=== PATIENT | female | born 1970 | race Caucasian/White ===

== ENCOUNTER 2020-05-15 07:43 | Outpatient (REF) | payer OTHER, SELFPAY ==
--- NOTE | 2020-05-15 | MM_ITS ---
EXAMINATION: MM SCREENING DIGITAL BREAST TOMOSYNTHESIS, BILATERAL CLINICAL INFORMATION: Screening. Asymptomatic. Prior history reduction mammoplasty. Family history breast cancer, aunt. The lifetime risk of breast cancer based on the Tyrer-Cuzick Model is 5%. COMPARISON: Mammography: 07/04/2018, 05/26/2016, 05/24/2015, 05/19/2015 TECHNIQUE: Digital breast tomosynthesis is performed in both the craniocaudal and mediolateral oblique views along with computer-aided detection (CAD). Synthesized 2D images are generated from the tomosynthesis. FINDINGS: There are scattered areas of fibroglandular density (ACR BI-RADS breast composition Category b). There is minor bilateral scarring and fine punctate round and dermal calcifications consistent with the prior reduction mammoplasty. Neither breast shows interval mass or architectural abnormality or abnormal calcifications. No significant changes. The axilla are unremarkable. MM/MM tomosynthesis screening BI IMPRESSION: No significant changes from prior studies. ASSESSMENT: BI-RADS 2: Benign RECOMMENDATION: Routine annual mammography screening. This patient's information was entered into a reminder system with a target due date for their next mammogram.
== END 2020-05-15 07:44 | disposition home or self-care (01) ==
LOC: HO.MAMMO 07:43
PROVIDERS: Visit Provider Internal Medicine Medical Oncology
DX: Z12.31 Encounter for screening mammogram for malignant neoplasm of breast (principal)
CPT/HCPCS: 77063; 77067

== ENCOUNTER 2020-05-26 06:41 | Outpatient (REF) | payer OTHER, SELFPAY | END 2020-05-26 06:42 | disposition home or self-care (01) | LOC: HO.LAB 06:41 | PROVIDERS: Visit Provider Internal Medicine | DX: Z20.828 Contact with and (suspected) exposure to other viral communicable diseases (principal) | CPT/HCPCS: C9803; U0003 ==

== ENCOUNTER 2020-06-26 07:20 | Outpatient (REF) | payer OTHER, SELFPAY | END 2020-06-26 07:21 | disposition home or self-care (01) | LOC: HO.LAB 07:20 | PROVIDERS: PCP Internal Medicine Medical Oncology; Visit Provider Internal Medicine | DX: Z20.828 Contact with and (suspected) exposure to other viral communicable diseases (principal) | CPT/HCPCS: C9803; U0003 ==

== ENCOUNTER 2020-07-20 09:38 | Outpatient (REF) | payer OTHER, SELFPAY | END 2020-07-20 09:39 | disposition home or self-care (01) | LOC: HO.LAB 09:38 | PROVIDERS: Visit Provider Internal Medicine | DX: Z20.828 Contact with and (suspected) exposure to other viral communicable diseases (principal) | CPT/HCPCS: 36415; C9803; U0003 ==

== ENCOUNTER → 2020-12-10 11:15 | Outpatient (BNVA) | payer SELFPAY | PROVIDERS: PCP Internal Medicine Medical Oncology; Visit Provider Internal Medicine | DX: Z02.79 Encounter for issue of other medical certificate (principal) ==

== ENCOUNTER 2020-12-27 10:47 | Outpatient (REF) | payer OTHER, SELFPAY ==
--- NOTE | ~2020-12-27 | XR_ITS ---
EXAMINATION: XR FOOT, RIGHT CLINICAL INFORMATION: Right foot pain. COMPARISON: None TECHNIQUE: AP, lateral, and oblique views of the right foot. FINDINGS: There is no acute or healing fracture, dislocation, destructive process. Bony mineralization is normal. There is no focal joint narrowing or erosive change. There are small posterior and plantar calcaneal spurs. The retrocalcaneal recess is preserved. XR/XR foot RT min 3V IMPRESSION: 1. Small posterior and plantar calcaneal spurs. 2. No fracture, destructive process, or arthropathy.
== END 2020-12-27 10:48 | disposition home or self-care (01) ==
LOC: HO.XRAY 10:47
PROVIDERS: PCP Internal Medicine Medical Oncology; Visit Provider Internal Medicine Medical Oncology
DX: M79.671 Pain in right foot (principal)
CPT/HCPCS: 73630

== ENCOUNTER 2021-04-06 07:16 | Outpatient (REF) | payer OTHER, SELFPAY ==
[2021-04-06 08:40] LABS: MANUAL DIFF FLAG NO
[2021-04-06 08:47] LABS: Basophils Absolute Auto 0.1 X10*3/uL (0.0-0.2); Basophils Percent Auto 1.1 % (0-2); Eosinophils Absolute Auto 0.2 X10*3/uL (0.0-0.4); Hematocrit 45.3 % (37-47); Hemoglobin 14.5 g/dl (12.0-16.0); Imm Gran Abs Auto 0.02 X10*3/uL (0.00-0.03); Imm Gran Pct Auto 0.3 % (0.0-0.4); Lymphocytes Absolute Auto 1.6 X10*3/uL (1.2-4.9); Lymphocytes Percent Auto 22.3 % (20-40); Mean Corpuscular Hemoglobin 29.5 pg (27.0-33.0); Mean Corpuscular Volume 92.3 fL (80-98); Mean Platelet Volume 10.2 fL (9.4-12.3); Monocytes Absolute Auto 0.5 X10*3/uL (0.1-1.2); Monocytes Percent Auto 6.7 % (2-11); Neutrophils Absolute Auto 4.7 X10*3/uL (2.0-8.3); Neutrophils Percent Auto 66.6 % (45-73); Platelet Count 334 X10*3/uL (160-400); Red Blood Count 4.91 X10*6/uL (4.20-5.50); Red Cell Distribution Width 12.6 % (11.0-16.0)
[2021-04-06 09:40] LABS: Alanine Aminotransferase 14 U/L (0-31); Albumin Level 4.2 g/dL (3.5-5.0); Alkaline Phosphatase 74 U/L (39-117); Anion Gap 11 (12-20); Aspartate Amino Transferase 17 U/L (5-31); Bilirubin Total 0.3 mg/dL (0.0-1.0); Blood Urea Nitrogen 7 mg/dL (9-16); Calcium 9.5 mg/dL (8.4-10.2); Carbon Dioxide 27 mmol/L (22-29); Chloride 105 mmol/L (96-108); Cholesterol 183 mg/dL; Estimated Glomerular Filt Rate > 60; Glucose Fasting 93 mg/dL (60-99); HDL Cholesterol 53 mg/dL; LDL Cholesterol Calculated 89 mg/dl; Potassium 4.3 mmol/L (3.3-5.1); Sodium 139 mmol/L (135-145); Total Protein 6.7 g/dL (6.5-8.0); Triglycerides 207 mg/dL
== END 2021-04-06 07:17 | disposition home or self-care (01) ==
LOC: HO.LAB 07:16
PROVIDERS: PCP Internal Medicine Medical Oncology; Visit Provider Internal Medicine Medical Oncology
DX: F32.9 Major depressive disorder, single episode, unspecified (principal); E66.9 Obesity, unspecified; E78.5 Hyperlipidemia, unspecified
CPT/HCPCS: 36415; 80053; 80061; 85025

== ENCOUNTER 2021-04-15 06:18 | Day surgery (SDC) | payer OTHER, SELFPAY ==
[2021-04-15 06:43] VITALS: BP 122/70; PULSE 74; RESP 20; TEMP 36.4; O2SAT 97; BMI 28.1
--- NOTE | 2021-04-15 07:40 | MHC.SHP ---
Pre-Procedural Eval Section A Date of Service: 04/15/21 The patient is an INPATIENT: No Changes since office visit: No Cold of Flu in the past 2 weeks, No New Medical Problems, No Changes in Medication and No Patient answered all questions The History & Physical has been completed within 30 days and I have reviewed it.: Yes Section B Chief Complaint: change of bowel habits Allergies: Allergies Allergy/AdvReac Type Severity Reaction Status Date / Time prednisone [PREDNISONE] Allergy Severe HIVES Verified 04/15/21 06:47 Plan I have reviewed the history and physical and performed a pertinent physical examination on my patient. No changes have occurred unless specified.
[2021-04-15 08:12] VITALS: BP 129/62; PULSE 69; RESP 16; TEMP 36.1; O2SAT 98
--- NOTE | 2021-04-15 08:15 | HO.ANESPROP2 ---
FORMERLY [facility], [facility] Past Medical History Medical History Anemia Anxiety PONV (postoperative nausea and vomiting) Family History Family history of problems with anesthesia: No Surgical History Surgical History History of bilateral breast reduction surgery History of cervical polypectomy History of endometrial ablation History of partial hysterectomy History of tonsillectomy History of Problems with Anesthesia: No Social History Social History Patient Tobacco Use Status: Never used Tobacco Use of substances other than those prescribed or required for medical reasons: Yes Are you DNR?: No Advance Directives: No Advance Directives Information Provided: Yes Meds Allergies Allergy/AdvReac Type Severity Reaction Status Date / Time prednisone [PREDNISONE] Allergy Severe HIVES Verified 04/15/21 06:47 Home Medications Medication Instructions Recorded Confirmed Last Taken Type No Known Home Meds 04/12/21 04/12/21 Unknown History Exam Exam Date and Time: April 15, 2021 0815 Height,Weight and Vital Signs: Height 5 ft 3 in Weight 72.121 kg Last Vital Signs Temp 97.5 F 04/15/21 06:43 Pulse 74 04/15/21 06:43 Resp 20 04/15/21 06:43 BP 122/70 04/15/21 06:43 Pulse Ox 97 04/15/21 06:43 Airway Mallampati Class: II TM Dist: >3cm Neck ROM: Full Assessment and Plan Assessment Anesthesia Assessment: Anesthesia Plan Discussed and Chart Reviewed Final Anesthetic Review Family History of Problems with Anesthesia: No History of Problems with Anesthesia: No NPO: Yes ASA Class: II Final Preanesthetic Review: No Changes in Pt Med Stat, Meds/Allgs Chart Reviewed, Consent Obtained/Reviewed and Anes Risks/Benef Reviewed Patient Risk: Low Procedure Risk: Low Assessment/Block/Sedation in SS: Assess/Block/Sedation-SS Anesthetic Plan Anesthetic Plan: MAC: Disposition: Standard PACU
--- NOTE | 2021-04-15 08:19 | P.BOP_ITS ---
Brief Operative Note Date of Service: 04/15/21 Pre-op diagnosis: diarrhea, change in bowels Post-op diagnosis: same (colon polyps) Procedure: colonoscopy Surgeon: Ruslan Wade Anesthesia: MAC Was an Lead Systems Analyst used for this Procedure?: No Estimated blood loss (mL): 5 Pathology: other (cecal polyp, bxs ti, r colon, rectosigmoid, polyp 15 cm) Condition: stable Disposition: PACU
[2021-04-15 08:27] VITALS: BP 130/61; PULSE 72; RESP 16; TEMP 36.1; O2SAT 97
--- NOTE | 2021-04-15 08:45 | OP_ITS ---
SURGEON: Ruslan Wade MD INDICATIONS: Diarrhea and change in bowel habits. PREOPERATIVE DIAGNOSIS: POSTOPERATIVE DIAGNOSIS: PROCEDURE PERFORMED: Colonoscopy to the terminal ileum with biopsy and snare polypectomy. ESTIMATED BLOOD LOSS: COMPLICATIONS: ANESTHESIA: Monitored anesthesia care. ASSISTANTS: SPECIMENS: DESCRIPTION OF PROCEDURE: History and physical performed. The risks and benefits of the procedure were explained to the patient. An informed consent was obtained. The patient was placed in the left lateral decubitus position. A digital rectal exam was performed and was found to be normal. The Olympus pediatric video colonoscope was introduced into the rectum and advanced to the cecum without difficulty. The cecum was identified by transillumination, palpation, and identification of the ileocecal valve. Examination was performed. The scope was removed. She tolerated the procedure well and was taken to recovery area in stable condition. FINDINGS: The terminal ileum was examined and appeared normal. This was biopsied in the cecum at the appendiceal orifice was a 7 mm polypoid area which appeared to extend partially into the appendiceal orifice. A cold snare was used to remove tissue, and a biopsy forceps was used to remove several more pieces of tissue, although it appeared there may be some residual polypoid tissue extending down into the appendiceal orifice. The visualized colonic mucosa was within normal limits without evidence of masses or ulcers. Biopsies were obtained from the right colon and rectosigmoid because of the patient's history of diarrhea. There was no evidence of colitis. The quality of prep was excellent. There was a small polyp at 15 cm, which was removed with biopsy forceps and retroflexed examination showed small internal hemorrhoids. IMPRESSION: 1. Colon polyps. 2. Change in bowel habits. RECOMMENDATION: Follow up the biopsy results. MD LEONIE Trevizo/KENNETH / [id number]
== END 2021-04-15 08:49 | disposition home or self-care (01) ==
PROVIDERS: PCP Internal Medicine Medical Oncology; Visit Provider Internal Medicine Gastroenterology
PROC: 0DJD8ZZ Inspection of Lower Intestinal Tract, Via Natural or Artificial Opening Endoscopic (ICD-10-PCS; CPT 45378; principal; 2021-04-15 07:50)
DX: R19.4 Change in bowel habit (principal); R19.7 Diarrhea, unspecified; D12.0 Benign neoplasm of cecum; K63.5 Polyp of colon; K64.8 Other hemorrhoids; D64.9 Anemia, unspecified; F41.1 Generalized anxiety disorder
CPT/HCPCS: 45385; 45380; 88305

== ENCOUNTER 2021-05-22 22:16 | Emergency (ER) | payer OTHER, SELFPAY ==
--- NOTE | ~2021-05-22 | XR_ITS ---
EXAMINATION: XR KNEE, LEFT CLINICAL INFORMATION: Pain COMPARISON: None TECHNIQUE: Four views of the left knee. FINDINGS: Small knee joint effusion. Bones are normal anatomic alignment. I do not appreciate any acute fracture or dislocation. No bony destructive lesion or periosteal reaction. XR/XR knee LT 4V IMPRESSION: Small joint effusion but no acute bony abnormality.
[2021-05-22 22:20] VITALS: BP 120/54; PULSE 104; RESP 20; TEMP 36.6; O2SAT 97; BMI 29.0
[2021-05-23] MEDS: Ketorolac Tromethamine 15 MG/ML VIAL 30 MG IM (00:01)
--- NOTE | 2021-05-23 00:04 | ED.LOWEXIN ---
HPI - Extremity Injury (Lower) General Chief Complaint: Extremity Injury, Lower Stated Complaint: Leg Injury Time Seen by Provider: 05/22/21 23:11 Source: patient Mode of arrival: ambulatory Limitations: no limitations History of Present Illness HPI Narrative: 50 yold with no signiciant pmh presents to the ED for left knee pain while playing soccer. patient states while playing soccer she heard her left knee pop which caused her to fall awkwardly unto her left knee. patient denies hitting head or loss of consciousness. patient denies chest pain, shortness of breath, abdominal pain, back pain, nausea, emesis, rectal bleeding, vomitting blood, or coughing up blood. Related Data Previous Rx's Medication Instructions Recorded cyclobenzaprine 10 mg tablet 10 mg PO TID PRN #18 tab 05/23/21 naproxen 500 mg tablet 500 mg PO BID PRN #20 tab 05/23/21 Allergies Allergy/AdvReac Type Severity Reaction Status Date / Time prednisone [PREDNISONE] Allergy Severe HIVES Verified 04/15/21 06:47 Review of Systems Review of Systems: Yes all other systems are reviewed and are negative Constitutional: Constitutional: Reports as per HPI and Reports no additional constitutional complaints Eyes: Eyes: Reports as per HPI and Reports no additional eye complaints ENT: Reports system reviewed and no additional complaints, except as documented and Reports as per HPI Cardiovascular: Cardiovascular: Reports as per HPI and Reports no additional cardiovascular complaints Respiratory: Respiratory: Reports as per HPI and Reports no additional respiratory complaints Gastrointestinal: Gastrointestinal: Reports as per HPI and Reports no additional gastrointestinal complaints Genitourinary: Genitourinary: Reports no additional female genitourinary complaints and Reports as per HPI Musculoskeletal: Musculoskeletal: Reports no additional musculoskeletal complaints, Reports as per HPI and Reports arthralgias (left knee pain) Integumentary/Breasts: Skin/Breast: Reports system reviewed and no additional complaints, except as docu and Reports as per HPI Neurologic: Reports system reviewed and no additional complaints, except as documented and Reports as per HPI Psychiatric: Psychiatric: Reports no additional psychiatric complaints and Reports as per HPI Endocrine: Endocrine: Reports no additional endocrine complaints and Reports as per HPI [facility] Past Medical History Medical History Anemia Anxiety PONV (postoperative nausea and vomiting) Surgical History History of bilateral breast reduction surgery History of cervical polypectomy History of endometrial ablation History of partial hysterectomy History of tonsillectomy Social History Social History Patient Tobacco Use Status: Never used Tobacco Advance Directives: No Advance Directives Information Provided: Yes Physical Exam Vital Signs: Vital Signs: Last Vital Signs Temp 97.9 F 05/22/21 22:20 Pulse 104 H 05/22/21 22:20 Resp 20 05/22/21 22:20 BP 120/54 L 05/22/21 22:20 Pulse Ox 97 05/22/21 22:20 Body Mass Index 29.0 Const: General: cooperative, healthy appearing, comfortable, no acute distress, well developed, alert, awake and Physically active Orientation/consciousness: patient oriented x3 HENMT: Head: Yes normal to inspection, Yes No palpable skull fracture present, Yes normocephalic, Yes atraumatic, No abrasion, No Acrocyanosis present, No Escamilla's sign, No contusion, No cranial bruits, No hematoma, No laceration, No occipital foramen tenderness, No palpable skull fracture, No raccoon eyes, No scalp lesion, No scalp tenderness, No Temporal artery tenderness present and No periorbital ecchymosis Eyes: General: appearance normal, both eyes and all related structures Neck: Neck: Yes normal visual inspection, Yes full ROM, Yes no lymphadenopathy, Yes no meningeal signs, Yes trachea midline, Yes supple, No anterior neck swelling and No tender Chest: Chest palpation & inspection: normal inspection of the chest and normal palpation of entire chest wall Resp: Effort & Inspection: normal respiratory effort and able to speak in complete sentences Auscultation: clear to auscultation bilaterally Cardio: Jugular venous distension: no JVD Heart sounds: S1 normal heart sound present and S2 normal heart sound present GI: Inspection: Yes normal to inspection and No abdominal wall ecchymosis Palpation (GI): Soft to palpation, not firm, nontender, no guarding and not rigid : General: No CVA tenderness and Yes no CVA tenderness Back/Spine/Pelvis: Back: no CVA tenderness, No CVA tenderness and No back tenderness Skin: General skin exam: no rashes or lesions noted and elasticity normal Neuro: General: patient oriented x3, gait normal, no meningeal signs and CN's II-XI intact bilaterally Cranial nerves: Yes CN's II-XII intact bilaterally Extrem: General: Yes normal to inspection Knee images: 1. Positive for tenderness on palpation. Negative for any erythema, ecchymosis, deformity, elasticity, warmth, or stiffness. Patient has complete range of motion in knee but with pain. Motor/neuro/vascular exam is intact. Popiteal and pedal pulses intact. Psych: Appearance: grossly normal, well kempt and not disheveled Course Course Course Narrative: Sent for xray Reevaluation(s) Reevaluation #1: Xray shows joint effussion after trauma. This indicates most likley meninscus or ligament injury. patient informed she would need MRI to rule out a mesnicus/ligament tear. Patient discharged with zaki wrap/crutches. patient discharged with pain meds. patiient informed to follow up with PCP and orthopedics. MDM - Extremity Injury (Lower) MDM Narrative Medical decision making narrative: knee sprain Discharge Plan Discharge Clinical Impression: Knee sprain, Joint effusion of knee Patient Disposition: Home, Self-Care Instructions: Knee Sprain (ED), Swollen Knee Joint (ED) Additional Instructions: Knee x-ray negative for fracture but she does show joint effusion after trauma. Most likely this meniscus or ligament damage. He will need MRI to rule out a tear. You need to follow-up with orthopedic. Your food discharged with pain medication and muscle relaxers. Return to the ED for worsening pain, swelling, redness, calf pain, bluish black discoloration, coldness, hotness, chest pain, shortness of breath, fever, chills, or any other concerning symptoms. Prescriptions: New naproxen 500 mg tablet 500 mg PO BID PRN (Reason: pain) Qty: 20 RF: 0 cyclobenzaprine 10 mg tablet 10 mg PO TID PRN (Reason: pain) Qty: 18 RF: 0 Referrals: Percy Harrison MD [Physician] - 2 days (Left knee sprain with joint effusion. Will need MRI to rule out meniscus/ligament tear.) Stand Alone Forms: Work/School Release Interventions: ED Discharge Assessment Last Done: 05/23/21 01:02 Discharge Date/Time: 05/23/21 01:04 Print Language: Azerbaijani
== END 2021-05-23 01:04 | disposition home or self-care (01) ==
PROVIDERS: Emergency Provider Internal Medicine; PCP Internal Medicine Medical Oncology
DX: S83.92XA Sprain of unspecified site of left knee, initial encounter (principal); X50.1XXA Overexertion from prolonged static or awkward postures, initial encounter; M25.462 Effusion, left knee; Y93.66 Activity, soccer; Y92.322 Soccer field as the place of occurrence of the external cause; Y99.9 Unspecified external cause status
CPT/HCPCS: 73564; 96372; 99284; J1885

== ENCOUNTER 2021-07-22 07:24 | Day surgery (SDC) | payer OTHER, SELFPAY ==
[2021-07-13 15:52] VITALS: BMI 29.2
[2021-07-22 07:43] VITALS: BP 141/80; PULSE 94; RESP 16; TEMP 36.7; O2SAT 97
[2021-07-22] MEDS: Lactated Ringers 1,000 ML 50 ML IVCONT (08:00)
--- NOTE | 2021-07-22 08:07 | MHC.SHP ---
Pre-Procedural Eval Section A Date of Service: 07/22/21 Section B Chief Complaint: polyp of colon Details of Present Illness: see H&P and addendum Relevant Family History (Specify if Yes): No Relevant Social History: None Present Medications: see Short Stay Collaborative assessment Medical History: No relevant PMH Allergies: Allergies Allergy/AdvReac Type Severity Reaction Status Date / Time prednisone [PREDNISONE] Allergy Severe HIVES Verified 04/15/21 06:47 Review of Systems Sugical H&P ROS: Negative: Constitution, Cardiovascular, Respiratory, Neurological, Psychiatric, Hem-Onc, Allergic/Immunologic, Gastrointestinal, Genitourinary, Musculoskeletal, Integumentary, Endocrine and Eyes/Ears/Nose/Throat Exam Surgical H&P Exam: Normal: HEENT, Normal: Heart, Normal: Lungs, Normal: Extremities, Normal: Abdomen, Normal: Skin and Normal: Neurological Plan Diagnosis/Plan: Unchanged I have reviewed the history and physical and performed a pertinent physical examination on my patient. No changes have occurred unless specified.
--- NOTE | 2021-07-22 08:29 | P.CONAN_ITS ---
ON LICENSE OF [facility] Past Medical History Medical History Anemia Anxiety History of blood transfusion PONV (postoperative nausea and vomiting) Functional capacity: independent ambulation Patient : No Family History Family history of problems with anesthesia: No Surgical History Surgical History History of bilateral breast reduction surgery History of cervical polypectomy History of colonoscopy History of endometrial ablation History of partial hysterectomy History of repair of anterior cruciate ligament of left knee History of tonsillectomy History of Problems with Anesthesia: No Social History Social History Patient Tobacco Use Status: Former Tobacco user Quit Date: 2003 Tobacco use type: Cigarette Smoked in Last 30 Days: No Use of substances other than those prescribed or required for medical reasons: Yes Substance Use Frequency: Daily Are you DNR?: No Advance Directives: No Advance Directives Information Provided: No Advance Directives on File: No Recently lost weight without trying: No Nutrition Risks: No Nutritional Risk Patient : No Meds Allergies Allergy/AdvReac Type Severity Reaction Status Date / Time prednisone [PREDNISONE] Allergy Severe HIVES Verified 04/15/21 06:47 Home Medications Medication Instructions Recorded Confirmed Last Taken Type ibuprofen 200 mg tablet 400 mg PO Q6H PRN 07/13/21 07/13/21 Unknown History Exam Exam Date and Time: July 22, 2021 0829 Height,Weight and Vital Signs: Height 5 ft 3 in Weight 74.843 kg Last Vital Signs Temp 98.0 F 07/22/21 07:43 Pulse 94 07/22/21 07:43 Resp 16 07/22/21 07:43 BP 141/80 H 07/22/21 07:43 Pulse Ox 97 07/22/21 07:43 Airway Mallampati Class: II TM Dist: >3cm Loose/Missing/Broken Teeth: No Heart: RRR Lungs: CTA Assessment and Plan Final Anesthetic Review Family History of Problems with Anesthesia: No History of Problems with Anesthesia: No NPO: Yes Final Preanesthetic Review: No Changes in Pt Med Stat, Meds/Allgs Chart Reviewed, Consent Obtained/Reviewed and Anes Risks/Benef Reviewed Procedure Risk: Low Anesthetic Plan Anesthetic Plan: MAC: Disposition: Standard PACU
[2021-07-22 09:10] VITALS: BP 105/56; PULSE 83; RESP 16; TEMP 36.3; O2SAT 96
--- NOTE | 2021-07-22 09:14 | P.CONAN_ITS ---
[facility] Past Medical History Medical History Anemia Anxiety History of blood transfusion PONV (postoperative nausea and vomiting) Functional capacity: independent ambulation Family History Family history of problems with anesthesia: No Surgical History Surgical History History of bilateral breast reduction surgery History of cervical polypectomy History of colonoscopy History of endometrial ablation History of partial hysterectomy History of repair of anterior cruciate ligament of left knee History of tonsillectomy History of Problems with Anesthesia: No Social History Social History Patient Tobacco Use Status: Former Tobacco user Quit Date: 2003 Tobacco use type: Cigarette Smoked in Last 30 Days: No Use of substances other than those prescribed or required for medical reasons: Yes Substance Use Frequency: Daily Are you DNR?: No Advance Directives: No Advance Directives Information Provided: No Advance Directives on File: No Recently lost weight without trying: No Nutrition Risks: No Nutritional Risk Patient : No Meds Allergies Allergy/AdvReac Type Severity Reaction Status Date / Time prednisone [PREDNISONE] Allergy Severe HIVES Verified 04/15/21 06:47 Home Medications Medication Instructions Recorded Confirmed Last Taken Type ibuprofen 200 mg tablet 400 mg PO Q6H PRN 07/13/21 07/13/21 Unknown History Exam Exam Date and Time: July 22, 2021 0914 Height,Weight and Vital Signs: Height 5 ft 3 in Weight 74.843 kg Last Vital Signs Temp 98.0 F 07/22/21 07:43 Pulse 94 07/22/21 07:43 Resp 16 07/22/21 07:43 BP 141/80 H 07/22/21 07:43 Pulse Ox 97 07/22/21 07:43 Assessment and Plan Final Anesthetic Review Family History of Problems with Anesthesia: No History of Problems with Anesthesia: No ASA Class: II Final Preanesthetic Review: No Changes in Pt Med Stat, Meds/Allgs Chart Reviewed, Consent Obtained/Reviewed and Anes Risks/Benef Reviewed Patient Risk: Low Procedure Risk: Low Anesthetic Plan Anesthetic Plan: MAC: Disposition: Standard PACU
--- NOTE | 2021-07-22 09:22 | PM.OP ---
Brief Operative Note Date of Service: 07/22/21 Pre-op diagnosis: colon polyp Post-op diagnosis: same Procedure: colonosocpy Surgeon: Ruslan Wade Anesthesia: MAC Was an Cafe Or Restaurant Manager used for this Procedure?: No Estimated blood loss (mL): 2 Pathology: other (bx's cecum, polyp 15 cm) Condition: stable Disposition: PACU
[2021-07-22 09:25] VITALS: BP 105/81; PULSE 72; RESP 18; TEMP 37; O2SAT 98
--- NOTE | 2021-07-22 09:37 | OP_ITS ---
SURGEON: Ruslan Wade MD INDICATIONS: Colon cancer screening and prior history of adenomatous colon polyp involving the appendiceal orifice. PREOPERATIVE DIAGNOSIS: POSTOPERATIVE DIAGNOSIS: PROCEDURE PERFORMED: Colonoscopy to the terminal ileum with biopsy. ESTIMATED BLOOD LOSS: COMPLICATIONS: ANESTHESIA: ASSISTANTS: SPECIMENS: MEDICATIONS: Monitored anesthesia care. DESCRIPTION OF PROCEDURE: History and physical performed. The risks and benefits of the procedure were explained to the patient and informed consent was obtained. The patient was placed in a left lateral decubitus position. A digital rectal exam was performed and was found to be normal. The Olympus pediatric videocolonoscope was introduced into the rectum and advanced to the cecum without difficulty. The cecum was identified by transillumination, palpation, and identification of ileocecal valve. Examination was performed. The scope was removed. She tolerated the procedure well and was taken to Recovery in stable condition. FINDINGS: The terminal ileum was normal. The area of the appendiceal orifice was carefully examined. The previously noted sessile serrated adenoma polyp was not clearly identified and no residual polypoid tissue was definitely seen. Random biopsies were taken at the appendiceal orifice from the previous polypectomy site. A single polyp measuring less than 5 mm at 15 cm was removed with biopsy forceps. No other polyps were seen. The quality of the prep was good. Retroflexed examination showed small internal hemorrhoids. IMPRESSION: Colon polyp. RECOMMENDATION: Follow up with biopsy results. MD LEONIE Trevizo/KENNETH / [id number]
--- NOTE | 2021-07-22 10:15 | HO.POSTANES ---
Post Anesthesia Evaluation Post Anesthesia Evaluation Vital Signs: Vital Signs Temp Pulse Resp BP Pulse Ox 07/22/21 09:25 98.6 F 72 18 105/81 98 07/22/21 09:10 97.3 F 83 16 105/56 L 96 07/22/21 07:43 98.0 F 94 16 141/80 H 97 Anesthesia: Monitored Mental Status: Awake Pain Control: Satisfactory Nausea/Vomiting: None Hydration: Adequate Anesthesia-Related Issues: No Anes. Related Issues
== END 2021-07-22 09:47 | disposition home or self-care (01) ==
PROVIDERS: PCP Internal Medicine Medical Oncology; Visit Provider Internal Medicine Gastroenterology
PROC: 0DJD8ZZ Inspection of Lower Intestinal Tract, Via Natural or Artificial Opening Endoscopic (ICD-10-PCS; CPT 45378; principal; 2021-07-22 08:30)
DX: Z12.11 Encounter for screening for malignant neoplasm of colon (principal); Z86.010 Personal history of colon polyps; D12.7 Benign neoplasm of rectosigmoid junction; R19.7 Diarrhea, unspecified; K64.8 Other hemorrhoids; D64.9 Anemia, unspecified; F41.1 Generalized anxiety disorder; Z88.8 Allergy status to other drugs, medicaments and biological substances; Z87.891 Personal history of nicotine dependence
CPT/HCPCS: 45380; 88305

== ENCOUNTER 2021-12-07 15:28 | Outpatient (REF) | payer OTHER, SELFPAY ==
--- NOTE | ~2021-12-07 | MM_ITS ---
EXAMINATION: MM SCREENING DIGITAL BREAST TOMOSYNTHESIS, BILATERAL CLINICAL INFORMATION: Screening. Asymptomatic. Status post reduction mammoplasty. The lifetime risk of breast cancer based on the Tyrer-Cuzick Model is 16.2%. COMPARISON: Mammography: 05/15/2020 and studies dating back to 02/28/2012. TECHNIQUE: Digital breast tomosynthesis is performed in both the craniocaudal and mediolateral oblique views along with computer-aided detection (CAD). Synthesized 2-D images are generated from the tomosynthesis. FINDINGS: There are scattered areas of fibroglandular density (ACR BI-RADS breast composition Category b). There are no significant masses, abnormal calcifications, or other abnormalities. On right breast craniocaudal view, there are 2 adjacent densities seen about the nipple line anterior breast but which are seen to appear stable when compared to study of 2019 and present to some degree prior to that. MM/MM tomosynthesis screening BI IMPRESSION: There are no significant changes from prior study. ASSESSMENT: BI-RADS 1: Negative. RECOMMENDATION: Routine annual mammography screening. This patient's information was entered into a reminder system with a target due date for their next mammogram.
== END 2021-12-07 15:29 | disposition home or self-care (01) ==
LOC: HO.MAMMO 15:28
PROVIDERS: PCP Internal Medicine Medical Oncology; Visit Provider Internal Medicine Medical Oncology
DX: Z12.31 Encounter for screening mammogram for malignant neoplasm of breast (principal)
CPT/HCPCS: 77063; 77067

== ENCOUNTER 2021-12-23 06:48 | Outpatient (REF) | payer OTHER, SELFPAY ==
[2021-12-23 07:03] LABS: MANUAL DIFF FLAG NO
[2021-12-23 07:49] LABS: Basophils Absolute Auto 0.1 X10*3/uL (0.0-0.2); Eosinophils Absolute Auto 0.2 X10*3/uL (0.0-0.4); Eosinophils Percent Auto 2.4 % (0-4); Hematocrit 45.5 % (37.0-47.0); Imm Gran Abs Auto 0.03 X10*3/uL (0.00-0.03); Imm Gran Pct Auto 0.4 % (0.0-0.4); Lymphocytes Absolute Auto 1.6 X10*3/uL (1.2-4.9); Lymphocytes Percent Auto 22.5 % (20-40); Mean Corpuscular Hemoglobin 30.6 pg (27.0-33.0); Mean Corpuscular Volume 92.9 fL (80.0-98.0); Mean Platelet Volume 10.5 fL (9.4-12.3); Monocytes Absolute Auto 0.5 X10*3/uL (0.1-1.2); Monocytes Percent Auto 7.6 % (2-11); Neutrophils Absolute Auto 4.7 x10*3/uL (2.0-8.3); Neutrophils Percent Auto 66.1 % (45-73); Platelet Count 309 X10*3/uL (160-400); Red Cell Distribution Width 12.7 % (11.0-16.0); White Blood Count 7.1 X10*3/uL (4.8-10.8)
[2021-12-23 07:51] LABS: Cholesterol 181 mg/dL; HDL Cholesterol 48 mg/dL; LDL Cholesterol Calculated 107 mg/dl; Triglycerides 133 mg/dL
== END 2021-12-23 06:49 | disposition home or self-care (01) ==
LOC: HO.LAB 06:48
PROVIDERS: PCP Internal Medicine Medical Oncology; Visit Provider Internal Medicine Medical Oncology
DX: Z00.00 Encounter for general adult medical examination without abnormal findings (principal)
CPT/HCPCS: 36415; 80061; 85025

== ENCOUNTER 2022-09-11 16:14 | Outpatient (REF) | payer OTHER, SELFPAY ==
[2022-09-11 16:29] LABS: MANUAL DIFF FLAG NO
[2022-09-11 17:05] LABS: Basophils Absolute Auto 0.1 X10*3/uL (0.0-0.2); Basophils Percent Auto 1.1 % (0-2); Eosinophils Absolute Auto 0.2 X10*3/uL (0.0-0.4); Eosinophils Percent Auto 2.6 % (0-4); Hematocrit 41.9 % (37.0-47.0); Hemoglobin 13.8 g/dl (12.0-16.0); Imm Gran Abs Auto 0.03 X10*3/uL (0.00-0.03); Imm Gran Pct Auto 0.3 % (0.0-0.4); Lymphocytes Absolute Auto 2.4 X10*3/uL (1.2-4.9); Lymphocytes Percent Auto 25.1 % (20-40); Mean Corpuscular HGB Conc 32.9 g/dl (31.0-35.0); Mean Corpuscular Hemoglobin 30.4 pg (27.0-33.0); Mean Corpuscular Volume 92.3 fL (80.0-98.0); Mean Platelet Volume 9.9 fL (9.4-12.3); Monocytes Absolute Auto 0.6 X10*3/uL (0.1-1.2); Monocytes Percent Auto 6.2 % (2-11); Neutrophils Absolute Auto 6.1 x10*3/uL (2.0-8.3); Neutrophils Percent Auto 64.7 % (45-73); Platelet Count 304 X10*3/uL (160-400); Red Blood Count 4.54 X10*6/uL (4.20-5.50); Red Cell Distribution Width 12.6 % (11.0-16.0); White Blood Count 9.4 X10*3/uL (4.8-10.8)
[2022-09-11 17:56] LABS: Alanine Aminotransferase 19 U/L (0-31); Albumin Level 4.3 g/dL (3.5-5.0); Alkaline Phosphatase 76 U/L (39-117); Aspartate Amino Transferase 16 U/L (5-31); Bilirubin Direct < 0.2 mg/dL (0.0-0.5); Bilirubin Total 0.4 mg/dL (0.0-1.0); Lipase 38 U/L (8-78); Total Protein 6.7 g/dL (6.5-8.0)
[2022-09-11 18:14] LABS: TSH reflex Free T4 2.04 uIU/mL (0.32-4.0)
== END 2022-09-11 16:15 | disposition home or self-care (01) ==
LOC: HO.LAB 16:14
PROVIDERS: PCP Internal Medicine Medical Oncology; Visit Provider Internal Medicine Gastroenterology
DX: R19.8 Other specified symptoms and signs involving the digestive system and abdomen (principal)
CPT/HCPCS: 36415; 80076; 83690; 84443; 85025

== ENCOUNTER 2022-10-14 07:11 | Outpatient (REF) | payer OTHER, SELFPAY ==
[2022-10-14 07:23] LABS: MANUAL DIFF FLAG NO
[2022-10-14 07:38] LABS: Basophils Absolute Auto 0.1 X10*3/uL (0.0-0.2); Basophils Percent Auto 1.1 % (0-2); Eosinophils Absolute Auto 0.2 X10*3/uL (0.0-0.4); Eosinophils Percent Auto 2.9 % (0-4); Hemoglobin 15.8 g/dl (12.0-16.0); Imm Gran Abs Auto 0.01 X10*3/uL (0.00-0.03); Imm Gran Pct Auto 0.1 % (0.0-0.4); Lymphocytes Absolute Auto 1.8 X10*3/uL (1.2-4.9); Lymphocytes Percent Auto 25.5 % (20-40); Mean Corpuscular HGB Conc 33.6 g/dl (31.0-35.0); Mean Corpuscular Hemoglobin 30.6 pg (27.0-33.0); Mean Corpuscular Volume 91.1 fL (80.0-98.0); Monocytes Absolute Auto 0.5 X10*3/uL (0.1-1.2); Monocytes Percent Auto 7.5 % (2-11); Neutrophils Absolute Auto 4.5 x10*3/uL (2.0-8.3); Neutrophils Percent Auto 62.9 % (45-73); Platelet Count 336 X10*3/uL (160-400); Red Blood Count 5.16 X10*6/uL (4.20-5.50); Red Cell Distribution Width 12.6 % (11.0-16.0); White Blood Count 7.2 X10*3/uL (4.8-10.8)
[2022-10-14 08:08] LABS: Alanine Aminotransferase 16 U/L (0-31); Albumin Level 4.4 g/dL (3.5-5.0); Alkaline Phosphatase 79 U/L (39-117); Anion Gap 14 (12-20); Aspartate Amino Transferase 16 U/L (5-31); Bilirubin Total 0.6 mg/dL (0.0-1.0); Blood Urea Nitrogen 14 mg/dL (9-16); Calcium 9.7 mg/dL (8.4-10.2); Carbon Dioxide 27 mmol/L (22-29); Chloride 103 mmol/L (96-108); Cholesterol 240 mg/dL; Estimated Glomerular Filt Rate > 60; Glucose Fasting 104 mg/dL (60-99); HDL Cholesterol 52 mg/dL; LDL Cholesterol Calculated 148 mg/dl; Potassium 4.5 mmol/L (3.3-5.1); Sodium 139 mmol/L (135-145); Total Protein 7.1 g/dL (6.5-8.0); Triglycerides 200 mg/dL
== END 2022-10-14 07:12 | disposition home or self-care (01) ==
LOC: HO.LAB 07:11
PROVIDERS: PCP Internal Medicine Medical Oncology; Visit Provider Internal Medicine Medical Oncology
DX: E66.9 Obesity, unspecified (principal); E78.5 Hyperlipidemia, unspecified
CPT/HCPCS: 36415; 80053; 80061; 85025

== ENCOUNTER 2022-11-03 15:27 | Outpatient (REF) | payer OTHER, SELFPAY ==
[2022-11-03 17:04] LABS: Free T4 (Free Thyroxine) 0.96 ng/dL (0.71-1.85); Thyroid Stimulating Hormone 2.23 uIU/mL (0.32-4.0)
== END 2022-11-03 15:28 | disposition home or self-care (01) ==
LOC: HO.LAB 15:27
PROVIDERS: PCP Internal Medicine Medical Oncology; Visit Provider Internal Medicine Medical Oncology
DX: Z13.29 Encounter for screening for other suspected endocrine disorder (principal); Z83.49 Family history of other endocrine, nutritional and metabolic diseases; E66.9 Obesity, unspecified; R00.1 Bradycardia, unspecified; E78.5 Hyperlipidemia, unspecified
CPT/HCPCS: 36415; 84439; 84443

== ENCOUNTER 2022-11-07 06:29 | Day surgery (SDC) | payer OTHER, SELFPAY ==
--- NOTE | 2022-11-06 13:20 | HO.ANESPROP2 ---
HPI - Anesthesia Eval Consult details Narrative: 51yo F for Colonoscopy s/p colo 07/2021 with [facility] Past Medical History Medical History Anemia Anxiety History of blood transfusion PONV (postoperative nausea and vomiting) Family History Family history of problems with anesthesia: No Surgical History Surgical History History of bilateral breast reduction surgery History of cervical polypectomy History of colonoscopy History of endometrial ablation History of partial hysterectomy History of repair of anterior cruciate ligament of left knee History of tonsillectomy History of Problems with Anesthesia: No Social History Social History Patient Tobacco Use Status: Former Tobacco user Quit Date: 2003 Tobacco use type: Cigarette Substance Use Frequency: Daily Are you DNR?: No Advance Directives: No Advance Directives Information Provided: Yes Nutrition Risks: No Nutritional Risk Meds Allergies Allergy/AdvReac Type Severity Reaction Status Date / Time prednisone [PREDNISONE] Allergy Severe HIVES Verified 11/07/22 06:51 Home Medications Medication Instructions Recorded Confirmed Last Taken Type ibuprofen 200 mg tablet 400 mg PO Q6H PRN Pain 07/13/21 07/13/21 Unknown History dicyclomine 10 mg capsule 10 mg PO 11/06/22 11/06/22 Unknown History hydrocortisone acetate 25 mg 25 mg AR BID 11/06/22 11/06/22 Unknown History rectal suppository (Anucort-HC) Exam Exam Date and Time: November 06, 2022 1320 Pertinent Lab Results Pertinent Lab Results: Laboratory Tests 10/14/22 10/14/22 07:22 07:22 WBC 7.2 Hgb 15.8 Hct 47.0 Plt Count 336 Sodium 139 Potassium 4.5 Chloride 103 Carbon Dioxide 27 BUN 14 Creatinine 0.96 Assessment and Plan Assessment Anesthesia Assessment: Chart Reviewed Final Anesthetic Review Family History of Problems with Anesthesia: No History of Problems with Anesthesia: No
--- OUTSIDE RECORDS SUMMARY | 2022-11-07 06:31 | XMS_ITS | Continuity of Care Document ---
Author Name Unknown Organization [facility] Address [address] [place] [address] [address] [place] [address]- Care Team Providers Care Movie Operator Name Role Phone Aroldo Blanchard MD Primary Care Physician Encounter [facility] Date(s): 09/06/22 - 09/13/[address] [place] [address]- Encounter Diagnosis Hemorrhoids(Discharge Diagnosis) - 09/06/22 Attending Physician: Jake Melissa Referring Physician: Ruslan Wade MD Allergies, Adverse Reactions, Alerts Substance Reaction Severity Status predniSONE Active Medications hydrocortisone topical 25 mg suppository 1 supp = 25 mg, Rectally, 2 times a day, for 14 days, # 28 supp, 0 Refills, Acute 09/20/22 15:14:00EST, 09/06/22 15:14:00 EST, Suppository, [id number], Partial fill upon patient request if the prescription is for a schedule II opioid drug.... Start Date: 09/06/22 Stop Date: 09/20/22 Status: Ordered medical marijuana gummies prn anxiety medical marijuana gummies prn anxiety, Refills 0, Maintenance, 06/02/21 16:30:00 EST, Supply Start Date: 06/02/21 Status: Ordered naproxen 500 mg oral tablet 1 tablet = 500 mg, By Mouth, 2 times a day, with food, 0 Refills, Acute, 06/12/22 12:23:00 EST, Partial fill upon patient request if the prescription is for a schedule II opioid drug. Start Date: 06/12/22 Status: Ordered oxyCODONE 5 mg oral tablet See Instructions, PRN, 1-2 tablet By Mouth Every 4-[address] WHILE TAKING THIS MEDICATION., Refills 0, Tot. Refills 0, Acute, Pain , Moderate, 06/12/22 12:22:00 EST, Instructions Replace Required Details, Partial fill upon patient request... Start Date: 06/12/22 Status: Ordered Problem List Condition Confirmation Course Effective Dates Status Health St atus Informant Obese class I Confirmed Active Left ACL tear Confirmed Active Diagnosis Diagnosis Type Effective Dates Health Status Clini quan Service Informant Hemorrhoids Discharge Diagnosis 09/06/22 Vital Signs Most recent to oldest [Reference Range]: 1 Height 160 cm (09/06/22 2:49 PM) Weight 82.4 kg (09/06/22 2:49 PM) Pulse Rate [55-90 bpm] 82 bpm (09/06/22 2:49 PM) Body Mass Index [18.5-24.99 kg/m2] 32.19 kg/m2 *>HHI* (09/06/22 2:49 PM) Blood Pressure [90-138/55-84 mm Hg] 149/ 82mm Hg *H* (09/06/22 2:49 PM) Blood pressure sites Arm, right (09/06/22 2:49 PM) Weight Obtained Via Standing scale (09/06/22 2:49 PM) Patient Care team information Care Team Personnel Name: Aroldo Blanchard MD Position: [facility] Oncology MD Member Role: PCP Address: Address: [address] Aroldo Blanchard III, [place] [address]- Care Team Related Persons Name: JOSE F SANCHEZ Name: CELINE BLAKE Address: home [address] [place] [address] Name: JOSÉ MIGUEL LEYVA Address: home [address] [place] [address]
--- OUTSIDE RECORDS SUMMARY | 2022-11-07 06:31 | XMS_ITS | Continuity of Care Document ---
Author Name Unknown Organization [facility] Address [address] [place] [address] [address] [place] [address]- Care Team Providers Care Writer Technical Publications Name Role Phone Aroldo Blanchard MD Primary Care Physician [phone] Encounter [facility] Date(s): 09/20/22 - 09/27/[address] [place] [address]- Encounter Diagnosis Hemorrhoids(Discharge Diagnosis) - 09/20/22 Attending Physician: Jake Melissa Allergies, Adverse Reactions, Alerts Substance Reaction Severity Status predniSONE Active Medications hydrocortisone topical 25 mg suppository 1 supp = 25 mg, Rectally, 2 times a day, for 14 days, # 28 supp, 0 Refills, Acute 10/04/22 15:16:00EDT, 09/20/22 15:16:00 EST, Suppository, [id number], Partial fill upon patient request if the prescription is for a schedule II opioid drug.... Start Date: 09/20/22 Stop Date: 10/04/22 Status: Ordered medical marijuana gummies prn anxiety [...] Clini quan Service Informant Hemorrhoids Discharge Diagnosis 09/20/22 Vital Signs Most recent to oldest [Reference Range]: 1 Height 160 cm (09/20/22 2:58 PM) Weight 82 kg (09/20/22 2:58 PM) Body Mass Index [18.5-24.99 kg/m2] 32.03 kg/m2 *>HHI* (09/20/22 2:58 PM) Temperature [96.8-100.4 DegF] 98 DegF (09/20/22 2:58 PM) Weight Obtained Via Standing scale (09/20/22 2:58 PM) Patient Care team information Care Team Personnel Name: Aroldo Blanchard MD Position: [facility] Oncology MD Member Role: PCP Address: Address: [address] [place], [place] [address] Aroldo Blanchard III, [place] [address]- Care Team Related Persons Name: JOSE F SANCHEZ Name: CELINE BLAKE Address: [address] [place] [address] Name: JOSÉ MIGUEL LEYVA Address: home [address] [place] [address]
--- OUTSIDE RECORDS SUMMARY | 2022-11-07 06:31 | XMS_ITS ---
Author Name Mauro Castro Ruslan Address [address] [place] [address] Organization [facility] Address [address] [place] [address] Care Team Providers Care Sap Security Architect Name Role Phone Ruslan Wade Jr Unavailable PROBLEMS Type Condition ICD9-CM Code PDC40-ED Code Onset Dates Condition Status SNOMED Code Problem Polyp of colon, unspecified part of colon, unspecified type K63.5 Active 72401153 Problem Change in bowel function R19.8 Active 96407417 Problem Change in bowel habits R19.4 Active 25823428 Problem Diarrhea, unspecified type R19.7 Active 20237793 Problem Hemorrhoids, unspecified hemorrhoid type K64.9 Active [id number] ALLERGIES Substance Reaction Event Type Date Status Seasonal IC Unknown Drug Allergy Sep, Active ENCOUNTERS Encounter Location Date Diagnosis [facility] Outpatient [address] [place], [place] [id number] Oct, [facility] [address] [place] [phone] Sep, [facility] [address] [place] [phone] Sep, Polyp of colon, unspecified part of colon, unspecified type K63.5 and Hemorrhoids, unspecified hemorrhoid type K64.9 [facility] [address] [place] [phone] Sep, [facility] [address] [facility] [address] [place] [phone] Aug, Change in bowel function R19.8 [facility] [address] [place] [phone] 18 Jul, 2022 [facility] [address] [place] [phone] 11 Jul, 2021 [facility] Outpatient [address] [place] [id number] Jul, 2021 Colon polyps K63.5 [facility] [address] [place] [phone] Apr, Cecal polyp K63.5 [facility] Outpatient [address] [place] [phone] Apr, Change in bowel habits R19.4 and Colon polyp K63.5 [facility] [address] [place] [phone] Mar, Diarrhea, unspecified type R19.7 and Change in bowel habits R19.4 IMMUNIZATIONS Vaccine Route Administration Date Status Influenza Unknown Mar 16, 2022 Administered Influenza Unknown Apr 06, 2021 Administered SOCIAL HISTORY Qualifiers Date Never Smoker REASON FOR REFERRAL FUNCTIONAL STATUS PLAN OF CARE Activity Details VITAL SIGNS Weight 172 lbs 2022-09-14 Weight 172 lbs 2021-04-06 Height 63 in 2022-09-14 Height 63 in 2021-04-06 BMI 30.47 kg/m2 2022-09-14 BMI 30.47 kg/m2 2021-04-06 Temperature 96.0 degrees Fahrenheit Blood pressure systolic 000 mm Hg Blood pressure diastolic 00 mm Hg 2022-09 MEDICATIONS Medication Instructions Dosage Frequency Start Date End Date Duration Status Calcium Active Dicyclomine HCl 10 MG Orally 2-4 times a day 1 tablet Aug, Active Anucort-HC 25 MG Rectal Once a day 1 suppository 24h Active Multivitamin Adult Active MiraLax (colon prep) 17 GM/SCOOP Orally begin at 5:00 p.m. the day before the procedure mixed with Gatorade or Crystal Light Sep, 1 day Active PROCEDURES Procedure Date Ordered Result Body Site Pt scrn tbco id as non user September 14, 2022 Pt scrn tbco id as non user Apr 06, 2021 DOC RSN FOR NOT SCREEN/REC F/U HBP Apr 06, 2021 DOC MEDS VERIFIED W/PT OR RE September 14, 2022 LESION REMOVAL COLONOSCOPY Apr 15, 2021 DOC MEDS VERIFIED W/PT OR RE Apr 06, 2021 COLORECTAL CA SCREEN DOC REV September 14, 2022 COLONOSCOPY AND BIOPSY Jul 22, 2021 DOC RSN FOR NOT SCREEN/REC F/U HBP September 14, 2022 COLONOSCOPY AND BIOPSY Apr 15, 2021 RESULTS Name Result Date Reference Range Complete Blood Count Auto Diff 2022-09-11 White Blood Count 9.4 4.8-10.8 Red Blood Count 4.54 4.20-5.50 Hemoglobin 13.8 12.0-16.0 Hematocrit 41.9 37.0-47.0 Mean Corpuscular Volume 92.3 80.0 -98.0 Mean Corpuscular Hemoglobin 30.4 27.0-33.0 Mean Corpuscular HGB Conc 32.9 31 .0-35.0 Red Cell Distribution Width 12.6 11.0-16.0 Platelet Count 304 160-400 Mean Platelet Volume 9.9 9.4-12. 3 Neutrophils Percent Auto 64.7 45- 73 Imm Gran Pct Auto 0.3 0.0-0.4 Lymphocytes Percent Auto 25.1 20- 40 Monocytes Percent Auto 6.2 2-11 Eosinophils Percent Auto 2.6 0-4 Basophils Percent Auto 1.1 0-2 NRBC Pct Auto 0.0 0.0-0.2 Neutrophils Absolute Auto 6.1 2. 0-8.3 Imm Gran Abs Auto 0.03 0.00-0.03 Lymphocytes Absolute Auto 2.4 1. 2-4.9 Monocytes Absolute Auto 0.6 0.1- 1.2 Eosinophils Absolute Auto 0.2 0. 0-0.4 Basophils Absolute Auto 0.1 0.0- 0.2 NRBC Abs Auto 0.000 0.0-0.012 Liver Panel 2022-09-11 Bilirubin Total 0.4 0.0-1.0 Bilirubin Direct < 0.2 0.0-0.5 Aspartate Amino Transferase 16 5-31 Alanine Aminotransferase 19 0-3 1 Total Protein 6.7 6.5-8.0 Albumin Level 4.3 3.5-5.0 Alkaline Phosphatase 76 39-117 Lipase 2022-09-11 Lipase 38 8-78 TSH reflex Free T4 2022-09-11 TSH reflex Free T4 2.04 0.32-4.0 Pathology 2021-07-22 Pathology 2021-04-15 REASON FOR VISIT colon polyp, please lock 09-14-2022 office note, Patient presents today for a COLON POLYP, labs, continue symptoms., symptoms, pathology, cecal polyp, pathology , CHANGE IN BOWELS, Patient presents today for DIARRHEA Insurance Providers Health Insurance Type Health Plan Insurance Address Health Plan Insurance Phone Health Plan Insurance Name Health Plan Coverage Dates Member ID Patient Relationship to Subscriber Patient Address Patient Phone Patient Name Patient Date of Subscriber ID Subscriber Name Subscriber Date of Group No [employer] [address] [place] [id number] [employer] self LUPE LEYVA [id number]
--- OUTSIDE RECORDS SUMMARY | 2022-11-07 06:31 | XMS_ITS | Continuity of Care Document ---
Author Name Unknown Organization [facility] Address [address] [place] [address] [address] [place] [address]- Care Team Providers Care Management Professionals Name Role Phone Aroldo Blanchard MD Primary Care Physician [phone] Encounter [facility] Date(s): 09/20/22 - 10/20/22 [facility] [address] [place] [address]- Attending Physician: Nohemy Elder Admitting Physician: AdmtrNohemy Referring Physician: Admtr ArDian Allergies, Adverse Reactions, Alerts Substance Reaction Severity Status predniSONE Active Medications medical marijuana gummies prn anxiety medical marijuana [...] Confirmed Active Left ACL tear Confirmed Active Patient Care team information Care Team Personnel Name: Aroldo Blanchard MD Position: S Oncology MD Member Role: PCP Address: Address: [address] [place] [address] [address] [place] [address]- Care Team Related Persons Name: JOSE F SANCHEZ Name: CELINE BLAKE Address: [address] [place] [address] Name: JOSÉ MIGUEL LEYVA Address: [address] [place] [address]
--- OUTSIDE RECORDS SUMMARY | 2022-11-07 06:31 | XMS_ITS ---
Author Name Aroldo Blanchard Address [address] [place] [address] [place] [address] Organization Aroldo Blanchard III, MD Address [address] [place] [address] Care Team Providers Care Time Study Statistician Name Role Phone Aroldo Blanchard [facility] [phone] PROBLEMS Type Condition ICD9-CM Code JAH80-EO Code Onset Dates Condition Status SNOMED Code Problem Penicillin allergy Z88.0 Active 51892 005 Problem History of depression Z86.59 Active 924187746 Problem Environmental allergies Z91.09 Active 529607745 Problem Rash R21 Active 677359915 Problem Depression F32.9 Active 964595083 Problem Former smoker Z87.891 Active 8361442 Problem Obesity (BMI 30.0-34.9) E66.9 Active 166011333 Problem Diet controlled gestational diabetes mellitus (GDM) in third trimester O24.410 Active 29211085 Problem Hyperlipidemia, unspecified hyperlipidemia type E78.5 Active 38400707 ALLERGIES No Known Allergies ENCOUNTERS Encounter Location Date Diagnosis Aroldo Blanchard III, MD [address] [place] [address] [place] [address] Oct, Annual physical exam Z00.00 ; Encounter for screening mammogram for malignant neoplasm of breast Z12.31 ; Family history of hypothyroidism Z83.49 ; Obesity (BMI 30.0-34.9) E66.9 ; Diet controlled gestational diabetes mellitus (GDM) in third trimester O24.410 ; Hyperlipidemia, unspecified hyperlipidemia type E78.5 and Former smoker Z87.891 Aroldo Blanchard III, MD [address] [place] [address] [place] [address] 09 Jul, 2022 Obesity (BMI 30.0-34.9) E66.9 and Hyperlipidemia, unspecified hyperlipidemia type E78.5 Aroldo Blanchard III, MD [address] [place] [address] [place] [address] 15 May, 2022 Aroldo Blanchard III, MD [address] [place] [address] [place] [address] 10 May, 2022 Aroldo Blanchard III, MD [address] [place] [address] [place] [address] 10 May, 2022 Aroldo Blanchard III, MD [address] [place] [address] [place] [address] 04 Apr, 2022 Rash R21 ; Obesity (BMI 30.0-34.9) E66.9 ; Former smoker Z87.891 ; Environmental allergies Z91.09 ; History of depression Z86.59 and Depression F32.9 Aroldo Blanchard III, MD [address] [place] [address] [place] [address] 07 Dec, 2021 Rash R21 Aroldo Blanchard III, MD [address] [place] [address] [place] [address] November, Annual physical exam Z00.00 Aroldo Blanchard III, MD [address] [place] [address] [place] [address] 08 May, 2021 Aroldo Blanchard III, MD [address] [place] [address] [place] [address] 15 Dec, 2020 Aroldo Blanchard III, MD [address] [place] [address] [place] [address] 14 Dec, 2020 Right foot pain M79.671 Aroldo Blanchard III, MD [address] [place] [address] [place] [address] 18 Nov, 2020 Rash R21 ; Hyperlipidemia, unspecified hyperlipidemia type E78.5 ; History of depression Z86.59 ; Former smoker Z87.891 ; Obesity (BMI 30.0-34.9) E66.9 and Diet controlled gestational diabetes mellitus (GDM) in third trimester O24.410 Aroldo Blanchard III, MD [address] [place] [address] [place] [address] November, Depression F32.9 ; Former smoker Z87.891 ; Obesity (BMI 30.0-34.9) E66.9 and Rash R21 Aroldo Blanchard III, MD [address] [place] [address] [place] [address] Oct, Depression F32.9 ; Obesity (BMI 30.0-34.9) E66.9 ; Hyperlipidemia, unspecified hyperlipidemia type E78.5 ; Allergic contact dermatitis due to plants, except food L23.7 and Former smoker Z87.891 Aroldo Blanchard III, MD [address] [place] [address] [place] [address] Sep, Aroldo Blanchard III, MD [address] [place] [address] [place] [address] Aug, Depression F32.9 ; Former smoker Z87.891 ; Obesity (BMI 30.0-34.9) E66.9 ; Environmental allergies Z91.09 and Hyperlipidemia, unspecified hyperlipidemia type E78.5 Aroldo Blanchard III, MD [address] [place] [address] [place] [address] Apr, Obesity (BMI 30.0-34.9) E66.9 ; Annual visit for general adult medical examination without abnormal findings Z00.00 ; Diet controlled gestational diabetes mellitus (GDM) in third trimester O24.410 ; Former smoker Z87.891 ; Hyperlipidemia, unspecified hyperlipidemia type E78.5 and History of depression Z86.59 Aroldo Blanchard III, MD [address] [place] [address] [place] [address] Jan, Aroldo Blanchard III, MD [address] [place] [address] [place] [address] Dec, Obesity (BMI 30.0-34.9) E66.9 ; Hyperlipidemia, unspecified hyperlipidemia type E78.5 and Rash R21 Aroldo Blanchard III, MD [address] [place] [address] [place] [address] November, History of depression Z86.59 ; Former smoker Z87.891 ; Obesity (BMI 30.0-34.9) E66.9 ; Hyperlipidemia, unspecified hyperlipidemia type E78.5 and Rash R21 Aroldo Blanchard III, MD [address] [place] [address] [place] [address] Oct, Hyperlipidemia, unspecified hyperlipidemia type E78.5 Aroldo Blanchard III, MD [address] [place] [address] [place] [address] Oct, Hyperlipidemia, unspecified hyperlipidemia type E78.5 ; Obesity (BMI 30.0-34.9) E66.9 ; Former smoker Z87.891 ; History of depression Z86.59 and Allergic contact dermatitis due to plants, except food L23.7 Aroldo Blanchard III, MD [address] [place] [address] [place] [address] Oct, Allergic contact dermatitis due to plants, except food L23.7 ; Obesity (BMI 30.0-34.9) E66.9 ; Former smoker Z87.891 ; Environmental allergies Z91.09 and Hyperlipidemia, unspecified hyperlipidemia type E78.5 Aroldo Blanchard III, MD [address] [place] [address] [place] [address] Sep, Viral upper respiratory tract infection J06.9 ; History of depression Z86.59 ; Environmental allergies Z91.09 ; Former smoker Z87.891 and Obesity (BMI 30.0-34.9) E66.9 Aroldo Blanchard III, MD [address] [place] [address] [place] [address] Aug, Aroldo Blanchard III, MD [address] [place] [address] [place] [address] Jul, History of depression Z86.59 ; Environmental allergies Z91.09 ; Former smoker Z87.891 ; Obesity (BMI 30.0-34.9) E66.9 and Hyperlipidemia, unspecified hyperlipidemia type E78.5 Aroldo Blanchard III, MD [address] [place] [address] [place] [address] Apr, Obesity (BMI 30.0-34.9) E66.9 ; Hyperlipidemia, unspecified hyperlipidemia type E78.5 ; Annual physical exam Z00.00 ; Former smoker Z87.891 ; History of depression Z86.59 and Diabetes mellitus of other type with complication, unspecified whether senior care insulin use E13.8 Aroldo Blanchard III, MD [address] [place] [address] [place] [address] Oct, Diet controlled gestational diabetes mellitus (GDM) in third trimester O24.410 ; Obesity (BMI 30.0-34.9) E66.9 ; Hyperlipidemia, unspecified hyperlipidemia type E78.5 ; Former smoker Z87.891 and History of depression Z86.59 Aroldo Blanchard III, MD [address] [place] [address] 13 Sep, 2018 Immunization, tetanus toxoid Z23 Aroldo Blanchard III, MD [address] [place] [address] [place] [address] Sep, Aroldo Blanchard III, MD [address] [place] [address] [place] [address] Jul, Aroldo Blanchard III, MD [address] [place] [address] [place] [address] Jul, Aroldo Blanchard III, MD [address] [place] [address] [place] [address] Jun, Aroldo Blanchard III, MD [address] [place] [address] [place] [address] Jun, Obesity (BMI 30.0-34.9) E66.9 ; Hyperlipidemia, unspecified hyperlipidemia type E78.5 ; Anemia, unspecified type D64.9 and Diabetes mellitus of other type with complication, unspecified whether 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 insulin use E13.8 Aroldo Blanchard III, MD [address] [place] [address] [place] [address] Jun, Breast screening Z12.31 ; Diet controlled gestational diabetes mellitus (GDM) in third trimester O24.410 ; Obesity (BMI 30.0-34.9) E66.9 ; Former smoker Z87.891 ; Environmental allergies Z91.09 and History of depression Z86.59 IMMUNIZATIONS Vaccine Route Administration Date Status tetanus and diphtheria toxoi ds adsorbed IM Intramuscular September 25, 2018 Administered SOCIAL HISTORY Qualifiers Date Former Smoker REASON FOR REFERRAL FUNCTIONAL STATUS PLAN OF CARE Activity Details VITAL SIGNS Height 63 in 2022-10-30 Height 63 in 2022-04-18 Height 63 in 2020-11-26 Height 63 in 2020-11-02 Height 63 in 2020-09-07 Height 63 in 2020-05-10 Height 63 in 2019-12-16 Height 63 in 2019-11-07 Height 63 in 2019-09-15 Height 63 in 2019-08-08 Height 63 in 2019-04-24 Height 63 in 2018-10-22 Height 63 in 2018-09-25 Height 63 in 2018-06-24 Weight 178 lbs 2022-10-30 Weight 174 lbs 2022-04-18 Weight 171 lbs 2020-11-26 Weight 171 lbs 2020-11-02 Weight 172 lbs 2020-09-07 Weight 176 lbs 2020-05-10 Weight 180 lbs 2019-12-16 Weight 177 lbs 2019-11-07 Weight 172 lbs 2019-09-15 Weight 176 lbs 2019-08-08 Weight 172 lbs 2019-04-24 Weight 178 lbs 2018-10-22 Weight 177 lbs 2018-09-25 Weight 177 lbs 2018-06-24 BMI 31.53 kg/m2 2022-10-30 BMI 30.82 kg/m2 2022-04-18 BMI 30.29 kg/m2 2020-11-26 BMI 30.29 kg/m2 2020-11-02 BMI 30.47 kg/m2 2020-09-07 BMI 31.17 kg/m2 2020-05-10 BMI 31.88 kg/m2 2019-12-16 BMI 31.35 kg/m2 2019-11-07 BMI 30.47 kg/m2 2019-09-15 BMI 31.17 kg/m2 2019-08-08 BMI 30.47 kg/m2 2019-04-24 BMI 31.53 kg/m2 2018-10-22 BMI 31.35 kg/m2 2018-09-25 BMI 31.35 kg/m2 2018-06-24 Heart Rate 84 /min 2022-10-30 Heart Rate 93 /min 2022-04-18 Heart Rate 82 /min 2020-11-26 Heart Rate 83 /min 2020-11-02 Heart Rate 87 /min 2020-09-07 Heart Rate 72 /min 2020-05-10 Heart Rate 70 /min 2019-12-16 Heart Rate 64 /min 2019-11-07 Heart Rate 78 /min 2019-09-15 Heart Rate 94 /min 2019-08-08 Heart Rate 64 /min 2019-04-24 Heart Rate 80 /min 2018-10-22 Heart Rate 70 /min 2018-09-25 Heart Rate 82 /min 2018-06-24 Temperature 97.1 degrees Fahrenheit Temperature 96.7 degrees Fahrenheit Temperature 97.2 degrees Fahrenheit Temperature 97.3 degrees Fahrenheit Temperature 96.9 degrees Fahrenheit Temperature 96.9 degrees Fahrenheit Oximetry 98 ra % 2018-06-24 Blood pressure systolic 120 mm Hg Blood pressure diastolic 70 mm Hg 2022-10 MEDICATIONS No Known Medications PROCEDURES Procedure Date Ordered Result Body Site MEASURE BLOOD OXYGEN LEVEL Jun 24, 2018 PHONE E/M BY PHYS 11-20 MIN November 04, 2019 PHONE E/M BY PHYS 11-20 MIN November 30, 2020 URINE-NO MICRO May 10, 2020 URINE-NO MICRO October 30, 2022 TD VACCINE NO PRSRV >/= 7 IM September 25, 2018 tetanus and diphtheria toxoids adsorbed September 25, 2018 RESULTS Name Result Date Reference Range URINE DIP STICK 2022-10-30 SG 1.000 1.005 - 1.025 pH 5.0 5.0 - 9.0 NICKOLAS neg Negative - NIT neg Negative - PRO neg Negative - Trac e GLU neg Negative - KET neg Negative - UBG 0.2 0.1 - 1.8 BRYSON neg 0.2 - 1.3 BLD positive Negative - Menstrating no Complete Blood Count Auto Diff 2022-10-14 White Blood Count 7.2 4.8-10.8 Red Blood Count 5.16 4.20-5.50 Hemoglobin 15.8 12.0-16.0 Hematocrit 47.0 37.0-47.0 Mean Corpuscular Volume 91.1 80.0 -98.0 Mean Corpuscular Hemoglobin 30.6 27.0-33.0 Mean Corpuscular HGB Conc 33.6 31 .0-35.0 Red Cell Distribution Width 12.6 11.0-16.0 Platelet Count 336 160-400 Mean Platelet Volume 10.0 9.4-12. 3 Neutrophils Percent Auto 62.9 45- 73 Imm Gran Pct Auto 0.1 0.0-0.4 Lymphocytes Percent Auto 25.5 20- 40 Monocytes Percent Auto 7.5 2-11 Eosinophils Percent Auto 2.9 0-4 Basophils Percent Auto 1.1 0-2 NRBC Pct Auto 0.0 0.0-0.2 Neutrophils Absolute Auto 4.5 2. 0-8.3 Imm Gran Abs Auto 0.01 0.00-0.03 Lymphocytes Absolute Auto 1.8 1. 2-4.9 Monocytes Absolute Auto 0.5 0.1- 1.2 Eosinophils Absolute Auto 0.2 0. 0-0.4 Basophils Absolute Auto 0.1 0.0- 0.2 NRBC Abs Auto 0.000 0.0-0.012 Comprehensive Mccool. Panel Fast 2022-10-14 Sodium 139 135-145 Potassium 4.5 3.3-5.1 Chloride 103 96-108 Carbon Dioxide 27 22-29 Anion Gap 14 12-20 Blood Urea Nitrogen 14 9-16 Creatinine 0.96 0.5-1.4 Estimated Glomerular Filt Rate >60 Glucose Fasting 104 60-99 Calcium 9.7 8.4-10.2 Bilirubin Total 0.6 0.0-1.0 Aspartate Amino Transferase 16 5-31 Alanine Aminotransferase 16 0-3 1 Total Protein 7.1 6.5-8.0 Albumin Level 4.4 3.5-5.0 Alkaline Phosphatase 79 39-117 Lipid Panel 2022-10-14 Triglycerides 200 Cholesterol 240 LDL Cholesterol Calculated 148 HDL Cholesterol 52 Complete Blood Count Auto Diff 2021-12-23 White Blood Count 7.1 4.8-10.8 Red Blood Count 4.90 4.20-5.50 Hemoglobin 15.0 12.0-16.0 Hematocrit 45.5 37.0-47.0 Mean Corpuscular Volume 92.9 80.0 -98.0 Mean Corpuscular Hemoglobin 30.6 27.0-33.0 Mean Corpuscular HGB Conc 33.0 31 .0-35.0 Red Cell Distribution Width 12.7 11.0-16.0 Platelet Count 309 160-400 Mean Platelet Volume 10.5 9.4-12. 3 Neutrophils Percent Auto 66.1 45- 73 Imm Gran Pct Auto 0.4 0.0-0.4 Lymphocytes Percent Auto 22.5 20- 40 Monocytes Percent Auto 7.6 2-11 Eosinophils Percent Auto 2.4 0-4 Basophils Percent Auto 1.0 0-2 NRBC Pct Auto 0.0 0.0-0.2 Neutrophils Absolute Auto 4.7 2. 0-8.3 Imm Gran Abs Auto 0.03 0.00-0.03 Lymphocytes Absolute Auto 1.6 1. 2-4.9 Monocytes Absolute Auto 0.5 0.1- 1.2 Eosinophils Absolute Auto 0.2 0. 0-0.4 Basophils Absolute Auto 0.1 0.0- 0.2 NRBC Abs Auto 0.000 0.0-0.012 Lipid Panel 2021-12-23 Triglycerides 133 Cholesterol 181 LDL Cholesterol Calculated 107 HDL Cholesterol 48 MM tomosynthesis screening BI 2021-12-07 Pathology 2021-07-22 Pathology 2021-04-15 Complete Blood Count Auto Diff 2021-04-06 White Blood Count 7.0 4.8-10.8 Red Blood Count 4.91 4.20-5.50 Hemoglobin 14.5 12.0-16.0 Hematocrit 45.3 37-47 Mean Corpuscular Volume 92.3 80-9 8 Mean Corpuscular Hemoglobin 29.5 27.0-33.0 Mean Corpuscular HGB Conc 32.0 31 .0-35.0 Red Cell Distribution Width 12.6 11.0-16.0 Platelet Count 334 160-400 Mean Platelet Volume 10.2 9.4-12. 3 Neutrophils Percent Auto 66.6 45- 73 Imm Gran Pct Auto 0.3 0.0-0.4 Lymphocytes Percent Auto 22.3 20- 40 Monocytes Percent Auto 6.7 2-11 Eosinophils Percent Auto 3.0 0-4 Basophils Percent Auto 1.1 0-2 NRBC Pct Auto 0.0 0.0-0.2 Neutrophils Absolute Auto 4.7 2. 0-8.3 Imm Gran Abs Auto 0.02 0.00-0.03 Lymphocytes Absolute Auto 1.6 1. 2-4.9 Monocytes Absolute Auto 0.5 0.1- 1.2 Eosinophils Absolute Auto 0.2 0. 0-0.4 Basophils Absolute Auto 0.1 0.0- 0.2 NRBC Abs Auto 0.000 0.0-0.012 Comprehensive Mccool. Panel Fast 2021-04-06 Sodium 139 135-145 Potassium 4.3 3.3-5.1 Chloride 105 96-108 Carbon Dioxide 27 22-29 Anion Gap 11 12-20 Blood Urea Nitrogen 7 9-16 Creatinine 0.95 0.5-1.4 Estimated Glomerular Filt Rate >60 Glucose Fasting 93 60-99 Calcium 9.5 8.4-10.2 Bilirubin Total 0.3 0.0-1.0 Aspartate Amino Transferase 17 5-31 Alanine Aminotransferase 14 0-3 1 Total Protein 6.7 6.5-8.0 Albumin Level 4.2 3.5-5.0 Alkaline Phosphatase 74 39-117 Lipid Panel 2021-04-06 Triglycerides 207 Cholesterol 183 LDL Cholesterol Calculated 89 HDL Cholesterol 53 XR foot RT min 3V 2020-12-27 MM tomosynthesis screening BI 2020-05-15 URINE DIP STICK 2020-05-10 SG 1.020 pH 5 NICKOLAS neg NIT neg PRO trace GLU normal KET neg UBG normal BRYSON neg BLD 6.[address] ABD & PELVIS WWO CONTRAST 2020-01-14 PROFILE, FASTING (COMPREHENSIVE METABOLIC) 2019-05-20 NA 138 135-145 K 4.9 3.3-5.1 CL 103 96-108 CO2 28 22-29 ANION GAP 12 12-20 FASTING BLOOD SUGAR 102 60-99 BUN 14 9-16 CREATININE 1.03 0.5-1.4 ESTIMATED GFR 57 PROTEIN, TOTAL 7.4 6.5-8.0 ALBUMIN 4.7 3.5-5.0 BILIRUBIN, TOTAL 0.6 0.0-1.0 CALCIUM 10.2 8.4-10.2 ALK. PHOS. 85 39-117 GOT 18 5-31 GPT 18 0-31 LIPID PANEL 2019-05-20 CHOLESTEROL 192 TRIGLYCERIDE 153 HDL 50 LDL CALCULATED 112 CBC w DIFF 2019-05-20 WBC 7.3 4.8-10.8 ABSOLUTE NEUTROPHIL COUNT 4.9 2. 2-7.9 RBC 4.91 4.20-5.50 HEMOGLOBIN 15.4 12.0-16.0 HEMATOCRIT 44.7 37-47 MCV 91.0 80-98 MCH 31.3 27.0-33.0 MCHC 34.4 31.0-35.0 PLATELET COUNT 299 160-400 RDW 11.5 11.0-16.0 NEUTROPHILS 67.2 45-73 LYMPHOCYTES 20.7 20-40 MONOCYTES 7.1 2-11 EOSINOPHILS 3.6 0-4 BASOPHILS 1.5 0-2 PROFILE, FASTING (COMPREHENSIVE METABOLIC) 2018-07-15 NA 135 135-145 K 4.4 3.3-5.1 CL 100 96-108 CO2 27 22-29 ANION GAP 12 12-20 FASTING BLOOD SUGAR 97 60-99 BUN 12 9-16 CREATININE 1.01 0.5-1.4 ESTIMATED GFR 59 PROTEIN, TOTAL 7.2 6.5-8.0 ALBUMIN 4.5 3.5-5.0 BILIRUBIN, TOTAL 0.4 0.0-1.0 CALCIUM 9.7 8.4-10.2 ALK. PHOS. 83 39-117 GOT 17 5-31 GPT 21 0-31 HEMOGLOBIN A1C (GLYCOHEMOGLOBIN) HEMOGLOBIN A1C % (HH) 5.4 ESTIMATED AVG GLUCOSE 108 LIPID PANEL 2018-07-15 CHOLESTEROL 241 TRIGLYCERIDE 209 HDL 52 LDL CALCULATED 148 CBC w DIFF 2018-07-15 WBC 7.4 4.8-10.8 ABSOLUTE NEUTROPHIL COUNT 4.9 2. 2-7.9 RBC 4.79 4.20-5.50 HEMOGLOBIN 14.7 12.0-16.0 HEMATOCRIT 43.6 37-47 MCV 91.1 80-98 MCH 30.7 27.0-33.0 MCHC 33.7 31.0-35.0 PLATELET COUNT 282 160-400 RDW 12.2 11.0-16.0 NEUTROPHILS 66.6 45-73 LYMPHOCYTES 21.8 20-40 MONOCYTES 7.0 2-11 EOSINOPHILS 3.5 0-4 BASOPHILS 1.1 0-2 MAMMOGRAM DIGITAL BILATERAL SCREEN 2017-07 2 REASON FOR VISIT annual exam, follow up, annual exam , annual exam, rescheduled annual exam , COVID Update, pt concerned wants to speak to Dr Blanchard, telehealth, Poison andrei, annual exam, poison andrei wants cream, annualexam, need referral and MRI, Right leg pain, Concern, Concern, rash on legs , rash on right leg, contact dermatitis, contact dermatitis, right ear pain, Depression, obesity, hyperlipidemia, Annual Exam, Ct scan results , contact dermatitis, skin rash, History of depression , Hyperlipidemia, Poison andrei , Poison IV, contact dermatitis, obesity, allergies, hyperlipidemia, Cough, upper respiratory inf ection, Anxiety, cancelled appt for tomorrow , Anxiety, depression, obesity, allergies, diabetes, hyperlipidemia, annual exam, gestational diabetes, obesity, depression, allergies, hyperlipidemia, tetanus shot, tetanus shot, lab results, rash on leg, lab order, lab order, new patient [facility] Insurance Providers Health Insurance Type Health Plan Insurance Address Health Plan Insurance Phone Health Plan Insurance Name Health Plan Coverage Dates Member ID Patient Relationship to Subscriber Patient Address Patient Phone Patient Name Patient Date of Subscriber ID Subscriber Name Subscriber Date of Group No [employer] [address] [place] [id number] [employer] self Derik Acharya [id number] [employer] [address] [facility] [id number] [employer] self Derik Acharya [id number]
[2022-11-07 06:53] VITALS: BMI 30.4
[2022-11-07] MEDS: Lactated Ringers 1,000 ML 100 ML IVCONT (06:56)
[2022-11-07 07:04] VITALS: BP 128/64; PULSE 70; RESP 18; TEMP 36.6; O2SAT 97
--- NOTE | 2022-11-07 07:32 | MHC.SHP ---
Pre-Procedural Eval Section A Date of Service: 11/07/22 Section B Chief Complaint: Polyp of colon Details of Present Illness: see h&p no changes Relevant Family History (Specify if Yes): No Relevant Social History: None Present Medications: see Short Stay Collaborative assessment Medical History: No relevant PMH History of Previous Operations: No relevant previous surgery Allergies: Allergies Allergy/AdvReac Type Severity Reaction Status Date / Time prednisone [PREDNISONE] Allergy Severe HIVES Verified 11/07/22 06:51 Review of Systems Sugical H&P ROS: Negative: Constitution, Cardiovascular, Respiratory, Neurological, Psychiatric, Hem-Onc, Allergic/Immunologic, Gastrointestinal, Genitourinary, Musculoskeletal, Integumentary, Endocrine and Eyes/Ears/Nose/Throat Exam Surgical H&P Exam: Normal: HEENT, Normal: Heart, Normal: Lungs, Normal: Extremities, Normal: Abdomen, Normal: Skin and Normal: Neurological Plan Diagnosis/Plan: Unchanged I have reviewed the history and physical and performed a pertinent physical examination on my patient. No changes have occurred unless specified. Time Spent With Patient Time: Total time managing care of this patient today ____ minutes.
--- NOTE | 2022-11-07 07:59 | P.BOP_ITS ---
Brief Operative Note Date of Service: 11/07/22 Pre-op diagnosis: colon poyp Post-op diagnosis: same Procedure: colonscopy Surgeon: Ruslan Wade Anesthesia: MAC Was an Radiotelegrapher used for this Procedure?: No Estimated blood loss (mL): 2 Pathology: other Condition: stable Disposition: PACU
[2022-11-07 08:04] VITALS: BP 107/65; PULSE 77; RESP 16; TEMP 36.4; O2SAT 95
[2022-11-07 08:19] VITALS: BP 131/79; PULSE 74; RESP 16; TEMP 36.4; O2SAT 96
--- NOTE | 2022-11-07 08:46 | P.CONAN_ITS ---
[facility] Past Medical History Medical History Anemia Anxiety History of blood transfusion PONV (postoperative nausea and vomiting) Family History Family history of problems with anesthesia: No Surgical History Surgical History History of bilateral breast reduction surgery History of cervical polypectomy History of colonoscopy History of endometrial ablation History of partial hysterectomy History of repair of anterior cruciate ligament of left knee History of tonsillectomy History of Problems with Anesthesia: No Social History Social History Patient Tobacco Use Status: Former Tobacco user Quit Date: 2003 Tobacco use type: Cigarette Substance Use Frequency: Daily Are you DNR?: No Advance Directives: No Advance Directives Information Provided: Yes Nutrition Risks: No Nutritional Risk Meds Allergies Allergy/AdvReac Type Severity Reaction Status Date / Time prednisone [PREDNISONE] Allergy Severe HIVES Verified 11/07/22 06:51 Home Medications Medication Instructions Recorded Confirmed Last Taken Type ibuprofen 200 mg tablet 400 mg PO Q6H PRN Pain 07/13/21 07/13/21 Unknown History dicyclomine 10 mg capsule 10 mg PO 11/06/22 11/06/22 Unknown History hydrocortisone acetate 25 mg 25 mg HI BID 11/06/22 11/06/22 Unknown History rectal suppository (Anucort-HC) Exam Exam Date and Time: November 07, 2022 0846 Height,Weight and Vital Signs: Height 5 ft 3 in Weight 78.018 kg Last Vital Signs Temp 97.6 F 11/07/22 08:19 Pulse 74 11/07/22 08:19 Resp 16 11/07/22 08:19 BP 131/79 11/07/22 08:19 Pulse Ox 96 11/07/22 08:19 O2 Del Method Room Air 11/07/22 08:19 Airway Mallampati Class: II TM Dist: >3cm Neck ROM: Full Heart: RRR Lungs: CTA Assessment and Plan Assessment Anesthesia Assessment: Chart Reviewed Final Anesthetic Review Family History of Problems with Anesthesia: No History of Problems with Anesthesia: No ASA Class: II Final Preanesthetic Review: Meds/Allgs Chart Reviewed, Consent Obtained/Reviewed and Anes Risks/Benef Reviewed Patient Risk: Low Procedure Risk: Low Anesthetic Plan Anesthetic Plan: MAC: Disposition: Standard PACU
--- NOTE | 2022-11-07 08:47 | OP_ITS ---
DATE OF SERVICE: 11/07/2022 SURGEON: Ruslan Wade MD INDICATIONS: Recurrent polyp at the appendiceal orifice. PREOPERATIVE DIAGNOSIS: POSTOPERATIVE DIAGNOSIS: PROCEDURE PERFORMED: Colonoscopy to the terminal ileum with biopsy. ESTIMATED BLOOD LOSS: COMPLICATIONS: ANESTHESIA: Monitored anesthesia care. ASSISTANTS: SPECIMENS: DESCRIPTION OF PROCEDURE: A history and physical performed. The risks and benefits of the procedure were explained to the patient. Informed consent was obtained. The patient was placed in the left lateral decubitus position. A digital rectal exam was performed and was found to be normal. The Olympus pediatric video colonoscope was introduced into the rectum and advanced to the cecum without difficulty. The cecum was identified by transillumination, palpation, and identification of ileocecal valve. Examination was performed. The scope was removed. She tolerated the procedure well and was returned recovery in stable condition. FINDINGS: The terminal ileum was examined and appeared normal. The visualized colonic mucosa was normal. The quality of the prep was good. The area around the appendiceal orifice appeared normal without any evidence of recurrent polyp. Random biopsies were obtained in this area. No polyps were identified. Retroflexed examination was normal. IMPRESSION: Normal colonoscopy. RECOMMENDATION: 1. Follow up the biopsy results. 2. Repeat colonoscopy in 3 years pending pathology, as the appendiceal orifice can be a difficult site to evaluate for completeness of resection of prior polyps endoscopically.. MD LEONIE Trevizo/KENNETH / [id number] MTDD
--- NOTE | 2022-11-07 09:45 | HO.POSTANES ---
Post Anesthesia Evaluation Post Anesthesia Evaluation Vital Signs: Vital Signs Temp Pulse Resp BP Pulse Ox O2 Del Method 11/07/22 08:19 97.6 F 74 16 131/79 96 Room Air 11/07/22 08:04 97.6 F 77 16 107/65 95 Room Air 11/07/22 07:04 97.8 F 70 18 128/64 97 Room Air Anesthesia: Monitored Mental Status: Awake Pain Control: Satisfactory Nausea/Vomiting: None Hydration: Adequate Anesthesia-Related Issues: No Anes. Related Issues
== END 2022-11-07 08:41 | disposition home or self-care (01) ==
PROVIDERS: PCP Internal Medicine Medical Oncology; Visit Provider Internal Medicine Gastroenterology
PROC: 0DJD8ZZ Inspection of Lower Intestinal Tract, Via Natural or Artificial Opening Endoscopic (ICD-10-PCS; CPT 45378; principal; 2022-11-07 07:30)
DX: Z12.11 Encounter for screening for malignant neoplasm of colon (principal); Z86.010 Personal history of colon polyps; K64.8 Other hemorrhoids; D64.9 Anemia, unspecified; F41.1 Generalized anxiety disorder; J30.2 Other seasonal allergic rhinitis; Z79.899 Other long term (current) drug therapy; Z88.8 Allergy status to other drugs, medicaments and biological substances; Z87.891 Personal history of nicotine dependence; Z98.890 Other specified postprocedural states
CPT/HCPCS: 45380; 88305

== ENCOUNTER → 2022-11-30 14:45 | Outpatient (BNVA) | payer SELFPAY | PROVIDERS: PCP Internal Medicine Medical Oncology; Visit Provider Physician Assistant | DX: Z02.79 Encounter for issue of other medical certificate (principal) ==

== ENCOUNTER 2022-12-28 15:52 | Outpatient (REF) | payer OTHER, SELFPAY ==
--- NOTE | ~2022-12-28 | MM_ITS ---
EXAMINATION: MM SCREENING DIGITAL BREAST TOMOSYNTHESIS, BILATERAL CLINICAL INFORMATION: Screening. Asymptomatic. Remote history bilateral reduction mammoplasty, 2011. The lifetime risk of breast cancer based on the Tyrer-Cuzick Model is 12%. COMPARISON: Mammography: 12/07/2021, 05/15/2020, 07/04/2018, 05/26/2016. TECHNIQUE: Digital breast tomosynthesis is performed in both the craniocaudal and mediolateral oblique views along with computer-aided detection (CAD). Synthesized 2D images are generated from the tomosynthesis. FINDINGS: There are scattered areas of fibroglandular density (ACR BI-RADS breast composition Category b). There is minor bilateral scarring and scattered bilateral benign isolated and grouped calcifications consistent with the prior reduction mammoplasty. No developing density or interval architectural abnormality. There are no significant masses, abnormal calcifications, or other abnormalities. The axilla and skin contours are unremarkable. MM/MM tomosynthesis screening BI IMPRESSION: No mammographic evidence of malignancy. ASSESSMENT: BI-RADS 2: Benign RECOMMENDATION: Routine annual mammography screening. This patient's information was entered into a reminder system with a target due date for their next mammogram.
== END 2022-12-28 15:53 | disposition home or self-care (01) ==
LOC: HO.MAMMO 15:52
PROVIDERS: PCP Internal Medicine Medical Oncology; Visit Provider Internal Medicine Medical Oncology
DX: Z12.31 Encounter for screening mammogram for malignant neoplasm of breast (principal)
CPT/HCPCS: 77063; 77067

== ENCOUNTER 2023-02-01 14:54 | Outpatient (REF) | payer OTHER, SELFPAY ==
--- NOTE | ~2023-02-01 | US_ITS ---
EXAMINATION: US RETROPERITONEAL COMPLETE (RENAL) CLINICAL INFORMATION: Microscopic hematuria. COMPARISON: CT abdomen and pelvis without and with contrast 01/14/2020. TECHNIQUE: Real-time imaging of the kidneys and bladder. Limited visualization due to bowel gas. FINDINGS: RIGHT KIDNEY: 10.2 x 6.4 x 4.3 cm (SAG x AP x TRV). A 1.2 x 1.1 x 1.3 cm midpole cyst is difficult to characterize due to limited visualization and may demonstrate a septation. No hydronephrosis. No renal calculi. Renal cortical thickness is normal. LEFT KIDNEY: 11.0 x 6.0 x 4.2 cm (SAG x AP x TRV). No hydronephrosis. No renal calculi. Renal cortical thickness is normal. Limited visualization. BLADDER: Well distended and unremarkable. Bilateral ureteral jets are demonstrated. Prevoid bladder volume is 736.8 mL. Postvoid bladder volume is 17.6 mL. US/US retroperitoneal comp IMPRESSION: 1. A 1.3 cm midpole cyst is difficult to characterize due to limited visualization and may demonstrate a septation. 2. No hydronephrosis. No renal calculi. Limited visualization. 3. CT scan recommended for better visualization for this patient with hematuria.
== END 2023-02-01 14:55 | disposition home or self-care (01) ==
LOC: HO.US 14:54
PROVIDERS: PCP Internal Medicine Medical Oncology; Visit Provider Internal Medicine Medical Oncology
DX: R31.29 Other microscopic hematuria (principal)
CPT/HCPCS: 76770

== ENCOUNTER 2023-06-26 16:23 | Outpatient (REF) | payer OTHER, SELFPAY ==
[2023-06-26 16:38] LABS: MANUAL DIFF FLAG NO
[2023-06-26 17:03] LABS: Basophils Absolute Auto 0.1 X10*3/uL (0.0-0.2); Basophils Percent Auto 1.1 % (0-2); Eosinophils Absolute Auto 0.3 X10*3/uL (0.0-0.4); Hematocrit 43.1 % (37.0-47.0); Imm Gran Abs Auto 0.05 X10*3/uL (0.00-0.03); Imm Gran Pct Auto 0.5 % (0.0-0.4); Lymphocytes Absolute Auto 2.3 X10*3/uL (1.2-4.9); Mean Corpuscular HGB Conc 32.5 g/dl (31.0-35.0); Mean Corpuscular Hemoglobin 29.9 pg (27.0-33.0); Mean Corpuscular Volume 92.1 fL (80.0-98.0); Mean Platelet Volume 9.9 fL (9.4-12.3); Monocytes Absolute Auto 0.6 X10*3/uL (0.1-1.2); Monocytes Percent Auto 5.9 % (2-11); Neutrophils Absolute Auto 6.9 x10*3/uL (2.0-8.3); Neutrophils Percent Auto 67.5 % (45-73); Platelet Count 316 X10*3/uL (160-400); Red Blood Count 4.68 X10*6/uL (4.20-5.50); Red Cell Distribution Width 13.4 % (11.0-16.0); White Blood Count 10.3 X10*3/uL (4.8-10.8)
[2023-06-26 17:35] LABS: Alanine Aminotransferase 16 U/L (0-31); Albumin Level 4.3 g/dL (3.5-5.0); Alkaline Phosphatase 92 U/L (39-117); Anion Gap 16 (12-20); Aspartate Amino Transferase 19 U/L (5-31); Bilirubin Total 0.2 mg/dL (0.0-1.0); Blood Urea Nitrogen 17 mg/dL (9-16); Calcium 9.5 mg/dL (8.4-10.2); Carbon Dioxide 22 mmol/L (22-29); Chloride 104 mmol/L (96-108); Estimated Glomerular Filt Rate 48; Glucose Random 101 mg/dL (60-115); Potassium 3.5 mmol/L (3.3-5.1); Sodium 138 mmol/L (135-145); Total Protein 7.5 g/dL (6.5-8.0)
[2023-06-26 18:00] LABS: Erythrocyte Sedimentation Rate 2 MM/HR (0-20)
== END 2023-06-26 16:24 | disposition home or self-care (01) ==
LOC: HO.LAB 16:23
PROVIDERS: PCP Internal Medicine Medical Oncology; Visit Provider Internal Medicine Medical Oncology
DX: D64.9 Anemia, unspecified (principal); E66.9 Obesity, unspecified; E78.5 Hyperlipidemia, unspecified; K20.90 Esophagitis, unspecified without bleeding
CPT/HCPCS: 36415; 80053; 85025; 85652

== ENCOUNTER 2023-06-27 16:11 | Outpatient (REF) | payer OTHER, SELFPAY | END 2023-06-27 16:12 | disposition home or self-care (01) | LOC: HO.LNP 16:11 | PROVIDERS: Visit Provider Internal Medicine Medical Oncology | DX: D64.9 Anemia, unspecified (principal); E66.9 Obesity, unspecified; E78.5 Hyperlipidemia, unspecified; K20.90 Esophagitis, unspecified without bleeding; Z11.0 Encounter for screening for intestinal infectious diseases | CPT/HCPCS: 87338 ==

== ENCOUNTER 2023-11-17 07:28 | Outpatient (REF) | payer BC, SELFPAY ==
[2023-11-17 07:56] LABS: MANUAL DIFF FLAG NO
[2023-11-17 08:56] LABS: Basophils Absolute Auto 0.1 X10*3/uL (0.0-0.2); Basophils Percent Auto 1.6 % (0-2); Eosinophils Absolute Auto 0.3 X10*3/uL (0.0-0.4); Eosinophils Percent Auto 5.1 % (0-4); Hematocrit 45.4 % (37.0-47.0); Hemoglobin 15.4 g/dl (12.0-16.0); Imm Gran Abs Auto 0.02 X10*3/uL (0.00-0.03); Imm Gran Pct Auto 0.3 % (0.0-0.4); Lymphocytes Absolute Auto 1.6 X10*3/uL (1.2-4.9); Mean Corpuscular HGB Conc 33.9 g/dl (31.0-35.0); Mean Corpuscular Hemoglobin 31.1 pg (27.0-33.0); Mean Corpuscular Volume 91.7 fL (80.0-98.0); Mean Platelet Volume 10.1 fL (9.4-12.3); Monocytes Absolute Auto 0.6 X10*3/uL (0.1-1.2); Monocytes Percent Auto 8.9 % (2-11); Neutrophils Absolute Auto 3.7 x10*3/uL (2.0-8.3); Neutrophils Percent Auto 58.1 % (45-73); Platelet Count 315 X10*3/uL (160-400); Red Blood Count 4.95 X10*6/uL (4.20-5.50); Red Cell Distribution Width 13.1 % (11.0-16.0); White Blood Count 6.3 X10*3/uL (4.8-10.8)
[2023-11-17 09:41] LABS: Alanine Aminotransferase 16 U/L (0-31); Albumin Level 4.2 g/dL (3.5-5.0); Alkaline Phosphatase 81 U/L (39-117); Anion Gap 13 (12-20); Aspartate Amino Transferase 18 U/L (5-31); Bilirubin Total 0.3 mg/dL (0.0-1.0); Blood Urea Nitrogen 11 mg/dL (9-16); Calcium 9.9 mg/dL (8.4-10.2); Carbon Dioxide 26 mmol/L (22-29); Chloride 104 mmol/L (96-108); Cholesterol 166 mg/dL (<200); Estimated Glomerular Filt Rate > 60; Glucose Random 94 mg/dL (60-115); HDL Cholesterol 55 mg/dL (>40); LDL Cholesterol Calculated 96 mg/dL (<100); Potassium 4.1 mmol/L (3.3-5.1); Sodium 139 mmol/L (135-145); Total Protein 7.1 g/dL (6.5-8.0); Triglycerides 79 mg/dL (<150)
[2023-11-17 10:03] LABS: Estimated Average Glucose 111 mg/dL; Hemoglobin A1c % 5.5 % (<6.0)
== END 2023-11-17 07:29 | disposition home or self-care (01) ==
LOC: HO.LAB 07:28
PROVIDERS: PCP Internal Medicine Medical Oncology; Visit Provider Internal Medicine Medical Oncology
DX: Z00.00 Encounter for general adult medical examination without abnormal findings (principal); O24.410 Gestational diabetes mellitus in pregnancy, diet controlled; E66.9 Obesity, unspecified; E78.5 Hyperlipidemia, unspecified
CPT/HCPCS: 36415; 80053; 80061; 83036; 85025

== ENCOUNTER 2024-10-08 11:32 | Outpatient (REF) | payer BC, SELFPAY ==
--- NOTE | ~2024-10-08 | XR_ITS ---
EXAMINATION: XR CHEST 2 VIEWS HISTORY: CHRONIC COUGH COMPARISON: Comparison is made with the prior examination dated 09/13/2015. FINDINGS: PA and lateral views of the chest are submitted. The lungs are expanded and clear. There is no pleural effusion, pneumothorax, or pulmonary vascular congestion. The heart is normal in size. The bones are intact. XR/XR chest 2V IMPRESSION: No acute cardiopulmonary abnormality. Electronically signed by: Aroldo Monroy MD 10/08/2024 11:54 AM EDT
--- OUTSIDE RECORDS SUMMARY | 2024-10-08 14:07 | XMS_ITS | Patient Health Record ---
Author Organization Aroldo Blanchard III, MD Address [address] [place] [address] Care Team Providers Care Bioprocess Development Engineer Name Role Phone Aroldo Blanchard Primary Care Provider [phone] Allergies Allergen (clinical drug ingredient) Drug/Non Drug Allergy documented on EMR Reaction Allergy Type Onset Date Status No Known Drug Allergy Unknown Drug Allergy Active Results Component Value Reference Range Notes URINE DIP STICK Reviewed date:11/05/2023 04:34:06 PM Interpretation: Performing Lab: Notes/Report: SG 1.000 1.005 - 1.025 pH 5.0 5.0 - 9.0 NICKOLAS NEG Negative - NIT NEG Negative - PRO TRACE Negative - Trace GLU NEG Negative - KET NEG Negative - UBG 0.2 0.1 - 1.8 BRYSON NEG 0.2 - 1.3 BLD POSITIVE Negative - Menstrating NO Complete Blood Count Auto Di ff Reviewed date:11/20/2023 02:41:32 PM Interpretation: Performing Lab:[facility], [address] [place] [address] Notes/Report: White Blood Count 6.3 4.8-10.8 X10*3/uL Red Blood Count 4.95 4.20-5.50 X10*6/uL Hemoglobin 15.4 12.0-16.0 g/dl Hematocrit 45.4 37.0-47.0 % Mean Corpuscular Volume 91.7 80.0-98.0 fL Mean Corpuscular Hemoglobin 31.1 27.0-33.0 pg Mean Corpuscular HGB Conc 33.9 31.0-35.0 g/dl Red Cell Distribution Width 13.1 11.0-16.0 % Platelet Count 315 160-400 X10*3/uL Mean Platelet Volume 10.1 9.4-12.3 fL Neutrophils Percent Auto 58.1 45-73 % Imm Gran Pct Auto 0.3 0.0-0.4 % Lymphocytes Percent Auto 26.0 20-40 % Monocytes Percent Auto 8.9 2-11 % Eosinophils Percent Auto 5.1 0-4 % Basophils Percent Auto 1.6 0-2 % NRBC Pct Auto 0.0 0.0-0.2 /100WBC Neutrophils Absolute Auto 3.7 2.0-8.3 x10*3/uL Imm Gran Abs Auto 0.02 0.00-0.03 X10*3/uL Lymphocytes Absolute Auto 1.6 1.2-4.9 X10*3/uL Monocytes Absolute Auto 0.6 0.1-1.2 X10*3/uL Eosinophils Absolute Auto 0.3 0.0-0.4 X10*3/uL Basophils Absolute Auto 0.1 0.0-0.2 X10*3/uL NRBC Abs Auto 0.000 0.0-0.012 X10*3/uL Comprehensive Met. Panel Reviewed date:11/20/2023 02:41:32 PM Interpretation: Performing Lab:[facility], [address] [place] [phone] Notes/Report: Sodium 139 135-145 mmol/L Potassium 4.1 3.3-5.1 mmol/L Chloride 104 96-108 mmol/L Carbon Dioxide 26 22-29 mmol/L Anion Gap 13 12-20 Blood Urea Nitrogen 11 9-16 mg/dL Creatinine 0.96 0.5-1.4 mg/dL Estimated Glomerular Filt Rate > 60 NOTE: For [place] individuals, multiply the result by 1.210. Chronic Kidney Disease: Estimated GFR < 60 mL/min/1.73m2 Severe Kidney Disease: Estimated GFR < 15 mL/min/1.73m2 Glucose Random 94 60-115 mg/dL Calcium 9.9 8.4-10.2 mg/dL Bilirubin Total 0.3 0.0-1.0 mg/dL Aspartate Amino Transferase 18 5-31 U/L Alanine Aminotransferase 16 0-31 U/L Total Protein 7.1 6.5-8.0 g/dL Albumin Level 4.2 3.5-5.0 g/dL Alkaline Phosphatase 81 39-117 U/L Lipid Panel Reviewed date:11/20/2023 02:41:32 PM Interpretation: Performing Lab:[facility], [address] [place] [phone] Notes/Report: Triglycerides 79 <150 mg/dL Desirable Triglyceride: less than 150 mg/dL Borderline High Triglyceride 150-199 mg/dL High Triglyceride: 200-499 mg/dL Very High Triglyceride: greater than or equal to 5OO mg/dL Cholesterol 166 <200 mg/dL Desirable Cholesterol: less than 200 mg/dL Borderline High Cholesterol: 200-239 mg/dL High Cholesterol: greater than 239 mg/dL LDL Cholesterol Calculated 96 <100 mg/dL Desirable LDL: less than 100 mg/dL Near Optimal/Above Optimal LDL: 110-129 mg/dL Borderline High LDL: 130-159 mg/dL High LDL: 160-189 mg/dL Very High LDL: greater than or equal to 190 mg/dL HDL Cholesterol 55 >40 mg/dL Desirable HDL: greater than 40 mg/dL Note: This HDL assay may give artificially low results in patients with liver disease. Hemoglobin A1c Reviewed date:11/20/2023 02:41:32 PM Interpretation: Performing Lab:[facility], [address] [place] [phone] Notes/Report: Hemoglobin A1c % 5.5 <6.0 % Hemoglobin A1C Reference Range Adults: 4.8 - 6.0 % Non diabetic: < 6.0 % Goal: < 7.0 % Additional Action Suggested: > 8.0 % Note: Hemoglobin A1c results are invalid for patients with abnormal amounts of HbF. Blood transfusions may impact the HbA1c concentration in the patient sample. Estimated Average Glucose 111 eAG = Estimated average glucose which is %A1C expressed as average glucose, using the formula of the D4D-Osayvxx Average Glucose study (ADAG), Diabetes Care, Vol.31,#8, Feb. 2007 XR chest 2V (Not yet review ed by provider) Interpretation: Performing Lab: Notes/Report: [address] [place] [address] XRay Report Signed Patient: Derik Acharya MR#: [id number] : 1970 Acct:[id number] Age/Sex: 53 / F ADM Date: 10/08/24 Loc: [facility] Attending Dr: Aroldo Blanchard MD Ordering Physician: Aroldo Blanchard MD Date of Service: 10/08/24 Procedure(s): XR chest 2V Accession Number(s): [id number] cc: Arolod Blanchard MD EXAMINATION: XR CHEST 2 VIEWS HISTORY: CHRONIC COUGH COMPARISON: Comparison is made with the prior examination dated 09/13/2015. FINDINGS: PA and lateral views of the chest are submitted. The lungs are expanded and clear. There is no pleural effusion, pneumothorax, or pulmonary vascular congestion. The heart is normal in size. The bones are intact. XR/XR chest 2V IMPRESSION: No acute cardiopulmonary abnormality. Electronically signed by: Aroldo Monroy MD 10/08/2024 11:54 AM EDT Dictated By: Aroldo Monroy MD Signed By: <Electronically signed by Aroldo Monroy MD in OV> 10/08/24 1154 DD/ 1145 TD/TT: 10/08/24 1150 Beauty Sales Advisor: [place] [id number] XRay Report Signed Patient: Derik Acharya MR#: [id number] : 1970 Acct:[id number] Age/Sex: 53 / F ADM Date: 10/08/24 Loc: [facility] Attending Dr: Aroldo Blanchard MD Ordering Physician: Aroldo Blanchard MD Date of Service: 10/08/24 Procedure(s): XR [facility] st 2V Accession Number(s): [id number] cc: Aroldo Blanchard MD EXAMINATION: XR CHES T 2 VIEWS HISTORY: CHRONIC COUGH COMPARISON: Comparis on is made with the prior examination dated 09/13/2015. FINDINGS: PA and lateral views of the chest are submitted. The lungs are expanded and wendy ar. There is no pleural effusion, pneumothorax, or pulmonary vascular congestion. The heart is normal in size. The bones are intact. XR/XR chest 2V IMPRESSION: No acute cardiopulmonary abnormality. Electronically dc d by: Aroldo Monroy MD 10/08/2024 11:54 AM EDT Dictated By: Aroldo Monroy MD Signed By: <Electronically signed by Aroldo Monroy MD in OV> 10/08/24 1154 DD/ 1145 TD/TT: 10/08/24 1150 Beauty Sales Advisor: Reason For Referral No Information Medications Medication SIG (Take, Route, Frequency, Duration) Notes Start Date End Date Status predniSONE 20 MG TAKE 1 TABLET BY JEANA DAILY FOR 7 DAYS Active Escitalopram Oxalate 5 MG 1 tablet Orall y Once a day 04/17/2024 Active Silver sulfADIAZINE 1 % 1 application Ex ternally Once a day 11/05/2023 Active predniSONE 20 MG 1 tablet with food o r milk Orally Once a day for 7 days 10/08/2024 10/22/2024 Active Loratadine 10 MG 1 tablet Orally Once a day 05/20/2024 Active Amoxicillin-Pot Clavulanate 875-125 MG 1 tablet Orally every 12 hrs for 7 days 10/08/2024 10/15/2024 Active Immunizations Vaccine Route Administration Date Status Comme nts Tetanus and Diphtheria Toxoids Adsorbed IM Intramuscular 09/25/2018 Administered Social History Tobacco Use: Social History Observation Description Date Details (start date - stop date) Former Smoker NA - NA Sex Assigned At : Social History Observation Description Sex Assigned At Female Tobacco Use/Smoking Question Answer Notes Patient is a former smoker How long has it been since you last smoked? 5-10 years Additional Findings: Tobacco Non-User Ex-cigaret te smoker Alcohol Screen Question Answer Notes Did you have a drink contain ing alcohol in the past year? Yes How often did you have a dri nk containing alcohol in the past year? 4 or more times a week (4 points) How many drinks did you have on a typical day when you were drinking in the past year? 3 or 4 drinks (1 point) How often did you have 6 or more drinks on one occasion in the past year? Weekly (3 points) Points 8 Interpretation Positive Problems Problem Type SNOMED Code ICD Code Onset Dates Problem Status W/U Status Risk Notes Problem 3714939 Former smoker (Z87.891) Active confirmed She has a plan to prevent relapse in times of stress and illness. Problem Depression (414663106) Depression (F32.9) Active confirmed Her depression is stable. She is going to report immediately if it worsens. No change in regimen as needed. Problem 149993704682166 Obesity (BMI 30.0-34.9) (E66.9) Active confirmed She had lost 10 pounds in her body mass index is dropped to 31.7 on her last visit.. We have reviewed her diet and nutrition and weight loss strategy. She will continue her weight loss until her body mass index is in the normal range. Problem 39635953 Penicillin allergy (Z88.0) Active confirmed Problem 576726811 Environmental allergies (Z91.09) Active confirmed She has significant allergies and is dealing with them appropriately. She says this is a bad year for seasonal allergies. Problem 703530699 Rash (R21) Active confirmed S he was given a course of oral prednisone as well as topical triamcinolone. Problem Hyperlipidaemia (60252508) Hyperlipidemia, unspecified hyperlipidemia type (E78.5) Active confirmed Comprehensive blood work with a fasting lipid profile is pending. Problem 272084107 History of depression (Z86.59) Active confirmed She continues to see a therapist. Her depression is present but minimal. She is completing all of the activities of daily life without impairment. Problem 95922164 Diet controlled gestational diabetes mellitus (GDM) in third trimester (O24.410) Active confirmed Comprehensive blood work is pending. Vital Signs Heart Rate 88 /min 10/08/2024 Temperature 97.9 degrees Fahrenheit 10/08/2024 Blood pressure diastolic 83 mm Hg 10/08/2024 Height 63 in 10/08/2024 Blood pressure systolic 137 mm Hg 10/08/2024 Weight 184 lbs 10/08/2024 BMI 32.59 kg/m2 10/08/2024 Encounters Encounter Location Date Provider Diagnosis Aroldo Blanchard III, MD [address] [place] [address] [place] [address] 10/08/2024 Aroldo Blanchard Obesity (BMI 30.0-34 .9) E66.9 and Chronic cough R05.3 Aroldo Blanchard III, MD [address] [place] [address] [place] [address] 11/05/2023 Aroldo Blanchard Diet controlled gestational diabetes mellitus (GDM) in third trimester O24.410 ; Obesity (BMI 30.0-34.9) E66.9 ; Hyperlipidemia, unspecified hyperlipidemia type E78.5 ; Former smoker Z87.891 ; Environmental allergies Z91.09 and History of depression Z86.59 Aroldo Blanchard III, MD [address] [place] [address] 11/20/2023 Aroldo Blanchard Obesity (BMI 30.0-34 .9) E66.9 ; Hyperlipidemia, unspecified hyperlipidemia type E78.5 ; History of depression Z86.59 ; Environmental allergies Z91.09 ; Depression F32.9 and Diet controlled gestational diabetes mellitus (GDM) in third trimester O24.410 Aroldo Blanchard III, MD [address] [place] [address] 05/20/2024 Aroldo Blanchard Acute contact dermat itis L25.9 ; Obesity (BMI 30.0-34.9) E66.9 ; Former smoker Z87.891 and History of depression Z86.59 Aroldo Blanchard III, MD [address] [place] [address] [place] [address] 05/22/2024 Aroldo Blanchard Acute contact dermat itis L25.9 ; Former smoker Z87.891 ; Obesity (BMI 30.0-34.9) E66.9 and Environmental allergies Z91.09 Aroldo Blanchard III, MD [address] [place] [address] [place] [address] 10/01/2024 Aroldo Blanchard Viral syndrome B34.9 ; Obesity (BMI 30.0-34.9) E66.9 ; Diet controlled gestational diabetes mellitus (GDM) in third trimester O24.410 ; Former smoker Z87.891 ; History of depression Z86.59 ; Depression F32.9 and Hyperlipidemia, unspecified hyperlipidemia type E78.5 Aroldo Blanchard III, MD [address] [place] [address] [place] [address] 10/08/2024 Aroldo Blanchard III, MD [address] [place] [address] [place] [address] 11/19/2023 Aroldo Blanchard III, MD [address] [place] [address] [place] [address] 04/17/2024 Aroldo Blanchard III, MD [address] [place] [address] [place] [address] 05/21/2024 Aroldo Blanchard III, MD [address] [place] [address] [place] [address] 05/26/2024 Aroldo Blanchard III, MD [address] [place] [address] [place] [address] 05/26/2024 Aroldo Blacnhard III, MD [address] [place] [address] [place] [address] 05/30/2024 Aroldo Blanchard III, MD [address] [place] [address] [place] [address] 10/03/2024 Aroldo Blanchard III, MD [address] [place] [address] [place] [address] 10/06/2024 Aroldo Blanchard Assessments Encounter Date Diagnosis (ICD Code) Assessment [...] mass index is in the normal range. 11/05/2023 Obesity (BMI 30.0-34.9) (ICD-10 - E66.9) She has lost 10 pounds in her body mass index is dropped to 31.7. We have reviewed her diet and nutrition and weight loss strategy. She will continue her weight loss until her body mass index is in the normal range. 11/05/2023 Diet controlled gestational diabetes mellitus (GDM) in third trimester (ICD-10 - O24.410) Comprehensive blood work is pending. 11/20/2023 Obesity (BMI 30.0-34.9) (ICD-10 - E66.9) She had lost 10 pounds in her body mass index is dropped to 31.7 on her last visit.. We have reviewed her diet and nutrition and weight loss strategy. She will continue her weight loss until her body mass index is in the normal range. 11/20/2023 Hyperlipidemia, unspecified hyperlipidemia type (ICD-10 - E78.5) Comprehensive blood work with a fasting lipid profile is pending. 05/20/2024 Obesity (BMI 30.0-34.9) (ICD-10 - E66.9) She had lost 10 pounds in her body mass index is dropped to 31.7 on her last visit.. We have reviewed her diet and nutrition and weight loss strategy. She will continue her weight loss until her body mass index is in the normal range. 05/20/2024 Acute contact dermatitis (ICD-10 - L25.9) I have given her a prescription for loratadine and prednisone with a followup telephone visit in 48 hours. 05/22/2024 Former smoker (ICD-10 - Z87.891) She has a plan to prevent relapse in times of stress and illness. 05/22/2024 Acute contact dermatitis (ICD-10 - L25.9) She will call daily to report her progress. She will continue on 40 mg of prednisone daily. 10/01/2024 Obesity (BMI 30.0-34.9) (ICD-10 - E66.9) She had lost 10 pounds in her body mass index is dropped to 31.7 on her last visit.. We have reviewed her diet and nutrition and weight loss strategy. She will continue her weight loss until her body mass index is in the normal range. 10/01/2024 Viral syndrome (ICD-10 - B34.9) She will be treated at home conservatively with yzjm-mzp-rbjemri medications. She is going to report frequently and at once if she worsens. I instructed her to test for conrad virus. 10/08/2024 Chronic cough (ICD-10 - R05.3) 11/05/2023 Hyperlipidemia, unspecified hyperlipidemia type (ICD-10 - E78.5) Comprehensive blood work with a fasting lipid profile is pending. 11/20/2023 History of depression (ICD-10 - Z86.59) She continues to see a therapist. Her depression is present but minimal. She is completing all of the activities of daily life without impairment. 05/20/2024 Former smoker (ICD-10 - Z87.891) She has a plan to prevent relapse in times of stress and illness. 05/22/2024 Obesity (BMI 30.0-34.9) (ICD-10 - E66.9) She had lost 10 pounds in her body mass index is dropped to 31.7 on her last visit.. We have reviewed her diet and nutrition and weight loss strategy. She will continue her weight loss until her body mass index is in the normal range. 10/01/2024 Diet controlled gestational diabetes mellitus (GDM) in third trimester (ICD-10 - O24.410) Comprehensive blood work is pending. 11/05/2023 Former smoker (ICD-10 - Z87.891) She has a plan to prevent relapse in times of stress and illness. 11/20/2023 Environmental allergies (ICD-10 - Z91.09) She has significant allergies and is dealing with them appropriately. She says this is a bad year for seasonal allergies. 05/20/2024 History of depression (ICD-10 - Z86.59) She continues to see a therapist. Her depression is present but minimal. She is completing all of the activities of daily life without impairment. 05/22/2024 Environmental allergies (ICD-10 - Z91.09) She has significant allergies and is dealing with them appropriately. She says this is a bad year for seasonal allergies. 10/01/2024 Former smoker (ICD-10 - Z87.891) She has a plan to prevent relapse in times of stress and illness. 11/05/2023 Environmental allergies (ICD-10 - Z91.09) She is primarily allergic to trees, and we'll avoid them whenever she can. 11/20/2023 Depression (ICD-10 - F32.9) Her depression is stable. She is going to report immediately if it worsens. No change in regimen as needed. 10/01/2024 History of depression (ICD-10 - Z86.59) She continues to see a therapist. Her depression is present but minimal. She is completing all of the activities of daily life without impairment. 11/05/2023 History of depression (ICD-10 - Z86.59) She continues to see a therapist. Her depression is present but minimal. She is completing all of the activities of daily life without impairment. 11/20/2023 Diet controlled gestational diabetes mellitus (GDM) in third trimester (ICD-10 - O24.410) Comprehensive blood work is pending. 10/01/2024 Depression (ICD-10 - F32.9) Her depression is stable. She is going to report immediately if it worsens. No change in regimen as needed. 10/01/2024 Hyperlipidemia, unspecified hyperlipidemia type (ICD-10 - E78.5) Comprehensive blood work with a fasting lipid profile is pending. Plan Of Treatment Pending Test Test Name Order Date PROFILE, FASTING (COMPREHENSIVE METABOLI C) 11/02/2020 PROFILE, FASTING (COMPREHENSIVE METABOLI C) 10/22/2018 PROFILE, FASTING (COMPREHENSIVE METABOLI C) 12/16/2019 PROFILE, FASTING (COMPREHENSIVE METABOLI C) 07/24/2022 PROFILE, FASTING (COMPREHENSIVE METABOLI C) 04/24/2019 PROFILE, FASTING (COMPREHENSIVE METABOLI C) 11/05/2023 PROFILE, RANDOM (COMPREHENSIVE METABOLIC ) 06/26/2023 LIPID PANEL 04/24/2019 LIPID PANEL 11/02/2020 LIPID PANEL 10/22/2018 LIPID PANEL 12/16/2019 LIPID PANEL 07/24/2022 FREE T4 (FT4) 10/30/2022 TSH (THYROID STIMULATING HORMONE) 2022 CBC w DIFF 07/24/2022 CBC w DIFF 04/24/2019 CBC w DIFF 11/02/2020 CBC w DIFF 10/22/2018 CBC w DIFF 12/16/2019 SED RATE (ESR) 06/26/2023 HELICOBACTER PYLORI IGG (H PYLORI IGG) 1 08/27/2022 XR CHEST 2 VIEW PA & LAT 10/08/2024 MAMMOGRAM DIGITAL BILATERAL SCREEN 10/30 US RENAL BILATERAL 01/24/2023 US URINARY BLADDER 01/24/2023 CBC WITH AUTO DIFF 11/05/2023 CBC WITH AUTO DIFF 06/26/2023 Lipid Panel 11/05/2023 XR chest 2V 10/08/2024 Hemoglobin A1c 11/05/2023 Next Appt Details Provider Name:Aroldo Blanchard, 10/15/2024 03:30:00 PM, [address], [place], [address], Provider Name:Aroldo Blanchard, 11/10/2024 04:00:00 PM, [address] [facility], [place], [address], Insurance Providers Payer Name Payer Address Payer Phone Subscriber Number Group Number Insured Name Patient Relationship to Insured Coverage Start Date Coverage End Date [facility] [address] [place], [place] [phone] [id number] Derik Acharya Self - patient is the insured Medical (General) History Medical History History ICD Code Gestational diabetes mellitu s (GDM) in second trimester, gestational diabetes method of control unspecified O24.419 hysterectomy for menorrhagia and prolapsed cervical polyp 2009, retains her ovaries 1 para 1, 2006 recent right lateral foot pain history of depression obesity, body mass index 31 former smoker environmental allergies to trees history of depression 2010 anemia due to bleeding, transfused 3 units packed red blood cells penicillin allergy Surgical History Surgery Date(Month/Year) No history NovaSure uterine ablation and polypectom y 2009 hysteroscopy with cervical polypectomy 2 004 hysterectomy for bleeding, retains her o varies 2007 tonsillectomy bilateral breast reduction 2008 Hospitalization History Reason Date(Month/Year) No history
--- OUTSIDE RECORDS SUMMARY | 2024-10-08 14:07 | XMS_ITS ---
Author Organization Aroldo Blanchard III, MD Address [address] [facility] [address] [address] Care Team Providers Care Fisheries Diver Name Role Phone Aroldo Blanchard Primary Care Provider Allergies Allergen (clinical drug ingredient) Drug/Non Drug Allergy documented on EMR Reaction Allergy Type Onset Date Status No Known Drug Allergy Unknown Drug Allergy Active REASON FOR VISIT Coughing x 1 week, Wheezing x 1 week, Low grade fever 99.0, Feels tired x 1 week, Diarrhea Medications Medication SIG (Take, Route, Frequency, [...] Additional Findings: Tobacco Non-User Ex-cigaret te smoker Vital Signs Temperature 97.9 degrees Fahrenheit 10/09/19 25 Blood pressure systolic 137 mm Hg 10/09/19 25 Blood pressure diastolic 83 mm Hg 025 Heart Rate 88 /min 10/08/2024 Height 63 in 10/08/2024 Weight 184 lbs 10/08/2024 BMI 32.59 kg/m2 10/08/2024 Encounters Encounter Location Date Provider Diagnosis Aroldo Blanchard III, MD [address] [place] [place] [address] 10/08/2024 Aroldo Blanchard Obesity (BMI 30.0-34.9) E66.9 and Chronic cough R05.3 Assessments Encounter Date Diagnosis (ICD Code) Assessment Notes Treatment Notes Treatment Clinical Notes 10/08/2024 Obesity (BMI 30.0-34.9) (ICD-10 - E66.9) She had lost 10 pounds in her body mass index is dropped to 31.7 on her last visit.. We have reviewed her diet and nutrition and weight loss strategy. She will continue her weight loss until her body mass index is in the normal range. 10/08/2024 Chronic cough (ICD-10 - R05.3) Plan Of Treatment Medication Medication Name Sig Start Date Stop Date Notes predniSONE 20 MG TAKE 1 TABLET BY JEANA DAILY FOR 7 DAYS Escitalopram Oxalate 5 [...] Weeks, R eh: Telehealth, OV Provider Name:Aroldo Blanchard, 10/15/2024 03:30:00 PM, [address] [facility] [place], [address], Provider Name:Aroldo Blanchard, 11/10/2024 04:00:00 PM, [address] [place] [address] [address], [place], [address], Progress Notes * Derik ACHARYA GDOB:1970 (53 yo F)Acc No.[id number]:10/08/2024 Progress Notes Patient:Derik ELIZONDO Provider:?Aroldo Blanchard MD :1970???Age:53 Y???Sex:Female D ate:10/08/2024 Address:[address] [place] [address] [id number] Subjective: * Chief Complaints: * ???1. Coughing x 1 week. 2. Wheezing x 1 week. 3. Low grade fever 99.0. 4. Feels tired x 1 week. 5. Diarrhea. * HPI: ???COVID-19 Screening:?7 days cough some sputum, azithromycin,? ?says atbs for most of my life,? low grade not now. ?Questions?Have you had any new onset fever, chills, cough, congestion, sore throat, shortness of breath, muscle aches??No * ROS:?General/Constitutional:?pain?only normal aches and pains.?Chills?denies.?Fatigue?admits.?Fever?denies.?ENT:?Decreased hearing?denies.?Respiratory:?Cough?denies.?Cardiovascular:?Chest pain with exertion?denies.?Dyspnea on exertion?denies.?Shortness of breath?denies.?Gastrointestinal:?Constipation?denies.?Decreased appetite?denies.?Diarrhea?denies.?Heartburn?denies.?Nausea?denies.?Rectal bleeding?denies.?Vomiting?denies.?Hematology:?bruising?denies.?petechiae?denies.?Swollen glands?none have been noted.?Genitourinary:?Frequent urination?denies.?Musculoskeletal:?Muscle aches?denies.?Painful joints?denies.?Sciatica?denies.?Weakness?denies.?Skin:?Itching?denies.?Rash?denies.?Skin lesion(s)?denies.?Neurologic:?Difficulty speaking?denies.?Dizziness?denies.?Headache?denies.?Low back pain?denies.?Psychiatric:?Depressed mood?denies.? * Medical History:?Gestational diabetes mellitus (GDM) in second trimester, gestational diabetes method of control unspecified, Hysterectomy for menorrhagia and prolapsed cervical polyp 2009, retains her ovaries, 1 para 1, 2005, Recent right lateral foot pain, History of depression, Obesity, body mass index 31, Former smoker, Environmental allergies to trees, History of depression, 2010 anemia due to bleeding, transfused 3 units packed red blood cells, Penicillin allergy. * Surgical History:?bilateral breast reduction 2008, tonsillectomy , hysterectomy for bleeding, retains her ovaries 2007, hysteroscopy with cervical polypectomy 2003, NovaSure uterine ablation and polypectomy 2009, No history . * Hospitalization/Major Diagno stic Procedure:?No history . * Family History:?Father: 73 y rs, Alive and well.?Mother: alive 68 yrs, Alive and well, lives in [place], [place], thyroid disease, hyperlipidemia.?Maternal Grand Father: , diagnosed with Cancer.?Maternal aunt: , diagnosed with Cancer.? She has no information about her father. Her mother\'s sister had breast cancer over the age of 50. She has one daughter who is healthy and well. One brother . * Social History:?Tobacco Use:?Tobacco Use/Smoking?Patient is a?former smoker ?How long has it been since you last smoked??5-10 years ?Additional Findings: Tobacco Non-User?Ex-cigarette smoker ???She was born in [place], [facility]. 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 She is exposed to paint and dust and zinc oxide powder. She sometimes has to wear a respirator. Patient is now on Medical Marijuana. * Medications:?Taking Loratadi ne 10 MG Tablet 1 tablet Orally Once a day , Taking Silver sulfADIAZINE 1 % Cream 1 application Externally Once a day , Taking Escitalopram Oxalate 5 MG Tablet 1 tablet Orally Once a day , Discontinued Azithromycin 250 MG Tablet as directed Orally 2 Tablets on the first day, one tablet the rest of the days , Discontinued predniSONE 20 MG Tablet TAKE 1 TABLET BY MOUTH DAILY FOR 7 DAYS , Medication List reviewed and reconciled with the patient * Allergies:?No Known Drug All ergy. Objective: * Vitals:?Ht: 63, Wt: 184, BMI :32.59, BP: 137/83, HR: 88, Temp: 97.9, Wt-k.46. * Examination: ???General Examination: ?GENERAL APPEARANCE:?pleasant, well nourished, well developed, in no acute distress, calm and relaxed.?HEAD:?atraumatic, normocephalic.?EYES:?eomi, perrla, anicteric, conjugate.?EARS:?normal.?NOSE:?septum intact.?ORAL CAVITY:?normal, unremarkable.?NECK/THYROID:?no jugular venous distention, no carotid bruit, thyroid normal.?LYMPH NODES:?no enlarged lymph nodes,spleen normal.?SKIN:?no suspicious lesions, anicteric.?HEART:?no clicks, gallops, murmurs, or rubs, regular rhythm, S1, S2 normal, no s3, or vascular bruits.?LUNGS:?clear to auscultation .?BREASTS:??no masses palpable bilaterally.?ABDOMEN:?bowel sounds normal, no ascites, no organomegaly, no mass.?RECTAL EXAM:?not examined.?MUSCULOSKELETAL:?extremities unremarkable, no clubbing, cyanosis or edema.?PERIPHERAL PULSES:?normal.?NEUROLOGIC:?alert and oriented, cranial nerves 2-12 grossly intact, deep tendon reflexes 2+ symmetrical, motor strength normal upper and lower extremities, sensory exam intact.?PSYCH:?alert, oriented.? Assessment: * Assessment: 1.?Obesity (BMI 30.0-34.9) - E66.9???Notes :She had lost 10 pounds in her body mass index is dropped to 31.7 on her last visit.. We have reviewed her diet and nutrition and weight loss strategy. She will continue her weight loss until her body mass index is in the normal range.???2.?Chronic cough - R05.3??? Plan: * Treatment: 2.?Chronic cough?Imaging: XR CHEST 2 VIEW PA & LAT * Preventive Medicine:? ??Counseling:?Care goal follow-up plan:?Counseling for abnormal BMI given?Yes ?Above Normal BMI Follow-up?Dietary management education, guidance, and counseling, Dietary needs education, Exercise promotion: strength training, Exercise promotion: stretching, Feeding regime, Giving encouragement to exercise, Lifestyle education regarding diet, Nutrition / feeding management, Nutrition therapy, Prescribed activity/exercise education, Prescribed diet education, Prescribed dietary intake, Special diet education, Weight monitoring , Intervention, Order not done: Medical or Other reason not done * Follow Up:?1 Week,2 Weeks (Maribel stauffer: Telehealth, OV) * Images: * The named appointment provid er may or may not be the originator of this progress note, and it is not deemed complete until electronically signed by the appointment provider. Sign off status: Pending * Provider:?Aroldo Blanchard MD Date:?09/14 Generated for Neerui rody/Eliana/eTransmitting on:?10/08/2024 02:07 PM EDT History and Physical Notes * HPI (History of Present Illness) Category Sub-Category Detail Notes COVID-19 Screening Questions Have you had any new onset fever, chills, cough, congestion, sore throat, shortness of breath, muscle aches?: No Examination Category Sub-Category Detail Notes General Examination GENERAL APPEARANCE: pleasant , well nourished, well developed, in no acute distress, calm and relaxed HEAD: atraumatic, normocep halic EYES: eomi, perrla, anicte griselda, conjugate EARS: normal NOSE: septum intact NECK/THYROID: no jugular venous di stention, no carotid bruit, thyroid normal HEART: no clicks, gallops, murmurs, or rubs, regular rhythm, S1, S2 normal, no s3, or vascular bruits LUNGS: clear to auscultatio n ABDOMEN: bowel sounds normal, no ascites, no organomegaly, no mass NEUROLOGIC: alert and oriented, cranial nerves 2-12 grossly intact, deep tendon reflexes 2+ symmetrical, motor strength normal upper and lower extremities, sensory exam intact SKIN: no suspicious lesion s, anicteric PERIPHERAL PULSES: normal BREASTS: no masses palpable b ilaterally MUSCULOSKELETAL: extremities unremark able, no clubbing, cyanosis or edema LYMPH NODES: no enlarged lymph no peter,spleen normal RECTAL EXAM: not examined PSYCH: alert, oriented ORAL CAVITY: normal, unremarkable
--- OUTSIDE RECORDS SUMMARY | 2024-10-08 14:07 | XMS_ITS ---
Author Organization Aroldo Blanchard III, MD Address [address] [place] [address] [place] [address] Care Team Providers Care Aquatic Facility Manager Name Role Phone Aroldo Blanchard Primary Care Provider REASON FOR VISIT told patient to call Social History Sex Assigned At : Social History Observation Description Sex Assigned At Female Encounters Encounter Location Date Provider Diagnosis Aroldo Blanchard III, MD [address] [place] [address] [place] [address] 10/06/2024 Aroldo Blanchard Plan Of Treatment Next Appt Details Provider Name:Aroldo Blanchard, 10/15/2024 03:30:00 PM, [address] [place] [address] [place], [address], Provider Name:Aroldo Blanchard, 11/10/2024 04:00:00 PM, [address] [place] [address] [place], [address], Progress Notes * Derik ACHARYA GDOB:1970 (53 yo F)Acc No.[id number]:10/06/2024 Patient:?Derik ACHARYA :1970???Age:53 Y???Sex:Female Address:[address] [place] [address] [place], [address] * true * Date:? Generated for Printi ng/Faxing/eTransmitting on:?10/08/2024 02:07 PM EDT
--- OUTSIDE RECORDS SUMMARY | 2024-10-08 14:08 | XMS_ITS ---
Author Organization Aroldo Blanchard III, MD Address [address] [facility] [address] [place] [address] Care Team Providers Care Hand Gluer And Slicer Name Role Phone Aroldo Blanchard Primary Care Provider [phone] REASON FOR VISIT Work Fax / Out of Work Note Social History Sex Assigned At : Social History Observation Description Sex Assigned At Female Encounters Encounter Location Date Provider Diagnosis Aroldo Blanchard III, MD [address] [place] [address] [place] [address] 10/08/2024 Aroldo Blanchard Plan Of Treatment Next Appt Details Provider Name:Aroldo Blanchard, 10/15/2024 03:30:00 PM, [address] [place] [address] [place], [address], Provider Name:Aroldo Blanchard, 11/10/2024 04:00:00 PM, [address] [place] [address] [place], [address], Progress Notes * Derik ACHARYA GDOB:1970 (53 yo F)Acc No.[id number]:10/08/2024 Patient:?Derik ACHARYA :1970???Age:53 Y???Sex:Female Address:[address] [place] [address] [place], [address] * * Date:?
--- OUTSIDE RECORDS SUMMARY | 2024-10-08 14:08 | XMS_ITS | Patient Health Record ---
Author Organization [facility] Address [address] [place] [address] Care Team Providers Care Parts Inspector Name Role Phone Aroldo Blanchard MD Primary Care Provider UnavailRuslan Mishra Jr Unavailable [phone] Allergies Allergen (clinical drug ingredient) Drug/Non Drug Allergy documented on EMR Reaction Allergy Type Onset Date Status Seasonal IC Unknown Drug Allergy Activ e Reason For Referral No Information Medications Medication SIG (Take, Route, Frequency, Duration) Notes Start Date End Date Status Anucort-HC 25 MG 1 suppository Rectal Once a day Active Multivitamin Adult A ctive Calcium Active Dicyclomine HCl 10 MG 1 tablet Orally 2- 4 times a day 08/30/2022 Active MiraLax (colon prep) 17 GM/SCOOP mixed with Gatorade or Crystal Light Orally begin at 5:00 p.m. the day before the procedure for 1 day 09/14/2022 Active Immunizations Vaccine Route Administration Date Status Comme nts Influenza Unknown 04/06/2021 Administered Influenza Unknown 03/16/2022 Administered Social History Tobacco Use: Social History Observation Description Date Details (start date - stop date) Never Smoker NA - NA Tobacco Use/Smoking Question Answer Notes Patient is a nonsmoker Alcohol Screen Question Answer Notes Did you have a drink contain ing alcohol in the past year? Yes How often did you have a dri nk containing alcohol in the past year? 2 to 3 times a week (3 points) How many drinks did you have on a typical day when you were drinking in the past year? 1 or 2 drinks (0 point) How often did you have 6 or more drinks on one occasion in the past year? Less than monthly (1 point) Points 4 Interpretation Positive Problems Problem Type SNOMED Code ICD Code Onset Dates Problem Status W/U Status Risk Notes Problem History of polyp of colon (situation) (081133158) Personal history of colonic polyps (Z86.010) Active confirmed Problem 595286715 Change in bowel habits (R19.4) Active confirmed Problem 67498690 Hemorrhoids, unspecified hemorrhoid type (K64.9) Active confirmed Problem 24564043 Diarrhea, unspecified type (R19.7) Active confirmed Problem 54004746 Polyp of colon, unspecified part of colon, unspecified type (K63.5) Active confirmed Problem 60137816 Change in bowel function (R19.8) Active confirmed Plan Of Treatment Pending Test Test Name Order Date LIVER PROFILE 08/30/2022 LIPASE 08/30/2022 CBC w DIFF 08/30/2022 TSH REFLEX FREE T4 08/30/2022 Future Test Test Name Order Date COLONOSCOPY 04/06/2021 COLONOSCOPY 04/21/2021 COLONOSCOPY 09/14/2022 Insurance Providers Payer Name Payer Address Payer Phone Subscriber Number Group Number Insured Name Patient Relationship to Insured Coverage Start Date Coverage End Date [employer] [address] BRE[place]ER[place] [id number] LUPE LEYVA Self - patient is the insured Medical (General) History Medical History History ICD Code Anxiety/stress Anemia requiring blood transfusion due t o menorrhagia Surgical History Surgery Date(Month/Year) Reduction mammoplasty Partial hysterectomy for menorrhagia in cervical polyp Tonsillectomy Left knee ACL
== END 2024-10-08 11:33 | disposition home or self-care (01) ==
LOC: HO.XRAY 11:32
PROVIDERS: PCP Internal Medicine Medical Oncology; Visit Provider Internal Medicine Medical Oncology
DX: R05.3 Chronic cough (principal)
CPT/HCPCS: 71046

== ENCOUNTER → 2024-10-08 11:41 | Outpatient (BNV) | payer BC, SELFPAY | PROVIDERS: PCP Internal Medicine Medical Oncology; Visit Provider Radiology Diagnostic Radiology | DX: R05.3 Chronic cough (principal) | CPT/HCPCS: 71046 ==

== ENCOUNTER → 2024-12-15 13:50 | Outpatient (BNVA) | payer SELFPAY | PROVIDERS: PCP Internal Medicine Medical Oncology; Visit Provider Physician Assistant Medical | DX: Z02.79 Encounter for issue of other medical certificate (principal) ==

== ENCOUNTER 2024-12-16 06:21 | Outpatient (REF) | payer BC, SELFPAY ==
[2024-12-16 06:38] LABS: MANUAL DIFF FLAG NO
[2024-12-16 07:26] LABS: Basophils Absolute Auto 0.1 X10*3/uL (0.0-0.2); Basophils Percent Auto 1.7 % (0-2); Eosinophils Absolute Auto 0.3 X10*3/uL (0.0-0.4); Eosinophils Percent Auto 4.5 % (0-4); Hematocrit 45.2 % (37.0-47.0); Imm Gran Abs Auto 0.01 X10*3/uL (0.00-0.03); Imm Gran Pct Auto 0.2 % (0.0-0.4); Lymphocytes Absolute Auto 2.1 X10*3/uL (1.2-4.9); Lymphocytes Percent Auto 34.7 % (20-40); Mean Corpuscular HGB Conc 33.2 g/dl (31.0-35.0); Mean Corpuscular Hemoglobin 30.2 pg (27.0-33.0); Mean Corpuscular Volume 90.9 fL (80.0-98.0); Mean Platelet Volume 9.7 fL (9.4-12.3); Monocytes Absolute Auto 0.4 X10*3/uL (0.1-1.2); Neutrophils Absolute Auto 3.1 x10*3/uL (2.0-8.3); Neutrophils Percent Auto 51.9 % (45-73); Platelet Count 341 X10*3/uL (160-400); Red Blood Count 4.97 X10*6/uL (4.20-5.50); Red Cell Distribution Width 13.1 % (11.0-16.0)
[2024-12-16 07:51] LABS: Alanine Aminotransferase 27 U/L (0-31); Albumin Level 4.5 g/dL (3.5-5.0); Alkaline Phosphatase 80 U/L (39-117); Anion Gap 12 (12-20); Aspartate Amino Transferase 24 U/L (5-31); Bilirubin Total 0.4 mg/dL (0.0-1.0); Blood Urea Nitrogen 16 mg/dL (9-16); Calcium 9.6 mg/dL (8.4-10.2); Carbon Dioxide 27 mmol/L (22-29); Chloride 104 mmol/L (96-108); Cholesterol 279 mg/dL (<200); Estimated Glomerular Filt Rate 50; Glucose Fasting 100 mg/dL (60-99); HDL Cholesterol 53 mg/dL (>40); LDL Cholesterol Calculated 180 mg/dL (<100); Potassium 4.1 mmol/L (3.3-5.1); Sodium 139 mmol/L (135-145); Total Protein 7.2 g/dL (6.5-8.0); Triglycerides 232 mg/dL (<150)
== END 2024-12-16 06:22 | disposition home or self-care (01) ==
LOC: HO.LAB 06:21
PROVIDERS: PCP Internal Medicine Medical Oncology; Visit Provider Internal Medicine Medical Oncology
DX: E66.9 Obesity, unspecified (principal); E78.5 Hyperlipidemia, unspecified
CPT/HCPCS: 36415; 80053; 80061; 85025

== ENCOUNTER 2025-01-10 08:34 | Outpatient (REF) | payer BC, SELFPAY ==
--- OUTSIDE RECORDS SUMMARY | 2024-12-29 10:30 | XMS_ITS ---
Author Organization Aroldo Blanchard III, MD Address [address] [facility] [place] [address] [place] [address] Care Team Providers Care Salesperson Automobiles Name Role Phone Aroldo Blanchard Primary Care Provider [phone] Allergies Allergen (clinical drug ingredient) Drug/Non Drug [...] Date Provider Diagnosis Aroldo Blanchard III, MD [address] [place] [address] [place] [address] 12/29/2024 Aroldo Blanchard Obesity (BMI 30.0-34 .9) [...] Provider Name:Aroldo Blanchard, 01/26/2025 02:45:00 PM, [address] [facility] [address], [place], [address], Provider Name:Aroldo Blanchard, 12/30/2025 03:00:00 PM, [address] [place] [address] [address], [place], [address], Progress Notes * Derik YAÑEZ GDOB: [birth year] (54 yo F)Acc No.[id number]:12/29/2024 Progress Notes Patient: Derik HASSAN Provider: Maribel Blanchard MD :1970 A ge:54 Y S ex:Female Date:12/29/2024 Address:[address] [place] [id number] Subjective: * Chief Complaints: * A nnual [...] 69 yrs, Alive and well, lives in [place], [place], thyroid disease, hyperlipidemia, diagnosed with CVD. [...] P ositive S he was born in [place], [facility]. 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 She is exposed to paint and dust [...] . BREASTS: , Not examined, Done by PORCELAIN FINISH SPRAYER. ABDOMEN: b owel sounds normal, no ascites, [...] 0 12/29/2024 Generated for Janet fine/Eliana/eTransmitting on: 0 01/10/2025 08:36 AM EDT History and Physical Notes * [...] normal BREASTS: , Not examined, Done by PORCELAIN FINISH SPRAYER MUSCULOSKELETAL: extremities unremark able, no clubbing, cyanosis or edema LYMPH NODES: no enlarged lymph no peter,spleen normal RECTAL EXAM: not examined PSYCH: alert, oriented ORAL CAVITY: normal, unremarkable
[2025-01-10 09:57] LABS: Cholesterol 212 mg/dL (<200); HDL Cholesterol 59 mg/dL (>40); LDL Cholesterol Calculated 128 mg/dL (<100); Triglycerides 127 mg/dL (<150)
== END 2025-01-10 08:35 | disposition home or self-care (01) ==
LOC: HO.LAB 08:34
PROVIDERS: PCP Internal Medicine Medical Oncology; Visit Provider Internal Medicine Medical Oncology
DX: Z00.00 Encounter for general adult medical examination without abnormal findings (principal); E66.9 Obesity, unspecified
CPT/HCPCS: 36415; 80061

== ENCOUNTER 2025-01-12 15:27 | Outpatient (REF) | payer BC, SELFPAY ==
--- OUTSIDE RECORDS SUMMARY | 2024-12-29 10:30 | XMS_ITS ---
Author Organization Aroldo Blanchard III, MD Address [address] [facility] [place] [address] [place] [address] Care Team Providers Care Powerhouse Mechanic Helper Name Role Phone Aroldo Blanchard Primary Care Provider [phone] Allergies Allergen (clinical drug ingredient) Drug/Non Drug [...] Date Provider Diagnosis Aroldo Blanchard III, MD [address] [place] [address] [place] [address] 12/29/2024 Aroldo Blanchard Obesity (BMI 30.0-34 .9) [...] Up: 3 Weeks, Reason: Telehealth Provider Name:Aroldo Blanchard, 01/26/2025 02:45:00 PM, [address] [facility] [address], [place], [address], Provider Name:Aroldo Blanchard, 12/30/2025 03:00:00 PM, [address] [place] [address] [address], [place], [address], Progress Notes * Derik YAÑEZ GDOB: [birth year] (54 yo F)Acc No.[id number]:12/29/2024 Progress Notes Patient: Derik HASSAN Provider: Maribel Blanchard MD :1970 A ge:54 Y S ex:Female Date:12/29/2024 Address:[address] [place] [id number] Subjective: * Chief Complaints: * A nnual [...] 69 yrs, Alive and well, lives in [place], [place], thyroid disease, hyperlipidemia, diagnosed with CVD. [...] P ositive S he was born in [place], [facility]. 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 She is exposed to paint and dust [...] . BREASTS: , Not examined, Done by ELECTRONIC EQUIPMENT REPAIRER. ABDOMEN: b owel sounds normal, no ascites, [...] MD Date: 0 12/29/2024 Generated for Janet fine/Eliana/eTransmitting on: 01/12/2025 03:38 PM EDT History and Physical Notes * [...] normal BREASTS: , Not examined, Done by ELECTRONIC EQUIPMENT REPAIRER MUSCULOSKELETAL: extremities unremark able, no clubbing, cyanosis or edema LYMPH NODES: no enlarged lymph no peter,spleen normal RECTAL EXAM: not examined PSYCH: alert, oriented ORAL CAVITY: normal, unremarkable
--- OUTSIDE RECORDS SUMMARY | 2025-01-12 15:39 | XMS_ITS | Patient Health Record ---
Author Organization [facility] Address [address] [place] [address] Care Team Providers Care Inspector Clip On Sunglasses Name Role Phone Aroldo Blanchard MD Primary Care Provider UnavailRuslan Mishra Jr Unavailable Allergies Allergen (clinical drug ingredient) Drug/Non Drug [...] Problem History of polyp of colon (situation) (059875412) Personal history of colonic polyps (Z86.010) Active confirmed Problem 747991391 Change in bowel habits (R19.4) Active confirmed Problem 06157885 Hemorrhoids, unspecified hemorrhoid type (K64.9) Active confirmed Problem 01661848 Diarrhea, unspecified type (R19.7) Active confirmed Problem 99913864 Polyp of colon, unspecified part of colon, unspecified type (K63.5) Active confirmed Problem 41106137 Change in bowel function (R19.8) Active confirmed [...] Date Coverage End Date [employer] [address] BREA SCHERER [address] [id number] LUPE LEYVA Self - patient is the insured Medical (General) History Medical History History ICD Code Anxiety/stress Anemia requiring blood transfusion due t o menorrhagia Surgical History Surgery Date(Month/Year) Reduction mammoplasty Partial hysterectomy for menorrhagia in cervical polyp Tonsillectomy Left knee ACL
== END 2025-01-12 15:28 | disposition home or self-care (01) ==
LOC: HO.MAMMO 15:27
PROVIDERS: PCP Internal Medicine Medical Oncology; Visit Provider Internal Medicine Medical Oncology
DX: Z12.31 Encounter for screening mammogram for malignant neoplasm of breast (principal)
CPT/HCPCS: 77063; 77067

== ENCOUNTER → 2025-01-12 15:30 | Outpatient (BNV) | payer BC, SELFPAY | PROVIDERS: PCP Internal Medicine Medical Oncology; Visit Provider Internal Medicine | DX: Z12.31 Encounter for screening mammogram for malignant neoplasm of breast (principal) | CPT/HCPCS: 77063; 77067 ==

== ENCOUNTER 2025-04-16 05:53 | Inpatient (IN) | payer BC, SELFPAY ==
--- OUTSIDE RECORDS SUMMARY | 2024-10-09 10:24 | XMS_ITS ---
Author Organization Aroldo Blanchard III, MD Address [address] [place] [address] [place] [address] Care Team Providers Care Museum Guide Name Role Phone Dr. Aroldo Blanchard III Primary Care Provider REASON FOR VISIT Requesting Out of Work Social History Sex Assigned At : Social History Observation Description Sex Assigned At Female Encounters Encounter Location Date Provider Diagnosis Aroldo Blanchard III, MD [address] [place] [address] [address] [place] [address] 10/09/2024 Aroldo Blanchard Plan Of Treatment Next Appt Details Provider Name:Aroldo Blanchard , 07/29/2025 02:30:00 PM, [address] [place] [address] [place], [address], Provider Name:Aroldo Blanchard , 12/30/2025 03:00:00 PM, [address] [place] [address] [place], [address], Progress Notes * Derik LEYVA GDOB:1970 (53 yo F)Acc No.[id number]:10/09/2024 Patient: Derik HANLEY :1970 A ge:53 Y S ex:Female Address:[address] [place] [address] [place], [address] * true * Date: Generated for Printi ng/Faxing/eTransmitting on: 1 06:37 AM EDT
--- OUTSIDE RECORDS SUMMARY | 2024-10-15 11:30 | XMS_ITS ---
Author Organization Aroldo Blanchard III, MD Address [address] [facility] [place] [address] Care Team Providers Care Soil Science Professor Name Role Phone Dr. Aroldo Blanchard III Primary Care Provider [phone] Allergies Allergen (clinical drug ingredient) Drug/Non Drug Allergy documented on EMR Reaction Allergy Type Onset Date Status No Known Drug Allergy Unknown Drug Allergy Active Reason For Referral Reason Consult and Treat Depression ? ADHD Diagnosis 1 Depression (F32.9) Referral Organization Aroldo Blanchard III, MD Referring Provider First Name Aroldo Referring Provider Last Name Lo Referring Provider Speciality Internal M edicine Referred Provider [facility] Referred Provider Specialty Unknown General Notes Ivelisse Gerard 10/15/2024 03:44:32 PM > Patient was given [facility] and [facility] information to contact them to schedule an [...] Problem Status W/U Status Risk Notes Problem [id number] Viral syndrome (B34.9) Active confirmed She has recovered well enough to return to work and normal life. She will call me if she has any difficulty with this. Current therapies were continued. Encounters Encounter Location Date Provider Diagnosis Aroldo Blanchard III, MD [address] [place] [address] [place] [address] 10/15/2024 Aroldo Blanchard Obesity (BMI 30.0-34 .9) [...] Consult and Treat Depression ? ADHD, Counseling [facility] Appt Details Follow Up: As Scheduled, Zora son: Annual Exam Provider Name:Aroldo Blanchard , 07/29/2025 02:30:00 PM, [address] [place] [address] [address], [place], [address], Provider Name:Aroldo Blanchard , 12/30/2025 03:00:00 PM, [address] [place] [address] [address], [place], [address], Progress Notes * Derik LEYVA GDOB:1970 (53 yo F)Acc No.[id number]:10/15/2024 Patient: Derik HANLEY Provider: Maribel Blanchard MD :1970 A ge:53 Y S ex:Female Date:10/15/2024 Address:[address] [place] [phone] Subjective: * Chief Complaints: * R ecent [...] { ...} [address] [facility] [address] L ocation of patient: dante yu listed [...] 69 yrs, Alive and well, lives in [place], [place], thyroid disease, hyperlipidemia. Ady don Grand [...] x-cigarette smoker S he was born in [facility]. 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 She is exposed to paint and dust [...] Panel 3. O thers Referral To:Counseling Center [facility] Unknown Reason:Consult and Treat Depression ? [...] 10/15/2024 Generated for Janet fine/Eliana/Janice on: 1 06:36 AM EDT History and Physical Notes * HPI (History of Present Illness) Category Sub-Category Detail Notes Telehealth Location of prov ider rendering services:: {...} [address] [facility] [address] Location of patient:: address listed in demographics [...] Referred Provider Not catracho 10/15/2024 Aroldo Blanchard [facility], [facility] Consult and Treat Depression ? ADHD
--- OUTSIDE RECORDS SUMMARY | 2024-11-10 13:30 | XMS_ITS ---
Author Organization Aroldo Blanchard III, MD Address [address] [facility] [place] [address] Care Team Providers Care Development Trainer Name Role Phone Dr. Aroldo Blanchard III [...] Date Provider Diagnosis Aroldo Blanchard III, MD [address] [place] [address] [place] [address] 11/10/2024 Aroldo Blanchard Obesity (BMI 30.0-34.9) E66.9 [...] Name:Aroldo Biggs Lo , 07/29/2025 02:30:00 PM, [address] [place] [address] [address], [place], [address], Provider Name:Aroldo Biggs Lo , 12/30/2025 03:00:00 PM, [address] [place] [address] [address], [place], [address], Progress Notes * Derik YAÑEZ GDOB: [birth year] (54 yo F)Acc No.[id number]:11/10/2024 Progress Notes Patient: Derik HASSAN Provider: Maribel Blanchard MD :1970 A ge:53 Y S ex:Female Date:11/10/2024 Address:[address] [place] [phone] Subjective: * Chief Complaints: * 1 . [...] 69 yrs, Alive and well, lives in [place], [place], thyroid disease, hyperlipidemia. M arian Grand [...] x-cigarette smoker S he was born in [place], [facility]. 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 She is exposed to paint and dust [...] 0 11/10/2024 Generated for Janet fine/Eliana/Janice on: 06:37 AM EDT History and Physical Notes * [...]
--- OUTSIDE RECORDS SUMMARY | 2024-12-29 10:30 | XMS_ITS ---
Author Organization Aroldo Blanchard III, MD Address 10 [facility] [address] [address] Care Team Providers Care Medical Anthropology Director Name Role Phone Dr. Aroldo Blanchard [...] Date Provider Diagnosis Aroldo Blanchard III, MD [address] [place] [address] [place] [address] 12/29/2024 Aroldo Blanchard Obesity (BMI 30.0-34 .9) [...] Provider Name:Aroldo Blanchard , 07/29/2025 02:30:00 PM, [address] [place] [address] [address], [place], [address], Provider Name:Aroldo Londonone , 12/30/2025 03:00:00 PM, [address] [place] [address] [address], [place], [address], Progress Notes * Derik YAÑEZ GDOB: [birth year] (54 yo F)Acc No.[id number]:12/29/2024 Progress Notes Patient: Derik HASSAN Provider: Maribel Blanchard MD :1970 A ge:54 Y S ex:Female Date:12/29/2024 Address:[address] [place] [address] [place], [place]-[id number] Subjective: * Chief Complaints: * A nnual [...] 69 yrs, Alive and well, lives in [place], [place], thyroid disease, hyperlipidemia, diagnosed with CVD. [...] P ositive S he was born in [place], [facility]. 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 She is exposed to paint and dust [...] . BREASTS: , Not examined, Done by CLAIM PROCESSOR. ABDOMEN: b owel sounds normal, no ascites, [...] 0 12/29/2024 Generated for Janet fine/Eliana/eTransmitting on: 1 06:36 AM EDT History and [...] normal BREASTS: , Not examined, Done by CLAIM PROCESSOR MUSCULOSKELETAL: extremities unremark able, no clubbing, cyanosis or edema LYMPH NODES: no enlarged lymph no peter,spleen normal RECTAL EXAM: not examined PSYCH: alert, oriented ORAL CAVITY: normal, unremarkable
--- OUTSIDE RECORDS SUMMARY | 2025-01-26 10:45 | XMS_ITS ---
Author Organization Aroldo Blanchard III, MD Address [address] [facility] [place] [address] Care Team Providers Care Microfiche Camera Operator Name Role Phone Dr. Aroldo Blanchard [...] Provider Diagnosis Aroldo Blanchard III, MD [address] [place] [address] [place] [address] 01/26/2025 Aroldo Blanchard Obesity (BMI 30.0-34 .9) [...] Name:Aroldo Blanchard , 07/29/2025 02:30:00 PM, [address] [place] [address] [address], [place], [address], Provider Name:Aroldo Blanchard , 12/30/2025 03:00:00 PM, [address] [place] [address] [address], [place], [address], Progress Notes * PARIDerik GDOB: [birth year] (54 yo F)Acc No.[id number]:01/26/2025 Patient: Derik HASSAN Provider: Maribel Balnchard MD :1970 A ge:54 Y S ex:Female Date:01/26/2025 Address:[address] [place] [address] JADEN Biggs [id number] Subjective: * Chief Complaints: * T elehealth [...] of provider rendering services: { ...} [address] [facility] [address] L ocation of patient: dante yu listed [...] 69 yrs, Alive and well, lives in [place], [place], thyroid disease, hyperlipidemia, diagnosed with CVD. [...] x-cigarette smoker S he was born in [place], [facility]. 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 She is exposed to paint and dust [...] 01/26/2025 Generated for Janet fine/Eliana/eTransmitting on: 1 06:37 AM EDT History and Physical Notes * HPI (History of Present Illness) Category Sub-Category Detail Notes Telehealth Location of [facility] rendering services:: {...} [address] [facility] [address] [place] [address] Location of patient:: address listed in demographics [...]
[2025-04-16] VITALS (14 sets, daily range): BP systolic 85–166; BP diastolic 45–87; PULSE 59–89; RESP 14–20; TEMP 36.3–37.7; O2SAT 95–100; BMI 32.0; BMI 33.5
--- NOTE | ~2025-04-16 | CT_ITS ---
EXAMINATION: CT ABDOMEN AND PELVIS WITH CONTRAST CLINICAL INFORMATION: Abdominal pain. Concerning small bowel obstruction. COMPARISON: January 14, 2020. TECHNIQUE: Multidetector volumetric images were obtained from the superior aspect of the liver through the pubic symphysis following administration 85 mL of Omnipaque 350 intravenous contrast. Sagittal and coronal reformatted images were obtained on the technologist's workstation. Oral contrast: No This CT examination was performed using dose optimization techniques as appropriate, variously including the following: *Automated exposure control *Adjustment of mA and/or kV according to patient size (this includes techniques or standardized protocols for targeted exams where dose is matched to indication/reason for exam; i.e. extremities or head) *Use of iterative reconstruction technique. DLP: 639 mGy centimeter. FINDINGS: LUNG BASES: No acute airspace disease or gross pulmonary nodules. LIVER, GALLBLADDER, AND BILIARY TREE: Liver measures 17 cm. No focal mass. Focal hypodensity adjacent to the falciform ligament likely focal fatty infiltration. Main portal veins, hepatic veins are patent. No intrahepatic biliary ductal dilatation. Gallbladder is fluid-filled nondistended without pericholecystic fluid collection or gallbladder wall thickening. Common bile duct measures 3 mm. PANCREAS: No focal mass. No peripancreatic fluid collection. No main pancreatic ductal dilatation. SPLEEN: 8 cm. No focal mass. ADRENAL GLANDS: No nodular lesions. KIDNEYS AND URETERS: No hydronephrosis. No nephrolithiasis. Normal enhancement pattern of the renal parenchyma. BLADDER: Fluid-filled nearly collapsed. GASTROINTESTINAL TRACT: Appendix measures 13 mm in maximal thickness with edematous wall and increased density secretions in the proximal segment. There is a tiny air bubble in the midportion. No periappendiceal edema pattern. Gas and fluid-filled prominent small bowel loops with subsegmental air cells wall thickening versus peristalsis. There is fecaloid material in the distal ileal loops. There is abundant stool in the large intestine. There is a segmental narrowing in the mid descending colon, questionable peristalsis. No pericolonic edema pattern. No pneumatosis intestinalis. No ascites. No pneumoperitoneum. ABDOMINAL WALL: No umbilical hernia. LYMPH NODES: Nonspecific mildly prominent mesenteric and retroperitoneal lymph nodes. VASCULAR: No aneurysm or dissection, abdominal aorta. No gross calcified plaques. PELVIC VISCERA: Not enlarged. No gross masses. OSSEOUS STRUCTURES: Grade 1 anterolisthesis L4-5 without spondylolysis with degenerative changes in the posterior elements resulting in central spinal canal and bilateral neuroforamina stenosis. Multilevel thoracolumbar spondylosis.. Sclerosis and the sacroiliac joints with vacuum phenomenon. Degenerative changes in the symphysis pubis. CT/CT abdomen pelvis w IV con IMPRESSION: Concerning early acute noncomplicated/nonruptured appendicitis with associated regional ileus. Fleischner guidelines were followed. Electronically signed by: Jacob Cisneros MD 04/16/2025 07:59 AM EDT
--- NOTE | 2025-04-16 06:22 | ED_ITS ---
HPI - Abdominal Pain General Chief Complaint: Abdominal Pain Stated Complaint: ABD PAIN Time Seen by Provider: 04/16/25 06:10 Source: patient Mode of arrival: ambulatory Limitations: no limitations History of Present Illness ED Provider: HPI narrative: 54-year-old woman with a history of hysterectomy, presenting with worsening abdominal pain and now reports obstipation and nausea started 02:00 yesterday has progressively gotten worse, ate a tuna sandwich but nothing unusual, when she tried to move her bowels or small amount of blood she inserted rectal suppository to help relieve what she felt like his constipation. No fevers or chills. Related Data Home Medications ?Medication ?Instructions ?Recorded ?Confirmed escitalopram oxalate 5 mg tablet 5 mg PO DAILY 5 04/16/25 Previous Rx's ?Medication ?Instructions ?Recorded docusate sodium 100 mg capsule 100 mg PO BID PRN const ipation #30 04/17/25 (Colace) caps Allergies Allergy/AdvReac Type Severity Reaction Status Date / Time prednisone (PREDNISONE) Allergy Severe HIVES Verified 04/22/25 10:17 Review of Systems Constitutional: Reports as per HPI [facility] Past Medical History Medical History Acute appendicitis History of blood transfusion Anemia Anxiety PONV (postoperative nausea and vomiting) Surgical History (Updated 04/22/25 @ 08:42 by JOHAN Dasilva) History of laparoscopic appendectomy (04/16/25) History of repair of anterior cruciate ligament of left knee History of colonoscopy History of partial hysterectomy History of cervical polypectomy History of tonsillectomy History of bilateral breast reduction surgery History of endometrial ablation Social History Social History Household Members: Family Housing: House Are you a primary personal care attendant to a significant other at home: No Do you presently have visiting nurse or other home services: No Comment: RECENT ACL KNEE REPAIR Patient Tobacco Use Status: Former Tobacco user Tobacco use type: Cigarette Physical Exam ED Vital Signs: Vital Signs - 24 hr 04/16/25 05:56 Temperature 97.3 F Pulse Rate 69 Respiratory Rate 18 Blood Pressure 114/69 Pulse Oximetry 99 Oxygen Delivery Method Room Air BMI result Body Mass Index 32.0 Const Other: General: ?In discomfort ? ?PERRLA, EOMI, MMM, ? Neck: Supple, no LAD ? ?CV: RRR, no obvious murmurs appreciated ? ?Resp: ?No wheezing rales rhonchi no stridor moving air well ? Abd: ?Bowel sounds are decreased, mild distention, generalized tenderness ? ?MSK: FROM, strength 5/5 all extremities ? Skin: Warm, dry, intact, ? ?Neuro: ?Alert and oriented x3, moving upper and lower extremities symmetrically, no obvious facial asymmetry noted, cranial nerves 2-12 intact Medical Decision Making Medical Decision Making [facility] Narrative: 6:38 AM 04/16/2025 (Dr. Vito Davis): High suspicion is to evaluate for SBO versus ileus versus volvulus, other considerations as below, we will medicate for pain she is in discomfort, will address CT findings 8:10 AM 04/16/2025 (Dr. Vito Davis): CT suspicious for early appendicitis with some degree of ileus as I spoke to radiologist, I will obtain her blood work which was not initially obtained, patient is still having discomfort, we will provide antibiotics, pain control and consult surgery Differential Diagnosis Differential Diagnoses: The differential diagnosis associated with the presentation includes (SBO, volvulus, diverticulitis, perforated bowel, appendicitis) Admission/Observation Consideration of admission/observation: Escalation of care including admission/observation considered Consult Healthcare Provider Management of the patient was discussed with: Supply Specialist (Dr. Holcomb) Lab Data [facility] Lab Attestation statement: I reviewed the patient's lab results. 04/16/25 08:17 04/16/25 08:17 Labs: Lab Results 04/16/25 Range/Units 08:17 WBC 11.8 H (4.8-10.8) X10*3/uL RBC 5.21 (4.20-5.50) X10*6/uL Hgb 15.8 (12.0-16.0) g/dl Hct 46.7 (37.0-47.0) % MCV 89.6 (80.0-98.0) fL MCH 30.3 (27.0-33.0) pg MCHC 33.8 (31.0-35.0) g/dl RDW 12.6 (11.0-16.0) % Plt Count 285 (160-400) X10*3/uL MPV 9.6 (9.4-12.3) fL Immature Gran % (Auto) 0.3 (0.0-0.4) % Neut % (Auto) 89.7 H (45-73) % Lymph % (Auto) 6.3 L (20-40) % Slope % (Auto) 3.3 (2-11) % Eos % (Auto) 0.1 (0-4) % Baso % (Auto) 0.3 (0-2) % Lymph # (Auto) 0.7 L (1.2-4.9) X10*3/uL Slope # (Auto) 0.4 (0.1-1.2) X10*3/uL Eos # (Auto) 0.0 (0.0-0.4) X10*3/uL Baso # (Auto) 0.0 (0.0-0.2) X10*3/uL Abs Immat Gran (auto) 0.04 H (0.00-0.03) X10*3/uL Absolute Neuts (auto) 10.6 H (2.0-8.3) x10*3/uL Absolute Nucleated RBC 0.000 (0.0-0.012) X10*3/uL Nucleated RBC % (auto) 0.0 (0.0-0.2) /100WBC Sodium 136 (135-145) mmol/L Potassium 3.8 (3.3-5.1) mmol/L Chloride 102 (96-108) mmol/L Carbon Dioxide 26 (22-29) mmol/L Anion Gap 12 (12-20) BUN 9 (9-16) mg/dL Creatinine 0.84 (0.5-1.4) mg/dL Estim Creat Clear Calc 78.5 Estimated GFR > 60 Random Glucose 136 H (60-115) mg/dL Lactic Acid 1.2 (0.5-2.0) mmol/L Calcium 9.2 (8.4-10.2) mg/dL Total Bilirubin 0.4 (0.0-1.0) mg/dL AST 41 H (5-31) U/L ALT 43 H (0-31) U/L Alkaline Phosphatase 97 (39-117) U/L Total Protein 7.6 (6.5-8.0) g/dL Albumin 4.7 (3.5-5.0) g/dL Lipase 22 (8-78) U/L Medications Administered Discontinued Medications Generic Name Dose Route Start Last Admin Trade Name Freq PRN Reason Stop Dose Admin Cefotetan Disodium 2 gm 04/16/25 08:51 04/16/25 16:50 Cefotetan Disodium 2 Gm Vial IVPUSH 04/16/25 08:52 2 gm PREOP ONE Administration Ceftriaxone Sodium 1 gm 04/16/25 07:56 04/16/25 08:31 Ceftriaxone Sodium 1 Gm Vial IVPUSH 04/16/25 07:57 1 gm ONCE ONE Administration Famotidine 20 mg 04/16/25 06:23 04/16/25 06:50 Famotidine/Pf 20 Mg/2 Ml Vial IVPUSH 04/16/25 06:24 20 mg ONCE ONE Administration Sodium Chloride 1,000 mls @ 999 mls/hr 04/16/25 06:30 04/16/25 08:39 Ns IV 04/16/25 07:30 Infused .Q1H1M LUIS CARLOS Infusion Lactated Ringer's 1,000 mls @ 100 mls/hr 04/16/25 09:00 04/17/25 08:52 Lr IVCONT 100 mls/hr .Q10H LUIS CARLOS Infusion Acetaminophen 1,000 mg in 100 mls @ 400 mls/hr 04/16/25 08:51 04/16/25 13:20 Ofirmev IV Infused Q6H PRN Infusion Pain, Mild (Pain Scale 1-3) Piperacillin Sod/Tazobactam 50 mls @ 100 mls/hr 04/16/25 14:00 04/17/25 08:52 Sod 3.375 gm/ Sodium Chloride IV Infused Q6H LUIS CARLOS Infusion Iohexol 85 ml 04/16/25 07:11 04/16/25 07:11 Iohexol 350 Mg/Ml 100 Ml Infus..Btl IV 04/16/25 07:12 85 ml ONCE ONE Administration Ketorolac Tromethamine 15 mg 04/16/25 07:56 04/16/25 08:31 Ketorolac Tromethamine 15 Mg/Ml Vial IVPUSH 04/16/25 07:57 15 mg ONCE ONE Administration Morphine Sulfate 4 mg 04/16/25 06:23 04/16/25 06:51 Morphine Sulfate 4 Mg/Ml Cartridge IVPUSH 04/16/25 06:24 4 mg ONCE ONE Administration Protocol Morphine Sulfate 4 mg 04/16/25 07:57 04/16/25 08:31 Morphine Sulfate 4 Mg/Ml Cartridge IVPUSH 04/16/25 07:58 4 mg ONCE ONE Administration Protocol Ondansetron HCl 4 mg 04/16/25 06:23 04/16/25 06:50 Ondansetron Hcl 4 Mg/2 Ml Vial IVPUSH 04/16/25 06:24 4 mg ONCE ONE Administration Sodium Chloride 3 ml 04/16/25 20:00 04/17/25 08:05 0.9 % Sodium Chloride Flush 3 Ml Syringe IVFLUSH 3 ml QSHIFT LUIS CARLOS Administration Critical Care Time Critical Care Time Critical Care Time: Yes Total Critical Care Time: 45 Attestation: Time is exclusive of separately billable procedures. Time includes: direct patient care, patient reassessment, coordination of patient care, interpretation of data (laboratory data, pulse oximetry, arterial blood gases and chest xrays), review of patient's medical records, medical consultation and documentation of patient care. Procedures excluded from critical care time: central intravenous line placement and electrocardiography. Discharge Plan Discharge Clinical Impression: Acute appendicitis Qualifiers: Acute appendicitis type: with localized peritonitis Appendicitis gangrene presence: without gangrene Appendicitis perforation presence: without perforation Appendicitis abscess presence: without abscess Qualified Code(s): K 35.30 - Acute appendicitis with localized peritonitis, without perforation or gangrene Patient Disposition: Admitted As Inpatient Interventions: Admission Worksheet (ED) Last Done: 04/16/25 12:12 Discharge Date/Time: 04/16/25 12:13
--- OUTSIDE RECORDS SUMMARY | 2025-04-16 06:37 | XMS_ITS | Patient Health Record ---
Author Organization [facility] Address [address] [place] [address] Care Team Providers Care Lumber Carrier Operator Name Role Phone Aroldo Blanchard MD [...] Problem History of polyp of colon (situation) (411591064) Personal history of colonic polyps (Z86.010) Active confirmed Problem 845085021 Change in bowel habits (R19.4) Active confirmed Problem 06986226 Hemorrhoids, unspecified hemorrhoid type (K64.9) Active confirmed Problem [id number] Diarrhea, unspecified type (R19.7) Active confirmed Problem [id number] Polyp of colon, unspecified part of colon, unspecified type (K63.5) Active confirmed Problem 81638342 Change in bowel function (R19.8) Active confirmed [...] Date Coverage End Date [employer] [address] [place] [id number] LUPE LEYVA Self - patient is the insured Medical (General) History Medical History History ICD Code Anxiety/stress Anemia requiring blood transfusion due t o menorrhagia Surgical History Surgery Date(Month/Year) Reduction mammoplasty Partial hysterectomy for menorrhagia in cervical polyp Tonsillectomy Left knee ACL
--- OUTSIDE RECORDS SUMMARY | 2025-04-16 06:37 | XMS_ITS | Patient Health Record ---
Author Organization Aroldo Blanchard III, MD Address [address] [place] [address] Care Team Providers Care Commercial Credit Lead Name Role Phone Dr. Aroldo Blanchard III [...] 0.2 - 1.3 BLD Positive Negative - XR chest 2V Reviewed date:10/11/2024 08:12:45 AM Interpretation: Performing Lab: Notes/Report: [facility] [address] [place] [address] XRay Report Signed Patient: Derik Acharya MR#: [id number] : 1970 Acct:[id number] Age/Sex: 53 / F ADM Date: 10/08/24 Loc: HO.XRAY Attending Dr: Aroldo Blanchard MD Ordering Physician: Aroldo Blanchard MD Date of Service: 10/08/24 Procedure(s): XR chest 2V Accession Number(s): [id number] cc: Aroldo Blanchard MD EXAMINATION: XR CHEST 2 VIEWS [...] Aroldo Monroy MD 10/08/2024 11:54 AM EDT RP Dictated By: Aroldo Monroy MD Signed By: <Electronically signed by Aroldo Monroy MD in OV> 10/08/24 1154 DD/ 1145 TD/TT: 10/08/24 1150 [employer] Operator: [address] [address] XRay Report Signed Patient: Derik Acharya MR#: [id number] : 1970 Acct:[id number] Age/Sex: 53 / F ADM Date: 10/08/24 Loc: HOADRIANNEAY Attending Dr: Aroldo Blanchard MD Ordering Physician: Aroldo Blanchard MD Date of Service: 10/08/24 Procedure(s): XR [facility]la[address] st 2V Accession Number(s): [id number] cc: Aroldo Blanchard MD EXAMINATION: XR CHES T 2 VIEWS HISTORY: CHRONIC COUGH COMPARISON: Comparis on is made with the prior examination dated 09/13/2015. FINDINGS: PA and lat eral views of the chest are submitted. The lungs are expanded and wendy ar. There is no pleural effusion, pneumothorax, or pulmonary vascular congestion. The heart is normal in size. The bones are intact. X R/XR chest 2V IMPRESSION: No acute cardiopulmo nary abnormality. Electronically dc d by: Aroldo Monroy MD 10/08/2024 11:54 AM EDT RP Dictated By: Aroldo Monroy MD Signed By: <Electronically signed by Aroldo Monroy MD in OV> 10/08/24 1154 DD/ 1145 TD/TT: 10/08/24 1150 [employer] Operator: Lipid Panel Reviewed date:01/16/2025 07:01:55 PM Interpretation: Performing Lab:[facility], [address] [place] [address] [place] [address] Notes/Report: Triglycerides 127 <150 mg/dL Desirable Triglyceride: less than 150 mg/dL Borderline High Triglyceride 150-199 mg/dL High Triglyceride: 200-499 mg/dL Very High Triglyceride: greater than or equal to 5OO mg/dL Cholesterol 212 <200 mg/dL Desirable Cholesterol: less than 200 mg/dL Borderline High Cholesterol: 200-239 mg/dL High Cholesterol: greater than 239 mg/dL LDL Cholesterol Calculated 128 <100 mg/dL Desirable LDL: less than 100 mg/dL Near Optimal/Above Optimal LDL: 110-129 mg/dL Borderline High LDL: 130-159 mg/dL High LDL: 160-189 mg/dL Very High LDL: greater than or equal to 190 mg/dL HDL Cholesterol 59 >40 mg/dL Desirable HDL: greater than 40 mg/dL Note: This HDL assay may give artificially low results in patients with liver disease. MM tomosynthesis screening B I Reviewed date:01/27/2025 04:58:00 AM Interpretation: Performing Lab: Notes/Report: [address] [place] [address] Mammography Report Signed Patient: Derik Redd MR#: [id number] : 1970 Acct:[id number] Age/Sex: 54 / F ADM Date: 01/12/25 Loc: HO.MAMMO Attending Dr: Aroldo Blanchard MD Ordering Physician: Aroldo Blanchard MD Results: 2Benign Findings Date of Service: 01/12/25 Follow Up: 1 Year From [facility] Mammogram Procedure(s): MM tomosynthesis screening BI Accession Number(s): [id number] cc: Aroldo Blanchard MD EXAMINATION: MM SCREENING DIGITAL BREAST TOMOSYNTHESIS, BILATERAL CLINICAL INFORMATION: Screening. Asymptomatic. COMPARISON: Mammography: Comparison is made with available priors TECHNIQUE: Digital breast mammography with tomosynthesis is performed in both the craniocaudal and mediolateral oblique views along with computer-aided detection (CAD). FINDINGS: There are scattered areas of fibroglandular density (ACR BI-RADS breast composition Category b). Bilateral reduction mammoplasty. There are no significant masses, abnormal calcifications, or other abnormalities. MM/MM tomosynthesis screening BI IMPRESSION: No mammographic evidence of malignancy. ASSESSMENT: BI-RADS BI-RADS 2 - Benign Findings RECOMMENDATION: Routine annual mammography screening. 1 year F/U This examination should not preclude the clinical evaluation of a suspicious palpable abnormality. This patient's information was entered into a reminder system with a target due date for their next mammogram. Electronically signed by: Carline Schulte DO 01/25/2025 02:19 PM EDT Dictated By: Carline Schulte DO Signed By: <Electronically signed by Carline Schulte DO in OV> 01/25/25 1419 DD/ 1535 TD/TT: 01/12/25 1549 [employer] Operator: [facility] [address] [place] [address] Mammography Report Signed Patient: Kira Redd MR#: [id number] : 1970 Acct:[id number] Age/Sex: 54 / F ADM Date: 01/12/25 Loc: HO.MAMMO Attending Dr: Aroldo Blanchard MD Ordering Physician: Aroldo Blanchard MD Results: 2Benign Findings Date of Service: 01/12/25 Follow Up: 1 Year From [facility] Mammogram Procedure(s): MM tomosynthesis screening BI Accession Number(s): [id number] cc: Aroldo Blanchard MD EXAMINATION: MM SCREENING DIGITAL BREAST TOMOSYNTHESIS, BILATERAL CLINICAL INFORMATION: Screening. Asymptomatic. COMPARISON: Mammography: Compari son is made with available priors TECHNIQUE: Digital breast mammography with tomosynthesis is performed in both the craniocaudal and mediolateral oblique views along with computer-aided detection (CAD). FINDINGS: There are scattered areas of fibroglandular density (ACR BI-RADS breast composition Category b). Bilateral reduction mammoplasty. There are no signifi cant masses, abnormal calcifications, or other abnormalities. M M/MM tomosynthesis screening BI IMPRESSION: No mammographic evid ence of malignancy. ASSESSMENT: BI-RADS BI-RADS 2 - Benign Findings RECOMMENDATION: Routine annual mammography screening. 1 year F/U This examination alida uld not preclude the clinical evaluation of a suspicious palpable abnormality. This patient's information was entered into a reminder system with a target due date for their next mammogram. Electronically dc d by: Carline Schulte DO 01/25/2025 02:19 PM EDT RP Dictated By: Carline Schulte DO Signed By: <Electronically signed by Carline Schulte DO in OV> 01/25/25 1419 DD/ 1535 TD/TT: 01/12/25 1549 [employer] Operator: Reason For Referral Reason Consult and Treat Depression ? ADHD Diagnosis 1 Depression (F32.9) Referral Organization Aroldo Blanchard III, MD Referring Provider First Name Aroldo Referring Provider Last Name Lo Referring Provider Speciality Internal M edicine Referred Provider [facility] Referred Provider Specialty Unknown General Notes D, Ivelisse 10/15/2024 03:44:32 PM > Patient was given [facility] and [facility] information to contact them to schedule an appointment. we explained we are unable to schedule or send referral for the patients they are required to contact themselves Referral Priority Routine Medications Medication SIG (Take, Route, Frequency, Duration) Notes Start Date End Date Status Loratadine 10 MG 1 tablet Orally Once a day 2023 Active Escitalopram Oxalate 5 MG TAKE 1 TABLET BY MOUTH DAILY for 90 Active Silver sulfADIAZINE 1 % 1 application Ex ternally Once a day 11/05/2023 Active Immunizations Vaccine Route Administration Date Status [...] Never (0 point) Points 3 Interpretation Positive Problems Problem Type SNOMED Code ICD Code Onset Dates Problem Status W/U Status Risk Notes Problem 0921694 Former smoker (Z87.891) Active confirmed She has a plan to prevent relapse in times of stress and illness. Problem Depression (473457573) Depression (F32.9) Active confirmed Her depression is stable. She is going to report immediately if it worsens. No change in regimen as needed. Problem [id number] Obesity (BMI 30.0-34.9) (E66.9) Active confirmed Her weight has been stable. Her body mass index is 32. We discussed her diet and nutrition. We made a plan to lose weight at a rate of one half of a pound per week through a diet restricted in fat calories and sodium combined with regular physical activity. Problem 49355194 Penicillin allergy (Z88.0) Active confirmed Problem 947110787 Environmental allergies (Z91.09) Active confirmed She has significant allergies and is dealing with them appropriately. She says this is a bad year for seasonal allergies. Problem 08529603 Viral syndrome (B34.9) Active confirmed She has recovered well enough to return to work and normal life. She will call me if she has any difficulty with this. Current therapies were continued. Problem 022899584 Rash (R21) Active confirmed S he was given a course of oral prednisone as well as topical triamcinolone. Problem Hyperlipidaemia (56656299) Hyperlipidemia, unspecified hyperlipidemia type (E78.5) Active confirmed Her fasting total cholesterol of 212. No joint treatment is necessary. Problem 109154862 History of depression (Z86.59) Active confirmed She continues to see a therapist. Her depression is present but minimal. She is completing all of the activities of daily life without impairment. Problem 649817482 Acute asthmatic bronchitis (J45.909) Active confirmed I have given her prednisone and Augmentin. She says she has an inhaler. She will report in 48 hours. Problem 44797799 Diet controlled gestational diabetes mellitus (GDM) in third trimester (O24.410) Active confirmed Comprehensive blood work is pending. Vital Signs Heart Rate 58 /min 12/29/2024 Temperature 98.4 degrees Fahrenheit 12/29/2024 Blood pressure diastolic 84 mm Hg 12/29/2024 Height 63 in 01/26/2025 Blood pressure systolic 141 mm Hg 12/29/2024 Weight 185 lbs 01/26/2025 BMI 32.77 kg/m2 01/26/2025 Encounters Encounter Location Date Provider Diagnosis Aroldo Blanchard III, MD [address] [place] [address] [place] [address] 05/20/2024 Aroldo Blanchard Acute contact dermat itis L25.9 ; Obesity (BMI 30.0-34.9) E66.9 ; Former smoker Z87.891 and History of depression Z86.59 Aroldo Blanchard III, MD [address] [place] [address] [place] [address] 05/22/2024 Aroldo Blanchard Acute contact dermat itis L25.9 ; Former smoker Z87.891 ; Obesity (BMI 30.0-34.9) E66.9 and Environmental allergies Z91.09 Aroldo Blanchard III, MD [address] [place] [address] [place] [address] 10/01/2024 Aroldo Blanchard Viral syndrome B34.9 ; Obesity (BMI 30.0-34.9) E66.9 ; Diet controlled gestational diabetes mellitus (GDM) in third trimester O24.410 ; Former smoker Z87.891 ; History of depression Z86.59 ; Depression F32.9 and Hyperlipidemia, unspecified hyperlipidemia type E78.5 Aroldo Blanchard III, MD [address] [place] [address] [place] [address] 10/08/2024 Aroldo Blnachard Obesity (BMI 30.0-34 .9) E66.9 ; Acute asthmatic bronchitis J45.909 ; Former smoker Z87.891 ; History of depression Z86.59 ; Environmental allergies Z91.09 and Hyperlipidemia, unspecified hyperlipidemia type E78.5 Aroldo Blanchard III, MD [address] [place] [address] [place] [address] 10/15/2024 Aroldo Blacnhard Obesity (BMI 30.0-34 .9) E66.9 ; Viral syndrome B34.9 ; Hyperlipidemia, unspecified hyperlipidemia type E78.5 ; Former smoker Z87.891 ; Environmental allergies Z91.09 and History of depression Z86.59 Aroldo Blanchard III, MD [address] [place] [address] 12/29/2024 Aroldo Blanchard Obesity (BMI 30.0-34 .9) E66.9 ; Breast cancer screening Z12.31 ; Former smoker Z87.891 and Environmental allergies Z91.09 Aroldo Blanchard III, MD [address] [place] [address] [place] [address] 01/26/2025 Aroldo Blanchard Obesity (BMI 30.0-34 .9) E66.9 ; Hyperlipidemia, unspecified hyperlipidemia type E78.5 and Former smoker Z87.891 Aroldo Blanchard III, MD [address] [place] [address] [place] [address] 04/17/2024 Aroldo Blanchard III, MD [address] [place] [address] [place] [address] 05/21/2024 Aroldo Blanchard III, MD [address] [place] [address] [place] [address] 05/26/2024 Aroldo Blanchard III, MD [address] [place] [address] [place] [address] 05/26/2024 Aroldo Blanchard III, MD [address] [place] [address] [place] [address] 05/30/2024 Aroldo Blanchard III, MD [address] [place] [address] [place] [address] 10/03/2024 Aroldo Blanchard III, MD [address] [place] [address] [place] [address] 10/06/2024 Aroldo Blanchard III, MD [address] [place] [address] [place] [address] 10/08/2024 Aroldo Blanchard III, MD [address] [place] [address] [place] [address] 10/09/2024 Aroldo Blanchard Assessments Encounter Date Diagnosis (ICD Code) Assessment Notes Treat ment Notes Treatment Clinical Notes 05/20/2024 Obesity (BMI 30.0-34.9) (ICD-10 - E66.9) [...] will be treated at home conservatively with xcsg-zrb-bzxohat medications. She is going to report frequently and at once if she worsens. I instructed her to test for conrad virus. 10/08/2024 Obesity (BMI 30.0-34.9) (ICD-10 - E66.9) [...] inhaler. She will report in 48 hours. 10/15/2024 Obesity (BMI 30.0-34.9) (ICD-10 - E66.9) [...] difficulty with this. Current therapies were continued. 12/29/2024 Obesity (BMI 30.0-34.9) (ICD-10 - E66.9) [...] Her annual screening mammogram has been scheduled. 01/26/2025 Obesity (BMI 30.0-34.9) (ICD-10 - E66.9) [...] of 212. No joint treatment is necessary. 05/20/2024 Former smoker (ICD-10 - Z87.891) She [...] - O24.410) Comprehensive blood work is pending. 10/08/2024 Former smoker (ICD-10 - Z87.891) She has a plan to prevent relapse in times of stress and illness. 10/15/2024 Hyperlipidemia, unspecified hyperlipidemia type (ICD-10 - E78.5) Her fasting lipid profile will be checked periodically. 12/29/2024 Former smoker (ICD-10 - Z87.891) She has a plan to prevent relapse in times of stress and illness. 01/26/2025 Former smoker (ICD-10 - Z87.891) She has a plan to prevent relapse in times of stress and illness. 05/20/2024 History of depression (ICD-10 - Z86.59) [...] of stress and illness. 10/08/2024 History of depression (ICD-10 - Z86.59) She continues to see a therapist. Her depression is present but minimal. She is completing all of the activities of daily life without impairment. 10/15/2024 Former smoker (ICD-10 - Z87.891) She has a plan to prevent relapse in times of stress and illness. 12/29/2024 Environmental allergies (ICD-10 - Z91.09) She has significant allergies and is dealing with them appropriately. She says this is a bad year for seasonal allergies. 10/01/2024 History of depression (ICD-10 - Z86.59) She continues to see a therapist. Her depression is present but minimal. She is completing all of the activities of daily life without impairment. 10/08/2024 Environmental allergies (ICD-10 - Z91.09) She has significant allergies and is dealing with them appropriately. She says this is a bad year for seasonal allergies. 10/15/2024 Environmental allergies (ICD-10 - Z91.09) She has significant allergies and is dealing with them appropriately. She says this is a bad year for seasonal allergies. 10/01/2024 Depression (ICD-10 - F32.9) Her depression is stable. She is going to report immediately if it worsens. No change in regimen as needed. 10/08/2024 Hyperlipidemia, unspecified hyperlipidemia type (ICD-10 - E78.5) Comprehensive blood work with a fasting lipid profile is pending. 10/15/2024 History of depression (ICD-10 - Z86.59) She continues to see a therapist. Her depression is present but minimal. She is completing all of the activities of daily life without impairment. 10/01/2024 Hyperlipidemia, unspecified hyperlipidemia type (ICD-10 - E78.5) Comprehensive blood work with a fasting lipid profile is pending. Plan Of Treatment Pending Test Test Name Order Date PROFILE, FASTING (COMPREHENSIVE METABOLI C) 07/24/2022 PROFILE, FASTING (COMPREHENSIVE METABOLI C) 10/22/2018 PROFILE, FASTING (COMPREHENSIVE METABOLI C) 12/16/2019 PROFILE, FASTING (COMPREHENSIVE METABOLI C) 01/26/2025 PROFILE, FASTING (COMPREHENSIVE METABOLI C) 10/15/2024 PROFILE, FASTING (COMPREHENSIVE METABOLI C) 04/24/2019 PROFILE, FASTING (COMPREHENSIVE METABOLI C) 11/05/2023 PROFILE, FASTING (COMPREHENSIVE METABOLI C) 11/02/2020 PROFILE, RANDOM (COMPREHENSIVE METABOLIC ) 06/26/2023 LIPID PANEL 11/02/2020 LIPID PANEL 07/24/2022 LIPID PANEL 10/22/2018 LIPID PANEL 12/16/2019 LIPID PANEL 04/24/2019 FREE T4 (FT4) 10/30/2022 TSH (THYROID STIMULATING HORMONE) 2022 CBC w DIFF 04/24/2019 CBC w DIFF 11/02/2020 CBC w DIFF 07/24/2022 CBC w DIFF 10/22/2018 CBC w DIFF 12/16/2019 CBC w DIFF 01/26/2025 CBC w DIFF 10/15/2024 SED RATE (ESR) 06/26/2023 HELICOBACTER PYLORI IGG (H PYLORI IGG) 1 08/27/2022 XR CHEST 2 VIEW PA & LAT 10/08/2024 MAMMOGRAM DIGITAL BILATERAL SCREEN 10/30 US RENAL BILATERAL 01/24/2023 US URINARY BLADDER 01/24/2023 CBC WITH AUTO DIFF 06/26/2023 CBC WITH AUTO DIFF 11/05/2023 Lipid Panel 01/26/2025 Lipid Panel 10/15/2024 Lipid Panel 11/05/2023 Lipid Panel 12/29/2024 MM tomosynthesis screening BI 12/29/2024 Hemoglobin A1c 11/05/2023 Next Appt Details Provider Name:Aroldo Blanchard , 07/29/2025 02:30:00 PM, [address] [place] [address] DR, [place], [address], Provider Name:Aroldo Blanchard , 12/30/2025 03:00:00 PM, [address], [place], [address], Insurance Providers Payer Name Payer Address Payer Phone Subscriber Number Group Number Insured Name Patient Relationship to Insured Coverage Start Date Coverage End Date [facility] [address] [place], [place] [id number] Derik Kan Self - patient is the insured Medical [...] cells penicillin allergy Surgical History Surgery Date(Month/Year) Left knee surgery 2020 [employer] uterine ablation and polypectom y 2009 hysteroscopy with cervical polypectomy 2 004 hysterectomy for bleeding, retains her o varies 2007 tonsillectomy bilateral breast reduction 2008 Hospitalization History Reason Date(Month/Year) No history
[2025-04-16] MEDS: iohexoL 350 MG/ML 100 ML INFUS..BTL 85 ML IV (07:11)
[2025-04-16 08:23] LABS: MANUAL DIFF FLAG NO
[2025-04-16 08:28] LABS: Hematocrit 46.7 % (37.0-47.0); Hemoglobin 15.8 g/dl (12.0-16.0); Imm Gran Abs Auto 0.04 X10*3/uL (0.00-0.03); Imm Gran Pct Auto 0.3 % (0.0-0.4); Lymphocytes Absolute Auto 0.7 X10*3/uL (1.2-4.9); Mean Corpuscular HGB Conc 33.8 g/dl (31.0-35.0); Mean Corpuscular Hemoglobin 30.3 pg (27.0-33.0); Mean Corpuscular Volume 89.6 fL (80.0-98.0); NRBC Abs Auto 0.000 X10*3/uL (0.0-0.012); NRBC Pct Auto 0.0 /100WBC (0.0-0.2); Platelet Count 285 X10*3/uL (160-400); Red Blood Count 5.21 X10*6/uL (4.20-5.50); White Blood Count 11.8 X10*3/uL (4.8-10.8)
--- NOTE | 2025-04-16 08:34 | PC.NURSE ---
patient resting quietly in room, complaining of 9/10 abdominal pain. obtained 2 sets of blood cultures prior to antibiotic administration, provider states to hold off on sending them. medicated per the SEP, call garza within reach
[2025-04-16 08:44] LABS: Alanine Aminotransferase 43 U/L (0-31); Albumin Level 4.7 g/dL (3.5-5.0); Alkaline Phosphatase 97 U/L (39-117); Anion Gap 12 (12-20); Aspartate Amino Transferase 41 U/L (5-31); Blood Urea Nitrogen 9 mg/dL (9-16); Calcium 9.2 mg/dL (8.4-10.2); Carbon Dioxide 26 mmol/L (22-29); Chloride 102 mmol/L (96-108); Creatinine Clr Calc Pharmacy 78.5; Estimated Glomerular Filt Rate > 60; Lipase 22 U/L (8-78); Potassium 3.8 mmol/L (3.3-5.1); Sodium 136 mmol/L (135-145); Total Protein 7.6 g/dL (6.5-8.0)
--- NOTE | 2025-04-16 08:46 | PM.HPGS ---
History of Present Illness History of Present Illness Date of Service: 04/16/25 Chief complaint: ABD PAIN Narrative: Derik Redd is a 54 year old female presenting with complaints of abdominal pain which began yesterday at approximately 14:00 and gradually increased in severity throughout the day. The pain initially was in the left upper quadrant but now is located more in the right lower quadrant. She reports nausea, vomiting, anorexia, constipation and fever. She denies a previous history of similar symptoms. She presented to the emergency department and was noted to be tender in the lower abdomen and initially small-bowel obstruction was suspected. CT abdomen and pelvis however revealed a thickened appendix with inflammatory changes suggestive of appendicitis. Laboratories revealed a mildly elevated WBC. She is admitted to the surgical service for further management of the acute appendicitis. Review of Systems Review of Systems: Yes all other systems are reviewed and are negative Constitutional: Constitutional: Reports chills, Reports fever(s) and Reports poor appetite Gastrointestinal: Gastrointestinal: Reports abdominal pain, Reports constipation and Denies diarrhea PMFSH Past Medical History Medical History (Updated 04/16/25 @ 08:49 by Nehemias Holcomb MD) Acute appendicitis History of blood transfusion Anemia Anxiety PONV (postoperative nausea and vomiting) Surgical History Surgical History History of repair of anterior cruciate ligament of left knee History of colonoscopy History of partial hysterectomy History of cervical polypectomy History of tonsillectomy History of bilateral breast reduction surgery History of endometrial ablation Social History Social History Comment: RECENT ACL KNEE REPAIR Patient Tobacco Use Status: Former Tobacco user Tobacco use type: Cigarette Advance Directives: No Meds Allergies Allergy/AdvReac Type Severity Reaction Status Date / Time prednisone (PREDNISONE) Allergy Severe HIVES Verified 04/16/25 05:59 Home Medications ?Medication ?Instructions ?Recorded ?Confirmed ?Last Taken ?Type ibuprofen 200 mg tablet 400 mg PO Q6H PRN Pain 07/13/21 07/13/21 Unknown History dicyclomine 10 mg capsule 10 mg PO 11/06/22 11/06/22 Unknown History hydrocortisone acetate 25 mg 25 mg OR BID 11/06/22 11/06/22 Unknown History rectal suppository (Anucort-HC) Physical Exam Vital Signs: Vital Signs: Last Vital Signs Temp 97.5 F 04/16/25 08:29 Pulse 66 04/16/25 08:29 Resp 16 04/16/25 08:29 BP 105/58 L 04/16/25 08:29 Pulse Ox 99 04/16/25 08:29 O2 Del Method Room Air 04/16/25 08:29 BMI result Body Mass Index 32.0 Const: General: cooperative and no acute distress Nutritional Appearance: well nourished Orientation/consciousness: patient oriented x3 Limitations: no limitations HEENT: Head: Yes normocephalic and Yes atraumatic Ears: hearing grossly normal bilaterally Resp: Effort & Inspection: normal respiratory effort, no audible wheezes, no cough and no respiratory distress Cardio: Jugular venous distension: no JVD GI: Other: Soft but tender in the right lower quadrant and left lower quadrant, positive Rovsing sign, no hernias appreciated Inspection: Yes normal to inspection Skin: Other: Warm, dry, no rash Neuro: General: patient oriented x3 Extrem: General: Yes no clubbing, cyanosis or edema Results Results Labs: Short CBC 04/16/25 Range/Units 08:17 WBC 11.8 H (4.8-10.8) X10*3/uL Hgb 15.8 (12.0-16.0) g/dl Hct 46.7 (37.0-47.0) % Plt Count 285 (160-400) X10*3/uL BMP 04/16/25 08:17 Sodium 136 Potassium 3.8 Chloride 102 Carbon Dioxide 26 BUN 9 Creatinine 0.84 Calcium 9.2 Liver Function 04/16/25 Range/Units 08:17 Total Bilirubin 0.4 (0.0-1.0) mg/dL AST 41 H (5-31) U/L ALT 43 H (0-31) U/L Alkaline Phosphatase 97 (39-117) U/L Albumin 4.7 (3.5-5.0) g/dL Assessment and Plan (1) Acute appendicitis: Qualifiers: Acute appendicitis type: with localized peritonitis Appendicitis gangrene presence: without gangrene Appendicitis perforation presence: without perforation Appendicitis abscess presence: without abscess Qualified Code(s): K35.30 - Acute appendicitis with localized peritonitis, without perforation or gangrene Status: Acute Plan 54-year-old female patient with a less than 24 hour history of abdominal pain now in the right lower quadrant 9/10 in severity. Workup reveals a thickened appendix with inflammatory changes suggestive of acute appendicitis. WBC is mildly elevated. Findings on physical exam and radiologic workup are consistent with acute appendicitis without perforation or abscess. We discussed the options of antibiotics verses laparoscopic/open appendectomy. After discussion of the procedure, risks, and alternatives, she consents to a laparoscopic or possible open appendectomy. She has been added onto the operative schedule for today. Quality Stroke Does the patient have a stroke diagnosis?: No VTE Prior VTE?: No VTE Risk Level:: Surgical - low VTE Device Contraindication: N/A - Device Ordered VTE Drug Contraindication: Treatment Not Indicated Procedures Date of Service Date of Service: 04/16/25
--- NOTE | 2025-04-16 09:18 | PHA.MEDREC ---
Pharmacy Consult ? Medication Reconciliation Pharmacy has completed the medication reconciliation. Used Pharmacy claims to confirm
[2025-04-16] MEDS: Lactated Ringers 1,000 ML 100 ML IVCONT ×2 (09:20→20:53)
--- NOTE | 2025-04-16 09:24 | PC.NURSE ---
states she is much more comfortable currently. IV fluids infusing. last ate/drank last night. plan for surgery today, unsure of time
--- NOTE | 2025-04-16 10:00 | PC.NURSE ---
Addendum entered by Tiera Cochran RN 04/16/25 10:02: 54-year-old female patient with a less than 24 hour history of abdominal pain now in the right lower quadrant 9/10 in severity with assoc N/V. Workup reveals a thickened appendix with inflammatory changes suggestive of acute appendicitis. WBC is mildly elevated. Findings on physical exam and radiologic workup are consistent with acute appendicitis without perforation or abscess. Alert and oriented. Lungs clear bilat. Respirations even and non-labored. Abdomen soft with some right sided abdominal pain but comfortable at this time. Positive pedal pulses with no edema. Plan for surgery today. Original Note: Medical History Acute appendicitis History of blood transfusion Anemia Anxiety PONV (postoperative nausea and vomiting)
--- NOTE | 2025-04-16 16:24 | HO.ANESPROP2 ---
FORMERLY [facility], [facility] Active Problems Active Problems: All Active Problems (Updated 04/16/25 @ 12:13 by Tiera Cochran RN) Acute appendicitis (Acute) Past Medical History Medical History Acute appendicitis History of blood transfusion Anemia Anxiety PONV (postoperative nausea and vomiting) Family History Family history of problems with anesthesia: No Surgical History Surgical History History of repair of anterior cruciate ligament of left knee History of colonoscopy History of partial hysterectomy History of cervical polypectomy History of tonsillectomy History of bilateral breast reduction surgery History of endometrial ablation History of Problems with Anesthesia: No Social History Social History Are you a primary healthcare associate to a significant other at home: No Do you presently have visiting nurse or other home services: No Comment: RECENT ACL KNEE REPAIR Patient Tobacco Use Status: Former Tobacco user Tobacco use type: Cigarette Use of substances other than those prescribed or required for medical reasons: Yes Substance Use Frequency: Daily Have you been hit, kicked, punched, or otherwise hurt by someone within the past year? If so, by whom?: No Are you DNR?: No Advance Directives: No Poor oral hygiene: No Meds Allergies Allergy/AdvReac Type Severity Reaction Status Date / Time prednisone (PREDNISONE) Allergy Severe HIVES Verified 04/16/25 12:44 Active Medications: Current Medications Hydromorphone HCl (Hydromorphone Hcl 0.5 Mg/0.5 Ml Syringe) 0.5 mg IVPUSH Q3H PRN; Protocol PRN Reason: Pain, Severe (Pain Scale 7-10) Lactated Ringer's (Lr) 1,000 mls @ 100 mls/hr IVCONT .Q10H [facility]IS CARLOS Last Admin: 04/16/25 09:20 Dose: 100 mls/hr Acetaminophen (Ofirmev) 1,000 mg in 100 mls @ 400 mls/hr IV Q6H PRN PRN Reason: Pain, Mild (Pain Scale 1-3) Last Admin: 04/16/25 13:00 Dose: 400 mls/hr Piperacillin Sod/Tazobactam (Sod 3.375 gm/ Sodium Chloride) 50 mls @ 100 mls/hr IV Q6H LUIS CARLOS Ondansetron HCl (Ondansetron Hcl 4 Mg/2 Ml Vial) 4 mg IVPUSH QID PRN PRN Reason: Nausea Home Medications ?Medication ?Instructions ?Recorded ?Confirmed ?Last Taken ?Type escitalopram oxalate 5 mg tablet 5 mg PO DAILY 04/16/25 04/16/25 Unknown History Exam Height,Weight and Vital Signs: Height 5 ft 3 in Weight 82 kg Last Vital Signs Temp 97.8 F 04/16/25 12:44 Pulse 59 04/16/25 12:44 Resp 14 04/16/25 12:44 BP 130/67 04/16/25 12:44 Pulse Ox 95 04/16/25 12:44 O2 Del Method Room Air 04/16/25 12:44 Pertinent Lab Results Pertinent Lab Results: Laboratory Tests 04/16/25 08:17 WBC 11.8 H RBC 5.21 Hgb 15.8 Hct 46.7 MCV 89.6 MCH 30.3 MCHC 33.8 RDW 12.6 Plt Count 285 MPV 9.6 Immature Gran % (Auto) 0.3 Neut % (Auto) 89.7 H Lymph % (Auto) 6.3 L Bulloch % (Auto) 3.3 Eos % (Auto) 0.1 Baso % (Auto) 0.3 Lymph # (Auto) 0.7 L Bulloch # (Auto) 0.4 Eos # (Auto) 0.0 Baso # (Auto) 0.0 Abs Immat Gran (auto) 0.04 H Absolute Neuts (auto) 10.6 H Absolute Nucleated RBC 0.000 Nucleated RBC % (auto) 0.0 Sodium 136 Potassium 3.8 Chloride 102 Carbon Dioxide 26 Anion Gap 12 BUN 9 Creatinine 0.84 Estim Creat Clear Calc 78.5 Estimated GFR > 60 Random Glucose 136 H Lactic Acid 1.2 Calcium 9.2 Total Bilirubin 0.4 AST 41 H ALT 43 H Alkaline Phosphatase 97 Total Protein 7.6 Albumin 4.7 Lipase 22 Airway Mallampati Class: II TM Dist: >3cm Neck ROM: Full Loose/Missing/Broken Teeth: No Heart: RRR Lungs: CTA Assessment and Plan Assessment Anesthesia Assessment: Anesthesia Plan Discussed and Chart Reviewed Final Anesthetic Review Family History of Problems with Anesthesia: No History of Problems with Anesthesia: No NPO: Yes ASA Class: II and Emergency Final Preanesthetic Review: Meds/Allgs Chart Reviewed, Consent Obtained/Reviewed and Anes Risks/Benef Reviewed Patient Risk: Low Procedure Risk: Low Anesthetic Plan Anesthetic Plan: GA Disposition: Standard PACU
[2025-04-16] MEDS: cefoTEtan disodium 2 GM VIAL IVPUSH (16:50)
--- NOTE | 2025-04-16 17:35 | W.PM.OPN ---
Operative Note Operative Note Date of Service: 04/16/25 Narrative: Preoperative diagnosis: Acute appendicitis Postoperative diagnosis: Same Procedure: Laparoscopic appendectomy Surgeon: Nehemias Holcomb MD Assistive Technology Trainer: None Anesthesia: General endotracheal Indications for procedure: 54-year-old female patient presenting with complaints of abdominal pain in the right lower quadrant found on CT to have a thickened appendix with inflammatory changes consistent with acute appendicitis. Patient was noted to be tender in the right lower quadrant. Operative findings: Acutely inflamed appendix with turbid fluid surrounding the appendix and surrounding phlegmon. Specimen: Appendix Estimated blood loss: 10 mL Complications: None Procedure details: Patient was brought to the OR and placed in a supine position. After administering general anesthesia the patient's abdomen was prepped with ChloraPrep and draped in a sterile fashion. A surgical time-out was called and consent confirmed. Patient received preoperative antibiotics and Venodyne boots were in place. Local anesthesia consisting of 0.5% Sensorcaine with epinephrine was infiltrated in periumbilical region. A 5 mm incision was made below the umbilicus and carried down through subcutaneous tissue. A Veress needle was then inserted while elevating abdominal cavity with towel clips. After a positive drop test the abdomen was insufflated to a pressure of 15 mm of mercury. The Veress needle was removed and a 5 mm trocar inserted. The camera was then inserted in the abdomen explored. A 2nd 5 mm trocars placed in the lower midline. A 12 mm trocar was then placed in the left lower quadrant. The patient was then placed in a Trendelenburg position and rotated to the left. The appendix was identified in the right lower quadrant and brought up using blunt dissecting clamps. The mesentery of the appendix was then divided using the LigaSure. The appendiceal artery was cauterized and divided using the LigaSure. Dissection was continued down to the base of the cecum. An Endo-KEISHA stapler with a purple reload was then used to divide the appendix at the base with the cecum. The appendix was then placed in Endo-Catch bag and brought out through the left lower quadrant incision. The abdomen was then irrigated with saline solution and suctioned dry. Wounds were checked for hemostasis. CO2 was then evacuated from the abdominal cavity and all trocars removed. Fascia was closed in the left lower quadrant incision using a [id number] 0 Polysorb suture. Skin was closed at all incisions using a subcuticular 4-0 Polysorb suture. Steri-Strips 2 x 2 gauze and Tegaderm were then applied. The patient tolerated the procedure well. Sponge, instrument, needle counts reported as correct. The patient was transferred to PACU in stable condition.
[2025-04-16] MEDS: 0.9 % Sodium Chloride Flush 3 ML SYRINGE IVFLUSH ×2 (20:50→20:54)
[2025-04-17 03:13] VITALS: BP 106/58; PULSE 67; RESP 18; TEMP 36.8; O2SAT 96
[2025-04-17] MEDS: Lactated Ringers 1,000 ML 100 ML IVCONT (03:17)
[2025-04-17 08:00] VITALS: BP 114/65; PULSE 56; RESP 16; TEMP 36.3; O2SAT 95
[2025-04-17] MEDS: 0.9 % Sodium Chloride Flush 3 ML SYRINGE IVFLUSH (08:05)
--- NOTE | 2025-04-17 08:21 | P.PNGS_ITS ---
Subjective Subjective Date of Service: 04/17/25 <Treva Duvall PA-C - Last Filed: 04/17/25 08:25> 04/17/25 <Nehemias Holcomb MD - Last Filed: 04/17/25 08:51> Interval history: Feels well. Has some mild pain in the RUQ. Was OOB and ambulating halls yesterday. Has not eaten yet. <Treva Duvall PA-C - Last Filed: 04/17/25 08:25> Physical Exam 2 Vital Signs: Vital Signs: Last Vital Signs Temp 98.3 F 04/17/25 03:13 Pulse 67 04/17/25 03:13 Resp 18 04/17/25 03:13 BP 106/58 L 04/17/25 03:13 Pulse Ox 96 04/17/25 03:13 O2 Del Method Room Air 04/17/25 03:13 O2 Flow Rate 6 04/16/25 17:45 BMI result Body Mass Index 33.5 <Treva Duvall PA-C - Last Filed: 04/17/25 08:25> Const: General: comfortable, no acute distress and alert <Treva Duvall PA-C - Last Filed: 04/17/25 08:25> Orientation/consciousness: patient oriented x3 <PATTI Fox Last Filed: 04/17/25 08:25> Resp: Effort & Inspection: normal respiratory effort <Treva Duvall PA-C - Last Filed: 04/17/25 08:25> GI: Other: dressings intact soft, mild incisional tenderness <Treva Duvall PA-C - Last Filed: 04/17/25 08:25> Inspection: No distended <PATTI Fox Last Filed: 04/17/25 08:25> Palpation (GI): Soft to palpation and no guarding <PATTI Fox Last Filed: 04/17/25 08:25> Percussion: Yes normal to percussion <PATTI Fox Last Filed: 04/17/25 08:25> Skin: General skin exam: no rashes or lesions noted <Treva Duvall PA-C - Last Filed: 04/17/25 08:25> Neuro: General: patient oriented x3 and moves all extremities <Treva Duvall PA-C - Last Filed: 04/17/25 08:25> Objective Data Active Medications Calcium Carbonate (Calcium Carbonate 750 Mg Tab.Chew) 750 mg PO Q4H PRN PRN Reason: Heartburn Hydromorphone HCl (Hydromorphone Hcl 0.5 Mg/0.5 Ml Syringe) 0.5 mg IVPUSH Q3H PRN; Protocol PRN Reason: Pain, Severe (Pain Scale 7-10) Lactated Ringer's (Lr) 1,000 mls @ 100 mls/hr IVCONT .Q10H [facility] Last Infusion: 04/17/25 08:20 Dose: 0 mls/hr Documented By: BECK Acetaminophen (Ofirmev) 1,000 mg in 100 mls @ 400 mls/hr IV Q6H PRN PRN Reason: Pain, Mild (Pain Scale 1-3) Last Infusion: 04/16/25 13:20 Dose: Infused Documented By: SHERIN Piperacillin Sod/Tazobactam (Sod 3.375 gm/ Sodium Chloride) 50 mls @ 100 mls/hr IV Q6H [facility] Last Admin: 04/17/25 08:05 Dose: 100 mls/hr Documented By: BECK Magnesium Hydroxide (Milk Of Magnesia 30 Ml Oral.Susp) 30 ml PO DAILY PRN PRN Reason: Constipation Melatonin (Melatonin 3 Mg Tablet) 6 mg PO BEDTIME PRN PRN Reason: Insomnia Naloxone HCl (Naloxone Hcl 0.4 Mg/Ml Vial) 0.04 mg IVPUSH Q5M PRN PRN Reason: Excessive sedation or RR < 8 Ondansetron HCl (Ondansetron Hcl 4 Mg/2 Ml Vial) 4 mg IVPUSH QID PRN PRN Reason: Nausea Oxycodone HCl (Oxycodone Hcl Immed Release 5 Mg Tablet) 5 mg PO Q6H PRN PRN Reason: Pain, Moderate(Pain Scale 4-6) Sodium Chloride (0.9 % Sodium Chloride Flush 3 Ml Syringe) 3 ml IVFLUSH QSHIFT [facility] Last Admin: 04/17/25 08:05 Dose: 3 ml Documented By: BECK <Treva Duvall PA-C - Last Filed: 04/17/25 08:25> Labs CBC & Chem 7: 04/16/25 08:17 04/16/25 08:17 <Treva Duvall PA-C - Last Filed: 04/17/25 08:25> Labs: Laboratory Results - last 24 hr 04/16/25 08:17 MCV 89.6 MCH 30.3 MCHC 33.8 RDW 12.6 Plt Count 285 MPV 9.6 Immature Gran % (Auto) 0.3 Neut % (Auto) 89.7 H Lymph % (Auto) 6.3 L Holt % (Auto) 3.3 Eos % (Auto) 0.1 Baso % (Auto) 0.3 Lymph # (Auto) 0.7 L Holt # (Auto) 0.4 Eos # (Auto) 0.0 Baso # (Auto) 0.0 Abs Immat Gran (auto) 0.04 H Absolute Neuts (auto) 10.6 H Absolute Nucleated RBC 0.000 Nucleated RBC % (auto) 0.0 Anion Gap 12 Estim Creat Clear Calc 78.5 Estimated GFR > 60 Random Glucose 136 H Lactic Acid 1.2 Calcium 9.2 Total Bilirubin 0.4 AST 41 H ALT 43 H Alkaline Phosphatase 97 Total Protein 7.6 Albumin 4.7 Lipase 22 <Treva Duvall PA-C - Last Filed: 04/17/25 08:25> Procedures Date of Service Date of Service: 04/17/25 <Treva Duvall PA-C - Last Filed: 04/17/25 08:25> 04/17/25 <Nehemias Holcomb MD - Last Filed: 04/17/25 08:51> Progress Note: A&P Assessment and plan (1) Acute appendicitis: Status: Acute <Treva Duvall PA-C - Last Filed: 04/17/25 08:25> (2) S/P laparoscopic appendectomy: Status: Acute <PATTI Fox Last Filed: 04/17/25 08:25> Assessment and Plan: POD #1 s/p lap appy. Found to have acute appendicitis with turbid fluid and phlegmon. She is doing well post op, pain minimal and controlled. Ambulating. VSS. Abd exam benign with clean dressings, appropriate post op tenderness. Will reassess after next dose of zosyn and breakfast, if tolerating, stable for dc to home today. Patient comfortable with plan. F/u in office in 1 week. <Treva Duvall PA-C - Last Filed: 04/17/25 08:25> POD #1 s/p lap appy. Found to have acute appendicitis with turbid fluid and phlegmon. She is doing well post op, pain minimal and controlled. Ambulating. VSS. Abd exam benign with clean dressings, appropriate post op tenderness. Will reassess after next dose of zosyn and breakfast, if tolerating, stable for dc to home today. Patient comfortable with plan. F/u in office in 1 week. Seen and examined and agree with the above assessment and plan. Advance diet to regular this morning, DC IV fluids. Encouraged out of bed and ambulation. <Nehemias Holcomb MD - Last Filed: 04/17/25 08:51> Time Spent With Patient Time: Total time managing care of this patient today ____ minutes. <Treva Duvall PA-C - Last Filed: 04/17/25 08:25> Quality Stroke Does the patient have a stroke diagnosis?: No <Treva Duvall PA-C - Last Filed: 04/17/25 08:25> VTE Prior VTE?: No <Treva Duvall PA-C - Last Filed: 04/17/25 08:25> VTE Risk Level:: Surgical - low <Treva Duvall PA-C - Last Filed: 04/17/25 08:25> VTE Device Contraindication: N/A - Device Ordered <Treva Duvall PA-C - Last Filed: 04/17/25 08:25> VTE Drug Contraindication: Treatment Not Indicated <Treva Duvall PA-C - Last Filed: 04/17/25 08:25>
--- NOTE | 2025-04-17 08:34 | HO.POSTANES ---
Post Anesthesia Evaluation Post Anesthesia Evaluation Date of Service: 04/17/25 Vital Signs: Vital Signs Temp Pulse Resp BP Pulse Ox O2 Del Method 04/17/25 08:00 97.4 F 56 16 114/65 95 Room Air 04/17/25 03:13 98.3 F 67 18 106/58 L 96 Room Air 04/16/25 20:49 97.7 F 89 18 166/87 H 96 Room Air Anesthesia: General Mental Status: Awake Pain Control: Satisfactory Nausea/Vomiting: None Anesthesia-Related Issues: No Anes. Related Issues
--- NOTE | 2025-04-17 10:02 | P.DS_ITS ---
DS: Providers Provider Date of Service: 04/17/25 Date of admission: 04/16/25 09:33 Date of discharge: 04/17/25 Primary care physician: Aroldo Blanchard MD Attending physician on admission: Nehemias Holcomb Consults: 04/16/25 10:01 Consult to Comprehensive Care Stat Consulting Provider: [facility] Attending physician on discharge: Nehemias Holcomb DS: Diagnosis Discharge Diagnosis (1) Acute appendicitis: Status: Acute (2) S/P laparoscopic appendectomy: Status: Acute DS: Summary Hospital Course Hospital Course: HPI AT ADMISSION: Derik Redd is a 54 year old female presenting with complaints of abdominal pain which began yesterday at approximately 14:00 and gradually increased in severity throughout the day. The pain initially was in the left upper quadrant but now is located more in the right lower quadrant. She reports nausea, vomiting, anorexia, constipation and fever. She denies a previous history of similar symptoms. She presented to the emergency department and was noted to be tender in the lower abdomen and initially small-bowel obstruction was suspected. CT abdomen and pelvis however revealed a thickened appendix with inflammatory changes suggestive of appendicitis. Laboratories revealed a mildly elevated WBC. HOSPITAL COURSE: The patient was admitted to the surgical service for further treatment of the acute appendicitis. She elected to proceed with laparoscopic appendectomy. She was added onto the OR schedule for that day. On 04/16/25, a laparoscopic appendectomy was performed by Dr. Holcomb without complication. The patient tolerated the procedure well. She had an uncomplicated recovery course. On POD #1, she felt well and was tolerating a solid diet without nausea or vomiting, had good pain control and was ambulating without difficulty. She was hemodynamically stable. Her abdomen was benign with appropriate post op tenderness and clean and intact dressings. She felt ready for discharge. She was discharged to home on 04/17/25 in stable condition. She is to follow up in the office in 1 week. Status at Discharge Functional status at discharge: independent ambulation Time Attestation Discharge Coordination Time (in mins): 25 Quality: Safe Use of Opioids Does Pt have an Active Cancer Diagnosis on the Problem List?: No Quality: Stroke Does the patient have a stroke diagnosis?: No Physical Exam Vital Signs: Vital Signs: Last Vital Signs Temp 97.4 F 04/17/25 08:00 Pulse 56 04/17/25 08:00 Resp 16 04/17/25 08:00 BP 114/65 04/17/25 08:00 Pulse Ox 95 04/17/25 08:00 O2 Del Method Room Air 04/17/25 08:00 O2 Flow Rate 6 04/16/25 17:45 BMI result Body Mass Index 33.5 Const: General: comfortable, no acute distress and alert Orientation/consciousness: patient oriented x3 Resp: Effort & Inspection: normal respiratory effort GI: Inspection: No distended and Yes incision (dressings intact ) Palpation (GI): Soft to palpation, Tenderness to palpation present (GI) (mild incisional) and no guarding Skin: General skin exam: no rashes or lesions noted Neuro: General: patient oriented x3 and moves all extremities DS: Data Data Completed and Pending Pending studies at discharge: Pending at discharge 04/16/25 17:30 Surgical [PTH] Routine Discharge Plan Discharge Anticipated Discharge Date/Time: 04/17/25 09:23 Patient Disposition: Home, Self-Care Discharge Diagnosis: acute appendicitis s/p laparoscopic appendectomy Referrals: Aroldo Blanchard MD [Primary Care Provider, Internal Medicine] - 1 Week Nehemias Holcomb MD [Physician, General Surgery] - 1 Week Discharge Medications: New docusate sodium [Colace] 100 mg capsule 100 mg PO BID PRN (Reason: constipation) Qty: 30 0RF oxycodone 5 mg tablet 5 mg PO Q4H PRN (Reason: pain (scale score 7-10)) Qty: 24 0RF Rx Instructions: Partial Fill upon patient request. Continued escitalopram oxalate 5 mg tablet 5 mg PO DAILY Discharge Orders: Discharge Order (Routine); Ordered 04/17/25 Ordered By: Treva Duvall Diet: Advance to usual diet Activity on Discharge: No heavy lifting Stand Alone Forms: Patient Portal Discharge page, Work/School Release Print Language: Divehi Activity Restrictions/Additional Instructions: If the incision area is tender, you may apply an ice pack for short intervals (No more than 20 minutes on, followed by at least 20 minutes off). Do not apply heat. Do not use creams, lotions, or topical antibiotics. Ok to shower. Remove clear dressings 3 days following your procedure. You have steri strips (small white strips) covering your incision- these will fall off ~1 week. No heavy lifting (>10lbs) or strenuous activity! Take Tylenol Extra-strength 1-2 tabs every 6 hours for the first day, then as needed. Oxycodone every 6-8 hours as needed for pain. Colace 100 mg every day as needed for constipation. Follow up in office with Dr. Holcomb in 1 week. ([phone]) Call Your Doctor If: -Your temperature exceeds 101.5? F -You experience excessive pain or swelling -You have an unexpected reaction to medication -You have excessive bleeding -You experience continued vomiting/nausea -Your incision begins to separate -Your incision shows signs of infection such as increased redness, swelling, excessive pain, drainage (light blood or clear fluid is normal) or heat Care Plan Goals: Return to baseline health and resume normal activities following recovery period. Health Concerns: Acute appendicitis Plan of Treatment: s/p laparoscopic appendectomy Follow up in office in 1 week Assessment: Improved Discharge Date/Time: 04/17/25 10:40
[2025-04-17 10:41] VITALS: BP 115/60; PULSE 62; RESP 16; TEMP 36.9; O2SAT 97
== END 2025-04-17 10:40 | disposition home or self-care (01) | DRG 233 ==
LOC: HO.ED 09:33 → HO.EDOVER 09:34 → HO.S3 19:17
PROVIDERS: Admitting Provider Surgery; Emergency Provider Emergency Medicine; PCP Internal Medicine Medical Oncology; Visit Provider Surgery
PROC: 0DTJ4ZZ Resection of Appendix, Percutaneous Endoscopic Approach (ICD-10-PCS; CPT 44970; principal; 2025-04-16 13:50)
DX: K35.33 Acute appendicitis with perforation, localized peritonitis, and gangrene, with abscess (principal); Z87.891 Personal history of nicotine dependence
CPT/HCPCS: 44970; 36415; 74177; 80053; 83605; 83690; 85025; 88304; 99285; J0131; J0525; J0696; J1100; J1308; J1885; J2003; J2270; J2405; J2543; J2704; J3010; J7120; Q9967

== ENCOUNTER → 2025-04-16 06:23 | Outpatient (BNV) | payer BC, SELFPAY | PROVIDERS: Emergency Provider Emergency Medicine; PCP Internal Medicine Medical Oncology; Visit Provider Radiology Diagnostic Radiology | DX: R10.9 Unspecified abdominal pain (principal) | CPT/HCPCS: 74177 ==

== ENCOUNTER → 2025-04-16 06:29 | Outpatient (BNV) | payer BC, SELFPAY | PROVIDERS: Emergency Provider Emergency Medicine; PCP Internal Medicine Medical Oncology; Visit Provider Surgery | DX: K35.30 Acute appendicitis with localized peritonitis, without perforation or gangrene (principal); Z90.49 Acquired absence of other specified parts of digestive tract | CPT/HCPCS: 44970; 99222; 99499 ==

== ENCOUNTER 2025-04-22 10:08 | Outpatient (AMB) | payer BC, SELFPAY ==
--- NOTE | 2025-04-22 10:11 | MHC.OFFVIS ---
Vital Signs 04/22/25 10:17 Weight 184 lb BP 122/69 Blood Pressure Location Rt brachial Position Sitting Pulse 70 Intake Visit Reasons: s/p appy Intake Note: Patient here s/p Laparoscopic appendectomy. Patient c/o: reports incisions healing. Some steri strips still in place. No longer taking rx pain meds. Normal BM. Has FMLA paperwork. Surgery (): 04-16-2025 Food Order Delivery Runner Required: No Accompanied by: Self / Same As Patient Allergies prednisone (PREDNISONE) Allergy (Severe, Verified 04/22/25 10:17) HIVES HPI HPI s/p appy: Details: Reports she is doing very well. Denying pain, no longer requiring pain medication. Feels like she has gained a lot of energy back. Denies issues with urination, bowel movements at baseline. Appetite at baseline. No concerns with the incision sites, states she has some bruising that is improving. Initially had some bleeding from the umbilical incision site on the 1st day postop but this has resolved. Denies any other drainage. Denies fevers or chills at home. Her job does require heavy lifting, we will need to be out of work, has FMLA paperwork for us. [facility] Medical History Acute appendicitis History of blood transfusion Anemia Anxiety PONV (postoperative nausea and vomiting) Surgical History (Updated 04/22/25 @ 08:42 by JOHAN Dasilva) History of laparoscopic appendectomy (04/16/25) History of repair of anterior cruciate ligament of left knee History of colonoscopy History of partial hysterectomy History of cervical polypectomy History of tonsillectomy History of bilateral breast reduction surgery History of endometrial ablation Social History Household Members: Family Housing: House Are you a primary nurse care manager to a significant other at home: No Do you presently have visiting nurse or other home services: No Comment: RECENT ACL KNEE REPAIR Patient Tobacco Use Status: Former Tobacco user Tobacco use type: Cigarette Review of Systems Const All systems reviewed & are unremarkable except as noted in HPI and below Physical Exam Vital Signs: Last Vital Signs Pulse 70 04/22/25 10:17 BP 122/69 04/22/25 10:17 Const General: comfortable and no acute distress Orientation/consciousness: patient oriented x3 GI Other: Incision sites clean dry intact. No surrounding erythema, no discharge, no palpable fluid collection. Nontender. There was some moderate bruising around the umbilical incision Inspection: No distended Palpation (GI): Soft to palpation and nontender Neuro General: patient oriented x3 Assessment & Plan Assessment & Plan (1) S/P laparoscopic appendectomy: Code(s): Z90.49 - Acquired absence of other specified parts of digestive tract Category: Medical Plan 54-year-old female s/p laparoscopic appendectomy on 04/16/[address] Holcomb returning to the office for one-week follow up. Overall doing very well, has no concerns. Denying abdominal pain. No longer requiring pain medication. Tolerating diet at home. Bowel function at baseline. Denies any urologic concerns. Initially had some bleeding from the umbilical incision that has resolved. Has some bruising around the umbilicus that is also resolving. Denies any other drainage. Denies fevers or chills at home. Her job is physically demanding, we will need no to keep her out of work while activity restrictions remain in place. We will continue with activity restrictions no heavy lifting greater than 15 lb for the next 3 weeks. We will see her back in 3 weeks to clear her for work. She can call for appointment sooner with any concerns. Medications: Discontinued oxycodone Partial Fill upon patient request. Discontinued Reason: Patient Completed Course 5 mg PO Q4H PRN 24 tabs 0RF pain (scale score 7-10) Coding Level of Care Code Global (94401) Diagnoses S/P laparoscopic appendectomy Z90.49
[2025-04-22 10:17] VITALS: BP 122/69; PULSE 70
== END 2025-04-22 10:33 | disposition home or self-care (01) ==
LOC: HO.HGS 10:09
PROVIDERS: PCP Internal Medicine Medical Oncology
DX: Z90.49 Acquired absence of other specified parts of digestive tract (principal)
CPT/HCPCS: 99024

== ENCOUNTER 2025-04-27 15:01 | Inpatient (IN) | payer BC, SELFPAY ==
--- OUTSIDE RECORDS SUMMARY | 2024-10-15 11:30 | XMS_ITS ---
Author Organization Aroldo Blanchard III, MD Address [address] [facility] [place] [address] Care Team Providers Care Alterations Workroom Clerk Name Role Phone Dr. Aroldo Blanchadr III Primary Care Provider Allergies Allergen (clinical [...] Provider Speciality Internal M edicine Referred Provider [facility] Referred Provider Specialty Unknown General Notes Ivelisse Gerard 10/15/2024 03:44:32 PM > Patient was given [facility] and [facility] information to contact them to schedule an [...] Problem Status W/U Status Risk Notes Problem [id number] Viral syndrome (B34.9) Active confirmed She has recovered well enough to return to work and normal life. She will call me if she has any difficulty with this. Current therapies were continued. Encounters Encounter Location Date Provider Diagnosis Aroldo Blanchard III, MD [address] [place] [address] [place] [address] 10/15/2024 Aroldo Blanchard Obesity (BMI 30.0-34 .9) [...] Consult and Treat Depression ? ADHD, Counseling [facility] Appt Details Follow Up: As Scheduled, Zora son: Annual Exam Provider Name:Aroldo Blanchard , 07/29/2025 02:30:00 PM, [address] [place] [address] [address], [place], [address], Provider Name:Aroldo Blanchard , 12/30/2025 03:00:00 PM, [address] [place] [address] [address], [place], [address], Progress Notes * Derik LEYVA GDOB:1970 (53 yo F)Acc No.[id number]:10/15/2024 Patient: Derik HANLEY Provider: Maribel Blanchard MD :1970 A ge:53 Y S ex:Female Date:10/15/2024 Address:[address] [place] [phone] Subjective: * Chief Complaints: * R ecent [...] { ...} [address] [facility] [address] L ocation of patient: dante yu listed [...] 69 yrs, Alive and well, lives in [place], [place], thyroid disease, hyperlipidemia. Ady don Grand [...] x-cigarette smoker S he was born in [facility]. 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 She is exposed to paint and dust [...] Panel 3. O thers Referral To:[facility] Unknown Reason:Consult and Treat Depression ? [...] 10/15/2024 Generated for Janet fine/Eliana/Janice on: 1 04:59 PM EDT History and Physical Notes * HPI (History of Present Illness) Category Sub-Category Detail Notes Telehealth Location of prov ider rendering services:: {...} [address] [facility] [address] Location of patient:: address listed in demographics [...] Referred Provider Not catracho 10/15/2024 Aroldo Blanchard [facility], [facility] Consult and Treat Depression ? ADHD
--- OUTSIDE RECORDS SUMMARY | 2024-11-10 13:30 | XMS_ITS ---
Author Organization Aroldo Blanchard III, MD Address [address] [place] [address] Care Team Providers Care Belt Sewer Name Role Phone Dr. Aroldo Blanchard III [...] Date Provider Diagnosis Aroldo Blanchard III, MD [address] [place] [address] [place] [address] 11/10/2024 Aroldo Blanchard Obesity (BMI 30.0-34.9) E66.9 [...] Name:Aroldo Biggs Lo , 07/29/2025 02:30:00 PM, [address] [place] [address] [address], [place], [address], Provider Name:Aroldo Biggs Lo , 12/30/2025 03:00:00 PM, [address] [place] [address] [address], [place], [address], Progress Notes * Derik YAÑEZ GDOB: [birth year] (54 yo F)Acc No.[id number]:11/10/2024 Progress Notes Patient: Derik HASSAN Provider: Maribel Blanchard MD :1970 A ge:53 Y S ex:Female Date:11/10/2024 Address:[address] [place] [phone] Subjective: * Chief Complaints: * 1 . [...] 69 yrs, Alive and well, lives in [place], [place], thyroid disease, hyperlipidemia. M arian Grand [...] x-cigarette smoker S he was born in [place], [facility]. 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 She is exposed to paint and dust [...] 0 11/10/2024 Generated for Janet fine/Eliana/Janice on: 04:59 PM EDT History and Physical Notes [...]
--- OUTSIDE RECORDS SUMMARY | 2024-12-29 10:30 | XMS_ITS ---
Author Organization Aroldo Blanchard III, MD Address 10 [facility] [address] [address] Care Team Providers Care Brand Designer Name Role Phone Dr. Aroldo Blanchard III Primary Care Provider [phone] Allergies Allergen (clinical drug ingredient) Drug/Non Drug [...] Date Provider Diagnosis Aroldo Blanchard III, MD [address] [place] [address] [place] [address] 12/29/2024 Aroldo Blanchard Obesity (BMI 30.0-34 .9) [...] Provider Name:Aroldo Blanchard , 07/29/2025 02:30:00 PM, [address] [place] [address] [address], [place], [address], Provider Name:Aroldo Londonone , 12/30/2025 03:00:00 PM, [address] [place] [address] [address], [place], [address], Progress Notes * Derik YAÑEZ GDOB: [birth year] (54 yo F)Acc No.[id number]:12/29/2024 Progress Notes Patient: Derik HASSAN Provider: Maribel Blanchard MD :1970 A ge:54 Y S ex:Female Date:12/29/2024 Address:[address] [place] [address] TOSHIA KalyanWIMBLEDON, [id number] Subjective: * Chief Complaints: * A nnual [...] 69 yrs, Alive and well, lives in [place], [place], thyroid disease, hyperlipidemia, diagnosed with CVD. [...] P ositive S he was born in [place], [facility]. 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 She is exposed to paint and dust [...] . BREASTS: , Not examined, Done by [facility]. ABDOMEN: b owel sounds normal, no ascites, [...] 12/29/2024 Generated for Janet fine/Eliana/eTransmitting on: 1 04:58 PM EDT History and Physical Notes * [...] normal BREASTS: , Not examined, Done by [facility] MUSCULOSKELETAL: extremities unremark able, no clubbing, cyanosis or edema LYMPH NODES: no enlarged lymph no peter,spleen normal RECTAL EXAM: not examined PSYCH: alert, oriented ORAL CAVITY: normal, unremarkable
--- OUTSIDE RECORDS SUMMARY | 2025-01-26 10:45 | XMS_ITS ---
Author Organization Aroldo Blanchard III, MD Address [address] [facility] [place] [address] Care Team Providers Care Senior Sales Representative Name Role Phone Dr. Aroldo Blanchard III Primary Care Provider [phone] Allergies Allergen (clinical drug ingredient) Drug/Non Drug [...] Date Provider Diagnosis Aroldo Blanchard III, MD [address] [place] [address] [place] [address] 01/26/2025 Aroldo Blanchard Obesity (BMI 30.0-34 .9) [...] Provider Name:Aroldo Blanchard , 07/29/2025 02:30:00 PM, [address] [place] [address] [address], [place], [address], Provider Name:Aroldo Blanchard , 12/30/2025 03:00:00 PM, [address] [place] [address] [address], [place], [address], Progress Notes * PARIDerik GDOB: [birth year] (54 yo F)Acc No.[id number]:01/26/2025 Patient: Derik HASSAN Provider: Maribel Blanchard MD :1970 A ge:54 Y S ex:Female Date:01/26/2025 Address:[address] [place] [address] JADEN Biggs [id number] Subjective: * Chief Complaints: * T elehealth [...] of provider rendering services: { ...} [address] [facility] [address] [facility] [address] L ocation of patient: dante yu listed [...] 69 yrs, Alive and well, lives in [place], [place], thyroid disease, hyperlipidemia, diagnosed with CVD. [...] x-cigarette smoker S he was born in [place], [facility]. 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 She is exposed to paint and dust [...] MD Date: 0 01/26/2025 Generated for Janet fine/Eliana/eTransmitting on: 1 04:59 PM EDT History and Physical Notes * HPI (History of Present Illness) Category Sub-Category Detail Notes Telehealth Location of [facility] rendering services:: {...} [address] [facility] [address] [place] [address] Location of patient:: address listed in demographics [...]
--- OUTSIDE RECORDS SUMMARY | 2025-04-20 09:00 | XMS_ITS ---
Author Organization Aroldo Blanchard III, MD Address [address] [address] Care Team Providers Care City Secretary Name Role Phone Dr. Aroldo Blanchard III Primary Care Provider Allergies Allergen (clinical drug ingredient) Drug/Non Drug Allergy documented on EMR Reaction Allergy Type Onset Date Status No Known Drug Allergy Unknown Drug Allergy Active No Known Food Allergy Unknown Drug Allergy Active REASON FOR VISIT Appendectomy [facility] 04/16/2025, Obesity, Allergies, Hyperlipidemia, Depression Medications Medication [...] Problem Status W/U Status Risk Notes Problem [id number] Status post appendectomy (Z90.49) Active confirmed She [...] Date Provider Diagnosis Aroldo Blanchard III, MD [address] [place] [address] [address]ID [place], [place] [address] 04/20/2025 Aroldo Blanchard Obesity (BMI 30.0-34 .9) [...] Provider Name:Aroldo Blanchard , 07/29/2025 02:30:00 PM, [address] [place] [address] [address], [place], [address], Provider Name:Aroldo Biggs Blanchard , 12/30/2025 03:00:00 PM, [address] [place] [address] [address], [place], [address], Progress Notes * Derik YAÑEZ GDOB: [birth year] (54 yo F)Acc No.[id number]:04/20/2025 Patient: Derik HASSAN Provider: Maribel Blanchard MD :1970 A ge:54 Y S ex:Female Date:04/20/2025 Address:[address] [place], [place] [phone] Subjective: * Chief Complaints: * A ppendectomy [facility] 04/16/2025ObesityAllergiesHyperlipidemiaDepression * HPI: v : She was admitted to [facility] recently through the emergency room and [...] 69 yrs, Alive and well, lives in [place], [place], thyroid disease, hyperlipidemia, diagnosed with CVD. [...] x-cigarette smoker S he was born in [place], [facility]. 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 She is exposed to paint and dust [...] MD Date: Generated for Janet fine/Eliana/Dionicioitting on: 04:58 PM EDT History and Physical Notes * Examination [...]
[2025-04-27] VITALS (7 sets, daily range): BP systolic 116–135; BP diastolic 59–93; PULSE 68–105; RESP 16–20; TEMP 36.7–37.6; O2SAT 95–99; BMI 31.4
--- NOTE | ~2025-04-27 | CT_ITS ---
CLINICAL HISTORY: abd pain, s p appy, concern for abscess vs. SBO CT abdomen and pelvis with contrast Comparison: CT/REG/SR - CT ABDOMEN PELVIS W IV CON - 04/16/25 07:00 EDT Findings: No consolidation or effusion. Unremarkable gallbladder and solid organs. No urolithiasis. There is borderline thickening of the wall of the colon. There is no bowel obstruction. There is no mesenteric edema. There is a focus of small-bowel intussusception within the central abdomen just right of midline. No associated obstructive change or edema. Status post hysterectomy. Unremarkable urinary bladder. Interval appendectomy. No acute fracture. IMPRESSION: 1. Status post appendectomy. Unremarkable appendix fossa. No postoperative abscess. 2. Borderline thickening of the wall of the colon. Recommend clinical correlation to exclude colitis. 3. There is a focus of small-bowel intussusception within the central abdomen just right of midline. This is most likely transient intussusception. This document has been electronically signed by: Amy Mahan MD on 04/27/2025 20:43:16
--- NOTE | 2025-04-27 15:21 | ED_ITS ---
HPI - General Adult General Chief complaint: Abdominal Pain Stated complaint: fever, recent surgery Time Seen by Provider: 04/27/25 17:09 Source: patient and old records reviewed Mode of arrival: ambulatory Limitations: no limitations History of Present Illness ED Provider: DR. De Oliveira HPI narrative: 54-year-old female came in for evaluation of subjective fever x1 day, decreased appetite, mild lower abdominal discomfort, nonbloody watery diarrhea x2 days, painful bowel movement secondary to rectal irritation from recurrent diarrhea, no recent travel, no recent use of antibiotic, no other sick contacts, patient is burping and passing flatus, Related Data Home Medications ?Medication ?Instructions ?Recorded ?Confirmed escitalopram oxalate 5 mg tablet 5 mg PO DAILY 5 04/16/25 Previous Rx's ?Medication ?Instructions ?Recorded docusate sodium 100 mg capsule 100 mg PO BID PRN const ipation #30 04/17/25 (Colace) caps Allergies Allergy/AdvReac Type Severity Reaction Status Date / Time prednisone (PREDNISONE) Allergy Severe HIVES Verified 04/27/25 15:26 Review of Systems 2 Review of Systems: All other systems are reviewed and are negative Constitutional: Reports as per HPI and Reports no additional constitutional complaints Eyes: Reports as per HPI and Reports no additional eye complaints Reports system reviewed and no additional complaints, except as documented Cardiovascular: Reports as per HPI and Reports no additional cardiovascular complaints Respiratory: Reports as per HPI and Reports no additional respiratory complaints Gastrointestinal: Reports as per HPI and Reports no additional gastrointestinal complaints Genitourinary: Reports no additional female genitourinary complaints Musculoskeletal: Reports no additional musculoskeletal complaints Skin/Breast: Reports system reviewed and no additional complaints, except as docu Psychiatric: Reports no additional psychiatric complaints Endocrine: Reports no additional endocrine complaints Hematologic/Lymphatic: Reports no additional hematologic/lymphatic complaints Allergic/Immunologic: Reports no additional allergic/immunologic complaints Reports system reviewed and no additional complaints, except as documented and Reports Abnormal speech present PMFSH Past Medical History Medical History Acute appendicitis History of blood transfusion Anemia Anxiety PONV (postoperative nausea and vomiting) Surgical History History of laparoscopic appendectomy (04/16/25) History of repair of anterior cruciate ligament of left knee History of colonoscopy History of partial hysterectomy History of cervical polypectomy History of tonsillectomy History of bilateral breast reduction surgery History of endometrial ablation Social History Social History Household Members: Family Housing: House Are you a primary manager medicare to a significant other at home: No Do you presently have visiting nurse or other home services: No Comment: RECENT ACL KNEE REPAIR Patient Tobacco Use Status: Former Tobacco user Tobacco use type: Cigarette Advance Directives: No Advance Directives Information Provided: No Do you have a plan to hurt others: No Plan Patient : No Physical Exam ED Vital Signs: Vital Signs - 24 hr 04/27/25 15:21 04/27/25 16:49 04/27/25 18:04 Temperature 98.2 F 98.1 F 98.9 F Pulse Rate 105 H 90 78 Respiratory Rate 16 18 20 Blood Pressure 125/59 L 128/60 135/93 H Pulse Oximetry 95 98 99 Oxygen Delivery Method Room Air Room Air Room Air 04/27/25 18:45 04/27/25 18:55 04/27/25 20:48 Temperature 99.7 F 98.1 F Pulse Rate 78 88 68 Respiratory Rate 20 20 19 Blood Pressure 124/72 119/80 128/73 Pulse Oximetry 99 99 97 Oxygen Delivery Method Room Air Room Air Room Air BMI result Body Mass Index 31.4 Vital signs have been reviewed and appear to be correct. Blood pressure elevated. Heart rate normal. Respiratory rate normal. Temperature normal. Oxygen saturation normal. Appearance: Alert. Oriented X3. No acute distress. Head: Normal external exam. Normocephalic. Atraumatic. No Esc[place]illa signs noted. No raccoon eyes noted Eyes: PERRLA. EOMI. Conjunctiva and sclera normal. Eyelids normal. ENT: TM's Normal. Pharynx normal. Uvula midline. Moist mucous membranes. No trismus noted. No drooling noted. No muffled voice noted. Neck: Normal inspection. Neck supple. FROM. No adenopathy. Thyroid Normal. No meningeal signs. No neck mass noted. CVS: Normal heart rate and rhythm. Heart sound normal. No murmurs noted. Pulses normal throughout. Respiratory: No respiratory distress. Painless inspiration. Breath sounds normal. No wheezes/rales/rhonchi noted. Chest nontender. No accessory muscle usage noted or decreased air movement noted. Abdomen: Soft and nontender. Bowel sounds normal in all 4 quadrants. No distention noted. No organomegaly noted. No visible injury noted. Rectal exam: External hemorrhoid at 12:00 with no thrombosis or tenderness, no palpable mass or fluctuation in the rectal vault. Back: No CVA tenderness. Full range of motion noted. Skin: Skin warm and dry. Normal skin color. Normal skin turgor. No rashes/lesions/lacerations noted. Extremities: No lower extremity edema. Extremities exhibit normal range of motion. Extremities nontender. Neuro: Oriented X 3. Cranial nerve exam: II-XII are grossly intact No motor deficit. No sensory deficit. Reflexes normal. Course Course Course Narrative: Rapid medical examination performed in triage by Soraya Whitaker PA-C. Patient is a 54 year old assigned female at presenting to the emergency department with a fever. Patient states 10 days ago she had her appendix removed and has been developing a fever. Patient states that she has also been having pain with defecation. Detailed physical exam and review of systems are deferred to the senior sales director. Labs ordered. Patient placed back in the waiting room pending room availability and results. Reevaluation(s) Reevaluation #1: Patient meet criteria for sepsis with unclear source yet, will call sepsis protocol, lactic acid, and blood culture was ordered, IV fluids and empirical Zosyn was ordered. Await for CT abdomen pelvis. Time: 17:17 Reevaluation #2: Patient meets criteria of sirs, heart rate is 105, with leukocytosis of 24. Await for CT abdomen and pelvis to evaluate for postoperative complication or source of patient's symptoms. Time: 20:46 Reevaluation #3: Case was discussed with Dr. Holcomb, CT was reviewed by Dr. Holcomb suggesting colitis and leukocytosis with possible intussusception patient will be admitted to Dr. Holcomb. Time: 21:08 Medications Administered Discontinued Medications Generic Name Dose Route Start Last Admin Trade Name Freq PRN Reason Stop Dose Admin Diatrizoate Meglum/Diatrizoate Sod 30 ml 04/27/25 19:40 04/27/25 19:41 Diatrizoate Meglumine, Sodium 30 Ml Solution PO 04/27/25 19:41 30 ml ONCE ONE Administration Piperacillin Sod/Tazobactam 100 mls @ 200 mls/hr 04/27/25 17:05 04/27/25 17:48 Sod 4.5 gm/ Sodium Chloride IV 04/27/25 17:34 Infused ONCE ONE Infusion Lactated Ringer's 1,000 mls @ 999 mls/hr 04/27/25 17:15 04/27/25 18:25 Lr IV 04/27/25 18:15 Infused .Q1H1M LUIS CARLOS Infusion Acetaminophen 1,000 mg in 100 mls @ 400 mls/hr 04/27/25 19:43 04/27/25 20:30 Ofirmev IV 04/27/25 19:57 Infused ONCE ONE Infusion Iohexol 85 ml 04/27/25 19:39 04/27/25 19:39 Iohexol 350 Mg/Ml 100 Ml Infus..Btl IV 04/27/25 19:40 85 ml ONCE ONE Administration Medical Decision Making Differential Diagnosis Differential Diagnoses: The differential diagnosis associated with the presentation includes (SBO, postoperative intra-abdominal abscess, intussusception, colitis, diverticulitis, pancreatitis, UTI, electrolyte derangement, severe anemia.) Admission/Observation Consideration of admission/observation: Escalation of care including admission/observation considered Consult Healthcare Provider Management of the patient was discussed with: Cost Report Clerk (Dr. Holcomb) Lab Data MDM Lab Attestation statement: I reviewed the patient's lab results. 04/27/25 15:34 04/27/25 15:34 Labs: Lab Results 04/27/25 04/27/25 04/27/25 Range/Units 15:34 16:41 17:16 WBC 24.0 H (4.8-10.8) X10*3/uL RBC 4.97 (4.20-5.50) X10*6/uL Hgb 14.8 (12.0-16.0) g/dl Hct 44.8 (37.0-47.0) % MCV 90.1 (80.0-98.0) fL MCH 29.8 (27.0-33.0) pg MCHC 33.0 (31.0-35.0) g/dl RDW 12.9 (11.0-16.0) % Plt Count 358 D (160-400) X10*3/uL MPV 9.8 (9.4-12.3) fL Immature Gran % (Auto) 0.5 H (0.0-0.4) % Neut % (Auto) 87.8 H (45-73) % Lymph % (Auto) 6.1 L (20-40) % [place] % (Auto) 4.9 (2-11) % Eos % (Auto) 0.3 (0-4) % Baso % (Auto) 0.4 (0-2) % Lymph # (Auto) 1.5 (1.2-4.9) X10*3/uL [place] # (Auto) 1.2 (0.1-1.2) X10*3/uL Eos # (Auto) 0.1 (0.0-0.4) X10*3/uL Baso # (Auto) 0.1 (0.0-0.2) X10*3/uL Abs Immat Gran (auto) 0.12 H (0.00-0.03) X10*3/uL Absolute Neuts (auto) 21.1 H (2.0-8.3) x10*3/uL Absolute Nucleated RBC 0.000 (0.0-0.012) X10*3/uL Nucleated RBC % (auto) 0.0 (0.0-0.2) /100WBC Smear Tech's Comments VERIFIED Sodium 135 (135-145) mmol/L Potassium 3.8 (3.3-5.1) mmol/L Chloride 103 (96-108) mmol/L Carbon Dioxide 22 (22-29) mmol/L Anion Gap 14 (12-20) BUN 14 (9-16) mg/dL Creatinine 0.95 (0.5-1.4) mg/dL Estim Creat Clear Calc 68.8 Estimated GFR > 60 Random Glucose 115 (60-115) mg/dL Lactic Acid 1.3 (0.5-2.0) mmol/L Calcium 9.5 (8.4-10.2) mg/dL Magnesium 2.0 (1.6-2.6) mg/dL Total Bilirubin 0.7 (0.0-1.0) mg/dL AST 34 H (5-31) U/L ALT 26 (0-31) U/L Alkaline Phosphatase 107 (39-117) U/L Total Protein 7.8 (6.5-8.0) g/dL Albumin 4.9 (3.5-5.0) g/dL Urine Color Yellow Urine Appearance Clear Urine pH 5.5 (5.0-9.0) Ur Specific [place] 1.015 (1.005-1.025) Urine Protein Negative (Neg-Trace) mg/dL Urine Glucose (UA) Negative (Negative) mg/dL Urine Ketones Negative (Negative) mg/dL Urine Blood Moderate (2+) H (Negative) Urine Nitrite Negative (Negative) Ur Leukocyte Esterase Negative (Negative) Urine RBC 6-10 H (0-2) /HPF Urine WBC 0-5 (0-5) /HPF Ur Squamous Epith Cells 0-2 (0-2) /HPF Urine Bacteria None Seen (None Seen) Hyaline Casts 0-2 (0-2) /LPF Independent Interpretation I performed an independent interpretation of an: CT Scan (CT abdomen pelvis:. Status post appendectomy. Unremarkable appendix fossa. No postoperative abscess. 2. Borderline thickening of the wall of the colon. Recommend clinical correlation to exclude colitis. 3. There is a focus of small-bowel intussusception within the central abdomen just right of mi) Radiology Impression Discussion of test interpretation with radiology: I have reviewed the radiologist's reading. Discharge Plan Discharge Clinical Impression: S/P laparoscopic appendectomy, Leukocytosis, Colitis Patient Disposition: Admitted As Inpatient Print Language: Vincentian
[2025-04-27 15:52] LABS: Hematocrit 44.8 % (37.0-47.0); Hemoglobin 14.8 g/dl (12.0-16.0); Imm Gran Abs Auto 0.12 X10*3/uL (0.00-0.03); Imm Gran Pct Auto 0.5 % (0.0-0.4); Lymphocytes Absolute Auto 1.5 X10*3/uL (1.2-4.9); MANUAL DIFF FLAG SCAN; Mean Corpuscular HGB Conc 33.0 g/dl (31.0-35.0); Mean Corpuscular Hemoglobin 29.8 pg (27.0-33.0); Mean Corpuscular Volume 90.1 fL (80.0-98.0); NRBC Abs Auto 0.000 X10*3/uL (0.0-0.012); NRBC Pct Auto 0.0 /100WBC (0.0-0.2); Platelet Count 358 X10*3/uL (160-400); Red Blood Count 4.97 X10*6/uL (4.20-5.50); SCAN SMEAR FLAG 1; White Blood Count 24.0 X10*3/uL (4.8-10.8)
[2025-04-27 16:00] LABS: Alanine Aminotransferase 26 U/L (0-31); Albumin Level 4.9 g/dL (3.5-5.0); Alkaline Phosphatase 107 U/L (39-117); Anion Gap 14 (12-20); Aspartate Amino Transferase 34 U/L (5-31); Blood Urea Nitrogen 14 mg/dL (9-16); Calcium 9.5 mg/dL (8.4-10.2); Carbon Dioxide 22 mmol/L (22-29); Chloride 103 mmol/L (96-108); Creatinine Clr Calc Pharmacy 68.8; Estimated Glomerular Filt Rate > 60; Magnesium 2.0 mg/dL (1.6-2.6); Potassium 3.8 mmol/L (3.3-5.1); Sodium 135 mmol/L (135-145); Total Protein 7.8 g/dL (6.5-8.0)
[2025-04-27 16:52] LABS: Appearance Urine Clear; Glucose Urine UA Negative (Negative); PH 5.5 (5.0-9.0); Specific Gravity - Urine 1.015 (1.005-1.025); UMIC TRIGGER UACC YES
--- OUTSIDE RECORDS SUMMARY | 2025-04-27 16:59 | XMS_ITS | Patient Health Record ---
Author Organization Aroldo Blanchard III, MD Address [address] [place] [address] Care Team Providers Care Order Takers Supervisor Name Role Phone Dr. Aroldo Blanchard III Primary Care Provider [phone] Allergies Allergen (clinical drug ingredient) Drug/Non Drug [...] date:10/11/2024 08:12:45 AM Interpretation: Performing Lab: Notes/Report: [facility] [address] [place] [address] XRay Report Signed Patient: Derik Acharya MR#: [id number] : 1970 Acct:[id number] Age/Sex: 53 / F ADM Date: 10/08/24 Loc: HO.XRAY Attending Dr: Aroldo Blanchard MD Ordering Physician: Aroldo Blanchard MD Date of Service: 10/08/24 Procedure(s): XR chest 2V Accession Number(s): [id number] cc: Aroldo Blanchard MD EXAMINATION: XR CHEST [...] acute cardiopulmonary abnormality. Electronically signed by: Aroldo Mnoroy MD 10/08/2024 11:54 AM EDT RP Dictated By: Aroldo Monroy MD Signed By: <Electronically signed by Aroldo Monroy MD in OV> 10/08/24 1154 DD/ 1145 TD/TT: 10/08/24 1150 Marine Oiler: [place] [address] XRay Report Signed Patient: Derik Acharya MR#: [id number] : 1970 Acct:[id number] Age/Sex: 53 / F ADM Date: 10/08/24 Loc: HOADRIANNEAY Attending Dr: Aroldo Blanchard MD Ordering Physician: Aroldo Blanchard MD Date of Service: 10/08/24 Procedure(s): XR chest 2V Accession Number(s): [id number] cc: Aroldo Blanchard MD EXAMINATION: XR CHES [...] Dictated By: Aroldo Monroy MD Signed By: <Electron joanie signed by Aroldo Monroy MD in OV> 10/08/24 1154 DD/ 1145 TD/TT: 10/08/24 1150 Marine Oiler: Lipid Panel Reviewed date:01/16/2025 07:01:55 PM Interpretation: Performing Lab:[facility], [address] [place] [address] [place] [address] Notes/Report: Triglycerides 127 <150 mg/dL Desirable Triglyceride: [...] date:01/27/2025 04:58:00 AM Interpretation: Performing Lab: Notes/Report: [address] [place] [address] Mammography Report Signed Patient: Derik Redd MR#: [id number] : 1970 Acct:[id number] Age/Sex: 54 / F ADM Date: 01/12/25 Loc: HO.MAMMO Attending Dr: Aroldo Blanchard MD Ordering Physician: Aroldo Blanchard MD Results: 2Benign Findings Date of Service: 01/12/25 Follow Up: 1 Year From [facility] Mammogram Procedure(s): MM tomosynthesis screening BI Accession Number(s): [id number] cc: Aroldo Blanchard MD EXAMINATION: MM SCREENING [...] 01/25/25 1419 DD/ 1535 TD/TT: 01/12/25 1549 Marine Oiler: [facility] [address] [place] [address] Mammography Report Signed Patient: Kira Redd MR#: [id number] : 1970 Acct:[id number] Age/Sex: 54 / F ADM Date: 01/12/25 Loc: HO.MAMMO Attending Dr: Aroldo Blanchard MD Ordering Physician: Aroldo Blanchard MD Results: 2Benign Findings Date of Service: Follow Up: 1 Year From [facility] Mammogram Procedure(s): MM tomosynthesis screening BI Accession Number(s): [id number] cc: Aroldo Blanchard MD EXAMINATION: MM SCREENING DIGITAL BREAST TOMOSYNTHESIS, BILATERAL CLINICAL INFORMATION: Screening. Asymptomatic. COMPARISON: Mammography: Compari son is made with available priors TECHNIQUE: Digital breast mammo graphy with tomosynthesis is performed in both the [...] 2 - Benign Findings RECOMMENDATION: Routine annual mammo graphy screening. 1 year F/U This examination alida uld not preclude the clinical evaluation of a suspicious palpable abnormality. This patient's infor mation was entered into a reminder system with a target due date for their next mammogram. Electronically dc d by: Carline Schulte DO 01/25/2025 02:19 PM EDT RP Dictated By: Carline Schulte DO Signed By: <Electron ically signed by Carline Schulte DO in OV> 01/25/25 1419 DD/ 1535 TD/TT: 01/12/25 1549 Marine Oiler: Complete Blood Count Auto Di ff Reviewed date:04/27/2025 09:26:08 AM Interpretation: Performing Lab:[facility], [address] [place] [address] Notes/Report: White Blood Count 11.8 4.8-10.8 X10*3/uL Red Blood Count 5.21 4.20-5.50 X10*6/uL Hemoglobin 15.8 12.0-16.0 g/dl Hematocrit 46.7 37.0-47.0 % Mean Corpuscular Volume 89.6 80.0-98.0 fL Mean Corpuscular Hemoglobin 30.3 27.0-33.0 pg Mean Corpuscular HGB Conc 33.8 31.0-35.0 g/dl Red Cell Distribution Width 12.6 11.0-16.0 % Platelet Count 285 160-400 X10*3/uL Mean Platelet Volume 9.6 9.4-12.3 fL Neutrophils Percent Auto 89.7 45-73 % Imm Gran Pct Auto 0.3 0.0-0.4 % Lymphocytes Percent Auto 6.3 20-40 % Monocytes Percent Auto 3.3 2-11 % Eosinophils Percent Auto 0.1 0-4 % Basophils Percent Auto 0.3 0-2 % NRBC Pct Auto 0.0 0.0-0.2 /100WBC Neutrophils Absolute Auto 10.6 2.0-8.3 x10*3/uL Imm Gran Abs Auto 0.04 0.00-0.03 X10*3/uL Lymphocytes Absolute Auto 0.7 1.2-4.9 X10*3/uL Monocytes Absolute Auto 0.4 0.1-1.2 X10*3/uL Eosinophils Absolute Auto 0.0 0.0-0.4 X10*3/uL Basophils Absolute Auto 0.0 0.0-0.2 X10*3/uL NRBC Abs Auto 0.000 0.0-0.012 X10*3/uL Comprehensive Met. Panel Reviewed date:04/27/2025 09:26:08 AM Interpretation: Performing Lab:[facility], [address] [place] [address] Notes/Report: Sodium 136 135-145 mmol/L Potassium 3.8 3.3-5.1 mmol/L Chloride 102 96-108 mmol/L Carbon Dioxide 26 22-29 mmol/L Anion Gap 12 12-20 Blood Urea Nitrogen 9 9-16 mg/dL Creatinine 0.84 0.5-1.4 mg/dL Creatinine Clr Calc Pharmacy 78.5 Provided height and weight: 160.02 cm, 82 kg. eGFR (calculated from the MDRD study equation) and eCrCl (calculated from the Cockcroft-Gault equation) are based on different parameters and may not yield comparable results. If eCrCl result is absurd, please check patient's height/weight. Estimated Glomerular Filt Rate > 60 Chronic Kidney Disease: Estimated GFR < 60 mL/min/1.73m2 Severe Kidney Disease: Estimated GFR < 15 mL/min/1.73m2 Glucose Random 136 60-115 mg/dL Calcium 9.2 8.4-10.2 mg/dL Bilirubin Total 0.4 0.0-1.0 mg/dL Aspartate Amino Transferase 41 5-31 U/L Alanine Aminotransferase 43 0-31 U/L Total Protein 7.6 6.5-8.0 g/dL Albumin Level 4.7 3.5-5.0 g/dL Alkaline Phosphatase 97 39-117 U/L Lactic Acid Reviewed date:04/27/2025 09:26:08 AM Interpretation: Performing Lab:[facility], [address] [place] [address] Notes/Report: Lactic Acid 1.2 0.5-2.0 mmol/L Lipase Reviewed date:04/27/2025 09:26:08 AM Interpretation: Performing Lab:[facility], [address] [place] [address] Notes/Report: Lipase 22 8-78 U/L Pathology Reviewed date:04/27/2025 09:26:08 AM Interpretation: Performing Lab:[facility], [address] [place] [address] Notes/Report: ------ Name: Derik Redd Age/Sex: 54/F : 1970 Unit#: [id number] Attend Dr: Nehemias Holcomb MD Re04/16/25 Status : DIS IN Location: [facility] 383-1 Disch: 04/17/25 ------ SPEC : [id number] RECD : 04/17/25 STATUS: XUAN LAY NUM: [id number] ANN: 04/16/[address] [facility] DR: Nehemias Holcomb MD ENTERED: 04/17/25 48 SP TYPE: Surgical OTHR DR: Aroldo Blanchard MD ORDERED: Gross Micro L3 Diagnosis Appendix, appendecto my: Acute appendicitis and periappendicitis with fibrinous exudate. Clinical History Acute appendicitis Microscopic Description Microscopic sections reviewed. Material Received Appendix Gross Description Received in formalin labeled ?appendix? is a vermiform appendix measuring 8.5 cm in length with a diameter rang ing from 1.2-1.5 cm. There is an attached portion of mesoappendiceal fat measuring 6.3 x 2.5 cm. The serosal surface is smooth and estevez pink in color with a faint vascular arborization The margin of resection has been stapled shut. The resection margin is inked blue . Sectioning reveals a firm, brown fecalith at the proximal end of the specimen measuring 1 .2 cm in greatest dimension. The lumen is patent measuring 0.8 cm in diameter. The wall measures 0.2 cm in thickness. Further sectioning reveals that the lumen widens to 1.3 cm in diameter and is filled with soft, semi formed fecal material. [employer] secti ons are submitted for microscopic examination, 3 pieces in cassette A1 to show the margin o f resection and outbound call center representative cross-sections and 2 pieces in cassette A2 including cross-s ection from the distal portion of the specimen and a sagittal sections through the distal t ip. ([facility]) IHC S/NG Disclaimer NOTE: Unless otherwi se stated, all tissue is formalin-fixed and paraffin-embedded. Some or all of the immunohistochemical tests reported herein may have been developed and their performance characteristics determined by [facility]. They have not been cleared or appr shun by the U.S. Food and Drug Administration (FDA). However, the FDA has determined that such clearance or approval is not necessary. This laboratory is certified under the Clinical Laboratory Improvement Amendments of 1988 (CLIA) as qualified to perform high comp lexity clinical laboratory testing. CONTINUED ON NEXT PAGE ------ Name: Derik Redd Age/Sex: 54/F : 1970 Unit#: [id number] Attend Dr: Nehemias Holcomb MD Re04/16/25 Status : DIS IN Location: [facility] 383-1 Disch: 04/17/25 ------ SPEC : [id number] RECD : 04/17/25 STATUS: XUAN LAY NUM: [id number] ANN: 04/16/[address] [facility] [address]: Nehemias Holcomb MD ENTERED: 04/17/25 48 SP TYPE: Surgical OTHR DR: Aroldo Blanchard MD ORDERED: Gross Micro L3 Copies To: Aroldo Blanchard MD [address] [facility], [address] [place] [address] Nehemias Holcomb MD [facility] [place] [place] [facility] [address] [place] [address] ------ Signed (signature on file) Aurelia Senior MD 04/21/25 1016 ------ END OF REPORT CT abdomen pelvis w daria Reviewed date:04/27/2025 09:26:08 AM Interpretation: Performing Lab: Notes/Report: [address] [address] [address] Scan Report Signed Patient: Derik Redd MR#: [id number] : 1970 Acct:[id number] Age/Sex: 54 / F ADM Date: 04/16/25 Loc: HO.ED Attending Dr: Ordering Physician: Vito Davis DO Date of Service: 04/16/25 Procedure(s): CT abdomen pelvis w IV con Accession Number(s): [id number] cc: Aroldo Blanchard MD; Vito Davis DO Report Number: [id number]: Total DLP = 639.00 mGy-cm Reason for Exam: abdominal pain, r/o SBO EXAMINATION: CT ABDOMEN AND PELVIS WITH CONTRAST CLINICAL INFORMATION: Abdominal pain. Concerning small bowel obstruction. COMPARISON: January 14, 2020. TECHNIQUE: Multidetector volumetric images were obtained from the superior aspect of the liver through the pubic symphysis following administration 85 mL of Omnipaque 350 intravenous contrast. Sagittal and coronal reformatted images were obtained on the technologist's workstation. Oral contrast: No This CT examination was performed using dose optimization techniques as appropriate, variously including the following: *Automated exposure control *Adjustment of mA and/or kV according to patient size (this includes techniques or standardized protocols for targeted exams where dose is matched to indication/reason for exam; i.e. extremities or head) *Use of iterative reconstruction technique. DLP: 639 mGy centimeter. FINDINGS: LUNG BASES: No acute airspace disease or gross pulmonary nodules. LIVER, GALLBLADDER, AND BILIARY TREE: Liver measures 17 cm. No focal mass. Focal hypodensity adjacent to the falciform ligament likely focal fatty infiltration. Main portal veins, hepatic veins are patent. No intrahepatic biliary ductal dilatation. Gallbladder is fluid-filled nondistended without pericholecystic fluid collection or gallbladder wall thickening. Common bile duct measures 3 mm. PANCREAS: No focal mass. No peripancreatic fluid collection. No main pancreatic ductal dilatation. SPLEEN: 8 cm. No focal mass. ADRENAL GLANDS: No nodular lesions. KIDNEYS AND URETERS: No hydronephrosis. No nephrolithiasis. Normal enhancement pattern of the renal parenchyma. BLADDER: Fluid-filled nearly collapsed. GASTROINTESTINAL TRACT: Appendix measures 13 mm in maximal thickness with edematous wall and increased density secretions in the proximal segment. There is a tiny air bubble in the midportion. No periappendiceal edema pattern. Gas and fluid-filled prominent small bowel loops with subsegmental air cells wall thickening versus peristalsis. There is fecaloid material in the distal ileal loops. There is abundant stool in the large intestine. There is a segmental narrowing in the mid descending colon, questionable peristalsis. No pericolonic edema pattern. No pneumatosis intestinalis. No ascites. No pneumoperitoneum. ABDOMINAL WALL: No umbilical hernia. LYMPH NODES: Nonspecific mildly prominent mesenteric and retroperitoneal lymph nodes. VASCULAR: No aneurysm or dissection, abdominal aorta. No gross calcified plaques. PELVIC VISCERA: Not enlarged. No gross masses. OSSEOUS STRUCTURES: Grade 1 anterolisthesis L4-5 without spondylolysis with degenerative changes in the posterior elements resulting in central spinal canal and bilateral neuroforamina stenosis. Multilevel thoracolumbar spondylosis.. Sclerosis and the sacroiliac joints with vacuum phenomenon. Degenerative changes in the symphysis pubis. CT/CT abdomen pelvis w IV con IMPRESSION: Concerning early acute noncomplicated/nonruptured appendicitis with associated regional ileus. Fleischner guidelines were followed. Electronically signed by: Jacob Cisneros MD 04/16/2025 07:59 AM EDT RP Dictated By: Jacob Luciano MD Signed By: <Electronically signed by Jacob Moody MD in OV> 04/16/25 0759 DD/ 0700 TD/TT: 04/16/25 0710 Marine Oiler: [place] [address] CT Scan Report Signed Patient: Kira Redd MR#: [id number] : 1970 Acct:[id number] Age/Sex: 54 / F ADM Date: 04/16/25 Loc: HO.ED Attending Dr: Ordering Physician: Vito Davis DO Date of Service: 04/16/25 Procedure(s): CT abd omen pelvis w IV con Accession Number(s): [id number] cc: Aroldo Blanchard MD; Vito Davis DO Report Number: [id number]: Total DLP = 639.00 mGy-cm Reason for Exam: abd ominal pain, r/o SBO EXAMINATION: CT ABDOMEN AND PELVI S WITH CONTRAST CLINICAL INFORMATION: Abdominal pain. Conc erning small bowel obstruction. COMPARISON: January 14, 2020. TECHNIQUE: Multidetector volume tric images were obtained from the superior aspect of the liver through the pubic symphysis following administration 85 mL of Omnipaque 350 intravenous contrast. Sagittal and coronal reformatted images were obtained on the technologist's workstation. Oral contrast: No This CT examination was performed using dose optimization techniques as appropriate, various ly including the following: *Automated exposure control *Adjustment of mA an d/or kV according to patient size (this includes techniques or standa rdized protocols for targeted exams where dose is matched to indication/reason for exam; i.e. extremities or head) *Use of iterative reconstruction technique. DLP: 639 mGy centimeter. FINDINGS: LUNG BASES: No acute airspace disease or gross pulmonary nodules. LIVER, GALLBLADDER, AND BILIARY TREE: Liver measures 17 cm. No focal mass. Focal hypodens ity adjacent to the falciform ligament likely focal fatty infiltration. Main portal veins, hepatic veins are patent. No intrahepatic bili zara ductal dilatation. Gallbladder is fluid-filled nondistended without pericholecystic fluid collection or gallbladder wall thickening. Common bile duct emmett sures 3 mm. PANCREAS: No focal m ass. No peripancreatic fluid collection. No main pancreatic ductal dilatation. SPLEEN: 8 cm. No foc al mass. ADRENAL GLANDS: No n odular lesions. KIDNEYS AND URETERS: No hydronephrosis. No nephrolithiasis. Normal enhancement pattern of the renal parenchyma. BLADDER: Fluid-fille d nearly collapsed. GASTROINTESTINAL TRACT: Appendix measures 13 mm in maximal thickness with edematous wall and increased density secretions in the proximal segment. There is a tiny air bubble in the midportion. No periappendiceal edema pattern. Gas and fluid-filled prominent small bowel loops with subsegmental air cells wall thickenin g versus peristalsis. There is fecaloid material in the distal ileal loops. There is abundant st ool in the large intestine. There is a segmental narrowing in the mid descending colon, questionable perista lsis. No pericolonic edema pattern. No pneumatosis intestinalis. No ascites. No pneumoperitoneum. ABDOMINAL WALL: No umbilical hernia. LYMPH NODES: Nonspec ific mildly prominent mesenteric and retroperitoneal lymp h nodes. VASCULAR: No aneurys m or dissection, abdominal aorta. No gross calcified plaques. PELVIC VISCERA: Not enlarged. No gross masses. OSSEOUS STRUCTURES: Grade 1 anterolisthesis L4-5 without spondylolysis with degenerative ch anges in the posterior elements resulting in central spinal canal and bilateral neuroforamina stenosis. Multilevel thoracolu mbar spondylosis.. Sclerosis and the sacroiliac joints with vacuum phenomenon. Degenerative changes in the symphysis pubis. C T/CT abdomen pelvis w IV con IMPRESSION: Concerning early acu te noncomplicated/nonruptured appendicitis with associated regional ileus. Fleischner guideline s were followed. Electronically dc d by: Jacob Cisneros MD 04/16/2025 07:59 AM EDT Dictated By: Jacob Rosen MD Signed By: <Electron ically signed by Jacob Moody MD in OV> 04/16/25 0759 DD/ 0700 TD/TT: 04/16/25 0710 Marine Oiler: Complete Blood Count Auto Di ff (Not yet reviewed by provider) Interpretation: Performing Lab:[facility], [address] [place] [address] Notes/Report: White Blood Count 24.0 4.8-10.8 X10*3/uL Red Blood Count 4.97 4.20-5.50 X10*6/uL Hemoglobin 14.8 12.0-16.0 g/dl Hematocrit 44.8 37.0-47.0 % Mean Corpuscular Volume 90.1 80.0-98.0 fL Mean Corpuscular Hemoglobin 29.8 27.0-33.0 pg Mean Corpuscular HGB Conc 33.0 31.0-35.0 g/dl Red Cell Distribution Width 12.9 11.0-16.0 % Platelet Count 358 160-400 X10*3/uL Mean Platelet Volume 9.8 9.4-12.3 fL Neutrophils Percent Auto 87.8 45-73 % Imm Gran Pct Auto 0.5 0.0-0.4 % Lymphocytes Percent Auto 6.1 20-40 % Monocytes Percent Auto 4.9 2-11 % Eosinophils Percent Auto 0.3 0-4 % Basophils Percent Auto 0.4 0-2 % NRBC Pct Auto 0.0 0.0-0.2 /100WBC Neutrophils Absolute Auto 21.1 2.0-8.3 x10*3/uL Imm Gran Abs Auto 0.12 0.00-0.03 X10*3/uL Lymphocytes Absolute Auto 1.5 1.2-4.9 X10*3/uL Monocytes Absolute Auto 1.2 0.1-1.2 X10*3/uL Eosinophils Absolute Auto 0.1 0.0-0.4 X10*3/uL Basophils Absolute Auto 0.1 0.0-0.2 X10*3/uL NRBC Abs Auto 0.000 0.0-0.012 X10*3/uL White Blood Count 24.0 4.8-10.8 X10*3/uL Red Blood Count 4.97 4.20-5.50 X10*6/uL Hemoglobin 14.8 12.0-16.0 g/dl Hematocrit 44.8 37.0-47.0 % Mean Corpuscular Volume 90.1 80.0-98.0 fL Mean Corpuscular Hemoglobin 29.8 27.0-33.0 pg Mean Corpuscular HGB Conc 33.0 31.0-35.0 g/dl Red Cell Distribution Width 12.9 11.0-16.0 % Platelet Count 358 160-400 X10*3/uL Mean Platelet Volume 9.8 9.4-12.3 fL Neutrophils Percent Auto 87.8 45-73 % Imm Gran Pct Auto 0.5 0.0-0.4 % Lymphocytes Percent Auto 6.1 20-40 % Monocytes Percent Auto 4.9 2-11 % Eosinophils Percent Auto 0.3 0-4 % Basophils Percent Auto 0.4 0-2 % NRBC Pct Auto 0.0 0.0-0.2 /100WBC Neutrophils Absolute Auto 21.1 2.0-8.3 x10*3/uL Imm Gran Abs Auto 0.12 0.00-0.03 X10*3/uL Lymphocytes Absolute Auto 1.5 1.2-4.9 X10*3/uL Monocytes Absolute Auto 1.2 0.1-1.2 X10*3/uL Eosinophils Absolute Auto 0.1 0.0-0.4 X10*3/uL Basophils Absolute Auto 0.1 0.0-0.2 X10*3/uL NRBC Abs Auto 0.000 0.0-0.012 X10*3/uL FERMÍN ECTED REPORT FERMÍN ECTED REPORT Comprehensive Met. Panel (No t yet reviewed by provider) Interpretation: Performing Lab:[address] [address] Notes/Report: Sodium 135 135-145 mmol/L Potassium 3.8 3.3-5.1 mmol/L Chloride 103 96-108 mmol/L Carbon Dioxide 22 22-29 mmol/L Anion Gap 14 12-20 Blood Urea Nitrogen 14 9-16 mg/dL Creatinine 0.95 0.5-1.4 mg/dL Creatinine Clr Calc Pharmacy 68.8 Provided height and weight: 160.02 cm, 80.5 kg. eGFR (calculated from the MDRD study equation) and eCrCl (calculated from the Cockcroft-Gault equation) are based on different parameters and may not yield comparable results. If eCrCl result is absurd, please check patient's height/weight. Estimated Glomerular Filt Rate > 60 Chronic Kidney Disease: Estimated GFR < 60 mL/min/1.73m2 Severe Kidney Disease: Estimated GFR < 15 mL/min/1.73m2 Glucose Random 115 60-115 mg/dL Calcium 9.5 8.4-10.2 mg/dL Bilirubin Total 0.7 0.0-1.0 mg/dL Aspartate Amino Transferase 34 5-31 U/L Alanine Aminotransferase 26 0-31 U/L Total Protein 7.8 6.5-8.0 g/dL Albumin Level 4.9 3.5-5.0 g/dL Alkaline Phosphatase 107 39-117 U/L Magnesium (Not yet reviewed by provider) Interpretation: Performing Lab:[address] [place] [address] Notes/Report: Magnesium 2.0 1.6-2.6 mg/dL SLIDE REVIEW (Not yet review ed by provider) Interpretation: Performing Lab:[facility], [address] [place] [address] Notes/Report: SLIDE REVIEW VERIFIED UA ClnCatch+Micro w/rflx Cul t (Not yet reviewed by provider) Interpretation: Performing Lab:[facility], [address] [place] [address] Notes/Report: Urine, Clean Catch Color Urine Yellow Appearance Urine Clear PH 5.5 5.0-9.0 Glucose Urine UA Negative Negative mg/dL Urine Blood Moderate (2+) Negative Specific [place] - Urine 1.015 1.005-1.025 Urine Protein Negative Neg-Trace mg/dL Urine Ketones Negative Negative mg/dL Nitrite Urine Negative Negative Leukocyte Esterase Urine Negative Negative Reason For Referral Reason Consult and Treat Depression ? ADHD Diagnosis 1 Depression (F32.9) Referral Organization Aroldo Blanchard III, MD Referring Provider First Name Aroldo Referring Provider Last Name Lo Referring Provider Speciality Internal M edicine Referred Provider [facility] Referred Provider Specialty Unknown General Notes Ivelisse Gerard 10/15/2024 03:44:32 PM > Patient was given [facility] and [facility] information to contact them to schedule [...] TAKE 1 TABLET BY MOUTH DAILY Active Immunizations Vaccine Route Administration Date Status [...] Problem Status W/U Status Risk Notes Problem 9285659 Former smoker (Z87.891) Active confirmed She has a plan to prevent relapse in times of stress and illness. Problem Depression (975247312) Depression (F32.9) Active confirmed Her depression is stable. She is going to report immediately if it worsens. No change in regimen as needed. Problem [id number] Obesity (BMI 30.0-34.9) (E66.9) Active confirmed She has lost 2 pounds since the surgery. We discussed diet and nutrition. We made a plan to lose weight at a rate of 1 pound per week. Problem 88120080 Penicillin allergy (Z88.0) Active confirmed Problem 729076391 Environmental allergies (Z91.09) Active confirmed She has significant allergies and is dealing with them appropriately. She says this is a bad year for seasonal allergies. Problem 57565380 Viral syndrome (B34.9) Active confirmed She has recovered well enough to return to work and normal life. She will call me if she has any difficulty with this. Current therapies were continued. Problem 779035435 Rash (R21) Active confirmed S he was given a course of oral prednisone as well as topical triamcinolone. Problem Hyperlipidaemia (91485279) Hyperlipidemia, unspecified hyperlipidemia type (E78.5) Active confirmed Her fasting total cholesterol of 212. No joint treatment is necessary. Problem 636773001 History of depression (Z86.59) Active confirmed She continues to see a therapist. Her depression is present but minimal. She is completing all of the activities of daily life without impairment. Problem 663418921 Acute asthmatic bronchitis (J45.909) Active confirmed I have given her prednisone and Augmentin. She says she has an inhaler. She will report in 48 hours. Problem 98750925 Diet controlled gestational diabetes mellitus (GDM) in third trimester (O24.410) Active confirmed Comprehensive blood work is pending. Problem 415511935 Status post appendectomy (Z90.49) Active confirmed She has recovered from tthe appendicitis and appendectomy. She has returned to all of the activities of daily living. Vital Signs Heart Rate 76 /min 04/20/2025 Temperature 98.6 degrees Fahrenheit 04/20/2025 Blood pressure diastolic 81 mm Hg 04/20/2025 Height 63 in 04/20/2025 Blood pressure systolic 136 mm Hg 04/20/2025 Weight 183 lbs 04/20/2025 BMI 32.41 kg/m2 04/20/2025 Encounters Encounter Location Date Provider Diagnosis Aroldo Blanchard III, MD [address] [place] [address] [place] [address] 05/20/2024 Aroldo Blanchard Acute contact dermat itis L25.9 ; Obesity (BMI 30.0-34.9) E66.9 ; Former smoker Z87.891 and History of depression Z86.59 Aroldo Blanchard III, MD [address] [place] [address] [place] [address] 05/22/2024 Aroldo Blanchard Acute contact dermat itis L25.9 ; Former smoker Z87.891 ; Obesity (BMI 30.0-34.9) E66.9 and Environmental allergies Z91.09 Aroldo Blanchard III, MD [address] [place] [address] [place] [address] 10/01/2024 Aroldo Blanchard Viral syndrome B34.9 ; Obesity (BMI 30.0-34.9) E66.9 ; Diet controlled gestational diabetes mellitus (GDM) in third trimester O24.410 ; Former smoker Z87.891 ; History of depression Z86.59 ; Depression F32.9 and Hyperlipidemia, unspecified hyperlipidemia type E78.5 Aroldo Blanchard III, MD [address] [place] [address] [place] [address] 10/08/2024 Aroldo Blanchard Obesity (BMI 30.0-34 .9) E66.9 ; Acute asthmatic bronchitis J45.909 ; Former smoker Z87.891 ; History of depression Z86.59 ; Environmental allergies Z91.09 and Hyperlipidemia, unspecified hyperlipidemia type E78.5 Aroldo Blanchard III, MD [address] [place] [address] [place] [address] 10/15/2024 Aroldo Blanchard Obesity (BMI 30.0-34 .9) E66.9 ; Viral syndrome B34.9 ; Hyperlipidemia, unspecified hyperlipidemia type E78.5 ; Former smoker Z87.891 ; Environmental allergies Z91.09 and History of depression Z86.59 Aroldo Blanchard III, MD [address] [place] [address] [place] [address] 12/29/2024 Aroldo Blanchard Obesity (BMI 30.0-34 .9) E66.9 ; Breast cancer screening Z12.31 ; Former smoker Z87.891 and Environmental allergies Z91.09 Aroldo Blanchard III, MD [address] [place] [address] [place] [address] 01/26/2025 Aroldo Blanchard Obesity (BMI 30.0-34 .9) E66.9 ; Hyperlipidemia, unspecified hyperlipidemia type E78.5 and Former smoker Z87.891 Aroldo Blanchard III, MD [address] [place] [address] [place] [address] 04/20/2025 Aroldo Blanchard Obesity (BMI 30.0-34 .9) E66.9 ; Status post appendectomy Z90.49 ; Hyperlipidemia, unspecified hyperlipidemia type E78.5 ; Former smoker Z87.891 ; Environmental allergies Z91.09 ; History of depression Z86.59 and Depression F32.9 Aroldo Blanchard III, MD [address] [place] [address] [place] [address] 05/21/2024 Aroldo Blanchard III, MD [address] [place] [address] [place] [address] 05/26/2024 Aroldo Blanchard III, MD [address] [place] [address] [place] [address] 05/26/2024 Aroldo Blanchard III, MD [address] [place] [address] [place] [address] 05/30/2024 Aroldo Blanchard III, MD [address] [place] [address] [place] [address] 10/03/2024 Aroldo Blanchard III, MD [address] [place] [address] [place] [address] 10/06/2024 Aroldo Blanchard III, MD [address] [place] [address] [address] [place] [address] 10/08/2024 Aroldo Blanchard III, MD [address] [place] [address] [address] [place] [address] 10/09/2024 Aroldo Blanchard Assessments Encounter Date Diagnosis [...] will be treated at home conservatively with [id number] medications. She is going to report frequently [...] 212. No joint treatment is necessary. 04/20/2025 Obesity (BMI 30.0-34.9) (ICD-10 - E66.9) She has lost 2 pounds since the surgery. We discussed diet and nutrition. We made a plan to lose weight at a rate of 1 pound per week. 04/20/2025 Status post appendectomy (ICD-10 - Z90.49) She has recovered from tthe appendicitis and appendectomy. She has returned to all of the activities of daily living. 05/20/2024 Former smoker (ICD-10 - Z87.891) She [...] in times of stress and illness. 04/20/2025 Hyperlipidemia, unspecified hyperlipidemia type (ICD-10 - E78.5) Her fasting total cholesterol of 212. No joint treatment is necessary. 05/20/2024 History of depression (ICD-10 - Z86.59) [...] a bad year for seasonal allergies. 04/20/2025 Former smoker (ICD-10 - Z87.891) She has a plan to prevent relapse in times of stress and illness. 10/01/2024 History of depression (ICD-10 - Z86.59) [...] a bad year for seasonal allergies. 04/20/2025 Environmental allergies (ICD-10 - Z91.09) She [...] activities of daily life without impairment. 04/20/2025 History of depression (ICD-10 - Z86.59) She continues to see a therapist. Her depression is present but minimal. She is completing all of the activities of daily life without impairment. 10/01/2024 Hyperlipidemia, unspecified hyperlipidemia type (ICD-10 - E78.5) Comprehensive blood work with a fasting lipid profile is pending. 04/20/2025 Depression (ICD-10 - F32.9) Her depression is stable. She is going to report immediately if it worsens. No change in regimen as needed. Plan Of Treatment Pending Test Test Name [...] DIFF 06/26/2023 CBC WITH AUTO DIFF 11/05/2023 Complete Blood Count Auto Diff Comprehensive Met. Panel 04/27/2025 Magnesium 04/27/2025 Lipid Panel 01/26/2025 Lipid Panel 10/15/2024 Lipid Panel 11/05/2023 Lipid Panel 12/29/2024 MM tomosynthesis screening BI 12/29/2024 SLIDE REVIEW 04/27/2025 Hemoglobin A1c 11/05/2023 UA ClnCatch+Micro w/rflx Cult 04/27/2025 Next Appt Details Provider Name:Aroldo Londonone , 07/29/2025 02:30:00 PM, [address] [place] [address] , [place], [place], [place], [address], Provider Name:Aroldo Blanchard , 12/30/2025 03:00:00 PM, [address] [place] [address] [address], [place], [address], Insurance Providers Payer Name Payer Address Payer Phone Subscriber Number Group Number Insured Name Patient Relationship to Insured Coverage Start Date Coverage End Date [facility] [address] [place], [place] [id number] Derik Kan Self - patient is the insured Medical (General) History Medical History History ICD Code Gestational diabetes mellitu s (GDM) in second trimester, gestational diabetes method of control unspecified O24.419 hysterectomy for menorrhagia and prolapsed cervical polyp 2009, retains her ovaries 1 para 1, 2005 recent right lateral foot pain history of depression obesity, body mass index 31 former smoker environmental allergies to trees history of depression 2010 anemia due to bleeding, transfused 3 units packed red blood cells penicillin allergy Surgical History Surgery Date(Month/Year) Apendix removed 04/16/2025 Left knee surgery 2020 [facility] uterine ablation and polypectom y 2009 hysteroscopy with cervical polypectomy 2 004 hysterectomy for bleeding, retains her o varies 2007 tonsillectomy bilateral breast reduction 2008 Hospitalization History Reason Date(Month/Year) No history
--- OUTSIDE RECORDS SUMMARY | 2025-04-27 17:00 | XMS_ITS | Patient Health Record ---
Author Organization [facility] Address [address] [place] [address] Care Team Providers Care Beauty Advisor Name Role Phone Aroldo Blanchard MD Primary Care Provider UnavailRuslan Mishra Jr Unavailable [phone] Allergies Allergen (clinical drug ingredient) Drug/Non Drug [...] at 5:00 p.m. the day before the procedure; Duration: 1 day 09/14/2022 Active Immunizations Vaccine Route [...] Problem History of polyp of colon (situation) (498796958) Personal history of colonic polyps (Z86.010) Active confirmed Problem Change in bowel habit (90766721) Change in bowel habits (R19.4) Active confirmed Problem Hemorrhoids without complication (82941782) Hemorrhoids, unspecified hemorrhoid type (K64.9) Active confirmed Problem Diarrhea (24957844) Diarrhea, unspecified type (R19.7) Active confirmed Problem Benign neoplasm of colon (61698663) Polyp of colon, unspecified part of colon, unspecified type (K63.5) Active confirmed Problem Altered bowel function (70863681) Change in bowel function (R19.8) Active confirmed [...] Date Coverage End Date [employer] [address] [place], [place] [address] [phone] [id number] LUPE LEYVA Self - patient is the insured Medical (General) History Medical History History ICD Code Anxiety/stress Anemia requiring blood transfusion due t o menorrhagia Surgical History Surgery Date(Month/Year) Reduction mammoplasty Partial hysterectomy for menorrhagia in cervical polyp Tonsillectomy Left knee ACL
[2025-04-27] MEDS: Lactated Ringers 1,000 ML 999 ML IV (17:18)
--- NOTE | 2025-04-27 19:11 | PC.NURSE ---
Sepsis worksheet submitted to [facility].
[2025-04-27] MEDS: iohexoL 350 MG/ML 100 ML INFUS..BTL 85 ML IV (19:39)
--- NOTE | 2025-04-27 22:34 | HO.PM.IMCN ---
History of Present Illness Data of Consult Service Date: 04/27/25 Requesting physician: Nehemias Holcomb Primary Care Provider: Aroldo Blanchard MD [facility] Reason for consult: colitis s/p appendectomy pt is a 54 with PMH generalized anxiety/stress and a previous transfusion secondary to bleeding from the uterus and partial hysterectomy came in to be evaluated for fever max 101.3, diarrhea and feeling uncomfortable. Patient is currently 10 days postop status post appendectomy. Patient denies an rupture prior to the procedure and no complications related to the surgery. Patient denies taking any Tylenol at home for her fever. Patient did report that she uses suppository x3 without any relief at home as she was having rectal pain and inability to sit. Patient has been having mild nausea but no vomiting. Appetite has been reduced. Patient admitted by surgery and was started on p.o. vanco and Zosyn. Patient states she is feeling better overall and denies any current nausea. Hospitalist was consulted for management of colitis and any medical problems. Patient denies any current medical needs. Patient states her anxiety is well controlled. Patient is not having any pain, nausea or vomiting currently. Workup in the ED includes stool panel to include C diff. patient does have a noted leukocytosis of 24 and blood cultures were drawn and pending. Patient has no evidence of blood loss. Follow electrolytes are stable and renal function is also within normal limits. LFTs also within normal limits. UA negative for UTI. CT scan noted for borderline thickening of the wall of the colon indicating possible colitis. In addition there is focus of small bowel intussusception with a the central abdomen just right of the midline. Radiologist describes this is most likely transient intussusception. Pt made NPO. Review of Systems Review of Systems: Patient currently denies any abdominal pain, nausea or vomiting. Patient is not having any chest pain or shortness of breath at rest. Patient denies any headache or visual changes. Patient denies that her anxiety is out of control. Yes all other systems are reviewed and are negative [facility] Medical History (Updated 04/28/25 @ 02:16 by Laura Jensen, TILE LAYER SUPERVISOR-) Acute appendicitis History of blood transfusion Anemia Anxiety PONV (postoperative nausea and vomiting) Cognitive capacity: Alert and orientated x3 Functional capacity: independent ambulation Patient : No Surgical History History of laparoscopic appendectomy (04/16/25) History of repair of anterior cruciate ligament of left knee History of colonoscopy History of partial hysterectomy History of cervical polypectomy History of tonsillectomy History of bilateral breast reduction surgery History of endometrial ablation Social History Household Members: Significant Other Housing: House Are you a primary child care director to a significant other at home: No Do you presently have visiting nurse or other home services: No Comment: RECENT ACL KNEE REPAIR Patient Tobacco Use Status: Former Tobacco user Tobacco use type: Cigarette Smoked in Last 30 Days: No e-Cigarette/Vaping Use: Currently Using Frequency of e-Cigarette/Vaping Use: 1 Patient Interested in Nicotine Replacement: No Patient Given Instructions on How to Stop Smoking: No Second Hand Smoke Exposure: No Have you been hit, kicked, punched, or otherwise hurt by someone within the past year? If so, by whom?: No Do you feel safe in your current relationship?: Yes Is there a partner from a previous relationship who is making you feel unsafe now?: No Are you made to feel afraid or neglected: No Advance Directives: No Advance Directives Information Provided: No Do you have a plan to hurt others: No Plan Recently lost weight without trying: No How much weight loss: Not applicable Eating poorly because of decreased appetite: No Nutrition screen score: 0 Patient : No : No Poor oral hygiene: No Ebola Risk: Travel/Contact With Anyone From Affected Area/s: No Has Patient Experienced Ebola Symptoms: No Meds Allergies Allergy/AdvReac Type Severity Reaction Status Date / Time prednisone (PREDNISONE) Allergy Severe HIVES Verified 04/27/25 15:26 Active Medications: Current Medications Acetaminophen (Acetaminophen 325 Mg Tablet) 650 mg PO Q6H PRN PRN Reason: Pain, Mild 1-3,fever,headache Calcium Carbonate (Calcium Carbonate 750 Mg Tab.Chew) 750 mg PO Q4H PRN PRN Reason: Heartburn Hydromorphone HCl (Hydromorphone Hcl 0.5 Mg/0.5 Ml Syringe) 0.5 mg IVPUSH Q3H PRN; Protocol PRN Reason: Pain, Severe (Pain Scale 7-10) Magnesium Hydroxide (Milk Of Magnesia 30 Ml Oral.Susp) 30 ml PO DAILY PRN PRN Reason: Constipation Ondansetron HCl (Ondansetron Hcl 4 Mg/2 Ml Vial) 4 mg IVPUSH QID PRN PRN Reason: Nausea Oxycodone HCl (Oxycodone Hcl Immed Release 5 Mg Tablet) 5 mg PO Q6H PRN PRN Reason: Pain, Moderate(Pain Scale 4-6) Sodium Chloride (0.9 % Sodium Chloride Flush 3 Ml Syringe) 3 ml IVFLUSH QSHIFT [facility] Vancomycin HCl (Vancomycin Hcl 125 Mg Capsule) 125 mg PO Q6H [facility] Last Admin: 04/27/25 21:43 Dose: 125 mg Zolpidem Tartrate (Zolpidem Tartrate 5 Mg Tablet) 5 mg PO BEDTIME PRN PRN Reason: Insomnia Home Medications ?Medication ?Instructions ?Recorded ?Confirmed ?Last Taken ?Type escitalopram oxalate 5 mg tablet 5 mg PO DAILY 04/16/25 04/16/25 Unknown History Physical Exam Vital Signs and Narrative: Vital Signs: Last Vital Signs Temp 98.1 F 04/27/25 20:48 Pulse 68 04/27/25 20:48 Resp 19 04/27/25 20:48 BP 128/73 04/27/25 20:48 Pulse Ox 97 04/27/25 20:48 O2 Del Method Room Air 04/27/25 20:48 BMI result Body Mass Index 31.4 Alert and orientated X3, able to give good history. Neuro: CN II-X11 intact, no deficits, visual acuity intact EYES: PERRLA, EOM intact, sclerae not, conjunctiva pink ENT: hearing intact, no issues with swallowing, uvula midline, lips moist, nares patent no epistaxis Cardiac: S1 S2 RRR, no murmur, no JVD, no edema in Lower ext Pulmonary: lungs clear to auscultation B Abdominal: BS active in all 4 quadrants, no guarding, mild tenderness midepigastric, no rebounding MSK: strength 5/5 upper and lower extremities : no CVA tenderness no bladder distension Extremities: no edema in lower extremities, PT and DP pulses palpable +2 Psych: mood stable, judgement and insight good Skin: No new lesions or rash Results Labs 04/27/25 15:34 04/27/25 15:34 Labs: Laboratory Results - last 24 hr 04/27/25 04/27/25 04/27/25 15:34 16:41 17:16 MCV 90.1 MCH 29.8 MCHC 33.0 RDW 12.9 Plt Count 358 D MPV 9.8 Immature Gran % (Auto) 0.5 H Neut % (Auto) 87.8 H Lymph % (Auto) 6.1 L Rutherford % (Auto) 4.9 Eos % (Auto) 0.3 Baso % (Auto) 0.4 Lymph # (Auto) 1.5 Rutherford # (Auto) 1.2 Eos # (Auto) 0.1 Baso # (Auto) 0.1 Abs Immat Gran (auto) 0.12 H Absolute Neuts (auto) 21.1 H Absolute Nucleated RBC 0.000 Nucleated RBC % (auto) 0.0 Smear Tech's Comments VERIFIED Anion Gap 14 Estim Creat Clear Calc 68.8 Estimated GFR > 60 Random Glucose 115 Lactic Acid 1.3 Calcium 9.5 Magnesium 2.0 Total Bilirubin 0.7 AST 34 H ALT 26 Alkaline Phosphatase 107 Total Protein 7.8 Albumin 4.9 Urine Color Yellow Urine Appearance Clear Urine pH 5.5 Ur Specific Balsam 1.015 Urine Protein Negative Urine Glucose (UA) Negative Urine Ketones Negative Urine Blood Moderate (2+) H Urine Nitrite Negative Ur Leukocyte Esterase Negative Urine RBC 6-10 H Urine WBC 0-5 Ur Squamous Epith Cells 0-2 Urine Bacteria None Seen Hyaline Casts 0-2 ECG Prior ECG tracings: not available for review Imaging Radiologist's Impressions: CT ABD Findings: No consolidation or effusion. Unremarkable gallbladder and solid organs. No urolithiasis. There is borderline thickening of the wall of the colon. There is no bowel obstruction. There is no mesenteric edema. There is a focus of small-bowel intussusception within the central abdomen just right of midline. No associated obstructive change or edema. Status post hysterectomy. Unremarkable urinary bladder. Interval appendectomy. No acute fracture. IMPRESSION: 1. Status post appendectomy. Unremarkable appendix fossa. No postoperative abscess. 2. Borderline thickening of the wall of the colon. Recommend clinical correlation to exclude colitis. 3. There is a focus of small-bowel intussusception within the central abdomen just right of midline. This is most likely transient intussusception. Assessment and Plan (1) S/P laparoscopic appendectomy: Status: Acute (2) Colitis: Status: Acute (3) Acquired intussusception of intestine: Status: Acute Plan Pt is a 54 yo [place] with PMH generalized anxiety/stress and a previous transfusion secondary to bleeding from the uterus and partial hysterectomy came in to be evaluated for fever max 101.3, diarrhea and feeling uncomfortable. Patient is currently 10 days postop status post appendectomy. Patient diagnosed with colitis and intussusception, consider transient. Patient admitted by surgery and hospitalist consulted for management of colitis and medical problems if any. Patient currently denies any specific medical problems at this time. Colitis status post appendectomy 10 days prior Patient is started on p.o. vanco and IV Zosyn Stool panel , order not yet collected Supportive care with antiemetics, hydration Dilaudid p.r.n. for pain Patient currently NPO Patient could benefit from hydrocortisone suppositories for report of intermittent rectal pain, no evidence of proctitis on CT scan Small bowel intussusception most likely transient Plan per surgery Patient NPO Anxiety Patient denies any issues with acute anxiety Patient normally on escitalopram, maybe able to resume once no longer NPO DVT prophylaxis: On hold in case patient requires intervention surgically Med rec pending Full code status Hospitalist group will continue to follow during this admission. We appreciate this consultation and please reach out with any questions or concerns.
[2025-04-28 00:50] VITALS: BMI 32.6
[2025-04-28 01:23] VITALS: BP 101/56; PULSE 63; RESP 16; TEMP 36; O2SAT 96
[2025-04-28] MEDS: 0.9 % Sodium Chloride Flush 3 ML SYRINGE IVFLUSH ×3 (01:29→16:25)
[2025-04-28 05:19] LABS: CDiff Gene PCR POSITIVE (Negative)
[2025-04-28 05:56] LABS: CDIFF Internal ctrl Dots and bkg OK (V); CDiff Toxin Negative (Negative)
[2025-04-28 06:07] LABS: MANUAL DIFF FLAG NO
[2025-04-28 06:19] LABS: Hematocrit 41.9 % (37.0-47.0); Hemoglobin 13.7 g/dl (12.0-16.0); Imm Gran Abs Auto 0.07 X10*3/uL (0.00-0.03); Imm Gran Pct Auto 0.5 % (0.0-0.4); Lymphocytes Absolute Auto 0.9 X10*3/uL (1.2-4.9); Mean Corpuscular HGB Conc 32.7 g/dl (31.0-35.0); Mean Corpuscular Hemoglobin 30.0 pg (27.0-33.0); Mean Corpuscular Volume 91.9 fL (80.0-98.0); NRBC Abs Auto 0.000 X10*3/uL (0.0-0.012); NRBC Pct Auto 0.0 /100WBC (0.0-0.2); Platelet Count 282 X10*3/uL (160-400); Red Blood Count 4.56 X10*6/uL (4.20-5.50); White Blood Count 13.5 X10*3/uL (4.8-10.8)
[2025-04-28 06:26] LABS: Anion Gap 15 (12-20); Blood Urea Nitrogen 9 mg/dL (9-16); Calcium 9.1 mg/dL (8.4-10.2); Carbon Dioxide 24 mmol/L (22-29); Chloride 105 mmol/L (96-108); Creatinine Clr Calc Pharmacy 70.8; Estimated Glomerular Filt Rate > 60; Potassium 3.5 mmol/L (3.3-5.1); Sodium 140 mmol/L (135-145)
[2025-04-28 07:35] VITALS: BP 116/56; PULSE 68; RESP 16; TEMP 36.7; O2SAT 97
--- NOTE | 2025-04-28 07:46 | PM.HPGS ---
History of Present Illness History of Present Illness Date of Service: 04/28/25 <Apolinar Delgado PA-C - Last Filed: 04/28/25 08:06> 04/28/25 <Nehemias Holcomb MD - Last Filed: 04/28/25 08:54> Chief complaint: Colitis <Apolinar Delgado PA-C - Last Filed: 04/28/25 08:06> Narrative: Derik Redd is a 54 year old female with a history of anxiety, s/p laparoscopic appendectomy on 04/[address] Holcomb. She returned to the ED with abominal discomfort, decreased appetite, frequent episodes of diarrhea for the past 2 days. Additionally reports fever at home. She had a very painful bowel movement in the rectum. Denies nausea or vomiting. She reports passing small amounts of gas, continued frequent episodes of diarrhea, every 1-2 hours. In the ED was found to have leukocytosis, 24.0. CT scan of the abdomen concerning for possible intussuseption, and thickened colon wall, suggestive of colitis. CDiff PCR was collected, patient is Gene positive, toxin negative. She was started on PO vancomycin. She was mad NPO due to possible intussuseption. <Apolinar Delgado PA-C - Last Filed: 04/28/25 08:06> Review of Systems Review of Systems: Yes all other systems are reviewed and are negative <Apolinar Delgado PA-C - Last Filed: 04/28/25 08:06> [facility] Past Medical History Medical History: Medical History (Updated 04/28/25 @ 02:16 by CHRISTOPHER Parekh) Acute appendicitis History of blood transfusion Anemia Anxiety PONV (postoperative nausea and vomiting) <Apolinar Delgado PA-C - Last Filed: 04/28/25 08:06> Surgical History Surgical History: Surgical History History of laparoscopic appendectomy (04/16/25) History of repair of anterior cruciate ligament of left knee History of colonoscopy History of partial hysterectomy History of cervical polypectomy History of tonsillectomy History of bilateral breast reduction surgery History of endometrial ablation <Apolinar Delgado PA-C - Last Filed: 04/28/25 08:06> Social History Social History: Social History Household Members: Significant Other Housing: House Are you a primary home care administrator to a significant other at home: No Do you presently have visiting nurse or other home services: No Comment: RECENT ACL KNEE REPAIR Patient Tobacco Use Status: Former Tobacco user Tobacco use type: Cigarette Smoked in Last 30 Days: No e-Cigarette/Vaping Use: Currently Using Frequency of e-Cigarette/Vaping Use: 1 Patient Interested in Nicotine Replacement: No Patient Given Instructions on How to Stop Smoking: No Second Hand Smoke Exposure: No Have you been hit, kicked, punched, or otherwise hurt by someone within the past year? If so, by whom?: No Do you feel safe in your current relationship?: Yes Is there a partner from a previous relationship who is making you feel unsafe now?: No Are you made to feel afraid or neglected: No Advance Directives: No Advance Directives Information Provided: No Do you have a plan to hurt others: No Plan Recently lost weight without trying: No How much weight loss: Not applicable Eating poorly because of decreased appetite: No Nutrition screen score: 0 Patient : No : No Poor oral hygiene: No <Apolinar Delgado PA-C - Last Filed: 04/28/25 08:06> Travel History Ebola Risk: Travel/Contact With Anyone From Affected Area/s: No <Apolinar Delgado PA-C - Last Filed: 04/28/25 08:06> Has Patient Experienced Ebola Symptoms: No <Apolinar Delgado PA-C - Last Filed: 04/28/25 08:06> Meds Allergies/Adverse reactions: Allergies Allergy/AdvReac Type Severity Reaction Status Date / Time prednisone (PREDNISONE) Allergy Severe HIVES Verified 04/27/25 15:26 <Apolinar Delgado PA-C - Last Filed: 04/28/25 08:06> Active Medications: Current Medications Acetaminophen (Acetaminophen 325 Mg Tablet) 650 mg PO Q6H PRN PRN Reason: Pain, Mild 1-3,fever,headache Calcium Carbonate (Calcium Carbonate 750 Mg Tab.Chew) 750 mg PO Q4H PRN PRN Reason: Heartburn Hydromorphone HCl (Hydromorphone Hcl 0.5 Mg/0.5 Ml Syringe) 0.5 mg IVPUSH Q3H PRN; Protocol PRN Reason: Pain, Severe (Pain Scale 7-10) Magnesium Hydroxide (Milk Of Magnesia 30 Ml Oral.Susp) 30 ml PO DAILY PRN PRN Reason: Constipation Ondansetron HCl (Ondansetron Hcl 4 Mg/2 Ml Vial) 4 mg IVPUSH QID PRN PRN Reason: Nausea Oxycodone HCl (Oxycodone Hcl Immed Release 5 Mg Tablet) 5 mg PO Q6H PRN PRN Reason: Pain, Moderate(Pain Scale 4-6) Sodium Chloride (0.9 % Sodium Chloride Flush 3 Ml Syringe) 3 ml IVFLUSH QSHIFT [facility] Last Admin: 04/28/25 01:29 Dose: 3 ml Vancomycin HCl (Vancomycin Hcl 125 Mg Capsule) 125 mg PO Q6H [facility] Last Admin: 04/28/25 03:52 Dose: 125 mg Zolpidem Tartrate (Zolpidem Tartrate 5 Mg Tablet) 5 mg PO BEDTIME PRN PRN Reason: Insomnia <PATTI Whatley Last Filed: 04/28/25 08:06> Home medications: Home Medications ?Medication ?Instructions ?Recorded ?Confirmed ?Last Taken ?Type No Known Home Meds 04/28/25 04/28/25 Unknown History <PATTI Whatley Last Filed: 04/28/25 08:06> Physical Exam Vital Signs: Vital Signs: Last Vital Signs Temp 98.0 F 04/28/25 07:35 Pulse 68 04/28/25 07:35 Resp 16 04/28/25 07:35 BP 116/56 L 04/28/25 07:35 Pulse Ox 97 04/28/25 07:35 O2 Del Method Room Air 04/28/25 07:35 BMI result Body Mass Index 32.6 <PATTI Whatley Last Filed: 04/28/25 08:06> Const: General: comfortable and no acute distress <PATTI Whatley Last Filed: 04/28/25 08:06> Orientation/consciousness: patient oriented x3 <PATTI Whatley Last Filed: 04/28/25 08:06> Resp: Effort & Inspection: normal respiratory effort and able to speak in complete sentences <PATTI Whatley Last Filed: 04/28/25 08:06> GI: Inspection: No distended <Apolinar Delgado PA-C - Last Filed: 04/28/25 08:06> Palpation (GI): Soft to palpation and Tenderness to palpation present (GI) (mild generalized tenderness) periumbilically <Apolinar Delgado PA-C - Last Filed: 04/28/25 08:06> Neuro: General: patient oriented x3 <PATTI Whatley Last Filed: 04/28/25 08:06> Results Results Labs: Short CBC 04/27/25 04/28/25 Range/Units 15:34 05:05 WBC 24.0 H 13.5 H (4.8-10.8) X10*3/uL Hgb 14.8 13.7 (12.0-16.0) g/dl Hct 44.8 41.9 (37.0-47.0) % Plt Count 358 D 282 (160-400) X10*3/uL BMP 04/27/25 04/28/25 15:34 05:05 Sodium 135 140 Potassium 3.8 3.5 Chloride 103 105 Carbon Dioxide 22 24 BUN 14 9 Creatinine 0.95 0.94 Calcium 9.5 9.1 Liver Function 04/27/25 Range/Units 15:34 Total Bilirubin 0.7 (0.0-1.0) mg/dL AST 34 H (5-31) U/L ALT 26 (0-31) U/L Alkaline Phosphatase 107 (39-117) U/L Albumin 4.9 (3.5-5.0) g/dL Urine 04/27/25 Range/Units 16:41 Urine Color Yellow Urine Appearance Clear Urine pH 5.5 (5.0-9.0) Ur Specific [place] 1.015 (1.005-1.025) Urine Protein Negative (Neg-Trace) mg/dL Urine Glucose (UA) Negative (Negative) mg/dL <PATTI Whatley Last Filed: 04/28/25 08:06> Assessment and Plan (1) Colitis: Status: Acute <PATTI Whatley Last Filed: 04/28/25 08:06> Derik Redd is a 54 year old female with a history of anxiety, s/p laparoscopic appendectomy on 04/[address] Holcomb. She returned to the ED with abominal discomfort, decreased appetite, frequent episodes of diarrhea for the past 2 days. Presented with new leukocytosis, 24.0, CT findings concerning for intussuseption, colon wall thickening suggestive of colitis. She was found to be a carrier of Cdiff gene, toxin negative. Was started on PO vanco given recent abx use during previous admission and clinical correlation of her symptoms. Today she reports that she is having continued abdominal discomfort, low appetite. She has no nausea or vomiting. Passing small amounts of gas, continues to have frequent episodes of diarrhea. Clinically is unlikely that she has a true intussuseption, as she does not having findings suggestive of obstruction, no nausea or vomiting. She is passing stool and gas, CT showing good air in the colon. No plan for surgical intervention at this time continue PO vanco for 10 days Clear liquid diet continue IV fluids until better PO intake GI consult for colitis ambulation as tolerated <Apolinar Delgado PA-C - Last Filed: 04/28/25 08:06> Derik Redd is a 54 year old female with a history of anxiety, s/p laparoscopic appendectomy on 04/[address] Holocmb. She returned to the ED with abominal discomfort, decreased appetite, frequent episodes of diarrhea for the past 2 days. Presented with new leukocytosis, 24.0, CT findings concerning for intussuseption, colon wall thickening suggestive of colitis. She was found to be a carrier of Cdiff gene, toxin negative. Was started on PO vanco given recent abx use during previous admission and clinical correlation of her symptoms. Today she reports that she is having continued abdominal discomfort, low appetite. She has no nausea or vomiting. Passing small amounts of gas, continues to have frequent episodes of diarrhea. Clinically is unlikely that she has a true intussuseption, as she does not having findings suggestive of obstruction, no nausea or vomiting. She is passing stool and gas, CT showing good air in the colon. No plan for surgical intervention at this time continue PO vanco for 10 days Clear liquid diet continue IV fluids until better PO intake GI consult for colitis ambulation as tolerated Patient seen and examined, I agree with the above assessment and plan. On po Vanco for C.Diff. <Nehemias Holcomb MD - Last Filed: 04/28/25 08:54> Quality Stroke Does the patient have a stroke diagnosis?: No <Nehemias Holcomb MD - Last Filed: 04/28/25 08:54> VTE Prior VTE?: No <Nehemias Holcomb MD - Last Filed: 04/28/25 08:54> VTE Risk Level:: Surgical - low <Apolinar Delgado PA-C - Last Filed: 04/28/25 08:06> VTE Device Contraindication: N/A - Device Ordered <Apolinar Delgado PA-C - Last Filed: 04/28/25 08:06> VTE Drug Contraindication: Treatment Not Indicated <Apolinar Delgado PA-C - Last Filed: 04/28/25 08:06> Procedures Date of Service Date of Service: 04/28/25 <Apolinar Delgado PA-C - Last Filed: 04/28/25 08:06> 04/28/25 <Nehemias Holcomb MD - Last Filed: 04/28/25 08:54>
--- NOTE | 2025-04-28 08:04 | PHA.MEDREC ---
Pharmacy Consult ? Medication Reconciliation Pharmacy has completed the medication reconciliation. Spoke with pt she not on any prescribed medications. She states she only takes 15mg of pot at bedtime.
[2025-04-28 09:22] LABS: E. coli EAEC Not Detected (Not Detect.); E. coli EPEC Not Detected (Not Detect.); E. coli ETEC Not Detected (Not Detect.); E. coli STEC Not Detected (Not Detect.); Shigella sp./EIEC Not Detected (Not Detect.)
--- NOTE | 2025-04-28 13:13 | MHC.CM.PN ---
PT LIVES WITH S/O SHE IS INDEPENDENT HAS NO SERVICESWILL HAVE HER OWN RIDE HOME DC PLAN HOME N/S
[2025-04-28 15:57] VITALS: BP 122/70; PULSE 68; RESP 14; TEMP 37; O2SAT 97
--- NOTE | 2025-04-29 02:43 | CONS_ITS ---
DATE OF SERVICE: 04/28/2025 REFERRING PHYSICIAN: Apolinar Delgado PA-C REASON FOR CONSULTATION: Question of colitis and intussusception. HISTORY OF PRESENT ILLNESS: The patient is a pleasant 54-year-old woman, well known to me from prior evaluation. She was last seen for colonoscopy because of recurrent polyp at the appendiceal orifice on November 02, 2022. The colonoscopy at that time showed no evidence of recurrent polyp and random biopsies were obtained, which showed prominent lymphoid aggregates, but no evidence of adenomatous tissue. She was recently admitted to the hospital on April 17 for appendicitis and underwent appendectomy with Dr. Holcomb, which showed an acute appendicitis and periappendicitis with a fibrinous exudate. Pathology does not mention any polypoid changes to the appendix and the operative report from surgery did not show any significant changes other than the appendix. The patient started to feel unwell 2 days before admission and noticed a fever. She had diarrhea, but no significant abdominal pain or upper GI symptoms. She called her provider and was advised to come to the emergency department. In the emergency department, she was evaluated with laboratory testing and imaging of the abdomen and pelvis with CT scanning, which was reviewed. There was what was described as borderline thickening of the wall of the colon. Clinical correlation was recommended to exclude colitis. There was a focus of a small bowel intussusception within the abdomen just to the right of midline, thought to be transient. The patient has no obstructive symptoms. She was admitted and has been treated with vancomycin after a C diff test came back positive for the C diff gene PCR, but the toxin A and B were not found. This was thought to represents C difficile colonization. Reviewing the images of the CT scan, the wall of the colon does not appear significantly thickened and there is certainly no pericolonic inflammatory changes to my review. PAST MEDICAL HISTORY: 1. Anxiety. 2. Recent appendectomy as above. 3. Anemia. 4. Colon polyps as above. CURRENT MEDICATIONS: Her current medication list is reviewed in the chart. ALLERGIES: PREDNISONE. FAMILY HISTORY: This is reviewed with the patient and is noncontributory. SOCIAL HISTORY: There is no current tobacco, alcohol, or substance abuse. REVIEW OF SYSTEMS: SKIN: No pruritus. HEENT: Negative. CARDIOPULMONARY: No shortness of breath or chest pain. GASTROINTESTINAL: As above. GENITOURINARY: Negative. NEUROPSYCHIATRIC: Negative. PHYSICAL EXAMINATION: GENERAL: Shows a pleasant female, lying comfortably in bed. VITAL SIGNS: Reviewed in electronic medical record and are stable. SKIN: Anicteric. HEENT: Shows no scleral icterus. NECK: Without lymphadenopathy or thyromegaly. LUNGS: Clear. HEART: Shows a regular rate and rhythm. S1, S2. No murmur. ABDOMEN: Soft without focal masses. There is some mild tenderness to palpation in the left upper quadrant, but there is no guarding or rebound. Bowel sounds are present. No organomegaly is noted. EXTREMITIES: Without edema. LABORATORY DATA AND IMAGING STUDIES: Reviewed. IMPRESSION: Abnormal CT scan with findings as noted above. Her intussusception is likely transient and I discussed this with her as she has no obstructive symptoms, the colonic findings are somewhat equivocal and because of this, I would agree with treating her laboratory results on her C diff testing as you are doing. I did discuss with her eventually setting up a followup colonoscopy because of the abnormalities noted on the CT scan, but I would wait on this until she is a little further out from her appendectomy and was cleared by her surgeon. I discussed this with her. Thanks for asking me to see her. I will follow her in the hospital with you. MD LEONIE Trevizo/KENNETH / [id number]
--- NOTE | 2025-04-29 08:51 | MHC.CM.PN ---
pt dcd home self care
--- NOTE | 2025-04-29 11:05 | P.DS_ITS ---
DS: Providers Provider Date of Service: 04/28/25 Date of admission: 04/27/25 21:01 Date of discharge: 04/28/25 Primary care physician: Aroldo Blanchard MD Admitting clinician: Nehemias Holcomb Attending physician on admission: Nehemias Holcomb Consults: 04/27/25 21:00 Consult to Hospitalist Routine Comment: Consulting Provider: [facility] Hospital[facility] Reason For Exam: Colitis post appendectomy 04/28/25 08:03 Consult to Gastroenterology Routine Consulting Provider: [facility] Reason for consultation: colitis, ?intussuseption. seen by Dr Wade in the past Attending physician on discharge: Nehemias Holcomb DS: Diagnosis Discharge Diagnosis (1) Colitis: Status: Acute DS: Summary Hospital Course Hospital Course: Admission HPI: Derik Redd is a 54 year old female with a history of anxiety, s/p laparoscopic appendectomy on 04/[address] Holcomb. She returned to the ED with abominal discomfort, decreased appetite, frequent episodes of diarrhea for the past 2 days. Additionally reports fever at home. She had a very painful bowel movement in the rectum. Denies nausea or vomiting. She reports passing small amounts of gas, continued frequent episodes of diarrhea, every 1-2 hours. In the ED was found to have leukocytosis, 24.0. CT scan of the abdomen concerning for possible intussuseption, and thickened colon wall, suggestive of colitis. CDiff PCR was collected, patient is Gene positive, toxin negative. She was started on PO vancomycin. She was mad NPO due to possible intussuseption. Hospital course: Patient admitted for continued management possible intussusception. Clinically unlikely that she has intussusception as she does not have findings suggestive of obstruction, continues to pass gas and stool. We continued p.o. vancomycin for management of possible C diff. stool samples showing positive norovirus. Likely the cause of her symptoms. She will be discharge as treatment for this we will be supportive care, hydration. At the time of discharge patient's abdomen was soft benign, continues to have diarrhea and this will be treated with supportive care also we will receive script for p.o. vanco to complete 10 day course as she was positive for the gene however she did test negative for toxin but given recent antibiotic use, symptoms and possibility of false negative patient will continue 10 day course of vancomycin orally. Attempted surge patient was in stable condition. Status at Discharge Functional status at discharge: independent ambulation Overall status at discharge: patient is progressing back to baseline Time Attestation Discharge Coordination Time (in mins): 30 Quality: Safe Use of Opioids Does Pt have an Active Cancer Diagnosis on the Problem List?: No Quality: Stroke Does the patient have a stroke diagnosis?: No Physical Exam Vital Signs: Vital Signs: Last Vital Signs Temp 98.6 F 04/28/25 15:57 Pulse 68 04/28/25 15:57 Resp 14 04/28/25 15:57 BP 122/70 04/28/25 15:57 Pulse Ox 97 04/28/25 15:57 O2 Del Method Room Air 04/28/25 15:57 BMI result Body Mass Index 32.6 Const: General: comfortable and no acute distress Orientation/consciousness: patient oriented x3 Resp: Effort & Inspection: normal respiratory effort and able to speak in comp lete sentences GI: Inspection: No distended Palpation (GI): Soft to palpation and Tenderness to palpation present (GI) (mild generalized tenderness) periumbilically Neuro: General: patient oriented x3 DS: Data Data Completed and Pending Labs on day of discharge: Preliminary micro results at discharge 04/27/25 17:16 Blood Culture - Preliminary Blood - Venous No growth after 24 hours. 04/27/25 17:16 Blood Culture - Preliminary Blood - Venous No growth after 24 hours. Discharge Plan Discharge Anticipated Discharge Date/Time: 04/28/25 16:42 Patient Disposition: Home, Self-Care Discharge Diagnosis: Norovirus, colitis Referrals: Aroldo Blanchard MD [Primary Care Provider, Internal Medicine] - 1 Week Ruslan Wade MD [Physician, Gastroenterology] - 2 Weeks Discharge Medications: New vancomycin 125 mg capsule 125 mg PO QID Qty: 36 0RF Discharge Orders: Discharge Order (Routine); Ordered 04/28/25 Ordered By: Nehemias Holcomb Diet: Advance to usual diet Activity on Discharge: No heavy lifting Stand Alone Forms: Patient Portal Discharge page Print Language: [place] Irish Care Plan Goals: Returned to normal activity and diet Health Concerns: Abdominal pain, diarrhea Plan of Treatment: Vancomycin 125 mg p.o. q.6 hours for 10 days total Assessment: Norovirus positive stool Clostridium difficile gene positive Discharge Date/Time: 04/28/25 19:03
== END 2025-04-28 19:03 | disposition home or self-care (01) | DRG 249 ==
LOC: HO.ED 21:06 → HO.EDOVER 21:16 → HO.S3 23:46
PROVIDERS: Nurse Practitioner Family; Physician Assistant Medical; Admitting Provider Surgery; Emergency Provider Emergency Medicine; PCP Internal Medicine Medical Oncology; Visit Provider Surgery
DX: A08.11 Acute gastroenteropathy due to Norwalk agent (principal); K56.1 Intussusception; A04.72 Enterocolitis due to Clostridium difficile, not specified as recurrent; F41.9 Anxiety disorder, unspecified; Z90.49 Acquired absence of other specified parts of digestive tract; Z87.891 Personal history of nicotine dependence
CPT/HCPCS: 36415; 74177; 80048; 80053; 81001; 83605; 83735; 85025; 87040; 87324; 87493; 87507; 99285; J0131; J2543; J7120; Q9967

== ENCOUNTER → 2025-04-27 15:27 | Outpatient (BNV) | payer BC, SELFPAY | PROVIDERS: Emergency Provider Emergency Medicine; PCP Internal Medicine Medical Oncology; Visit Provider Radiology Diagnostic Radiology | DX: R10.30 Lower abdominal pain, unspecified (principal) | CPT/HCPCS: 74177 ==

== ENCOUNTER → 2025-04-27 21:01 | Outpatient (BNV) | payer BC, SELFPAY | PROVIDERS: Admitting Provider Surgery; Emergency Provider Emergency Medicine; PCP Internal Medicine Medical Oncology; Visit Provider Nurse Practitioner Family | DX: Z90.49 Acquired absence of other specified parts of digestive tract (principal); K52.9 Noninfective gastroenteritis and colitis, unspecified; K56.1 Intussusception | CPT/HCPCS: 99223 ==

== ENCOUNTER → 2025-04-27 21:01 | Outpatient (BNV) | payer BC, SELFPAY | PROVIDERS: Admitting Provider Surgery; Emergency Provider Emergency Medicine; PCP Internal Medicine Medical Oncology | DX: K52.9 Noninfective gastroenteritis and colitis, unspecified (principal) | CPT/HCPCS: 99222; 99238 ==

== ENCOUNTER 2025-05-12 12:09 | Day surgery (SDC) | payer BC, SELFPAY ==
--- OUTSIDE RECORDS SUMMARY | 2024-10-15 11:30 | XMS_ITS ---
Author Organization Aroldo Blanchard III, MD Address [address] [facility] [place] [address] Care Team Providers Care Petroleum Laboratory Technician Name Role Phone Dr. Aroldo Blanchard III [...] Provider Speciality Internal M edicine Referred Provider [facility] Referred Provider Specialty Unknown General Notes Ivelisse Gerard 10/15/2024 03:44:32 PM > Patient was given [facility] and [facility] information to contact them to schedule an [...] Problem Status W/U Status Risk Notes Problem [id number] Viral syndrome (B34.9) Active confirmed She has recovered well enough to return to work and normal life. She will call me if she has any difficulty with this. Current therapies were continued. Encounters Encounter Location Date Provider Diagnosis Aroldo Blanchard III, MD [address] [place] [address] [place] [address] 10/15/2024 Aroldo Blanchard Obesity (BMI 30.0-34 .9) [...] Provider Name:Aroldo Blanchard , 07/29/2025 02:30:00 PM, [address] [place] [address] [address], [place], [address], Provider Name:Aroldo Blanchard , 12/30/2025 03:00:00 PM, [address] [place] [address] [address], [place], [address], Progress Notes * Derik LEYVA GDOB:1970 (53 yo F)Acc No.[id number]:10/15/2024 Patient: Derik HANLEY Provider: Maribel Blanchard MD :1970 A ge:53 Y S ex:Female Date:10/15/2024 Address:[address] [place] [phone] Subjective: * Chief Complaints: * R ecent [...] { ...} [address] [facility] [address] L ocation of patient: dante yu listed [...] 69 yrs, Alive and well, lives in [place], [place], thyroid disease, hyperlipidemia. Ady don Grand [...] x-cigarette smoker S he was born in [facility]. 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 She is exposed to paint and dust [...] Panel 3. O thers Referral To:Counseling [facility] Unknown Reason:Consult and Treat Depression ? [...] 0 10/15/2024 Generated for Janet fine/Eliana/Janice on: 1 03:33 PM EDT History and Physical Notes * HPI (History of Present Illness) Category Sub-Category Detail Notes Telehealth Location of prov ider rendering services:: {...} [address] [facility] [address] Location of patient:: address listed in demographics [...] Referred Provider Not catracho 10/15/2024 Aroldo Blanchard [facility], [facility] Consult and Treat Depression ? ADHD
--- OUTSIDE RECORDS SUMMARY | 2024-11-10 13:30 | XMS_ITS ---
Author Organization Aroldo Blanchard III, MD Address [address] [place] [address] Care Team Providers Care Rib Chopper Name Role Phone Dr. Aroldo Blanchard III [...] Date Provider Diagnosis Aroldo Blanchard III, MD [address] [place] [address] [place] [address] 11/10/2024 Aroldo Blanchard Obesity (BMI 30.0-34.9) E66.9 [...] Name:Aroldo Biggs Lo , 07/29/2025 02:30:00 PM, [address] [place] [address] [address], [place], [address], Provider Name:Aroldo Biggs Lo , 12/30/2025 03:00:00 PM, [address] [place] [address] [address], [place], [address], Progress Notes * Derik YAÑEZ GDOB: [birth year] (54 yo F)Acc No.[id number]:11/10/2024 Progress Notes Patient: Derik HASSAN Provider: Maribel Blanchard MD :1970 A ge:53 Y S ex:Female Date:11/10/2024 Address:[address] [place] [phone] Subjective: * Chief Complaints: * 1 . [...] 69 yrs, Alive and well, lives in [place], [place], thyroid disease, hyperlipidemia. M arian Grand [...] x-cigarette smoker S he was born in [place], [facility]. 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 She is exposed to paint and dust [...] 0 11/10/2024 Generated for Janet fine/Eliana/Janice on: 03:34 PM EDT History and Physical Notes * [...]
--- OUTSIDE RECORDS SUMMARY | 2024-12-29 10:30 | XMS_ITS ---
Author Organization Aroldo Blanchard III, MD Address [address] [facility] [address] [address] Care Team Providers Care Partridge Farmer Name Role Phone Dr. Aroldo Blanchard III [...] Date Provider Diagnosis Aroldo Blanchard III, MD [address] [place] [address] [place] [address] 12/29/2024 Aroldo Blanchard Obesity (BMI 30.0-34 .9) [...] Provider Name:Aroldo Blanchard , 07/29/2025 02:30:00 PM, [address] [place] [address] [address], [place], [address], Provider Name:Aroldo Londonone , 12/30/2025 03:00:00 PM, [address] [place] [address] [address], [place], [address], Progress Notes * Derik YAÑEZ GDOB: [birth year] (54 yo F)Acc No.[id number]:12/29/2024 Progress Notes Patient: Derik HASSAN Provider: Maribel Blanchard MD :1970 A ge:54 Y S ex:Female Date:12/29/2024 Address:[address] [place] [address] [place], [id number] Subjective: * Chief Complaints: * A nnual [...] 69 yrs, Alive and well, lives in [place], [place], thyroid disease, hyperlipidemia, diagnosed with CVD. [...] P ositive S he was born in [place], [facility]. 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 She is exposed to paint and dust [...] . BREASTS: , Not examined, Done by TANK WASHER. ABDOMEN: b owel sounds normal, no ascites, [...] 12/29/2024 Generated for Janet fine/Eliana/eTransmitting on: 1 03:33 PM EDT History and [...] normal BREASTS: , Not examined, Done by TANK WASHER MUSCULOSKELETAL: extremities unremark able, no clubbing, cyanosis or edema LYMPH NODES: no enlarged lymph no peter,spleen normal RECTAL EXAM: not examined PSYCH: alert, oriented ORAL CAVITY: normal, unremarkable
--- OUTSIDE RECORDS SUMMARY | 2025-01-26 10:45 | XMS_ITS ---
Author Organization Aroldo Blanchard III, MD Address [address] [place] [address] Care Team Providers Care Human Resources Coordinator Name Role Phone Dr. Aroldo Blanchard III Primary Care Provider [phone] Allergies Allergen (clinical drug ingredient) Drug/Non Drug [...] Provider Diagnosis Aroldo Blanchard III, MD [address] [place] [address] [place] [address] 01/26/2025 Aroldo Blanchard Obesity (BMI 30.0-34 .9) [...] Provider Name:Aroldo Blanchard , 07/29/2025 02:30:00 PM, [address] [place] [address] [address], [place], [address], Provider Name:Aroldo Blanchard , 12/30/2025 03:00:00 PM, [address] [place] [address] [address], [place], [address], Progress Notes * PARIDerik GDOB: [birth year] (54 yo F)Acc No.[id number]:01/26/2025 Patient: Derik HASSAN Provider: Maribel Blanchard MD :1970 A ge:54 Y S ex:Female Date:01/26/2025 Address:[address] [place] [address] JADEN Biggs [id number] Subjective: * Chief Complaints: * T elehealth [...] of provider rendering services: { ...} [address] [facility] [address] L ocation of patient: dante yu listed [...] yrs, Alive and well, lives in [place], [place], thyroid disease, hyperlipidemia, diagnosed with CVD. [...] x-cigarette smoker S he was born in [place], [facility]. 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 She is exposed to paint and dust [...] 01/26/2025 Generated for Janet fine/Eliana/eTransmitting on: 1 03:34 PM EDT History and Physical Notes * HPI (History of Present Illness) Category Sub-Category Detail Notes Telehealth Location of [facility] rendering services:: {...} [address] [facility] [address] [place] [address] Location of patient:: address listed in demographics [...]
--- OUTSIDE RECORDS SUMMARY | 2025-04-20 09:00 | XMS_ITS ---
Author Organization Aroldo Blanchard III, MD Address [address] [address] Care Team Providers Care Jacquard Card Cutter Name Role Phone Dr. Aroldo Blanchard III Primary Care Provider Allergies Allergen (clinical drug ingredient) Drug/Non Drug Allergy documented on EMR Reaction Allergy Type Onset Date Status No Known Drug Allergy Unknown Drug Allergy Active No Known Food Allergy Unknown Drug Allergy Active REASON FOR VISIT [place] [facility] [place], Obesity, Allergies, Hyperlipidemia, Depression Medications Medication [...] Problem Status W/U Status Risk Notes Problem [id number] Status post appendectomy (Z90.49) Active confirmed She [...] Provider Diagnosis Aroldo Blanchard III, MD [address] [place] [address] [address]ID [place], [place] [address] 04/20/2025 Aroldo Blanchard Obesity (BMI 30.0-34 .9) [...] Provider Name:Aroldo Blanchard , 07/29/2025 02:30:00 PM, [address] [place] [address] [address], [place], [address], Provider Name:Aroldo Biggs Blanchard , 12/30/2025 03:00:00 PM, [address] [place] [address] [address], [place], [address], Progress Notes * Derik YAÑEZ GDOB: [birth year] (54 yo F)Acc No.[id number]:04/20/2025 Patient: Derik HASSAN Provider: Maribel Blanchard MD :1970 A ge:54 Y S ex:Female Date:04/20/2025 Address:[address] [place], [place] [phone] Subjective: * Chief Complaints: * [place] [facility] [place]ObesityAllergiesHyperlipidemiaDepression * HPI: v : She was admitted to [facility] recently through the emergency room and [...] 69 yrs, Alive and well, lives in [place], [place], thyroid disease, hyperlipidemia, diagnosed with CVD. [...] x-cigarette smoker S he was born in [place], [facility]. 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 She is exposed to paint and [...] Maribel Blanchard MD Date: Generated for Janet fine/Eliana/eTvernellitting on: 03:33 PM EDT History and Physical Notes [...]
--- OUTSIDE RECORDS SUMMARY | 2025-04-30 15:34 | XMS_ITS | Patient Health Record ---
Author Organization Aroldo Blanchard III, MD Address [address] [place] [address] Care Team Providers Care Religious Education Director Name Role Phone Dr. Aroldo Blanchard III Primary Care Provider [phone] Allergies Allergen (clinical drug ingredient) Drug/Non Drug [...] date:10/11/2024 08:12:45 AM Interpretation: Performing Lab: Notes/Report: [facility] [address] [place] [address] XRay Report Signed Patient: Derik Acharya MR#: [id number] : 1970 Acct:[id number] Age/Sex: 53 / F ADM Date: 10/08/24 Loc: HO.XRAY Attending Dr: Aroldo Blanchard MD Ordering Physician: Aroldo Blanchard MD Date of Service: 10/08/24 Procedure(s): XR chest 2V Accession Number(s): [id number] cc: Aroldo Blanchard MD EXAMINATION: XR CHEST [...] 10/08/24 1154 DD/ 1145 TD/TT: 10/08/24 1150 Provider Relations Manager: [place] [address] XRay Report Signed Patient: Derik Acharya MR#: [id number] : 1970 Acct:[id number] Age/Sex: 53 / F ADM Date: 10/08/24 Loc: HOADRIANNEAY Attending Dr: Aroldo Blanchard MD Ordering Physician: Aroldo Blanchard MD Date of Service: 10/08/24 Procedure(s): XR chest 2V Accession Number(s): [id number] cc: Aroldo Blanchard MD EXAMINATION: XR CHES [...] 10/08/24 1154 DD/ 1145 TD/TT: 10/08/24 1150 Provider Relations Manager: Lipid Panel Reviewed date:01/16/2025 07:01:55 PM Interpretation: Performing Lab:[facility], [address] [place] [address] [place] [address] Notes/Report: Triglycerides 127 <150 mg/dL Desirable Triglyceride: [...] date:01/27/2025 04:58:00 AM Interpretation: Performing Lab: Notes/Report: [address] [place] [address] Mammography Report Signed Patient: Derik Redd MR#: [id number] : 1970 Acct:[id number] Age/Sex: 54 / F ADM Date: 01/12/25 Loc: HO.MAMMO Attending Dr: Aroldo Blanchard MD Ordering Physician: Aroldo Blanchard MD Results: 2Benign Findings Date of Service: 01/12/25 Follow Up: 1 Year From [facility] Mammogram Procedure(s): MM tomosynthesis screening BI Accession Number(s): [id number] cc: Aroldo Blanchard MD EXAMINATION: MM SCREENING [...] 01/25/25 1419 DD/ 1535 TD/TT: 01/12/25 1549 Provider Relations Manager: [facility] [address] [place] [address] Mammography Report Signed Patient: Kira Redd MR#: [id number] : 1970 Acct:[id number] Age/Sex: 54 / F ADM Date: 01/12/25 Loc: HO.MAMMO Attending Dr: Aroldo Blanchard MD Ordering Physician: Aroldo Blanchard MD Results: 2Benign Findings Date of Service: Follow Up: 1 Year From [facility] Mammogram Procedure(s): MM tomosynthesis screening BI Accession Number(s): [id number] cc: Aroldo Blanchard MD EXAMINATION: MM SCREENING [...] 01/25/25 1419 DD/ 1535 TD/TT: 01/12/25 1549 Provider Relations Manager: Complete Blood Count Auto Di ff Reviewed date:04/27/2025 09:26:08 AM Interpretation: Performing Lab:[facility], [address] [place] [address] Notes/Report: White Blood Count 11.8 4.8-10.8 X10*3/uL [...] Panel Reviewed date:04/27/2025 09:26:08 AM Interpretation: Performing Lab:[facility], [address] [place] [address] Notes/Report: Sodium 136 135-145 mmol/L Potassium 3.8 [...] Acid Reviewed date:04/27/2025 09:26:08 AM Interpretation: Performing Lab:[facility], [address] [place] [address] Notes/Report: Lactic Acid 1.2 0.5-2.0 mmol/L Lipase Reviewed date:04/27/2025 09:26:08 AM Interpretation: Performing Lab:[facility], [address] [place] [address] Notes/Report: Lipase 22 8-78 U/L Pathology Reviewed date:04/27/2025 09:26:08 AM Interpretation: Performing Lab:[facility], [address] [place] [address] Notes/Report: ------ Name: Derik Redd Age/Sex: 54/F : 1970 Unit#: [id number] Attend Dr: Nehemias Holcomb MD Re04/16/25 Status : DIS IN Location: [facility] 383-1 Disch: 04/17/25 ------ SPEC : [id number] RECD : 04/17/25 STATUS: XUAN LAY NUM: [id number] ANN: 04/16/[address] [facility] [address]: Nehemias Holcomb MD ENTERED: [...] filled with soft, semi formed fecal material. Shaker Out secti ons are submitted for microscopic examination, 3 pieces in cassette A1 to show the margin o f resection and patient services representative cross-sections and 2 pieces in cassette A2 including cross-s ection from the distal portion of the specimen and a sagittal sections through the distal t ip. ([facility]) IHC S/NG Disclaimer NOTE: Unless otherwi se stated, all tissue is formalin-fixed and paraffin-embedded. Some or all of the immunohistochemical tests reported herein may have been developed and their performance characteristics determined by [facility]. They have not been cleared or [...] Derik Redd Age/Sex: 54/F : 1970 Unit#: [id number] Attend Dr: Nehemias Holcomb MD Re04/16/25 Status : DIS IN Location: [facility] 383-1 Disch: 04/17/25 ------ SPEC : [id number] RECD : 04/17/25 STATUS: XUAN LAY NUM: [id number] ANN: 04/16/[address] [facility] [address]: Nehemias Holcomb MD ENTERED: 04/17/25 48 SP TYPE: Surgical OTHR DR: Aroldo Blanchard MD ORDERED: Gross Micro L3 Copies To: Aroldo Blanchard MD [address] [facility], [address] [place] [address] Nehemias Holcomb MD [facility] General Surgeons [address] [place] [address] ------ Signed (signature on file) Aurelia Senior MD 04/21/25 1016 ------ END OF REPORT CT abdomen pelvis w daria Reviewed date:04/27/2025 09:26:08 AM Interpretation: Performing Lab: Notes/Report: [address] [address] [address] Scan Report Signed Patient: Derik Redd MR#: [id number] : 1970 Acct:[id number] Age/Sex: 54 / F ADM Date: 04/16/25 Loc: HO.ED Attending Dr: Ordering Physician: Vito Davis DO Date of Service: 04/16/25 Procedure(s): CT abdomen pelvis w IV con Accession Number(s): [id number] cc: Aroldo Blanchard MD; Vito Davis DO Report Number: [id number]: Total DLP = 639.00 mGy-cm Reason for [...] 04/16/25 0759 DD/ 0700 TD/TT: 04/16/25 0710 Provider Relations Manager: [place] [address] CT Scan Report Signed Patient: Kira Redd MR#: [id number] : 1970 Acct:[id number] Age/Sex: 54 / F ADM Date: 04/16/25 Loc: HO.ED Attending Dr: Ordering Physician: Vito Davis DO Date of Service: 04/16/25 Procedure(s): CT abd omen pelvis w IV con Accession Number(s): [id number] cc: Aroldo Blanchard MD; Vito Davis DO [...] 04/16/25 0759 DD/ 0700 TD/TT: 04/16/25 0710 Provider Relations Manager: Complete Blood Count Auto Di ff (Not yet reviewed by provider) Interpretation: Performing Lab:[facility], [address] [place] [address] Notes/Report: White Blood Count 24.0 4.8-10.8 X10*3/uL [...] t yet reviewed by provider) Interpretation: Performing Lab:[address] [address] Notes/Report: Sodium 135 135-145 mmol/L Potassium 3.8 [...] 3.5-5.0 g/dL Alkaline Phosphatase 107 39-117 U/L Lactic Acid (Not yet reviewe d by provider) Interpretation: Performing Lab:[address] [place] [address] Notes/Report: Lactic Acid 1.3 0.5-2.0 mmol/L Magnesium (Not yet reviewed by provider) Interpretation: Performing Lab:[address] [address] Notes/Report: Magnesium 2.0 1.6-2.6 mg/dL SLIDE REVIEW (Not yet review ed by provider) Interpretation: Performing Lab:[address] [address] Notes/Report: SLIDE REVIEW VERIFIED UA ClnCatch+Micro w/rflx Cul t (Not yet reviewed by provider) Interpretation: Performing Lab:[address] [address] Notes/Report: Urine, Clean Catch Color Urine Yellow Appearance Urine Clear PH 5.5 5.0-9.0 Glucose Urine UA Negative Negative mg/dL Urine Blood Moderate (2+) Negative Specific Geraldine - Urine 1.015 1.005-1.025 Urine Protein Negative Neg-Trace mg/dL Urine Ketones Negative Negative mg/dL Nitrite Urine Negative Negative Leukocyte Esterase Urine Negative Negative RBC Urine 6-10 0-2 /HPF WBC Urine 0-5 0-5 /HPF Squamous Epithelial Cell Urine 0-2 0-2 /HPF Bacteria Urine None Seen None Seen Hyaline Casts Urine 0-2 0-2 /LPF CT abdomen pelvis w con (Not yet reviewed by provider) Interpretation: Performing Lab: Notes/Report: [address] [address] [address] Scan Report Signed Patient: Derik Redd MR#: [id number] : 1970 Acct:[id number] Age/Sex: 54 / F ADM Date: 04/27/25 Loc: HO.ED Attending Dr: Ordering Physician: Soraya Whitaker Date of Service: 04/27/25 Procedure(s): CT abdomen pelvis w IV con Accession Number(s): [id number] cc: Aroldo Blanchard MD; Soraya Whitaker Report Number: [id number]: Total DLP = 620.00 mGy-cm Reason for Exam: abd pain, s/p appy, concern for abscess vs. SBO CLINICAL HISTORY: abd pain, s p appy, concern for abscess vs. SBO CT abdomen and pelvis with contrast Comparison: CT/REG/SR - CT ABDOMEN PELVIS W IV CON - 04/16/25 07:00 EDT Findings: No consolidation or effusion. Unremarkable gallbladder and solid organs. No urolithiasis. There is borderline thickening of the wall of the colon. There is no bowel obstruction. There is no mesenteric edema. There is a focus of small-bowel intussusception within the central abdomen just right of midline. No associated obstructive change or edema. Status post hysterectomy. Unremarkable urinary bladder. Interval appendectomy. No acute fracture. IMPRESSION: 1. Status post appendectomy. Unremarkable appendix fossa. No postoperative abscess. 2. Borderline thickening of the wall of the colon. Recommend clinical correlation to exclude colitis. 3. There is a focus of small-bowel intussusception within the central abdomen just right of midline. This is most likely transient intussusception. This document has been electronically signed by: Amy Mahan MD on 04/27/2025 20:43:16 Dictated By: Amy Mahan MD Signed By: <Electronically signed by Amy Mahan MD in OV> 04/27/252043 DD/ 42 TD/TT: 04/27/252042 Provider Relations Manager: [place] [address] CT Scan Report Signed Patient: Kira Redd MR#: [id number] : 1970 Acct:[id number] Age/Sex: 54 / F ADM Date: 04/27/25 Loc: HO.ED Attending Dr: Ordering Physician: Soraya Whitaker Date of Service: 04/27/25 Procedure(s): CT abd omen pelvis w IV con Accession Number(s): [id number] cc: Aroldo Blanchard MD; Soraya Whitaker Report Number: [id number]: Total DLP = 620.00 mGy-cm Reason for Exam: abd pain, s/p appy, concern for abscess vs. SBO CLINICAL HISTORY: ab d pain, s p appy, concern for abscess vs. SBO CT abdomen and pelvi s with contrast Comparison: CT/REG/S R - CT ABDOMEN PELVIS W IV CON - 04/16/25 07:00 EDT Findings: No consolidation or effusion. Unremarkable gallbla dder and solid organs. No urolithiasis. There is borderline thickening of the wall of the colon. There is no bowel obstruction. There i s no mesenteric edema. There is a focus of small-bowel intussusception with in the central abdomen just right of midline. No associated obstructi ve change or edema. Status post hysterec ignacio. Unremarkable urinary bladder. Interval appendectomy. No acute fracture. IMPRESSION: 1. Status post appendectomy. Unremarkable appendix fossa. No postoperative abscess. 2. Borderline thicke shu of the wall of the colon. Recommend clinical correlation to exclu de colitis. 3. There is a focus of small-bowel intussusception within the central abdomen just right o f midline. This is most likely transient intussusception. This document has be en electronically signed by: Amy Mahan MD on 04/27/2025 20:43:16 Dictated By: Amy Mahan MD Signed By: <Electron ically signed by Amy Mahan MD in OV> 04/27/252043 DD/ 42 TD/TT: 04/27/252042 Provider Relations Manager: Complete Blood Count Auto Di ff (Not yet reviewed by provider) Interpretation: Performing Lab:[facility], [address] [place] [address] Notes/Report: White Blood Count 13.5 4.8-10.8 X10*3/uL Red Blood Count 4.56 4.20-5.50 X10*6/uL Hemoglobin 13.7 12.0-16.0 g/dl Hematocrit 41.9 37.0-47.0 % Mean Corpuscular Volume 91.9 80.0-98.0 fL Mean Corpuscular Hemoglobin 30.0 27.0-33.0 pg Mean Corpuscular HGB Conc 32.7 31.0-35.0 g/dl Red Cell Distribution Width 13.1 11.0-16.0 % Platelet Count 282 160-400 X10*3/uL Mean Platelet Volume 10.2 9.4-12.3 fL Neutrophils Percent Auto 85.6 45-73 % Imm Gran Pct Auto 0.5 0.0-0.4 % Lymphocytes Percent Auto 6.4 20-40 % Monocytes Percent Auto 5.2 2-11 % Eosinophils Percent Auto 1.6 0-4 % Basophils Percent Auto 0.7 0-2 % NRBC Pct Auto 0.0 0.0-0.2 /100WBC Neutrophils Absolute Auto 11.6 2.0-8.3 x10*3/uL Imm Gran Abs Auto 0.07 0.00-0.03 X10*3/uL Lymphocytes Absolute Auto 0.9 1.2-4.9 X10*3/uL Monocytes Absolute Auto 0.7 0.1-1.2 X10*3/uL Eosinophils Absolute Auto 0.2 0.0-0.4 X10*3/uL Basophils Absolute Auto 0.1 0.0-0.2 X10*3/uL NRBC Abs Auto 0.000 0.0-0.012 X10*3/uL Basic Metabolic Panel (Not y et reviewed by provider) Interpretation: Performing Lab:[address] [address] Notes/Report: Sodium 140 135-145 mmol/L Potassium 3.5 3.3-5.1 mmol/L Chloride 105 96-108 mmol/L Carbon Dioxide 24 22-29 mmol/L Anion Gap 15 12-20 Blood Urea Nitrogen 9 9-16 mg/dL Creatinine 0.94 0.5-1.4 mg/dL Creatinine Clr Calc Pharmacy 70.8 Provided height and weight: 160.02 cm, 83.5 kg. eGFR (calculated from the MDRD study equation) and eCrCl (calculated from the Cockcroft-Gault equation) are based on different parameters and may not yield comparable results. If eCrCl result is absurd, please check patient's height/weight. Estimated Glomerular Filt Rate > 60 Chronic Kidney Disease: Estimated GFR < 60 mL/min/1.73m2 Severe Kidney Disease: Estimated GFR < 15 mL/min/1.73m2 Glucose Random 106 60-115 mg/dL Calcium 9.1 8.4-10.2 mg/dL CDiff Gene PCR (Not yet revi ewed by provider) Interpretation: Performing Lab:[address] [address] Notes/Report: CDiff Gene PCR POSITIVE Negative Additional C. difficile toxin testing to be performed. Additional C. difficile toxin testing to be performed. CDiff Gene PCR POSITIVE Negative Additional C. difficile toxin testing to be performed. Additional C. difficile toxin testing to be performed. FERMÍN ECTED REPORT GI Panel (Not yet reviewed b y provider) Interpretation: Performing Lab:[facility], [address] [place] [address] Notes/Report: Campylobacter Not Detected Not Detect. Plesiomonas shigelloides Not Detected Not Detect. Salmonella Not Detected Not Detect. Vibrio Not Detected Not Detect. Vibrio Cholerae Not Detected Not Detect. Yersinia enterocolitica Not Detected Not Detect. E. coli EAEC Not Detected Not Detect. E. coli EPEC Not Detected Not Detect. E. coli ETEC Not Detected Not Detect. E. coli STEC Not Detected Not Detect. E. coli O157 Not applicable Not Detect. E. coli containing the O157 antigen are a subset of Shiga-like toxin-producing E. coli (STEC). Shigella sp./EIEC Not Detected Not Detect. Cryptosporidium Not Detected Not Detect. Cyclospora cayetanensis Not Detected Not Detect. Entamoeba histolytica Not Detected Not Detect. Giardia lamblia Not Detected Not Detect. Adenovirus F 40/41 Not Detected Not Detect. Astrovirus Not Detected Not Detect. Norovirus GI/GII Detected Not Detect. Critical Norovirus Detected sent by a secure message and confirmed by JIMMY on 04/28/25 at 0936 by BRYN. Critical Norovirus Detected called to and read back by [facility] on 04/28/25 at 0938 by BRYN. Rotavirus A Not Detected Not Detect. Sapovirus Not Detected Not Detect. All results must be correlated with clinical findings. Negative results do not exclude the possibility of gastrointestinal infection and should not be used as the sole basis for diagnosis, treatment, or other management decisions. Virus, bacteria, and parasite nucleic acid may persist in vivo independently of organism viability. Additionally, some organisms may be carried asymptomatically. Detection of organism targets does not imply that the corresponding organisms are infectious or are the causative agents for clinical symptoms. There is a risk of false negative values due to the presence of sequence variants in the gene targets of the assay, amplification inhibitors in specimens, or inadequate numbers of organisms for amplification. The identification of several diarrheagenic E. coli pathotypes has historically relied upon phenotypic characteristics. This panel targets genetic determinants characteristic of most pathogenic strains, but may not detect all strains having phenotypic characteristics of a pathotype. The performance of this test has not been established for monitoring treatment of infection with any of the panel organisms. This assay is performed by Multiplexed PCR, utilizing the Skyscraper Array. CDiff Toxin (Not yet reviewe d by provider) Interpretation: Performing Lab:[facility], [address] [place] [phone] Notes/Report: CDiff Toxin Negative Negative CDIFF Interpretation SEE NOTE Likely C. difficile colonization. Continue contact precautions. Reason For Referral Reason Consult and Treat Depression ? ADHD Diagnosis 1 Depression (F32.9) Referral Organization Aroldo Blanchard III, MD Referring Provider First Name Aroldo Referring Provider Last Name Lo Referring Provider Speciality Internal M edicine Referred Provider [facility] Referred Provider Specialty Unknown General Notes Ivelisse Gerard 10/15/2024 03:44:32 PM > [facility] and [facility] information to contact them to schedule an [...] Problem Status W/U Status Risk Notes Problem 7234059 Former smoker (Z87.891) Active confirmed She has a plan to prevent relapse in times of stress and illness. Problem Depression (438397190) Depression (F32.9) Active confirmed Her depression is stable. She is going to report immediately if it worsens. No change in regimen as needed. Problem 251345511518855 Obesity (BMI 30.0-34.9) (E66.9) Active confirmed She has lost 2 pounds since the surgery. We discussed diet and nutrition. We made a plan to lose weight at a rate of 1 pound per week. 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 She says this is a bad year for seasonal allergies. Problem 73687297 Viral syndrome (B34.9) Active confirmed She has recovered well enough to return to work and normal life. She will call me if she has any difficulty with this. Current therapies were continued. Problem 554174605 Rash (R21) Active confirmed S he was given a course of oral prednisone as well as topical triamcinolone. Problem Hyperlipidaemia (10794963) Hyperlipidemia, unspecified hyperlipidemia type (E78.5) Active confirmed Her fasting total cholesterol of 212. No joint treatment is necessary. Problem 285722564 History of depression (Z86.59) Active confirmed She continues to see a therapist. Her depression is present but minimal. She is completing all of the activities of daily life without impairment. Problem 781699737 Acute asthmatic bronchitis (J45.909) Active confirmed I have given her prednisone and Augmentin. She says she has an inhaler. She will report in 48 hours. Problem 02824681 Diet controlled gestational diabetes mellitus (GDM) in third trimester (O24.410) Active confirmed Comprehensive blood work is pending. Problem 433691506 Status post appendectomy (Z90.49) Active confirmed She [...] Date Provider Diagnosis Aroldo Blanchard III, MD [address] [place] [address] [place] [address] 05/20/2024 Aroldo Blanchard Acute contact dermat itis L25.9 ; Obesity (BMI 30.0-34.9) E66.9 ; Former smoker Z87.891 and History of depression Z86.59 Aroldo Blanchard III, MD [address] [place] [address] [place] [address] 05/22/2024 Aroldo Blanchard Acute contact dermat itis L25.9 ; Former smoker Z87.891 ; Obesity (BMI 30.0-34.9) E66.9 and Environmental allergies Z91.09 Aroldo Blanchard III, MD [address] [place] [address] [place] [address] 10/01/2024 Aroldo Blanchard Viral syndrome B34.9 ; Obesity (BMI 30.0-34.9) E66.9 ; Diet controlled gestational diabetes mellitus (GDM) in third trimester O24.410 ; Former smoker Z87.891 ; History of depression Z86.59 ; Depression F32.9 and Hyperlipidemia, unspecified hyperlipidemia type E78.5 Aroldo Blanchard III, MD [address] [place] [address] [place] [address] 10/08/2024 Aroldo Blanchard Obesity (BMI 30.0-34 .9) E66.9 ; Acute asthmatic bronchitis J45.909 ; Former smoker Z87.891 ; History of depression Z86.59 ; Environmental allergies Z91.09 and Hyperlipidemia, unspecified hyperlipidemia type E78.5 Aroldo Blanchard III, MD [address] [place] [address] [place] [address] 10/15/2024 Aroldo Blanchard Obesity (BMI 30.0-34 .9) E66.9 ; Viral syndrome B34.9 ; Hyperlipidemia, unspecified hyperlipidemia type E78.5 ; Former smoker Z87.891 ; Environmental allergies Z91.09 and History of depression Z86.59 Aroldo Blanchard III, MD [address] [place] [address] [place] [address] 12/29/2024 Aroldo Blanchard Obesity (BMI 30.0-34 .9) E66.9 ; Breast cancer screening Z12.31 ; Former smoker Z87.891 and Environmental allergies Z91.09 Aroldo Blanchard III, MD [address] [place] [address] [place] [address] 01/26/2025 Aroldo Blanchard Obesity (BMI 30.0-34 .9) E66.9 ; Hyperlipidemia, unspecified hyperlipidemia type E78.5 and Former smoker Z87.891 Aroldo Blanchard III, MD [address] [place] [address] [place] [address] 04/20/2025 Aroldo Blanchard Obesity (BMI 30.0-34 .9) E66.9 ; Status post appendectomy Z90.49 ; Hyperlipidemia, unspecified hyperlipidemia type E78.5 ; Former smoker Z87.891 ; Environmental allergies Z91.09 ; History of depression Z86.59 and Depression F32.9 Aroldo Blanchard III, MD [address] [place] [address] [place] [address] 05/21/2024 Aroldo Blanchard III, MD [address] [place] [address] [place] [address] 05/26/2024 Aroldo Blanchard III, MD [address] [place] [address] [place] [address] 05/26/2024 Aroldo Blanchard III, MD [address] [place] [address] [place] [address] 05/30/2024 Aroldo Blanchard III, MD [address] [place] [address] [place] [address] 10/03/2024 Aroldo Blanchard III, MD [address] [place] [address] [place] [address] 10/06/2024 Aroldo Blanchard III, MD [address] [place] [address] [place] [address] 10/08/2024 Aroldo Blanchard III, MD [address] [place] [address] [address] [place], [place] [address] 10/09/2024 Aroldo Blanchard Assessments Encounter Date Diagnosis [...] will be treated at home conservatively with yduk-hqt-yykvcsa medications. She is going to report frequently [...] PANEL 04/24/2019 LIPID PANEL 11/02/2020 LIPID PANEL 07/24/2022 LIPID PANEL 10/22/2018 LIPID PANEL 12/16/2019 FREE T4 (FT4) 10/30/2022 TSH (THYROID STIMULATING [...] DIFF 11/05/2023 CBC WITH AUTO DIFF 06/26/2023 Complete Blood Count Auto Diff Complete Blood Count Auto Diff Comprehensive Met. Panel 04/27/2025 Basic Metabolic Panel 04/28/2025 Lactic Acid 04/27/2025 Magnesium 04/27/2025 Lipid Panel 01/26/2025 Lipid Panel 10/15/2024 Lipid Panel 11/05/2023 Lipid Panel 12/29/2024 CT abdomen pelvis w con 04/27/2025 MM tomosynthesis screening BI 12/29/2024 SLIDE REVIEW 04/27/2025 Hemoglobin A1c 11/05/2023 UA ClnCatch+Micro w/rflx Cult 04/27/2025 CDiff Gene PCR 04/28/2025 GI Panel 04/28/2025 CDiff Toxin 04/28/2025 Next Appt Details Provider Name:Aroldo Blanchard , 07/29/2025 02:30:00 PM, [address] [place] [address] [address], [place], [address], Provider Name:Aroldo Blanchard , 12/30/2025 03:00:00 PM, [address] [place] [address] [address], [place], [address], Insurance Providers Payer Name Payer Address Payer Phone Subscriber Number Group Number Insured Name Patient Relationship to Insured Coverage Start Date Coverage End Date [facility] [address] [place], [place] [id number] [phone] [id number] Latricececilia Derik montes Self - patient is the insured Medical [...] o varies 2007 tonsillectomy bilateral breast reduction 2009 Hospitalization History Reason Date(Month/Year) No history
--- OUTSIDE RECORDS SUMMARY | 2025-04-30 15:34 | XMS_ITS | Patient Health Record ---
Author Organization [facility] [place] [facility] Address [address] [place] [address] Care Team Providers Care Dairy Feed Mixing Operator Name Role Phone Aroldo Blanchard MD Primary Care Provider Unavailab Ruslan Johnson Jr Unavailable Allergies Allergen (clinical drug ingredient) [...] Problem History of polyp of colon (situation) (293549815) Personal history of colonic polyps (Z86.010) Active confirmed Problem Change in bowel habit (07334360) Change in bowel habits (R19.4) Active confirmed Problem Hemorrhoids without complication (15563202) Hemorrhoids, unspecified hemorrhoid type (K64.9) Active confirmed Problem Diarrhea (27702091) Diarrhea, unspecified type (R19.7) Active confirmed Problem Benign neoplasm of colon (23333869) Polyp of colon, unspecified part of colon, unspecified type (K63.5) Active confirmed Problem Altered bowel function (14185976) Change in bowel function (R19.8) Active confirmed Encounters Encounter Location Date Provider Diagnosis [facility] [address] [place] [address] 04/30/2025 Ruslan Wade Jr Plan Of Treatment Pending Test Test Name Order Date LIVER PROFILE 08/30/2022 LIPASE 08/30/2022 CBC w DIFF 08/30/2022 TSH REFLEX FREE T4 08/30/2022 Future Test Test Name Order Date COLONOSCOPY 04/06/2021 COLONOSCOPY 04/21/2021 COLONOSCOPY 09/14/2022 Next Appt Details Provider Name:Ruslan fowler Jr, 05/12/2025 01:30:00 PM, [address] [place] [address] , [place], [place], [phone], Insurance Providers Payer Name Payer Address Payer Phone Subscriber Number Group Number Insured Name Patient Relationship to Insured Coverage Start Date Coverage End Date [facility] [address] [place], [place] [id number] [phone] [id number] LUPE REINA Self - patient is the insured Medical (General) History Medical History History ICD Code Anxiety/stress Anemia requiring blood transfusion due t o menorrhagia Surgical History Surgery Date(Month/Year) Reduction mammoplasty Partial hysterectomy for menorrhagia in cervical polyp Tonsillectomy Left knee ACL
--- NOTE | 2025-05-08 13:00 | P.CONAN_ITS ---
HPI - Anesthesia Eval Consult details Narrative: 54yo F for Colonoscopy [facility] Admit 04/2025: Hospital course: Patient admitted for continued management possible intussusception. Clinically unlikely that she has intussusception as she does not have findings suggestive of obstruction, continues to pass gas and stool. We continued p.o. vancomycin for management of possible C diff. stool samples showing positive norovirus. Likely the cause of her symptoms. She will be discharge as treatment for this we will be supportive care, hydration. At the time of discharge patient's abdomen was soft benign, continues to have diarrhea and this will be treated with supportive care also we will receive script for p.o. vanco to complete 10 day course as she was positive for the gene however she did test negative for toxin but given recent antibiotic use, symptoms and possibility of false negative patient will continue 10 day course of vancomycin orally. Attempted surge patient was in stable condition. PMFSH Active Problems Active Problems: All Active Problems Anxiety (Acute) Colitis (Acute) Leukocytosis (Acute) Past Medical History Medical History (Updated 05/12/25 @ 12:37 by Tatum Hector RN) Menopause Colon polyps Acquired intussusception of intestine Acute appendicitis History of blood transfusion Anemia Anxiety PONV (postoperative nausea and vomiting) Family History Family history of problems with anesthesia: No Surgical History Surgical History S/P laparoscopic appendectomy History of laparoscopic appendectomy (04/16/25) History of repair of anterior cruciate ligament of left knee History of colonoscopy History of partial hysterectomy History of cervical polypectomy History of tonsillectomy History of bilateral breast reduction surgery History of endometrial ablation History of Problems with Anesthesia: No Social History Social History Household Members: Significant Other Housing: House Are you a primary animal care provider to a significant other at home: No Do you presently have visiting nurse or other home services: No Comment: RECENT ACL KNEE REPAIR Patient Tobacco Use Status: Former Tobacco user Tobacco use type: Cigarette e-Cigarette/Vaping Use: Currently Using Second Hand Smoke Exposure: No service: No Meds Allergies Allergy/AdvReac Type Severity Reaction Status Date / Time prednisone (PREDNISONE) Allergy Severe HIVES Verified 05/13/25 09:52 Home Medications ?Medication ?Instructions ?Recorded ?Confirmed ?Last Taken ?Type No Known Home Meds 05/12/25 05/12/25 Un known History Exam Pertinent Lab Results Pertinent Lab Results: Laboratory Tests 04/28/25 05:05 WBC 13.5 H Hgb 13.7 Hct 41.9 Plt Count 282 Sodium 140 Potassium 3.5 Chloride 105 Carbon Dioxide 24 BUN 9 Creatinine 0.94 Assessment and Plan Assessment Anesthesia Assessment: Chart Reviewed Final Anesthetic Review Family History of Problems with Anesthesia: No History of Problems with Anesthesia: No
[2025-05-08 14:08] VITALS: BMI 33.5
--- NOTE | 2025-05-12 12:06 | MHC.SHP ---
Pre-Procedural Eval Section A - 24 Hr Update-Section A only Date of Service: 05/12/25 The patient is an INPATIENT: No Changes since office visit: No Cold of Flu in the past 2 weeks, No New Medical Problems, No Changes in Medication and No Patient answered all questions The patient has been examined within 24 hours of the surgical procedure. The History & Physical has been completed within 30 days and I have reviewed it.: Yes Section B - Complete if H&P > 30 days Chief Complaint: Noninfective gastroenteritis and colitis, unspecif Allergies: Allergies Allergy/AdvReac Type Severity Reaction Status Date / Time prednisone (PREDNISONE) Allergy Severe HIVES Verified 04/27/25 15:26 Plan I have reviewed the history and physical and performed a pertinent physical examination on my patient. No changes have occurred unless specified. Time Spent With Patient Time: Total time managing care of this patient today ____ minutes.
[2025-05-12 12:36] VITALS: BMI 32.2
[2025-05-12] MEDS: Lactated Ringers 1,000 ML 100 ML IVCONT (12:46)
[2025-05-12 12:47] VITALS: BP 127/75; PULSE 72; RESP 18; TEMP 36.7; O2SAT 97
[2025-05-12 14:23] VITALS: BP 110/64; PULSE 61; RESP 16; TEMP 36.2; O2SAT 98
[2025-05-12 14:35] VITALS: BP 128/78; PULSE 62; RESP 16; TEMP 36.1; O2SAT 98
[2025-05-12 14:53] VITALS: BP 124/72; PULSE 62; RESP 18; TEMP 36.3; O2SAT 100
--- NOTE | 2025-05-13 01:34 | OP_ITS ---
DATE OF SERVICE: 05/12/2025 SURGEON: Ruslan Wade MD INDICATIONS: Abnormal CT scan of the colon and history of colitis. PREOPERATIVE DIAGNOSIS: POSTOPERATIVE DIAGNOSIS: PROCEDURE PERFORMED: ESTIMATED BLOOD LOSS: COMPLICATIONS: ANESTHESIA: ASSISTANTS: SPECIMENS: PROCEDURE: Colonoscopy to the terminal ileum with biopsy. MEDICATIONS: Monitored anesthesia care. DESCRIPTION OF PROCEDURE: A history and physical were performed. The risks and benefits of the procedure were explained to the patient and informed consent was obtained. The patient was placed in the left lateral decubitus position. The rectal exam was normal. The scope was advanced to the cecum. The terminal ileum was normal. The visualized colonic mucosa was normal. The quality of the prep was good. There was no evidence of active colitis. The mucosa appeared normal. Biopsies were obtained from the terminal ileum, right colon and sigmoid. Retroflexed examination showed some small internal hemorrhoids. There was a single polyp measuring less than 5 mm located at 60 cm. This was removed with biopsy forceps. IMPRESSION: Colon polyp. RECOMMENDATION: Follow up the biopsy results. Ruslan Wade MD BC/MODL / [id number] MTDD
== END 2025-05-12 15:27 | disposition home or self-care (01) ==
PROVIDERS: PCP Internal Medicine Medical Oncology; Visit Provider Internal Medicine Gastroenterology
PROC: 0DJD8ZZ Inspection of Lower Intestinal Tract, Via Natural or Artificial Opening Endoscopic (ICD-10-PCS; CPT 45378; principal; 2025-05-12 13:30)
DX: R93.3 Abnormal findings on diagnostic imaging of other parts of digestive tract (principal); Z86.0100 Personal history of colon polyps, unspecified; K63.5 Polyp of colon; K64.8 Other hemorrhoids; Z90.89 Acquired absence of other organs; D64.9 Anemia, unspecified; F41.9 Anxiety disorder, unspecified; Z98.890 Other specified postprocedural states; Z88.8 Allergy status to other drugs, medicaments and biological substances; Z87.891 Personal history of nicotine dependence
CPT/HCPCS: 45380; 88305; J2704

== ENCOUNTER 2025-05-13 09:48 | Outpatient (AMB) | payer BC, SELFPAY ==
--- OUTSIDE RECORDS SUMMARY | 2024-10-06 05:04 | XMS_ITS ---
Author Organization Aroldo Blanchard III, MD Address [address] [place] [address] [address] [facility] [place] [address] Care Team Providers Care Transportation Dispatcher Name Role Phone Dr. Aroldo Blanchard III Primary Care Provider REASON FOR VISIT told patient to call Social History Sex Assigned At : Social History Observation Description Sex Assigned At Female Encounters Encounter Location Date Provider Diagnosis Aroldo Blanchard III, MD [address] [place] [address] [address] [place] [address] 10/06/2024 Aroldo Blanchard Plan Of Treatment Next Appt Details Provider Name:Aroldo Blanchard , 07/29/2025 02:30:00 PM, [address] [place] [address] [place], [address], Provider Name:Aroldo Blanchard , 12/30/2025 03:00:00 PM, [address] [place] [address] [place], [address], Progress Notes * Derik LEYVA GDOB:1970 (53 yo F)Acc No.[id number]:10/06/2024 Patient: Derik HANLEY :1970 A ge:53 Y S ex:Female Address:[address] [place], [place] [address], [address] * true * Date: Generated for Printi ng/Faxing/eTransmitting on: 1 11:46 AM EDT
--- OUTSIDE RECORDS SUMMARY | 2024-10-08 07:00 | XMS_ITS ---
Author Organization Aroldo Blanchard III, MD Address [address] [address] Care Team Providers Care Programming Engineer Name Role Phone Dr. Aroldo Blanchard III [...] Problem Status W/U Status Risk Notes Problem [id number] Acute asthmatic bronchitis (J45.909) Active confirmed I [...] Date Provider Diagnosis Aroldo Blanchard III, MD [address] [place] [address] DR [place], [place] [address] 10/08/2024 Aroldo Blanchard Obesity (BMI 30.0-34 .9) [...] eh: Telehealth, OV Provider Name:Aroldo Blanchard , 07/29/2025 02:30:00 PM, [address] [place] [address] [address], [place], [address], Provider Name:Aroldo Blanchard , 12/30/2025 03:00:00 PM, [address] [place] [address] [address], [place], [address], Progress Notes * Derik LEYVA GDOB:1970 (53 yo F)Acc No.[id number]:10/08/2024 Progress Notes Patient: Derik HANLEY Provider: Maribel Blanchrad MD :1970 A ge:53 Y S ex:Female Date:10/08/2024 Address:[address] [place] [address] [id number] Subjective: * Chief Complaints: * C oughingFatigueLow [...] 69 yrs, Alive and well, lives in [place], [place], thyroid disease, hyperlipidemia. M aternal Grand Father: , diagnosed with Cancer. M aternal aunt: , diagnosed with Cancer. She has no information about her father. Her mother\'s sister had breast cancer over the age of 50. She has one daughter who is healthy and well. One brother . * Social History: T obacco Use: T obacco Use/Smoking P atient is a f ormer smoker H ow long has it been since you last smoked??5-10 years A dditional Findings: Tobacco Non-User E x-cigarette smoker S he was born in [facility]. 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 She is exposed to paint and dust [...] Blanchard MD Date: 0 10/08/2024 Generated for Janet fine/Eliana/Janice on: 11:47 AM EDT History and Physical Notes * HPI (History [...]
--- OUTSIDE RECORDS SUMMARY | 2024-10-08 07:26 | XMS_ITS ---
Author Organization Aroldo Blanchard III, MD Address [address] [place] [address] [place] [address] Care Team Providers Care Fruit Checker Name Role Phone Dr. Aroldo Blanchard III Primary Care Provider REASON FOR VISIT Work Fax / Out of Work Note Social History Sex Assigned At : Social History Observation Description Sex Assigned At Female Encounters Encounter Location Date Provider Diagnosis Aroldo Blanchard III, MD [address] [place] [address] [place] [address] 10/08/2024 Aroldo Blanchard Plan Of Treatment Next Appt Details Provider Name:Aroldo Blanchard , 07/29/2025 02:30:00 PM, [address] [place] [address] [place], [address], Provider Name:Aroldo Blanchard , 12/30/2025 03:00:00 PM, [address] [place] [address] [place], [address], Progress Notes * Derik LEYVA GDOB:1970 (53 yo F)Acc No.[id number]:10/08/2024 Patient: Derik HANLEY :1970 A ge:53 Y S ex:Female Address:[address] [place] [address] [place], [address] * true * Date: Generated for Printi ng/Faxing/eTransmitting on: 1 11:47 AM EDT
--- OUTSIDE RECORDS SUMMARY | 2024-10-09 10:24 | XMS_ITS ---
Author Organization Aroldo Blanchard III, MD Address [address] [place] [address] [place] [address] Care Team Providers Care String Winding Machine Operator Name Role Phone Dr. Aroldo Blanchard III Primary Care Provider REASON FOR VISIT Requesting Out of Work Social History Sex Assigned At : Social History Observation Description Sex Assigned At Female Encounters Encounter Location Date Provider Diagnosis Aroldo Blanchard III, MD [address] [place] [address] [address] [facility] [place] [address] 10/09/2024 Aroldo Blanchard Plan Of Treatment Next Appt Details Provider Name:Aroldo Blanchard , 07/29/2025 02:30:00 PM, [address] [place] [address] [place], [address], Provider Name:Aroldo Blanchard , 12/30/2025 03:00:00 PM, [address] [place] [address] [place], [address], Progress Notes * Derik LEYVA GDOB:1970 (53 yo F)Acc No.[id number]:10/09/2024 Patient: Derik HANLEY :1970 A ge:53 Y S ex:Female Address:[address] [place] [address] [place], [address] * true * Date: Generated for Printi ng/Faxing/eTransmitting on: 1 11:48 AM EDT
--- OUTSIDE RECORDS SUMMARY | 2024-10-15 11:30 | XMS_ITS ---
Author Organization Aroldo Blanchard III, MD Address [address] [facility] [place] [address] Care Team Providers Care Motor Inspection Mechanic Name Role Phone Dr. Aroldo Blanchard III Primary Care Provider [phone] Allergies Allergen (clinical drug ingredient) Drug/Non Drug Allergy documented on EMR Reaction Allergy Type Onset Date Status No Known Drug Allergy Unknown Drug Allergy Active Reason For Referral Reason Consult and Treat Depression ? ADHD Diagnosis 1 Depression (F32.9) Referral Organization Aroldo Blanchard III, MD Referring Provider First Name Aroldo Referring Provider Last Name Lo Referring Provider Speciality Internal M edicine Referred Provider [facility] Referred Provider Specialty Unknown General Notes Ivelisse Gerard 10/15/2024 03:44:32 PM > Patient was given [facility] and [facility] information to contact them to schedule [...] Problem Status W/U Status Risk Notes Problem [id number] Viral syndrome (B34.9) Active confirmed She has recovered well enough to return to work and normal life. She will call me if she has any difficulty with this. Current therapies were continued. Encounters Encounter Location Date Provider Diagnosis Aroldo Blanchard III, MD [address] [place] [address] [place] [address] 10/15/2024 Aroldo Blanchrad Obesity (BMI 30.0-34 .9) E66.9 ; Viral [...] Provider Name:Aroldo Blanchard , 07/29/2025 02:30:00 PM, [address] [place] [address] [address], [place], [address], Provider Name:Aroldo Blanchard , 12/30/2025 03:00:00 PM, [address] [place] [address] [address], [place], [address], Progress Notes * Derik LEYVA GDOB:1970 (53 yo F)Acc No.[id number]:10/15/2024 Patient: Derik HANLEY Provider: Maribel Blanchard MD :1970 A ge:53 Y S ex:Female Date:10/15/2024 Address:[address] [place] [phone] Subjective: * Chief Complaints: * R ecent [...] { ...} [address] [facility] [address] L ocation of patient: dante yu listed [...] 69 yrs, Alive and well, lives in [place], [place], thyroid disease, hyperlipidemia. Ady don Grand [...] x-cigarette smoker S he was born in [facility]. 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 She is exposed to paint and dust [...] Panel 3. O thers Referral To:Counseling Center [facility] Unknown Reason:Consult and Treat Depression ? ADHD [...] MD Date: 0 10/15/2024 Generated for Janet ifne/Eliana/Janice on: 1 11:47 AM EDT History and Physical Notes * HPI (History of Present Illness) Category Sub-Category Detail Notes Telehealth Location of prov ider rendering services:: {...} [address] [facility] [address] Location of patient:: address listed in demographics [...] Referred Provider Not catracho 10/15/2024 Aroldo Blanchard [facility], [facility] Consult and Treat Depression ? ADHD
--- OUTSIDE RECORDS SUMMARY | 2024-11-10 13:30 | XMS_ITS ---
Author Organization Aroldo Blanchard III, MD Address [address] [place] [address] Care Team Providers Care Groundskeeper Porter Name Role Phone Dr. Aroldo Blanchard III Primary Care Provider [phone] Allergies Allergen (clinical drug ingredient) Drug/Non Drug [...] Date Provider Diagnosis Aroldo Blanchard III, MD [address] [place] [address] [place] [address] 11/10/2024 Aroldo Blanchard Obesity (BMI 30.0-34.9) E66.9 [...] Name:Aroldo Biggs Lo , 07/29/2025 02:30:00 PM, [address] [place] [address] [address], [place], [address], Provider Name:Aroldo Biggs Lo , 12/30/2025 03:00:00 PM, [address] [place] [address] [address], [place], [address], Progress Notes * Derik YAÑEZ GDOB: [birth year] (54 yo F)Acc No.[id number]:11/10/2024 Progress Notes Patient: Derik HASSAN Provider: Maribel Blanchard MD :1970 A ge:53 Y S ex:Female Date:11/10/2024 Address:[address] [place] [phone] Subjective: * Chief Complaints: * 1 . [...] 69 yrs, Alive and well, lives in [place], [place], thyroid disease, hyperlipidemia. M arian Grand [...] x-cigarette smoker S he was born in [place]. 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 She is exposed to paint and dust [...] 0 11/10/2024 Generated for Janet fine/Eliana/Janice on: 11:48 AM EDT History and Physical Notes * [...]
--- OUTSIDE RECORDS SUMMARY | 2024-12-29 10:30 | XMS_ITS ---
Author Organization Aroldo Blanchard III, MD Address [address] [facility] [address] [address] Care Team Providers Care Utilities Service Investigator Name Role Phone Dr. Aroldo Blanchard III [...] Date Provider Diagnosis Aroldo Blanchard III, MD [address] [place] [address] [place] [address] 12/29/2024 Aroldo Blanchard Obesity (BMI 30.0-34 .9) [...] Provider Name:Aroldo Blanchard , 07/29/2025 02:30:00 PM, [address] [place] [address] [address], [place], [address], Provider Name:Aroldo Londonone , 12/30/2025 03:00:00 PM, [address] [place] [address] [address], [place], [address], Progress Notes * Derik YAÑEZ GDOB: [birth year] (54 yo F)Acc No.[id number]:12/29/2024 Progress Notes Patient: Derik HASSAN Provider: Maribel Blanchard MD :1970 A ge:54 Y S ex:Female Date:12/29/2024 Address:[address] [place] [address] [place], [id number] Subjective: * Chief Complaints: * A nnual [...] 69 yrs, Alive and well, lives in [place], [place], thyroid disease, hyperlipidemia, diagnosed with CVD. [...] P ositive S he was born in [place], [facility]. 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 She is exposed to paint and dust [...] . BREASTS: , Not examined, Done by QA TESTER. ABDOMEN: b owel sounds normal, no ascites, [...] 12/29/2024 Generated for Janet fine/Eliana/eTransmitting on: 1 11:46 AM EDT History and Physical Notes * [...] normal BREASTS: , Not examined, Done by QA TESTER MUSCULOSKELETAL: extremities unremark able, no clubbing, cyanosis or edema LYMPH NODES: no enlarged lymph no peter,spleen normal RECTAL EXAM: not examined PSYCH: alert, oriented ORAL CAVITY: normal, unremarkable
--- OUTSIDE RECORDS SUMMARY | 2025-01-26 10:45 | XMS_ITS ---
Author Organization Aroldo Blanchard III, MD Address [address] [facility] [place] [address] Care Team Providers Care Retail Service Representative Name Role Phone Dr. Aroldo Blanchard [...] Provider Diagnosis Aroldo Blanchard III, MD [address] [place] [address] [place] [address] 01/26/2025 Aroldo Blanchard Obesity (BMI 30.0-34 .9) [...] Provider Name:Aroldo Blanchard , 07/29/2025 02:30:00 PM, [address] [place] [address] [address], [place], [address], Provider Name:Aroldo Blanchard , 12/30/2025 03:00:00 PM, [address] [place] [address] [address], [place], [address], Progress Notes * PARIDerik GDOB: [birth year] (54 yo F)Acc No.[id number]:01/26/2025 Patient: Derik HASSAN Provider: Maribel Blanchard MD :1970 A ge:54 Y S ex:Female Date:01/26/2025 Address:[address] [place] [address] JADEN Biggs [id number] Subjective: * Chief Complaints: * T elehealth [...] of provider rendering services: { ...} [address] [facility] [address] L ocation of patient: dante yu listed [...] 69 yrs, Alive and well, lives in [place], [place], thyroid disease, hyperlipidemia, diagnosed with CVD. [...] x-cigarette smoker S he was born in [place], [facility]. 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 She is exposed to paint and dust [...] 01/26/2025 Generated for Janet fine/Eliana/eTransmitting on: 1 11:48 AM EDT History and Physical Notes * HPI (History of Present Illness) Category Sub-Category Detail Notes Telehealth Location of [facility] rendering services:: {...} [address] [place] [address] Location of patient:: address listed in demographics [...]
--- OUTSIDE RECORDS SUMMARY | 2025-04-20 09:00 | XMS_ITS ---
Author Organization Aroldo Blanchard III, MD Address [address] [address] Care Team Providers Care Credit Cashier Name Role Phone Dr. Aroldo Blanchard III Primary Care Provider [phone] Allergies Allergen (clinical drug ingredient) Drug/Non Drug Allergy documented on EMR Reaction Allergy Type Onset Date Status No Known Drug Allergy Unknown Drug Allergy Active No Known Food Allergy Unknown Drug Allergy Active REASON FOR VISIT [place] [facility] [place], Obesity, Allergies, Hyperlipidemia, Depression Medications Medication [...] Problem Status W/U Status Risk Notes Problem [id number] Status post appendectomy (Z90.49) Active confirmed She [...] Date Provider Diagnosis Aroldo Blanchard III, MD [address] [place] [address] DR [place]ID [place], [place] [address] 04/20/2025 Aroldo Blanchard Obesity (BMI 30.0-34 .9) [...] Provider Name:Aroldo Blanchard , 07/29/2025 02:30:00 PM, [address] [place] [address] [address], [place], [address], Provider Name:Aroldo Biggs Blanchard , 12/30/2025 03:00:00 PM, [address] [place] [address] [address], [place], [address], Progress Notes * Derik YAÑEZ GDOB: [birth year] (54 yo F)Acc No.[id number]:04/20/2025 Patient: Derik HASSAN Provider: Maribel Blanchard MD :1970 A ge:54 Y S ex:Female Date:04/20/2025 Address:[address] [place], [place] [phone] Subjective: * Chief Complaints: * A [place] [facility] [place]ObesityAllergiesHyperlipidemiaDepression * HPI: v : She was admitted to [facility] recently through the emergency room and [...] 69 yrs, Alive and well, lives in [place], [place], thyroid disease, hyperlipidemia, diagnosed with CVD. [...] x-cigarette smoker S he was born in [place], [facility]. 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 She is exposed to paint and dust [...] MD Date: Generated for Janet fine/Eliana/eTashvinsmitting on: 11:46 AM EDT History and Physical Notes * Examination Category [...]
--- OUTSIDE RECORDS SUMMARY | 2025-05-05 07:01 | XMS_ITS ---
Author Organization Aroldo Blanchard III, MD Address [address] [place] [address] [address] [facility] [address] Care Team Providers Care Hydroelectric Component Machinist Name Role Phone Dr. Aroldo Blanchard III Primary Care Provider REASON FOR VISIT Needs call back from Social History Sex Assigned At : Social History Observation Description Sex Assigned At Female Encounters Encounter Location Date Provider Diagnosis Aroldo Blanchard III, MD [address] [place] [address] [place] [address] 05/05/2025 Aroldo Blanchard Plan Of Treatment Next Appt Details Provider Name:Aroldo Blanchard , 07/29/2025 02:30:00 PM, [address] [place] [address] [place], [address], Provider Name:Aroldo Blanchard , 12/30/2025 03:00:00 PM, [address] [place] [address] [place], [address], Progress Notes * Derik YAÑEZ GDOB: [birth year] (54 yo F)Acc No.[id number]:05/05/2025 Patient: Derik HASSAN :1970 A ge:54 Y S ex:Female Address:[address] [place] [address] [place], [address] * * Date:
--- OUTSIDE RECORDS SUMMARY | 2025-05-12 09:30 | XMS_ITS ---
Author Organization [facility] Address [address] [place] [address] Care Team Providers Care 3D Animator Name Role Phone Lo BONILLA, Aroldo Primary Care Provider Unavailab Ruslan Johnson Jr Unavailable [phone] REASON FOR VISIT COLITIS, ABNORMAL CT OF THE ABDOMEN Encounters Encounter Location Date Provider Diagnosis [facility] Out[facility] [address] [place], [place] [phone] 05/12/2025 Ruslan Wade Jr Plan Of Treatment No Information Progress Notes * LUPE YAÑEZDOB: [birth year] (54 yo F)Acc No.[id number]:05/12/2025 COLON WITH MAC Patient: LUPE HASSAN Provider: Michelle Wade MD :1970 A ge:54 Y S ex:Female Date:05/12/2025 Address:[address] [place], [place] [id number] Pcp:Aroldo Blanchard MD Subjective: * Chief Complaints: * 1 . COLITIS, ABNORMAL CT OF THE ABDOMEN. * Medical History: Objective: * Vitals: Assessment: Plan: * Treatment: * * The named appointment provid er may or may not be the originator of this progress note, and it is not deemed complete until electronically signed by the appointment provider. Sign off status: Pending * Provider: Michelle Wade MD Date: Generated for Janet fine/Eliana/Dionicioitting on: 11:48 AM EDT
[2025-05-13 09:29] VITALS: BP 120/72; BMI 32.0
--- NOTE | 2025-05-13 09:50 | A.OFFVIS_ITS ---
Vital Signs 05/13/25 09:29 Height 5 ft 3 in Weight 82 kg BMI 32.0 BP 120/72 Blood Pressure Location Lt brachial Position Sitting Intake Visit Reasons: 3wk fu/v appy surgery Intake Note: Patient here to follow up from last office visit 04-22-2025. S/p Laparoscopic appendectomy. Patient c/o: admits to right leg stiffness post surgery, area is healing well, denies redness discharge or infection Surgery (): 04-16-2025 Java Lead Engineer Required: No Accompanied by: Self / Same As Patient Allergies prednisone (PREDNISONE) Allergy (Severe, Verified 05/13/25 09:52) HIVES HPI HPI 3wk fu/v appy surgery: Details: Doing well. After our last visit she was readmitted to the hospital for likely C diff colitis. Was discharged with p.o. vancomycin, states she took the entire course of this. Her symptoms improved, she still has diarrhea but states this is her baseline. Otherwise she states she is all good. Diet and bowel function are at baseline. Denies nausea or vomiting. Has no concerns with her incision sites, denies abdominal pain. She feels ready to go back to work. He is complaining of some left knee pain states she had a previous surgery at [facility] if you years ago but is unsure what could be causing this pain. [facility] Medical History (Updated 05/12/25 @ 12:37 by Tatum Hector RN) Menopause Colon polyps Acquired intussusception of intestine Acute appendicitis History of blood transfusion Anemia Anxiety PONV (postoperative nausea and vomiting) Surgical History S/P laparoscopic appendectomy History of laparoscopic appendectomy (04/16/25) History of repair of anterior cruciate ligament of left knee History of colonoscopy History of partial hysterectomy History of cervical polypectomy History of tonsillectomy History of bilateral breast reduction surgery History of endometrial ablation Social History Household Members: Significant Other Housing: House Are you a primary career services manager to a significant other at home: No Do you presently have visiting nurse or other home services: No Comment: RECENT ACL KNEE REPAIR Patient Tobacco Use Status: Former Tobacco user Tobacco use type: Cigarette e-Cigarette/Vaping Use: Currently Using Second Hand Smoke Exposure: No service: No Physical Exam Const General: comfortable and no acute distress Orientation/consciousness: patient oriented x3 Resp Effort & Inspection: normal respiratory effort and able to speak in complete sentences GI Other: Incision sites clean dry intact, well healed, no erythema, discharge, tenderness, fluctuance. Palpation (GI): Soft to palpation and nontender Neuro General: patient oriented x3 Assessment & Plan Assessment & Plan (1) S/P laparoscopic appendectomy: Code(s): Z90.49 - Acquired absence of other specified parts of digestive tract Category: Surgical Plan 54-year-old female s/p laparoscopic appendectomy on 04/16/[address] Holcomb returning to the office for follow up. Overall doing very well, has no concerns. She was admitted after our last visit for likely C diff colitis, was prescribed oral vancomycin, completed the full course, she feels improved now but also complaining of some left knee pain, states she had a previous surgery at [facility], but did not enjoy her care there. I recommended she reach out to her previous surgeon work and follow up with [facility] if she would like to establish care therefore further management. Currently she is Denying abdominal pain. No longer requiring pain medication. Tolerating diet at home. Bowel function at baseline. Abdomen is soft and benign, incisions appear to be healing well, no concern for infection at this time. She feels ready to go back to work at this point no longer requiring activity restrictions. Okay to advanced activity as tolerated. No longer requiring routine follow up. Can follow up as needed with any concerns in the future Coding Level of Care Code Global (18160) Diagnoses S/P laparoscopic appendectomy Z90.49
--- OUTSIDE RECORDS SUMMARY | 2025-05-13 11:47 | XMS_ITS | Patient Health Record ---
Author Organization Aroldo Blanchard III, MD Address [address] [address] Care Team Providers Care District Fire Chief Name Role Phone Dr. Aroldo Blanchard III Primary Care Provider [phone] Allergies Allergen (clinical drug ingredient) Drug/Non Drug [...] date:10/11/2024 08:12:45 AM Interpretation: Performing Lab: Notes/Report: [facility] [address] [place] [address] XRay Report Signed Patient: Derik Acharya MR#: [id number] : 1970 Acct:[id number] Age/Sex: 53 / F ADM Date: 10/08/24 Loc: HO.XRAY Attending Dr: Aroldo Blanchard MD Ordering Physician: Aroldo Blanchard MD Date of Service: 10/08/24 Procedure(s): XR chest 2V Accession Number(s): [id number] cc: Aroldo Blanchard MD EXAMINATION: XR CHEST [...] 10/08/24 1154 DD/ 1145 TD/TT: 10/08/24 1150 [employer]ator: [place] [address] XRay Report Signed Patient: Derik Acharya MR#: [id number] : 1970 Acct:[id number] Age/Sex: 53 / F ADM Date: 10/08/24 Loc: HOADRIANNEAY Attending Dr: Aroldo Blanchard MD Ordering Physician: Aroldo Blanchard MD Date of Service: 10/08/24 Procedure(s): XR chest 2V Accession Number(s): [id number] cc: Aroldo Blanchard MD EXAMINATION: XR CHES [...] 10/08/24 1154 DD/ 1145 TD/TT: 10/08/24 1150 [employer]ator: Lipid Panel Reviewed date:01/16/2025 07:01:55 PM Interpretation: Performing Lab:[facility], [address] [place] [address] [place] [address] Notes/Report: Triglycerides 127 <150 mg/dL Desirable Triglyceride: [...] date:01/27/2025 04:58:00 AM Interpretation: Performing Lab: Notes/Report: [address] [place] [address] Mammography Report Signed Patient: Derik Redd MR#: [id number] : 1970 Acct:[id number] Age/Sex: 54 / F ADM Date: 01/12/25 Loc: HO.MAMMO Attending Dr: Aroldo Blanchard MD Ordering Physician: Aroldo Blanchard MD Results: 2Benign Findings Date of Service: 01/12/25 Follow Up: 1 Year From [facility] Mammogram Procedure(s): MM tomosynthesis screening BI Accession Number(s): [id number] cc: Aroldo Blanchard MD EXAMINATION: MM SCREENING [...] 01/25/25 1419 DD/ 1535 TD/TT: 01/12/25 1549 [employer]ator: [place] [facility] [address] [place] [address] Mammography Report Signed Patient: Kira Redd MR#: [id number] : 1970 Acct:[id number] Age/Sex: 54 / F ADM Date: 01/12/25 Loc: HO.MAMMO Attending Dr: Aroldo Blanchard MD Ordering Physician: Aroldo Blanchard MD Results: 2Benign Findings Date of Service: Follow Up: 1 Year From [facility] Mammogram Procedure(s): MM tomosynthesis screening BI Accession Number(s): [id number] cc: Aroldo Blanchard MD EXAMINATION: MM SCREENING [...] 01/25/25 1419 DD/ 1535 TD/TT: 01/12/25 1549 [employer]ator: Complete Blood Count Auto Di ff Reviewed date:04/27/2025 09:26:08 AM Interpretation: Performing Lab:[facility], [address] [place] [address] Notes/Report: White Blood Count 11.8 4.8-10.8 X10*3/uL [...] Panel Reviewed date:04/27/2025 09:26:08 AM Interpretation: Performing Lab:[facility], [address] [place] [address] Notes/Report: Sodium 136 135-145 mmol/L Potassium 3.8 [...] Acid Reviewed date:04/27/2025 09:26:08 AM Interpretation: Performing Lab:[facility], [address] [place] [address] Notes/Report: Lactic Acid 1.2 0.5-2.0 mmol/L Lipase Reviewed date:04/27/2025 09:26:08 AM Interpretation: Performing Lab:[facility], [address] [place] [address] Notes/Report: Lipase 22 8-78 U/L Pathology Reviewed date:04/27/2025 09:26:08 AM Interpretation: Performing Lab:[facility], [address] [place] [address] Notes/Report: ------ Name: Derik Redd Age/Sex: 54/F : 1970 Unit#: [id number] Attend Dr: Nehemias Holcomb MD Re04/16/25 Status : DIS IN Location: [facility] 383-1 Disch: 04/17/25 ------ SPEC : [id number] RECD : 04/17/25 STATUS: XUAN LAY NUM: [id number] ANN: 04/16/25 [facility] DR: Nehemias Holcomb MD ENTERED: 04/17/25 48 [...] filled with soft, semi formed fecal material. [employer] secti ons are submitted for microscopic examination, 3 pieces in cassette A1 to show the margin o f resection and shared services representative cross-sections and 2 pieces in cassette A2 including cross-s ection from the distal portion of the specimen and a sagittal sections through the distal t ip. ([facility]) IHC S/NG Disclaimer NOTE: Unless otherwi se stated, all tissue is formalin-fixed and paraffin-embedded. Some or all of the immunohistochemical tests reported herein may have been developed and their performance characteristics determined by [facility]. They have not been cleared [...] Derik Redd Age/Sex: 54/F : 1970 Unit#: [id number] Attend Dr: Nehemias Holcomb MD Re04/16/25 Status : DIS IN Location: [facility] 383-1 Disch: 04/17/25 ------ SPEC : [id number] RECD : 04/17/25 STATUS: XUAN LAY NUM: [id number] ANN: 04/16/25 [facility] DR: Nehemias Holcomb MD ENTERED: 04/17/25 48 SP TYPE: Surgical OTHR DR: Aroldo Blanchard MD ORDERED: Gross Micro L3 Copies To: Aroldo Blanchard MD [address] [facility], [address] [place] [address] Nehemias Holcomb MD [facility] [address] [place] [address] ------ Signed (signature on file) Aurelia Senior MD 04/21/25 1016 ------ END OF REPORT CT abdomen pelvis w daria Reviewed date:04/27/2025 09:26:08 AM Interpretation: Performing Lab: Notes/Report: [address] [address] [address] Scan Report Signed Patient: Derik Redd MR#: [id number] : 1970 Acct:[id number] Age/Sex: 54 / F ADM Date: 04/16/25 Loc: HO.ED Attending Dr: Ordering Physician: Vito Davis DO Date of Service: 04/16/25 Procedure(s): CT abdomen pelvis w IV con Accession Number(s): [id number] cc: Aroldo Blanchard MD; Vito Davis DO Report Number: [id number]: Total DLP = 639.00 mGy-cm Reason for [...] 04/16/25 0759 DD/ 0700 TD/TT: 04/16/25 0710 [employer]ator: [place] [address] CT Scan Report Signed Patient: Kira Redd MR#: [id number] : 1970 Acct:[id number] Age/Sex: 54 / F ADM Date: 04/16/25 Loc: HO.ED Attending Dr: Ordering Physician: Vito Davsi DO Date of Service: 04/16/25 Procedure(s): CT abd omen pelvis w IV con Accession Number(s): [id number] cc: Aroldo Blanchard MD; Vito Davis DO [...] MD Signed By: <Electron ically signed by Jaocb Moody MD in OV> 04/16/25 0759 DD/ 0700 TD/TT: 04/16/25 0710 [employer]ator: Complete Blood Count Auto Di ff Reviewed date:05/01/2025 05:14:43 PM Interpretation: Performing Lab:[facility], [address] [place] [address] Notes/Report: White Blood Count 24.0 4.8-10.8 X10*3/uL [...] REPORT FERMÍN ECTED REPORT Comprehensive Met. Panel Reviewed date:05/01/2025 05:14:43 PM Interpretation: Performing Lab:[facility], [address] [place] [address] Notes/Report: Sodium 135 135-145 mmol/L Potassium 3.8 [...] Alkaline Phosphatase 107 39-117 U/L Lactic Acid Reviewed date:05/01/2025 05:14:43 PM Interpretation: Performing Lab:[facility], [address] [place] [address] Notes/Report: Lactic Acid 1.3 0.5-2.0 mmol/L Magnesium Reviewed date:05/01/2025 05:14:43 PM Interpretation: Performing Lab:[facility], [address] [place] [address] Notes/Report: Magnesium 2.0 1.6-2.6 mg/dL SLIDE REVIEW Reviewed date:05/01/2025 05:14:43 PM Interpretation: Performing Lab:[facility], [address] [place] [address] Notes/Report: SLIDE REVIEW VERIFIED Blood Culture (First) Reviewed date:05/03/2025 08:29:03 AM Interpretation: Performing Lab:[facility], [address] [place] [address] Notes/Report: Blood Culture (First) No growth after 5 days. Blood Culture (Second) Reviewed date:05/03/2025 08:29:03 AM Interpretation: Performing Lab:[facility], [address] [place] [address] Notes/Report: Blood Culture (Second) No growth after 5 days. UA ClnCatch+Micro w/rflx Cul t Reviewed date:05/01/2025 05:14:43 PM Interpretation: Performing Lab:[facility], [address] [place] [address] Notes/Report: Urine, Clean Catch Color Urine Yellow Appearance Urine Clear PH 5.5 5.0-9.0 Glucose Urine UA Negative Negative mg/dL Urine Blood Moderate (2+) Negative Specific [place] - Urine 1.015 1.005-1.025 Urine Protein Negative Neg-Trace mg/dL Urine Ketones Negative Negative mg/dL Nitrite Urine Negative Negative Leukocyte Esterase Urine Negative Negative RBC Urine 6-10 0-2 /HPF WBC Urine 0-5 0-5 /HPF Squamous Epithelial Cell Urine 0-2 0-2 /HPF Bacteria Urine None Seen None Seen Hyaline Casts Urine 0-2 0-2 /LPF CT abdomen pelvis w con Reviewed date:05/01/2025 05:14:43 PM Interpretation: Performing Lab: Notes/Report: [address] [address] [address] Scan Report Signed Patient: Derik Redd MR#: [id number] : 1970 Acct:[id number] Age/Sex: 54 / F ADM Date: 04/27/25 Loc: HO.ED Attending Dr: Ordering Physician: Soraya Whitaker Date of Service: 04/27/25 Procedure(s): CT abdomen pelvis w IV con Accession Number(s): [id number] cc: Aroldo Blanchard MD; Soraya Whitaker Report Number: [id number]: Total DLP = 620.00 mGy-cm Reason for [...] in OV> 04/27/252043 DD/ 42 TD/TT: 04/27/252042 [employer]ator: [address] [address] [address] Scan Report Signed Patient: Kira Redd MR#: [id number] : 1970 Acct:[id number] Age/Sex: 54 / F ADM Date: 04/27/25 Loc: HO.ED Attending Dr: Ordering Physician: Soraya Whitaker Date of Service: 04/27/25 Procedure(s): CT abd omen pelvis w IV con Accession Number(s): [id number] cc: Aroldo Blanchard MD; Soraya Whitaker Report [...] Dictated By: Amy Mahan MD Signed By: <Slime nair signed by Amy Mahan MD in OV> 04/27/252043 DD/ 42 TD/TT: 04/27/252042 [employer]ator: Complete Blood Count Auto Di ff Reviewed date:05/01/2025 05:14:43 PM Interpretation: Performing Lab:[facility], [address] [place] [address] Notes/Report: White Blood Count 13.5 4.8-10.8 X10*3/uL [...] Auto 0.000 0.0-0.012 X10*3/uL Basic Metabolic Panel Reviewed date:05/01/2025 05:14:43 PM Interpretation: Performing Lab:[facility], [address] [place] [address] Notes/Report: Sodium 140 135-145 mmol/L Potassium 3.5 [...] Calcium 9.1 8.4-10.2 mg/dL CDiff Gene PCR Reviewed date:05/01/2025 05:14:43 PM Interpretation: Performing Lab:[address] [address] Notes/Report: CDiff Gene PCR POSITIVE Negative Additional C. difficile toxin testing to be performed. Additional C. difficile toxin testing to be performed. CDiff Gene PCR POSITIVE Negative Additional C. difficile toxin testing to be performed. Additional C. difficile toxin testing to be performed. FERMÍN ECTED REPORT GI Panel Reviewed date:05/01/2025 05:14:43 PM Interpretation: Performing Lab:[facility], [address] [place] [address] Notes/Report: Campylobacter Not Detected Not Detect. Plesiomonas [...] Detected called to and read back by [facility] on 04/28/25 at 0938 by BRYN. [...] is performed by Multiplexed PCR, utilizing the [employer] Array. CDiff Toxin Reviewed date:05/01/2025 05:14:43 PM Interpretation: Performing Lab:[facility], [address] [place] [address] Notes/Report: CDiff Toxin Negative Negative CDIFF Interpretation SEE NOTE Likely C. difficile colonization. Continue contact precautions. Reason For Referral Reason Consult and Treat Depression ? ADHD Diagnosis 1 Depression (F32.9) Referral Organization Aroldo Blanchard III, MD Referring Provider First Name Aroldo Referring Provider Last Name Lo Referring Provider Speciality Internal M edicine Referred Provider [facility] Referred Provider Specialty Unknown General Notes Ivelisse Gerard 10/15/2024 03:44:32 PM > [facility] information to contact them to schedule an [...] Problem Status W/U Status Risk Notes Problem 9794186 Former smoker (Z87.891) Active confirmed She has a plan to prevent relapse in times of stress and illness. Problem Depression (385055395) Depression (F32.9) Active confirmed Her depression is stable. She is going to report immediately if it worsens. No change in regimen as needed. Problem 271928540624037 Obesity (BMI 30.0-34.9) (E66.9) Active confirmed She has lost 2 pounds since the surgery. We discussed diet and nutrition. We made a plan to lose weight at a rate of 1 pound per week. Problem 47148162 Penicillin allergy (Z88.0) Active confirmed Problem 727565423 Environmental allergies (Z91.09) Active confirmed She has significant allergies and is dealing with them appropriately. She says this is a bad year for seasonal allergies. Problem 19101111 Viral syndrome (B34.9) Active confirmed She has recovered well enough to return to work and normal life. She will call me if she has any difficulty with this. Current therapies were continued. Problem 970419381 Rash (R21) Active confirmed S he was given a course of oral prednisone as well as topical triamcinolone. Problem Hyperlipidaemia (87042114) Hyperlipidemia, unspecified hyperlipidemia type (E78.5) Active confirmed Her fasting total cholesterol of 212. No joint treatment is necessary. Problem 152289430 History of depression (Z86.59) Active confirmed She continues to see a therapist. Her depression is present but minimal. She is completing all of the activities of daily life without impairment. Problem 579112878 Acute asthmatic bronchitis (J45.909) Active confirmed I have given her prednisone and Augmentin. She says she has an inhaler. She will report in 48 hours. Problem 76482817 Diet controlled gestational diabetes mellitus (GDM) in third trimester (O24.410) Active confirmed Comprehensive blood work is pending. Problem 380183879 Status post appendectomy (Z90.49) Active confirmed She [...] Provider Diagnosis Aroldo Blanchard III, MD [address] [place] [address] [place] [address] 05/20/2024 Aroldo Blanchard Acute contact dermat itis L25.9 ; Obesity (BMI 30.0-34.9) E66.9 ; Former smoker Z87.891 and History of depression Z86.59 Aroldo Blanchard III, MD [address] [place] [address] [place] [address] 05/22/2024 Aroldo Blanchard Acute contact dermat itis L25.9 ; Former smoker Z87.891 ; Obesity (BMI 30.0-34.9) E66.9 and Environmental allergies Z91.09 Aroldo Blanchard III, MD [address] [place] [address] [place] [address] 10/01/2024 Aroldo Blanchard Viral syndrome B34.9 ; Obesity (BMI 30.0-34.9) E66.9 ; Diet controlled gestational diabetes mellitus (GDM) in third trimester O24.410 ; Former smoker Z87.891 ; History of depression Z86.59 ; Depression F32.9 and Hyperlipidemia, unspecified hyperlipidemia type E78.5 Aroldo Blanchard III, MD [address] [place] [address] [place] [address] 10/08/2024 Aroldo Blanchard Obesity (BMI 30.0-34 .9) E66.9 ; Acute asthmatic bronchitis J45.909 ; Former smoker Z87.891 ; History of depression Z86.59 ; Environmental allergies Z91.09 and Hyperlipidemia, unspecified hyperlipidemia type E78.5 Aroldo Blanchard III, MD [address] [place] [address] [place] [address] 10/15/2024 Aroldo Blanchard Obesity (BMI 30.0-34 .9) E66.9 ; Viral syndrome B34.9 ; Hyperlipidemia, unspecified hyperlipidemia type E78.5 ; Former smoker Z87.891 ; Environmental allergies Z91.09 and History of depression Z86.59 Aroldo Blanchard III, MD [address] [place] [address] [place] [address] 12/29/2024 Aroldo Blanchard Obesity (BMI 30.0-34 .9) E66.9 ; Breast cancer screening Z12.31 ; Former smoker Z87.891 and Environmental allergies Z91.09 Aroldo Blanchard III, MD [address] [place] [address] [place] [address] 01/26/2025 Aroldo Blanchard Obesity (BMI 30.0-34 .9) E66.9 ; Hyperlipidemia, unspecified hyperlipidemia type E78.5 and Former smoker Z87.891 Aroldo Blanchard III, MD [address] [place] [address] [place] [address] 04/20/2025 Aroldo Blanchard Obesity (BMI 30.0-34 .9) E66.9 ; Status post appendectomy Z90.49 ; Hyperlipidemia, unspecified hyperlipidemia type E78.5 ; Former smoker Z87.891 ; Environmental allergies Z91.09 ; History of depression Z86.59 and Depression F32.9 Aroldo Blanchard III, MD [address] [address] 05/05/2025 Aroldo Blanchard III, MD [address] [address] 05/21/2024 Aroldo Blanchard III, MD [address] [place] [address] [place] [address] 05/26/2024 Aroldo Blanchard III, MD [address] [address] 05/26/2024 Aroldo Blanchard III, MD [address] [address] 05/30/2024 Aroldo Blanchard III, MD [address] [place] [address] [place] [address] 10/03/2024 Aroldo Blanchard III, MD [address] [place] [address] [place] [address] 10/06/2024 Aroldo Blanchard III, MD [address] [place] [address] [place] [address] 10/08/2024 Aroldo Blanchard III, MD [address] [place] [address] [place] [address] 10/09/2024 Aroldo Blanchard Assessments Encounter Date Diagnosis [...] will be treated at home conservatively with [id number] medications. She is going to report frequently [...] A1c 11/05/2023 Next Appt Details Provider Name:Aroldo Cervantesrne , 07/29/2025 02:30:00 PM, [address] [place] [address] [address], [place], [address], Provider Name:Aroldo Biggs Lo , 12/30/2025 03:00:00 PM, [address] [place] [address] [address], [place], [address], Insurance Providers Payer Name Payer Address Payer Phone Subscriber Number Group Number Insured Name Patient Relationship to Insured Coverage Start Date Coverage End Date [facility] [address] [place], [place] [phone] [id number] Derik Kan Self - patient is the [...]
--- OUTSIDE RECORDS SUMMARY | 2025-05-13 11:48 | XMS_ITS | Patient Health Record ---
Author Organization [facility] Address [address] [place] [address] Care Team Providers Care [employer] Name Role Phone Aroldo Blanchard MD Primary [...] Problem History of polyp of colon (situation) (999087414) Personal history of colonic polyps (Z86.010) Active confirmed Problem Change in bowel habit (01584406) Change in bowel habits (R19.4) Active confirmed Problem Hemorrhoids without complication (38958945) Hemorrhoids, unspecified hemorrhoid type (K64.9) Active confirmed Problem Diarrhea (61028534) Diarrhea, unspecified type (R19.7) Active confirmed Problem Benign neoplasm of colon (53199873) Polyp of colon, unspecified part of colon, unspecified type (K63.5) Active confirmed Problem Altered bowel function (36580240) Change in bowel function (R19.8) Active confirmed Encounters Encounter Location Date Provider Diagnosis [facility] Out[facility] [address] [place], [place] [id number] 05/12/2025 Ruslan Wade Jr [facility] [address] [place] [address] 04/30/2025 Ruslan Wade Jr Plan Of Treatment Pending Test Test Name Order Date LIVER PROFILE 08/30/2022 LIPASE 08/30/2022 CBC w DIFF 08/30/2022 TSH REFLEX FREE T4 08/30/2022 Future Test Test Name Order Date COLONOSCOPY 04/06/2021 COLONOSCOPY 04/21/2021 COLONOSCOPY 09/14/2022 Insurance Providers Payer Name Payer Address Payer Phone Subscriber Number Group Number Insured Name Patient Relationship to Insured Coverage Start Date Coverage End Date [facility] [address] [place], [place] [phone] [id number] LUPE REINA Self - patient is the insured Medical (General) History Medical History History ICD Code Anxiety/stress Anemia requiring blood transfusion due t o menorrhagia Surgical History Surgery Date(Month/Year) Reduction mammoplasty Partial hysterectomy for menorrhagia in cervical polyp Tonsillectomy Left knee ACL
== END 2025-05-13 10:13 | disposition home or self-care (01) ==
LOC: HO.HGS 09:48
PROVIDERS: PCP Internal Medicine Medical Oncology
DX: Z90.49 Acquired absence of other specified parts of digestive tract (principal)
CPT/HCPCS: 99024

== ENCOUNTER 2025-06-12 06:25 | Outpatient (REF) | payer BC, SELFPAY ==
--- OUTSIDE RECORDS SUMMARY | 2024-10-08 06:00 | XMS_ITS ---
Author Organization Aroldo Blanchard III, MD Address [address] [address] [place] [address] Care Team Providers Care Trial Justice Name Role Phone Dr. Aroldo Blanchard III Primary Care Provider Allergies Allergen (clinical drug ingredient) Drug/Non Drug Allergy documented on EMR Reaction Allergy Type Onset Date Status No Known Drug Allergy Unknown Drug Allergy Active REASON FOR VISIT Coughing, fatigue, Low grade fever 99.0, congestion, Diarrhea Medications Medication SIG (Take, Route, Frequency, Duration) Notes Start Date End Date Status predniSONE 20 MG TAKE 1 TABLET BY DAILY FOR 7 DAYS Active Escitalopram Oxalate 5 MG 1 tablet Orall y Once a day 04/17/2024 Active Silver sulfADIAZINE 1 % 1 application Ex ternally Once a day 11/05/2023 Active Loratadine 10 MG 1 tablet Orally Once a day 05/20/2024 Active predniSONE 20 MG 1 tablet with food o r milk Orally Once a day for 7 days 10/08/2024 10/22/2024 Active Amoxicillin-Pot Clavulanate 875-125 MG 1 tablet Orally every 12 hrs for 7 days 10/08/2024 10/15/2024 Active Social History Tobacco Use: Social History Observation Description Date Details (start date - stop date) Former Smoker NA - NA Sex Assigned At : Social History Observation Description Sex Assigned At Female Tobacco Use/Smoking Question Answer Notes Patient is a former smoker How long has it been since you last smoked? 5-10 years Additional Findings: Tobacco Non-User Ex-cigaret te smoker Problems Problem Type SNOMED Code ICD Code Onset Dates Problem Status W/U Status Risk Notes Problem [id number] Acute asthmatic bronchitis (J45.909) Active confirmed I have given her prednisone and Augmentin. She says she has an inhaler. She will report in 48 hours. Vital Signs Temperature 97.9 degrees Fahrenheit 10/09/19 25 Blood pressure systolic 137 mm Hg 10/09/19 25 Blood pressure diastolic 83 mm Hg 025 Heart Rate 88 /min 10/08/2024 Height 63 in 10/08/2024 Weight 184 lbs 10/08/2024 BMI 32.59 kg/m2 10/08/2024 Encounters Encounter Location Date Provider Diagnosis Aroldo Blanchard III, MD [address] [place] [address] DR [place], [place] [address] 10/08/2024 Aroldo Blanchard Obesity (BMI 30.0-34 .9) E66.9 ; Acute asthmatic bronchitis J45.909 ; Former smoker Z87.891 ; History of depression Z86.59 ; Environmental allergies Z91.09 and Hyperlipidemia, unspecified hyperlipidemia type E78.5 Assessments Encounter Date Diagnosis (ICD Code) Assessment Notes Treat ment Notes Treatment Clinical Notes 10/08/2024 Obesity (BMI 30.0-34.9) (ICD-10 - E66.9) She had lost 10 pounds in her body mass index is dropped to 31.7 on her last visit.. We have reviewed her diet and nutrition and weight loss strategy. She will continue her weight loss until her body mass index is in the normal range. 10/08/2024 Acute asthmatic bronchitis (ICD-10 - J45.909) I have given her prednisone and Augmentin. She says she has an inhaler. She will report in 48 hours. 10/08/2024 Former smoker (ICD-1 0 - Z87.891) She has a plan to prevent relapse in times of stress and illness. 10/08/2024 History of depressio n (ICD-10 - Z86.59) She continues to see a therapist. Her depression is present but minimal. She is completing all of the activities of daily life without impairment. 10/08/2024 Environmental allergies (ICD-10 - Z91.09) She has significant allergies and is dealing with them appropriately. She says this is a bad year for seasonal allergies. 10/08/2024 Hyperlipidemia, unspecified hyperlipidemia type (ICD-10 - E78.5) Comprehensive blood work with a fasting lipid profile is pending. Plan Of Treatment Medication Medication Name Sig Start Date Stop Date Notes predniSONE 20 MG TAKE 1 TABLET BY JEANA TH DAILY FOR 7 DAYS Escitalopram Oxalate 5 MG 1 tablet Orally Once a day 04/17 Silver sulfADIAZINE 1 % 1 application Ex ternally Once a day 11/05/2023 Loratadine 10 MG 1 tablet Orally Once a day 05/20/2024 predniSONE 20 MG 1 tablet with food o r milk Orally Once a day for 7 days 10/08/2024 10/22/2024 Amoxicillin-Pot Clavulanate 875-125 MG 1 tablet Orally every 12 hrs for 7 days 10/08/2024 10/15/2024 Pending Test Test Name Order Date XR CHEST 2 VIEW PA & LAT 10/08/2024 Next Appt Details Follow Up: 1 Week,2 Weeks, R eh: Telehealth, OV Provider Name:Aroldo Blanchard , 06/15/2025 02:45:00 PM, [address] [place] [address] [address], [place], [address], Provider Name:Aroldo Blanchard , 07/29/2025 02:30:00 PM, [address] [place] [address] [address], [place], [address], Provider Name:Aroldo Blanchard , 12/30/2025 03:00:00 PM, [address] [place] [address] [place], [address], Progress Notes * Derik LEYVA GDOB:1970 (53 yo F)Acc No.[id number]:10/08/2024 Progress Notes Patient: Derik HANLEY Provider: Maribel Blanchard MD :1970 A ge:53 Y S ex:Female Date:10/08/2024 Address:[address] [place] [address] [id number] Subjective: * Chief Complaints: * C oughingFatigueLow grade fever 99.0CongestionDiarrhea * HPI: C OVID-19 Screening: She complains of 7 days of low-grade fever up to 99, cough productive of thick white phlegm, nasal congestion, pulmonary congestion, fatigue and myalgias. She has been taking azithromycin without effect. She finds it difficult to sleep. She does not have any vomiting or diarrhea but has occasional nausea. She is trying to consume adequate fluids. Questions H ave you had any new onset fever, chills, cough, congestion, sore throat, shortness of breath, muscle aches? N o * ROS: G eneral/Constitutional: pain o nly normal aches and pains. C hills a ssociated with fever. F atigue a dmits. F ever u p to 99 degrees. E NT: Decreased hearing d enies. R espiratory: Cough w orse at night. C ardiovascular: Chest pain with exertion d enies. D yspnea on exertion?denies. S hortness of breath d enies. G astrointestinal: Constipation d enies. D ecreased appetite t hat is not associated with weight loss. D iarrhea d enies. H eartburn d enies. N ausea?denies. R ectal bleeding d enies. V omiting d enies. H ematology: bruising d enies. p etechiae d enies. S wollen glands n one have been noted. G enitourinary: Frequent urination a t night. M usculoskeletal: Muscle aches d enies. P ainful joints d enies. S ciatica d enies. W eakness t hat is generalized. S kin: Itching d enies. R jaren d enies. S kin lesion(s)?denies. N eurologic: Difficulty speaking d enies. D izziness d enies.?Headache d enies. L ow back pain d enies. P sychiatric: Depressed mood d enies. * Medical History: * Surgical History: b ilateral breast reduction 2009tonsillectomy hysterectomy for bleeding, retains her ovaries 2007hysteroscopy with cervical polypectomy 2003NovaSure uterine ablation and polypectomy 2009No history * Hospitalization/Major Diagno stic Procedure: N o history * Family History: F ather: 73 yrs, Alive and well. M other: alive 68 yrs, Alive and well, lives in [place], [place], thyroid disease, hyperlipidemia. Ady don Grand Father: , diagnosed with Cancer. Ady don aunt: , diagnosed with Cancer. She has no information about her father. Her mother\'s sister had breast cancer over the age of 50. She has one daughter who is healthy and well. One brother . * Social History: T obacco Use: T obacco Use/Smoking P atsilver is a f ormer smoker H ow long has it been since you last smoked??5-10 years A dditional Findings: Tobacco Non-User E x-cigarette smoker S he was born in [facility]. 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 She is exposed to paint and dust and zinc oxide powder. She sometimes has to wear a respirator. Patient is now on Medical Marijuana. * Medications: T akingLoratadine 10 MG Tablet 1 tablet Orally Once a day Silver sulfADIAZINE 1 % Cream 1 application Externally Once a day Escitalopram Oxalate 5 MG Tablet 1 tablet Orally Once a day Taking Loratadine 10 MG Tablet 1 tablet Orally Once a day Taking Silver sulfADIAZINE 1 % Cream 1 application Externally Once a day Taking Escitalopram Oxalate 5 MG Tablet 1 tablet Orally Once a day DiscontinuedAzithromycin 250 MG Tablet as directed Orally 2 Tablets on the first day, one tablet the rest of the days predniSONE 20 MG Tablet TAKE 1 TABLET BY MOUTH DAILY FOR 7 DAYS Medication List reviewed and reconciled with the patientDiscontinued Azithromycin 250 MG Tablet as directed Orally 2 Tablets on the first day, one tablet the rest of the days Discontinued predniSONE 20 MG Tablet TAKE 1 TABLET BY MOUTH DAILY FOR 7 DAYS Medication List reviewed and reconciled with the patient * Allergies: N o Known Drug Allergyno[Allergies Verified] Objective: * Vitals: H t: 63, Wt: 184, BMI:32.59, BP: 137/83, HR: 88, Temp: 97.9, Wt-k.46. * Examination: G eneral Examination: GENERAL APPEARANCE: p leasant, well nourished, well developed, in no acute distress, calm and relaxed, obese, woman. HEAD: a traumatic, normocephalic. EYES: e kenny, perrla, anicteric, conjugate. EARS: n ormal. NOSE: s eptum intact, Congestion. ORAL CAVITY: n ormal, unremarkable. NECK/THYROID: n o jugular venous distention, no carotid bruit, thyroid normal. LYMPH NODES: n o enlarged lymph nodes,spleen normal. SKIN: n o suspicious lesions, anicteric. HEART: n o clicks, gallops, murmurs, or rubs, regular rhythm, S1, S2 normal, no s3, or vascular bruits. LUNGS: d iminished breath sounds throughout, scattered wheezes throughout. BREASTS: N ot examined. ABDOMEN: b owel sounds normal, no ascites, no organomegaly, no mass. RECTAL EXAM: n ot examined. MUSCULOSKELETAL: e xtremities unremarkable, no clubbing, cyanosis or edema. PERIPHERAL PULSES: n ormal. NEUROLOGIC: a lert and oriented, cranial nerves 2-12 grossly intact, deep tendon reflexes 2+ symmetrical, motor strength normal upper and lower extremities, sensory exam intact. PSYCH: a lert, oriented. Assessment: * Assessment: 1. A cute asthmatic bronchitis - J45.909 (Primary) N otes :I have given her prednisone and Augmentin. She says she has an inhaler. She will report in 48 hours. 2 . O besity (BMI 30.0-34.9) - E66.9 N otes :She had lost 10 pounds in her body mass index is dropped to 31.7 on her last visit.. We have reviewed her diet and nutrition and weight loss strategy. She will continue her weight loss until her body mass index is in the normal range. 3 . F ormer smoker - Z87.891 N otes :She has a plan to prevent relapse in times of stress and illness. 4 . H istory of depression - Z86.59 N otes :She continues to see a therapist. Her depression is present but minimal. She is completing all of the activities of daily life without impairment. 5 . E nvironmental allergies - Z91.09 N otes :She has significant allergies and is dealing with them appropriately. She says this is a bad year for seasonal allergies. 6 . H yperlipidemia, unspecified hyperlipidemia type - E78.5 N otes :Comprehensive blood work with a fasting lipid profile is pending. Plan: * Treatment: * Imaging: * I maging: XR CHEST 2 VIEW PA & LAT * Procedure Codes: * Preventive Medicine: Counseling: C are goal follow-up plan: Counseling for abnormal BMI given Y es Above Normal BMI Follow-up D ietary management education, guidance, and counseling, Dietary needs education, Exercise promotion: strength training, Exercise promotion: stretching, Feeding regime, Giving encouragement to exercise, Lifestyle education regarding diet, Nutrition / feeding management, Nutrition therapy, Prescribed activity/exercise education, Prescribed diet education, Prescribed dietary intake, Special diet education, Weight monitoring , Intervention, Order not done: Medical or Other reason not done S moking/Tobacco Use Patient counseled on the dangers of tobacco use and urged to quit. 0 10/08/2024 * Follow Up: 1 Week,2 Weeks (Reason: Telehealth, OV) * Images: * Sign off status: Completed true * Provider: Maribel Blanchard MD Date: 0 10/08/2024 Generated for Printi ng/Eliana/eTransmitting on: 1 08/12/2024 06:28 AM EST History and Physical Notes * HPI (History of Present Illness) Category Sub-Category Detail Notes COVID-19 Screening Questions Have you had any new onset fever, chills, cough, congestion, sore throat, shortness of breath, muscle aches?: No Examination Category Sub-Category Detail Notes General Examination GENERAL APPEARANCE: pleasant , well nourished, well developed, in no acute distress, calm and relaxed, obese, woman HEAD: atraumatic, normocep halic EYES: eomi, perrla, anicte griselda, conjugate EARS: normal NOSE: septum intact, Conge stion NECK/THYROID: no jugular venous di stention, no carotid bruit, thyroid normal HEART: no clicks, gallops, murmurs, or rubs, regular rhythm, S1, S2 normal, no s3, or vascular bruits LUNGS: diminished breath so unds throughout, scattered wheezes throughout ABDOMEN: bowel sounds normal, no ascites, no organomegaly, no mass NEUROLOGIC: alert and oriented, cranial nerves 2-12 grossly intact, deep tendon reflexes 2+ symmetrical, motor strength normal upper and lower extremities, sensory exam intact SKIN: no suspicious lesion s, anicteric PERIPHERAL PULSES: normal BREASTS: Not examined MUSCULOSKELETAL: extremities unremark able, no clubbing, cyanosis or edema LYMPH NODES: no enlarged lymph no peter,spleen normal RECTAL EXAM: not examined PSYCH: alert, oriented ORAL CAVITY: normal, unremarkable
--- OUTSIDE RECORDS SUMMARY | 2024-10-08 06:26 | XMS_ITS ---
Author Organization Aroldo Blanchard III, MD Address [address] [place] [address] [place] [address] Care Team Providers Care Informix Developer Name Role Phone Dr. Aroldo Blanchard III Primary Care Provider [phone] REASON FOR VISIT Work Fax / Out of Work Note Social History Sex Assigned At : Social History Observation Description Sex Assigned At Female Encounters Encounter Location Date Provider Diagnosis Aroldo Blanchard III, MD [address] [place] [address] [place] [address] 10/08/2024 Aroldo Blanchard Plan Of Treatment Next Appt Details Provider Name:Aroldo Blanchard , 06/15/2025 02:45:00 PM, [address] [place] [address] [place], [address], Provider Name:Aroldo Blanchard , 07/29/2025 02:30:00 PM, [address] [place] [address] [place], [address], Provider Name:Aroldo Blanchard , 12/30/2025 03:00:00 PM, [address] [place] [address] [place], [address], Progress Notes * Derik LEYVA GDOB:1970 (53 yo F)Acc No.[id number]:10/08/2024 Patient: Derik HANLEY :1970 A ge:53 Y S ex:Female Address:[address] [place] [address], [place], [address] * true * Date: Generated for Janet fine/Eliana/Janice on: 08/12/2024 06:28 AM EST
--- OUTSIDE RECORDS SUMMARY | 2024-10-09 09:24 | XMS_ITS ---
Author Organization Aroldo Blanchard III, MD Address [address] [place] [address] [place] [address] Care Team Providers Care Agency Sales Director Name Role Phone Dr. Aroldo Blanchard III Primary Care Provider [phone] REASON FOR VISIT Requesting Out of Work Social History Sex Assigned At : Social History Observation Description Sex Assigned At Female Encounters Encounter Location Date Provider Diagnosis Aroldo Blanchard III, MD [address] [place] [address] [place] [address] 10/09/2024 Aroldo Blanchard Plan Of Treatment Next Appt Details Provider Name:Aroldo Blanchard , 06/15/2025 02:45:00 PM, [address] [place] [address] [place], [address], Provider Name:Aroldo Blanchard , 07/29/2025 02:30:00 PM, [address] [place] [address] [place], [address], Provider Name:Aroldo Blanchard , 12/30/2025 03:00:00 PM, [address] [place] [address] [place], [address], Progress Notes * Derik LEYVA GDOB:1970 (53 yo F)Acc No.[id number]:10/09/2024 Patient: Derik HANLEY :1970 A ge:53 Y S ex:Female Address:[address] [place] [address] [place], [address] * true * Date: Generated for Janet fine/Eliana/Janice on: 08/12/2024 06:29 AM EST
--- OUTSIDE RECORDS SUMMARY | 2024-10-15 10:30 | XMS_ITS ---
Author Organization Aroldo Blanchard III, MD Address [address] [facility] [place] [address] Care Team Providers Care Procedure Manager Name Role Phone Dr. Aroldo Blanchard III [...] Provider Speciality Internal M edicine Referred Provider [facility] Referred Provider Specialty Unknown General Notes Ivelisse Gerard 10/15/2024 03:44:32 PM > Patient was given [facility] and [facility] information to contact them to schedule [...] Problem Status W/U Status Risk Notes Problem [id number] Viral syndrome (B34.9) Active confirmed She has recovered well enough to return to work and normal life. She will call me if she has any difficulty with this. Current therapies were continued. Encounters Encounter Location Date Provider Diagnosis Aroldo Blanchard III, MD [address] [place] [address] [place] [address] 10/15/2024 Aroldo Blanchard Obesity (BMI 30.0-34 .9) [...] Consult and Treat Depression ? ADHD, Counseling [facility] Appt Details Follow Up: As Scheduled, Zora son: Annual Exam Provider Name:Aroldo Blanchard , 06/15/2025 02:45:00 PM, [address] [place] [address] [address], [place], [address], Provider Name:Aroldo Blanchard , 07/29/2025 02:30:00 PM, [address] [place] [address] [address], [place], [address], Provider Name:Aroldo Blanchard , 12/30/2025 03:00:00 PM, [address] [place] [address] [address], [place], [address], Progress Notes * Derik LEYVA GDOB:1970 (53 yo F)Acc No.[id number]:10/15/2024 Patient: Derik HANLEY Provider: Maribel Blanchard MD :1970 A ge:53 Y S ex:Female Date:10/15/2024 Address:[address] [place] [address] [place]an [id number] Subjective: * Chief Complaints: * R ecent [...] of provider rendering services: { ...} [address] [facility] [address] L ocation of patient: dante yu listed in demographics for today's visit P atient identification confirmed using: Dayana bautista, RAHEL T elehealth method: T elephone only. Patient not [...] cervical polypectomy 2003[employer] uterine ablation and polypectomy 2010No history * Hospitalization/Major Diagno stic Procedure: N o history * Family History: F ather: 73 yrs, Alive and well. M other: alive 68 yrs, Alive and well, lives in [place], [place], thyroid disease, hyperlipidemia. M arian Grand Father: , diagnosed with Cancer. M arian aunt: , diagnosed with Cancer. She has [...] x-cigarette smoker S he was born in [facility]. 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 She is exposed to paint and dust [...] Lipid Panel 3. O thers Referral To:Counseling [facility] Unknown Reason:Consult and Treat Depression ? ADHD [...] MD Date: 0 10/15/2024 Generated for Janet fine/Eliana/eTashvinsmitting on: 1 08/12/2024 06:29 AM EST History and Physical Notes * HPI (History of Present Illness) Category Sub-Category Detail Notes Telehealth Location of [facility] ider rendering services:: {...} [address] [facility] [address] Location of patient:: address listed in demographics [...] Referral Date Referring Provider Referred Provider Not es 10/15/2024 Aroldo Blanchard [place], [place] [facility] Consult and Treat Depression ? ADHD
--- OUTSIDE RECORDS SUMMARY | 2024-11-10 12:30 | XMS_ITS ---
Author Organization Aroldo Blanchard III, MD Address [address] [facility] [address] Care Team Providers Care Secretary Book Keeper Name Role Phone Dr. Aroldo Blanchard III [...] Date Provider Diagnosis Aroldo Blanchard III, MD [address] [place] [address] [place] [address] 11/10/2024 Aroldo Blanchard Obesity (BMI 30.0-34.9) E66.9 [...] day 04/17 Next Appt Details Provider Name:Aroldo Blanchard , 06/15/2025 02:45:00 PM, [address] [place] [address] [address], [place], [address], Provider Name:Aroldo Blanchard , 07/29/2025 02:30:00 PM, [address] [place] [address] [address], [place], [address], Provider Name:Aroldo Blanchard , 12/30/2025 03:00:00 PM, [address] [place] [address] [address], [place], [address], Progress Notes * Derik YAÑEZ GDOB: [birth year] (54 yo F)Acc No.[id number]:11/10/2024 Progress Notes Patient: Derik HASSAN Provider: Maribel Blanchard MD :1970 A ge:53 Y S ex:Female Date:11/10/2024 Address:[address] [place] [phone] Subjective: * Chief Complaints: * 1 . [...] 2009, retains her ovaries, 1 para 1, 2006, Recent right lateral foot pain, History of [...] 69 yrs, Alive and well, lives in [place], [place], thyroid disease, hyperlipidemia. M atemecca Grand Father: , diagnosed with Cancer. M [...] x-cigarette smoker S he was born in [place], [facility]. 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 She is exposed to paint and dust and zinc oxide powder. She sometimes has to wear a respirator. Patient is now on Medical Marijuana. * Medications: T aking Loratadine 10 MG Tablet 1 tablet Orally [...] Blanchard MD Date: 0 11/10/2024 Generated for Neerui rody/Eliana/Dionicioitting on: 08/12/2024 06:29 AM EST History and Physical [...]
--- OUTSIDE RECORDS SUMMARY | 2024-12-29 09:30 | XMS_ITS ---
Author Organization Aroldo Blanchard III, MD Address [address] [facility] [place] [address] [address] [place] [address] Care Team Providers Care Cleaning Laborer Name Role Phone Dr. Aroldo Blanchard III [...] Date Provider Diagnosis Aroldo Blanchard III, MD [address] [place] [address] [place] [address] 12/29/2024 Aroldo Blanchard Obesity (BMI 30.0-34 .9) [...] Up: 3 Weeks, Reason: Telehealth Provider Name:Aroldo Londonone , 06/15/2025 02:45:00 PM, [address] [place] [address] [address], [place], [address], Provider Name:Aroldo Londonone , 07/29/2025 02:30:00 PM, [address] [place] [address] [address], [place], [address], Provider Name:Aroldo Biggs Lo , 12/30/2025 03:00:00 PM, [address] [place] [address] [address], [place], [address], Progress Notes * PARI, Derik GDOB: [birth year] (54 yo F)Acc No.[id number]:12/29/2024 Progress Notes Patient: Derik HASSAN Provider: Maribel Blanchard MD :1970 A ge:54 Y S ex:Female Date:12/29/2024 Address:[address] [place] [address] JADEN Biggs [id number] Subjective: * Chief Complaints: * A nnual [...] 69 yrs, Alive and well, lives in [place], [place], thyroid disease, hyperlipidemia, diagnosed with CVD. S iblings: alive, Youngest brother have A-fib.. M aternal Grand Father: , diagnosed with [...] P ositive S he was born in [place], [facility]. 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 She is exposed to paint and dust [...] . BREASTS: , Not examined, Done by PRESCHOOL SUBSTITUTE TEACHER. ABDOMEN: b owel sounds normal, no ascites, [...] MD Date: 0 12/29/2024 Generated for Janet fine/Eliana/Dionicioitting on: 1 08/12/2024 06:28 AM EST History [...] normal BREASTS: , Not examined, Done by PRESCHOOL SUBSTITUTE TEACHER MUSCULOSKELETAL: extremities unremark able, no clubbing, cyanosis or edema LYMPH NODES: no enlarged lymph no peter,spleen normal RECTAL EXAM: not examined PSYCH: alert, oriented ORAL CAVITY: normal, unremarkable
--- OUTSIDE RECORDS SUMMARY | 2025-01-26 09:45 | XMS_ITS ---
Author Organization Aroldo Blanchard III, MD Address [address] [place] [address] Care Team Providers Care Rig Hand Name Role Phone Dr. Aroldo Blanchard III [...] Date Provider Diagnosis Aroldo Blanchard III, MD [address] [place] [address] [place] [address] 01/26/2025 Aroldo Blanchard Obesity (BMI 30.0-34 .9) [...] Months, Reason: OV Provider Name:Aroldo Blanchard , 06/15/2025 02:45:00 PM, [address] [place] [address] [address], [place], [address], Provider Name:Aroldo Blanchard , 07/29/2025 02:30:00 PM, [address] [place] [address] [address], [place], [address], Provider Name:Aroldo Blanchard , 12/30/2025 03:00:00 PM, [address] [place] [address] [place], [address], Progress Notes * Derik YAÑEZ GDOB: [birth year] (54 yo F)Acc No.[id number]:01/26/2025 Patient: Meagan STEPHANIEKING Derik Rhodes Provider: Maribel Blanchard MD :1970 A ge:54 Y S ex:Female Date:01/26/2025 Address:[place] [id number] Subjective: * Chief Complaints: * T elehealth [...] of provider rendering services: { ...} [address] [facility] [address] [facility] [address] L ocation of patient: a ddress listed in demographics for today's visit P [...] 69 yrs, Alive and well, lives in [place], [place], thyroid disease, hyperlipidemia, diagnosed with CVD. [...] x-cigarette smoker S he was born in [place], [facility]. 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 She is exposed to paint and dust [...] joint treatment is necessary. 2 . O racquel (BMI 30.0-34.9) - E66.9 N otes :Her [...] MD Date: 0 01/26/2025 Generated for Janet fine/Eliana/Janice on: 1 08/12/2024 06:29 AM EST History and Physical Notes * HPI (History of Present Illness) Category Sub-Category Detail Notes Telehealth Location of [facility] rendering services:: {...} [address] [place] [address] [place] [address] Location of patient:: address listed in demographics [...]
--- OUTSIDE RECORDS SUMMARY | 2025-04-20 08:00 | XMS_ITS ---
Author Organization Aroldo Blanchard III, MD Address [address] [address] Care Team Providers Care Rand Butter Name Role Phone Dr. Aroldo Blanchard III Primary Care Provider Allergies Allergen (clinical drug ingredient) Drug/Non Drug Allergy documented on EMR Reaction Allergy Type Onset Date Status No Known Drug Allergy Unknown Drug Allergy Active No Known Food Allergy Unknown Drug Allergy Active REASON FOR VISIT [place]end[place] [facility] [place], Obesity, Allergies, Hyperlipidemia, Depression Medications Medication [...] Problem Status W/U Status Risk Notes Problem [id number] Status post appendectomy (Z90.49) Active confirmed She [...] Provider Diagnosis Aroldo Blanchard III, MD [address] [place] [address] DR [place]ADRID [place], [place] [address] 04/20/2025 Aroldo Blanchard Obesity (BMI 30.0-34 .9) [...] As Scheduled, Zora son: OV Provider Name:Aroldo Biggs Blanchard , 06/15/2025 02:45:00 PM, [facility] [address], [place], [address], Provider Name:Aroldo Biggs Lo , 07/29/2025 02:30:00 PM, [address] [place] [address] [address], [place], [address], Provider Name:Aroldo Biggs Lo , 12/30/2025 03:00:00 PM, [address] [place] [address] [address], [place], [address], Progress Notes * Derik YAÑEZ GDOB: [birth year] (54 yo F)Acc No.[id number]:04/20/2025 Patient: Derik HASSAN Provider: Maribel Blanchard MD :1970 A ge:54 Y S ex:Female Date:04/20/2025 Address:[address] [place] [id number] Subjective: * Chief Complaints: * A [place] [facility] [place]ObesityAllergiesHyperlipidemiaDepression * HPI: v : She was admitted to [facility] recently through the emergency room and had [...] 69 yrs, Alive and well, lives in [place], [place], thyroid disease, hyperlipidemia, diagnosed with CVD. [...] x-cigarette smoker S he was born in [place], [facility]. 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 She is exposed to paint and dust [...] Maribel Blanchard MD Date: Generated for Janet fine/Eliana/eTashvinsmitting on: 08/12/2024 06:27 AM EST History and Physical Notes * Examination [...]
--- OUTSIDE RECORDS SUMMARY | 2025-05-05 06:01 | XMS_ITS ---
Author Organization Aroldo Blanchard III, MD Address [address] [place] [address] [address] [facility] [place] [address] Care Team Providers Care Clinical Information Systems Director Name Role Phone Dr. Aroldo Blanchard III Primary Care Provider [phone] REASON FOR VISIT Needs call back from Social History Sex Assigned At : Social History Observation Description Sex Assigned At Female Encounters Encounter Location Date Provider Diagnosis Aroldo Blanchard III, MD [address] [place] [address] [place] [address] 05/05/2025 Aroldo Blanchard Plan Of Treatment Next Appt Details Provider Name:Aroldo Blanchard , 06/15/2025 02:45:00 PM, [address] [place] [address] [place], [address], Provider Name:Aroldo Blanchard , 07/29/2025 02:30:00 PM, [address] [place] [address] [place], [address], Provider Name:Aroldo Blanchard , 12/30/2025 03:00:00 PM, [address] [place] [address] [place], [address], Progress Notes * Derik YAÑEZ GDOB: [birth year] (54 yo F)Acc No.[id number]:05/05/2025 Patient: Derik HASSAN :1970 A ge:54 Y S ex:Female Address:[address] [place] [address] [place], [address] * true * Date: Generated for Janet fine/Eliana/Janice on: 08/12/2024 06:28 AM EST
--- OUTSIDE RECORDS SUMMARY | 2025-05-12 08:30 | XMS_ITS ---
Author Organization [facility] Address [address] [place] [address] Care Team Providers Care Machine Shorthand Reporter Name Role Phone Lo BONILLA, Aroldo Primary Care Provider Unavailab Ruslan Johnsno Jr Unavailable REASON FOR VISIT COLITIS, ABNORMAL CT OF THE ABDOMEN Encounters Encounter Location Date Provider Diagnosis [facility] Outpatient [address] [place], [place] [id number] 05/12/2025 Ruslan Wade Jr Plan Of Treatment No Information Progress Notes * LUPE YAÑEZDOB: [birth year] (54 yo F)Acc No.[id number]:05/12/2025 COLON WITH MAC Patient: LUPE HASSAN Provider: Michelle Wade MD :1970 A ge:54 Y S ex:Female Date:05/12/2025 Address:[address] [place], [place] [phone] Pcp:Aroldo Blanchard MD Subjective: * Chief Complaints: [...] MD Date: Generated for Janet fine/Eliana/Dionicioitting on: 08/12/2024 06:29 AM EST
--- OUTSIDE RECORDS SUMMARY | 2025-05-20 10:15 | XMS_ITS ---
Author Organization Aroldo Blanchard III, MD Address [address] [facility] [place] [address] [place] [address] Care Team Providers Care Physician Assistant Primary Care Name Role Phone Dr. Aroldo Blanchard III Primary Care Provider Allergies Allergen (clinical drug ingredient) Drug/Non Drug Allergy documented on EMR Reaction Allergy Type Onset Date Status No Known Drug Allergy Unknown Drug Allergy Active No Known Food Allergy Unknown Drug Allergy Active REASON FOR VISIT Pressure under left breast for 1 month, Discomfort left costochondral margin for1 month, Obesity, Allergies, Asthma, Hyperlipidemia, Recent appendectomy Medications Medication SIG (Take, Route, Frequency, Duration) Notes Start Date End Date Status Silver sulfADIAZINE 1 % 1 application Ex ternally Once a day 11/05/2023 Active Escitalopram Oxalate 5 MG TAKE 1 TABLET BY MOUTH DAILY Active Loratadine 10 MG 1 tablet Orally Once a day 2023 Active Social History Tobacco Use: Social History [...] Problem Status W/U Status Risk Notes Problem [id number] Chest discomfort (R07.89) Active confirmed This is likely a mild costochondritis but could be hiatal hernia or constipation. She seems stable today. She'll be observed carefully. Vital Signs Temperature 97.9 degrees Fahrenheit 05/20/20 25 Blood pressure systolic 137 mm Hg 05/20/20 25 Blood pressure diastolic 81 mm Hg 025 Heart Rate 53 /min 05/20/2025 Height 63 in 05/20/2025 Weight 182 lbs 05/20/2025 BMI 32.24 kg/m2 05/20/2025 Encounters Encounter Location Date Provider Diagnosis Aroldo Blanchard III, MD [address] [place] [address] DR [place], [place] [address] 05/20/2025 Aroldo Blanchard Obesity (BMI 30.0-34 .9) E66.9 ; Chest discomfort R07.89 ; Former smoker Z87.891 ; Diet controlled gestational diabetes mellitus (GDM) in third trimester O24.410 ; Environmental allergies Z91.09 and History of depression Z86.59 Assessments Encounter Date Diagnosis (ICD Code) Assessment Notes Treatment Notes Treatment Clinical Notes 05/20/2025 Obesity (BMI 30.0-34.9) (ICD-10 - E66.9) She has lost 2 pounds since the surgery. We discussed diet and nutrition. We made a plan to lose weight at a rate of 1 pound per week. 05/20/2025 Chest discomfort (ICD-10 - R07.89) This is likely a mild costochondritis but could be hiatal hernia or constipation. She seems stable today. She'll be observed carefully. 05/20/2025 Former smoker (ICD-10 - Z87.891) She has a plan to prevent relapse in times of stress and illness. 05/20/2025 Diet controlled gestational diabetes mellitus (GDM) in third trimester (ICD-10 - O24.410) Comprehensive blood work is pending. 05/20/2025 Environmental allergies (ICD-10 - Z91.09) She has significant allergies and is dealing with them appropriately. She says this is a bad year for seasonal allergies. 05/20/2025 History of depression (ICD-10 - Z86.59) She continues to see a therapist. Her depression is present but minimal. She is completing all of the activities of daily life without impairment. Plan Of Treatment Medication Medication Name Sig Start Date Stop Date Notes Silver sulfADIAZINE 1 % 1 application Ex ternally Once a day 11/05/2023 Escitalopram Oxalate 5 MG TAKE 1 TABLET BY MOUTH DAILY Loratadine 10 MG 1 tablet Orally Once a day 05/20/2024 Next Appt Details Follow Up: 2 Weeks, Reason: ov Provider Name:Aroldo Blanchard , 06/15/2025 02:45:00 PM, [address] [place] [address] [place], [address], Provider Name:Aroldo Blanchard , 07/29/2025 02:30:00 PM, [address] [facility], [address], Provider Name:Aroldo Londonone , 12/30/2025 03:00:00 PM, [address] [facility], [address], Progress Notes * Derik YAÑEZ GDOB: [birth year] (54 yo F)Acc No.[id number]:05/20/2025 Progress Notes Patient: Derik HASSAN Provider: Maribel Blanchard MD :1970 A ge:54 Y S ex:Female Date:05/20/2025 Address:[address] [place] [address] T[place] Kalyan [id number] Subjective: * Chief Complaints: * P ressure under left breast for 1 monthDiscomfort left costochondral margin for1 monthObesityAllergiesAsthmaHyperlipidemiaRecent appendectomy * HPI: C OVID-19 Screening: . She returns for an unscheduled visit because of a month of a sensation of discomfort and pressure in the chest under her left breast and in the left costal margin with pain in the back as well as laterally. The pain could be reproduced by pressure on the chest wall. It was present during the interview and is not related to eating or exertion. She has had no vomiting. We discussed the differential which was costochondritis or possibly hiatal hernia. She will be observed for 1 more week. If necessary imaging will be done. She seems stable today. Questions H ave you had any new onset fever, chills, cough, congestion, sore throat, shortness of breath, muscle aches? N o * ROS: G eneral/Constitutional: pain L eft anterior and lateral chest wall discomfort. C hills d enies. F atigue a dmits. F ever d [...] retains her ovaries 2008hysteroscopy with cervical polypectomy 2004NovaSure uterine ablation and polypectomy 2009Left knee surgery pendix removed 04/16/2025 * Hospitalization/Major Diagno stic Procedure: N o history * Family History: F ather: 73 yrs, Alive and well. M other: alive 68 yrs, Alive and well, lives in [place], [place], thyroid disease, hyperlipidemia, diagnosed with CVD. [...] x-cigarette smoker S he was born in [place], [facility]. 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 She is exposed to paint and dust [...] Objective: * Vitals: H t: 63, Wt: 182, BMI:32.24, BP: 137/81, HR: 53, Temp: 97.9, Ht-cm: 160.02, Wt-k.55. * P ast Orders: Lab:Complete Blood Count Aut o Diff * Collection Date 04/28/2025 04/27/2025 04/16/2025 Collection Time 05:05 AM 03:34 PM 08:17 AM Order Date 04/28/2025 04/27/2025 04/16/2025 White Blood Count 13.5 H (Ref Range: 4.8-10.8 X10*3/uL) 24.0 H (Ref Range: 4.8-10.8 X10*3/uL) 11.8 H (Ref Range: 4.8-10.8 X10*3/uL) Red Blood Count 4.56 (Ref Range: 4.20-5.50 X10*6/uL) 4.97 (Ref Range: 4.20-5.50 X10*6/uL) 5.21 (Ref Range: 4.20-5.50 X10*6/uL) Hemoglobin 13.7 (Ref Range: 12.0-16.0 g/dl) 14.8 (Ref Range: 12.0-16.0 g/dl) 15.8 (Ref Range: 12.0-16.0 g/dl) Hematocrit 41.9 (Ref Range: 37.0-47.0 %) 44.8 (Ref Range: 37.0-47.0 %) 46.7 (Ref Range: 37.0-47.0 %) Mean Corpuscular Volume 91.9 (Ref Range: 80.0-98.0 fL) 90.1 (Ref Range: 80.0-98.0 fL) 89.6 (Ref Range: 80.0-98.0 fL) Mean Corpuscular Hemoglobin 30.0 (Ref Range: 27.0-33.0 pg) 29.8 (Ref Range: 27.0-33.0 pg) 30.3 (Ref Range: 27.0-33.0 pg) Mean Corpuscular HGB Conc 32.7 (Ref Range: 31.0-35.0 g/dl) 33.0 (Ref Range: 31.0-35.0 g/dl) 33.8 (Ref Range: 31.0-35.0 g/dl) Red Cell Distribution Width 13.1 (Ref Range: 11.0-16.0 %) 12.9 (Ref Range: 11.0-16.0 %) 12.6 (Ref Range: 11.0-16.0 %) Platelet Count 282 (Ref Range: 160-400 X10*3/uL) 358 (Ref Range: 160-400 X10*3/uL) 285 (Ref Range: 160-400 X10*3/uL) Mean Platelet Volume 10.2 (Ref Range: 9.4-12.3 fL) 9.8 (Ref Range: 9.4-12.3 fL) 9.6 (Ref Range: 9.4-12.3 fL) Neutrophils Percent Auto 85.6 H (Ref Range: 45-73 %) 87.8 H (Ref Range: 45-73 %) 89.7 H (Ref Range: 45-73 %) Imm Gran Pct Auto 0.5 H (Ref Range: 0.0-0.4 %) 0.5 H (Ref Range: 0.0-0.4 %) 0.3 (Ref Range: 0.0-0.4 %) Lymphocytes Percent Auto 6.4 L (Ref Range: 20-40 %) 6.1 L (Ref Range: 20-40 %) 6.3 L (Ref Range: 20-40 %) Monocytes Percent Auto 5.2 (Ref Range: 2-11 %) 4.9 (Ref Range: 2-11 %) 3.3 (Ref Range: 2-11 %) Eosinophils Percent Auto 1.6 (Ref Range: 0-4 %) 0.3 (Ref Range: 0-4 %) 0.1 (Ref Range: 0-4 %) Basophils Percent Auto 0.7 (Ref Range: 0-2 %) 0.4 (Ref Range: 0-2 %) 0.3 (Ref Range: 0-2 %) NRBC Pct Auto 0.0 (Ref Range: 0.0-0.2 /100WBC) 0.0 (Ref Range: 0.0-0.2 /100WBC) 0.0 (Ref Range: 0.0-0.2 /100WBC) Neutrophils Absolute Auto 11.6 H (Ref Range: 2.0-8.3 x10*3/uL) 21.1 H (Ref Range: 2.0-8.3 x10*3/uL) 10.6 H (Ref Range: 2.0-8.3 x10*3/uL) Imm Gran Abs Auto 0.07 H (Ref Range: 0.00-0.03 X10*3/uL) 0.12 H (Ref Range: 0.00-0.03 X10*3/uL) 0.04 H (Ref Range: 0.00-0.03 X10*3/uL) Lymphocytes Absolute Auto 0.9 L (Ref Range: 1.2-4.9 X10*3/uL) 1.5 (Ref Range: 1.2-4.9 X10*3/uL) 0.7 L (Ref Range: 1.2-4.9 X10*3/uL) Monocytes Absolute Auto 0.7 (Ref Range: 0.1-1.2 X10*3/uL) 1.2 (Ref Range: 0.1-1.2 X10*3/uL) 0.4 (Ref Range: 0.1-1.2 X10*3/uL) Eosinophils Absolute Auto 0.2 (Ref Range: 0.0-0.4 X10*3/uL) 0.1 (Ref Range: 0.0-0.4 X10*3/uL) 0.0 (Ref Range: 0.0-0.4 X10*3/uL) Basophils Absolute Auto 0.1 (Ref Range: 0.0-0.2 X10*3/uL) 0.1 (Ref Range: 0.0-0.2 X10*3/uL) 0.0 (Ref Range: 0.0-0.2 X10*3/uL) NRBC Abs Auto 0.000 (Ref Range: 0.0-0.012 X10*3/uL) 0.000 (Ref Range: 0.0-0.012 X10*3/uL) 0.000 (Ref Range: 0.0-0.012 X10*3/uL) * Lab:Comprehensive Met. Panel * Collection Date 04/27/2025 04/16/2025 11/17/2023 Collection Time 03:34 PM 08:17 AM 07:55 AM Order Date 04/27/2025 04/16/2025 11/17/2023 Sodium 135 (Ref Range: 135-145 mmol/L) 136 (Ref Range: 135-145 mmol/L) 139 (Ref Range: 135-145 mmol/L) Bilirubin Total 0.7 (Ref Range: 0.0-1.0 mg/dL) 0.4 (Ref Range: 0.0-1.0 mg/dL) 0.3 (Ref Range: 0.0-1.0 mg/dL) Aspartate Amino Transferase 34 H (Ref Range: 5-31 U/L) 41 H (Ref Range: 5-31 U/L) 18 (Ref Range: 5-31 U/L) Alanine Aminotransferase 26 (Ref Range: 0-31 U/L) 43 H (Ref Range: 0-31 U/L) 16 (Ref Range: 0-31 U/L) Total Protein 7.8 (Ref Range: 6.5-8.0 g/dL) 7.6 (Ref Range: 6.5-8.0 g/dL) 7.1 (Ref Range: 6.5-8.0 g/dL) Albumin Level 4.9 (Ref Range: 3.5-5.0 g/dL) 4.7 (Ref Range: 3.5-5.0 g/dL) 4.2 (Ref Range: 3.5-5.0 g/dL) Alkaline Phosphatase 107 (Ref Range: 39-117 U/L) 97 (Ref Range: 39-117 U/L) 81 (Ref Range: 39-117 U/L) Potassium 3.8 (Ref Range: 3.3-5.1 mmol/L) 3.8 (Ref Range: 3.3-5.1 mmol/L) 4.1 (Ref Range: 3.3-5.1 mmol/L) Chloride 103 (Ref Range: 96-108 mmol/L) 102 (Ref Range: 96-108 mmol/L) 104 (Ref Range: 96-108 mmol/L) Carbon Dioxide 22 (Ref Range: 22-29 mmol/L) 26 (Ref Range: 22-29 mmol/L) 26 (Ref Range: 22-29 mmol/L) Anion Gap 14 (Ref Range: 12-20) 12 (Ref Range: 12-20) 13 (Ref Range: 12-20) Blood Urea Nitrogen 14 (Ref Range: 9-16 mg/dL) 9 (Ref Range: 9-16 mg/dL) 11 (Ref Range: 9-16 mg/dL) Creatinine 0.95 (Ref Range: 0.5-1.4 mg/dL) 0.84 (Ref Range: 0.5-1.4 mg/dL) 0.96 (Ref Range: 0.5-1.4 mg/dL) Estimated Glomerular Filt Rate > 60 > 60 > 60 Glucose Random 115 (Ref Range: 60-115 mg/dL) 136 H (Ref Range: 60-115 mg/dL) 94 (Ref Range: 60-115 mg/dL) Calcium 9.5 (Ref Range: 8.4-10.2 mg/dL) 9.2 (Ref Range: 8.4-10.2 mg/dL) 9.9 (Ref Range: 8.4-10.2 mg/dL) Creatinine Clr Calc Pharmacy 68.8 78.5 NR * Lab:Lactic Acid * Collection Date 04/27/2025 04/16/2025 Collection Time 05:16 PM 08:17 AM Order Date 04/27/2025 04/16/2025 Lactic Acid 1.3 (Ref Range: 0.5-2.0 mmol/L) 1.2 (Ref Range: 0.5-2.0 mmol/L) * Lab:Pathology * Collection Date 04/16/2025 11/07/2022 07/22/2021 Collection Time 05:30 PM 07:48 AM 08:53 AM Order Date 04/16/2025 11/07/2022 07/22/2021 ???Lab:Lipase (Order Date - 04/16/2025) (Collection Date & Time - 04/16/2025 08:17 AM)?ValueReference Range?Mbxfgs258-67 - U/L ???Lab:SLIDE REVIEW (Order Date - 04/27/2025) (Collection Date & Time - 04/27/2025 03:34 PM)?ValueReference Range?SLIDE REVIEWVERIFIED- ???Lab:Blood Culture (First) (Order Date - 04/27/2025) (Collection Date & Time - 04/27/2025 05:16 PM)?ValueReference Range?Blood Culture (First)No growth after 5 days.- ???Lab:UA ClnCatch+Micro w/rflx Cult (Order Date - 04/27/2025) (Collection Date & Time - 04/27/2025 04:41 PM)?ValueReference Range?Color Urine Yellow-?Appearance UrineClear-?PH5.55.0-9.0 -?Glucose Urine UANegativeNegative - mg/dL?Urine BloodModerate (2+)ANegative - ?Specific [place] - Urine1.0151.005-1.025 -?Urine ProteinNegative Neg-Trace - mg/dL?Urine KetonesNegativeNegative - mg/dL?Nitrite UrineNegativeNegative -?Leukocyte Esterase UrineNegativeNegative - ?RBC Hrzfo2-56R1-6 - /HPF?WBC Urine0-50-5 - /HPF?Squamous Epithelial Cell Urine0-20-2 - /HPF?Bacteria UrineNone SeenNone Seen - ?Hyaline Casts Urine0-20-2 - /LPF ???Lab:Magnesium (Order Date - 04/27/2025) (Collection Date & Time - 04/27/2025 03:34 PM)?ValueReference Range?Magnesium2.01.6-2.6 - mg/dL ???Lab:Basic Metabolic Panel (Order Date 04/28/2025) (Collection Date & Time - 04/28/2025 05:05 AM)?ValueReference Range?Dvymtb739705-669 - mmol/L?Blood Urea Biolmgoj43-90 - mg/dL?Creatinine0.940.5-1.4 - mg/dL?Glucose Htmodk94873-784 - mg/dL?Calcium9.18.4-10.2 - mg/dL ?Potassium3.53.3-5.1 - mmol/L?Gmffssvo30920-701 - mmol/L ?Carbon Bywxory7207-63 - mmol/L?Anion Nae9210-87 - ?Estimated Glomerular Filt Rate> 60-?Creatinine Clr Calc Pharmacy 70.8- ???Lab:CDiff Gene PCR (Order Date - 04/28/2025) (Collection Date & Time - 04/28/2025 04:03 AM)?ValueReference Range?CDiff Gene PCRPOSITIVEAA Negative - ???Lab:Blood Culture (Second) (Order Date - 04/27/2025) (Collection Date & Time - 04/27/2025 05:16PM)?ValueReference Range?Blood Culture (Second) No growth after 5 days.- ???Lab:GI Panel (Order Date - 04/28/2025) (Collection Date & Time - 04/28/2025 04:03 AM)?ValueReference Range?CampylobacterNot DetectedNot Detect. -?Plesiomonas shigelloidesNot DetectedNot Detect. - ?SalmonellaNot DetectedNot Detect. -?VibrioNot DetectedNot Detect. -?Vibrio CholeraeNot DetectedNot Detect. -?Yersinia enterocolitica Not DetectedNot Detect. -?E. coli EAECNot DetectedNot Detect. -?E. coli EPECNot DetectedNot Detect. -?E. coli ETECNot DetectedNot Detect. - ?E. coli STECNot DetectedNot Detect. -?E. coli T295Ulk applicable Not Detect. -?Shigella sp./EIECNot DetectedNot Detect. - ?CryptosporidiumNot DetectedNot Detect. -?Cyclospora cayetanensis Not DetectedNot Detect. -?Entamoeba histolyticaNot DetectedNot Detect. - ?Giardia lambliaNot DetectedNot Detect. -?Adenovirus F 40/41Not DetectedNot Detect. -?AstrovirusNot DetectedNot Detect. - ?Norovirus GI/GIIDetectedANot Detect. -?Rotavirus ANot DetectedNot Detect. -?SapovirusNot DetectedNot Detect. - ???Lab:CDiff Toxin (Order Date - 04/28/2025) (Collection Date & Time - 04/28/2025 04:03 AM)?ValueReference Range?CDiff ToxinNegative Negative -?CDIFF InterpretationSEE NOTE- * Imaging:CT abdomen pelvis w con * Performed Date 04/27/2025 04/16/2025 08:43 PM 07:00 AM Order Date 04/27/2025 04/16/2025 * Examination: G eneral Examination: GENERAL APPEARANCE: [...] LUNGS: c lear to auscultation . BREASTS: L eft breast an underlying chest wall are unremarkable, discomfort reproduced by pressure on the chest wall. ABDOMEN: b owel sounds normal, no ascites, no organomegaly, no mass: centripital obesity, Right lower quadrant recent appendectomy scar. RECTAL EXAM: n ot examined. MUSCULOSKELETAL: e xtremities unremarkable, no clubbing, cyanosis or edema. PERIPHERAL PULSES: n ormal. NEUROLOGIC: a lert and oriented, cranial nerves 2-12 grossly intact, deep tendon reflexes 2+ symmetrical, motor strength normal upper and lower extremities, sensory exam intact. PSYCH: a lert, oriented. Assessment: * Assessment: 1. C hest discomfort - R07.89 (Primary) N otes :This is likely a mild costochondritis but could be hiatal hernia or constipation. She seems stable today. She'll be observed carefully. 2 . O besity (BMI 30.0-34.9) - E66.9 N otes :She has lost 2 pounds since the surgery. We discussed diet and nutrition. We made a plan to lose weight at a rate of 1 pound per week. 3 . F ormer smoker - Z87.891 N otes :She has a plan to prevent relapse in times of stress and illness. 4 . D iet controlled gestational diabetes mellitus (GDM) in third trimester - O24.410 N otes :Comprehensive blood work is pending. 5 . E nvironmental allergies - Z91.09 [...] daily life without impairment. Plan: * Treatment: * Procedure Codes: * Preventive Medicine: Counseling: [...] of tobacco use and urged to quit. 07/20/2024 DM Care Plan: P atient Lifestyle Goals P atient wants to be able to manage diabetes without too much effort. T reatment Goals H bA1C < 7.0, Blood Sugars less than < 115. B arriers n o barriers. S elf-Managment Goals W ork on weight loss, with a goal of losing 1 lb per week. * Follow Up: 2 Weeks (Reason: ov) * Images: * Sign off status: Completed true * Provider: Maribel Blanchard MD Date: 07/20/2024 Generated for Janet fine/Eliana/eTransmitting on: 08/12/2024 06:28 AM EST History and Physical [...] ascites, no organomegaly, no mass: centripital obesity, Right lower quadrant recent appendectomy scar NEUROLOGIC: alert and oriented, cranial nerves 2-12 grossly intact, deep tendon reflexes 2+ symmetrical, motor strength normal upper and lower extremities, sensory exam intact SKIN: no suspicious lesion s, anicteric PERIPHERAL PULSES: normal BREASTS: Left breast an under lying chest wall are unremarkable, discomfort reproduced by pressure on the chest wall MUSCULOSKELETAL: extremities unremark able, no clubbing, cyanosis or edema LYMPH NODES: no enlarged lymph no peter,spleen normal RECTAL EXAM: not examined PSYCH: alert, oriented ORAL CAVITY: normal, unremarkable
--- OUTSIDE RECORDS SUMMARY | 2025-06-12 06:29 | XMS_ITS | Patient Health Record ---
Author Organization Aroldo Blanchard III, MD Address [address] [place] [address] Care Team Providers Care Guest Experience Captain Name Role Phone Dr. Aroldo Blanchard III Primary Care Provider [phone] Allergies Allergen (clinical drug ingredient) Drug/Non Drug [...] date:10/11/2024 08:12:45 AM Interpretation: Performing Lab: Notes/Report: [facility] [address] [place] [address] XRay Report Signed Patient: Derik Acharya MR#: [id number] : 1970 Acct:[id number] Age/Sex: 53 / F ADM Date: 10/08/24 Loc: HO.XRAY Attending Dr: Aroldo Blanchard MD Ordering Physician: Aroldo Blanchard MD Date of Service: 10/08/24 Procedure(s): XR chest 2V Accession Number(s): [id number] cc: Aroldo Blanchard MD EXAMINATION: XR CHEST [...] 10/08/24 1154 DD/ 1145 TD/TT: 10/08/24 1150 Assistant Professor Of Criminal Justice: [place] [address] XRay Report Signed Patient: Derik Acharya MR#: [id number] : 1970 Acct:[id number] Age/Sex: 53 / F ADM Date: 10/08/24 Loc: HOADRIANNEAY Attending Dr: Aroldo Blanchard MD Ordering Physician: Aroldo Blanchard MD Date of Service: 10/08/24 Procedure(s): XR chest 2V Accession Number(s): [id number] cc: Aroldo Blanchard MD EXAMINATION: XR CHES [...] 10/08/24 1154 DD/ 1145 TD/TT: 10/08/24 1150 Assistant Professor Of Criminal Justice: Lipid Panel Reviewed date:01/16/2025 07:01:55 PM Interpretation: Performing Lab:[facility], [address] [place] [address] [place] [address] Notes/Report: Triglycerides 127 <150 mg/dL Desirable Triglyceride: [...] date:01/27/2025 04:58:00 AM Interpretation: Performing Lab: Notes/Report: [address] [place] [address] Mammography Report Signed Patient: Derik Redd MR#: [id number] : 1970 Acct:[id number] Age/Sex: 54 / F ADM Date: 01/12/25 Loc: HO.MAMMO Attending Dr: Aroldo Blanchard MD Ordering Physician: Aroldo Blanchard MD Results: 2Benign Findings Date of Service: 01/12/25 Follow Up: 1 Year From [facility] Mammogram Procedure(s): MM tomosynthesis screening BI Accession Number(s): [id number] cc: Aroldo Blanchard MD EXAMINATION: MM SCREENING [...] 01/25/25 1419 DD/ 1535 TD/TT: 01/12/25 1549 Assistant Professor Of Criminal Justice: [facility] [address] [place] [address] Mammography Report Signed Patient: Kira Redd MR#: [id number] : 1970 Acct:[id number] Age/Sex: 54 / F ADM Date: 01/12/25 Loc: HO.MAMMO Attending Dr: Aroldo Blanchard MD Ordering Physician: Aroldo Blanchard MD Results: 2Benign Findings Date of Service: Follow Up: 1 Year From [facility] Mammogram Procedure(s): MM tomosynthesis screening BI Accession Number(s): [id number] cc: Aroldo Blanchard MD EXAMINATION: MM SCREENING [...] 01/25/25 1419 DD/ 1535 TD/TT: 01/12/25 1549 Assistant Professor Of Criminal Justice: Complete Blood Count Auto Di ff Reviewed date:04/27/2025 09:26:08 AM Interpretation: Performing Lab:[facility], [address] [place] [address] Notes/Report: White Blood Count 11.8 4.8-10.8 X10*3/uL [...] Panel Reviewed date:04/27/2025 09:26:08 AM Interpretation: Performing Lab:[facility], [address] [place] [address] Notes/Report: Sodium 136 135-145 mmol/L Potassium 3.8 [...] Acid Reviewed date:04/27/2025 09:26:08 AM Interpretation: Performing Lab:[facility], [address] [place] [address] Notes/Report: Lactic Acid 1.2 0.5-2.0 mmol/L Lipase Reviewed date:04/27/2025 09:26:08 AM Interpretation: Performing Lab:[facility], [address] [place] [address] Notes/Report: Lipase 22 8-78 U/L Pathology Reviewed date:04/27/2025 09:26:08 AM Interpretation: Performing Lab:[facility], [address] [place] [address] Notes/Report: ------ Name: Derik Redd Age/Sex: 54/F : 1970 Unit#: [id number] Attend Dr: Nehemias Holcomb MD Re04/16/25 Status : DIS IN Location: [facility] 383-1 Disch: 04/17/25 ------ SPEC : [id number] RECD : 04/17/25 STATUS: XUAN LAY NUM: [id number] ANN: 04/16/[address] [facility] [address]: Nehemias Holcomb MD ENTERED: 04/17/25 48 [...] filled with soft, semi formed fecal material. Biometrics Consultant secti ons are submitted for microscopic examination, 3 pieces in cassette A1 to show the margin o f resection and labor service representative cross-sections and 2 pieces in cassette A2 including cross-s ection from the distal portion of the specimen and a sagittal sections through the distal t ip. ([facility]) IHC S/NG Disclaimer NOTE: Unless otherwi se stated, all tissue is formalin-fixed and paraffin-embedded. Some or all of the immunohistochemical tests reported herein may have been developed and their performance characteristics determined by [facility]. They have not been cleared or appr hsun by the U.S. Food and Drug Administration (FDA). However, the FDA has determined that such clearance or approval is not necessary. This laboratory is certified under the Clinical Laboratory Improvement Amendments of 1988 (CLIA) as qualified to perform high comp lexity clinical laboratory testing. CONTINUED ON NEXT PAGE ------ Name: Derik Redd Age/Sex: 54/F : 1970 Unit#: [id number] Attend Dr: Nehemias Holcomb MD Re04/16/25 Status : DIS IN Location: [facility] 383-1 Disch: 04/17/25 ------ SPEC : [id number] RECD : 04/17/25 STATUS: XUAN LAY NUM: [id number] ANN: 04/16/[address] [facility] [address]: Nehemias Holcomb MD ENTERED: 04/17/25 48 SP TYPE: Surgical OTHR DR: Aroldo Blanchard MD ORDERED: Gross Micro L3 Copies To: Aroldo Blanchard MD [address] [facility], [address] [place] [address] Nehemias Holcomb MD [facility] [address] [place] [address] ------ Signed (signature on file) Aurelia Senior MD 04/21/25 1016 ------ END OF REPORT CT abdomen pelvis w daria Reviewed date:04/27/2025 09:26:08 AM Interpretation: Performing Lab: Notes/Report: [address] [address] [address] Scan Report Signed Patient: Derik Redd MR#: [id number] : 1970 Acct:[id number] Age/Sex: 54 / F ADM Date: 04/16/25 Loc: HO.ED Attending Dr: Ordering Physician: Vito Davis DO Date of Service: 04/16/25 Procedure(s): CT abdomen pelvis w IV con Accession Number(s): [id number] cc: Aroldo Blanchard MD; Vito Davis DO Report Number: [id number]: Total DLP = 639.00 mGy-cm Reason for [...] 04/16/25 0759 DD/ 0700 TD/TT: 04/16/25 0710 Assistant Professor Of Criminal Justice: [place] [address] CT Scan Report Signed Patient: Kira Redd MR#: [id number] : 1970 Acct:[id number] Age/Sex: 54 / F ADM Date: 04/16/25 Loc: HO.ED Attending Dr: Ordering Physician: Vito Davis DO Date of Service: 04/16/25 Procedure(s): CT abd omen pelvis w IV con Accession Number(s): [id number] cc: Aroldo Blanchard MD; Vito Davis DO [...] 04/16/25 0759 DD/ 0700 TD/TT: 04/16/25 0710 Assistant Professor Of Criminal Justice: Complete Blood Count Auto Di ff Reviewed date:05/01/2025 05:14:43 PM Interpretation: Performing Lab:[facility], [address] [place] [phone] Notes/Report: White Blood Count 24.0 4.8-10.8 X10*3/uL [...] Panel Reviewed date:05/01/2025 05:14:43 PM Interpretation: Performing Lab:[facility], [address] [place] [phone] Notes/Report: Sodium 135 135-145 mmol/L Potassium 3.8 [...] Acid Reviewed date:05/01/2025 05:14:43 PM Interpretation: Performing Lab:[facility], [address] [place] [address] Notes/Report: Lactic Acid 1.3 0.5-2.0 mmol/L Magnesium Reviewed date:05/01/2025 05:14:43 PM Interpretation: Performing Lab:[facility], [address] [place] [address] Notes/Report: Magnesium 2.0 1.6-2.6 mg/dL SLIDE REVIEW Reviewed date:05/01/2025 05:14:43 PM Interpretation: Performing Lab:[facility], [address] [place] [address] Notes/Report: SLIDE REVIEW VERIFIED Blood Culture (First) Reviewed date:05/03/2025 08:29:03 AM Interpretation: Performing Lab:[facility], [address] [place] [address] Notes/Report: Blood Culture (First) No growth after 5 days. Blood Culture (Second) Reviewed date:05/03/2025 08:29:03 AM Interpretation: Performing Lab:[facility], [address] [place] [address] Notes/Report: Blood Culture (Second) No growth after 5 days. UA ClnCatch+Micro w/rflx Cul t Reviewed date:05/01/2025 05:14:43 PM Interpretation: Performing Lab:[facility], [address] [place] [address] Notes/Report: Urine, Clean Catch Color Urine Yellow Appearance Urine Clear PH 5.5 5.0-9.0 Glucose Urine UA Negative Negative mg/dL Urine Blood Moderate (2+) Negative Specific [place] - Urine 1.015 1.005-1.025 Urine Protein Negative [...] date:05/01/2025 05:14:43 PM Interpretation: Performing Lab: Notes/Report: [address] [address] [address] Scan Report Signed Patient: Derik Redd MR#: [id number] : 1970 Acct:[id number] Age/Sex: 54 / F ADM Date: 04/27/25 Loc: HO.ED Attending Dr: Ordering Physician: Soraya Whitaker Date of Service: 04/27/25 Procedure(s): CT abdomen pelvis w IV con Accession Number(s): [id number] cc: Aroldo Blanchard MD; Soraya Whitaker Report Number: [id number]: Total DLP = 620.00 mGy-cm Reason for [...] in OV> 04/27/252043 DD/ 42 TD/TT: 04/27/252042 Assistant Professor Of Criminal Justice: [address] [address] [address] Scan Report Signed Patient: Kira Redd MR#: [id number] : 1970 Acct:[id number] Age/Sex: 54 / F ADM Date: 04/27/25 Loc: HO.ED Attending Dr: Ordering Physician: Soraya Whitaker Date of Service: 04/27/25 Procedure(s): CT abd omen pelvis w IV con Accession Number(s): [id number] cc: Aroldo Blancahrd MD; Soraya Whitaker Report Number: [id number]: [...] in OV> 04/27/252043 DD/ 42 TD/TT: 04/27/252042 Assistant Professor Of Criminal Justice: Complete Blood Count Auto Di ff Reviewed date:05/01/2025 05:14:43 PM Interpretation: Performing Lab:[facility], [address] [place] [phone] Notes/Report: White Blood Count 13.5 4.8-10.8 X10*3/uL [...] Panel Reviewed date:05/01/2025 05:14:43 PM Interpretation: Performing Lab:[facility], [address] [place] [phone] Notes/Report: Sodium 140 135-145 mmol/L Potassium 3.5 [...] PCR Reviewed date:05/01/2025 05:14:43 PM Interpretation: Performing Lab:[address] [address] Notes/Report: CDiff Gene PCR POSITIVE Negative Additional C. difficile toxin testing to be performed. Additional C. difficile toxin testing to be performed. CDiff Gene PCR POSITIVE Negative Additional C. difficile toxin testing to be performed. Additional C. difficile toxin testing to be performed. FERMÍN ECTED REPORT GI Panel Reviewed date:05/01/2025 05:14:43 PM Interpretation: Performing Lab:[facility], [address] [place] [address] Notes/Report: Campylobacter Not Detected Not Detect. Plesiomonas [...] Detected called to and read back by [facility] on 04/28/25 at 0938 by BRYN. Rotavirus [...] is performed by Multiplexed PCR, utilizing the [employer] Array. CDiff Toxin Reviewed date:05/01/2025 05:14:43 PM Interpretation: Performing Lab:[address] [address] Notes/Report: CDiff Toxin Negative Negative CDIFF Interpretation SEE NOTE Likely C. difficile colonization. Continue contact precautions. Pathology (Not yet reviewed by provider) Interpretation: Performing Lab:[facility], [address] [place] [phone] Notes/Report: ------ Name: Derik Redd Age/Sex: 54/F : 1970 Unit#: [id number] Attend Dr: Ruslan Wade MD Re05/12/25 Status : [facility] Location: [facility] Disch: ------ SPEC : [id number] RECD : 05/13/25 STATUS: SELWYNLaw BACHEllis NUM: [id number] ANN: 05/12/[address]: Ruslan Wade MD ENTERED: 05/13/25 SP TYPE: Surgical OTHR DR: Aroldo Blanchard MD ORDERED: HE Stain/12 , Gross Micro L4/4 Diagnosis A. Terminal ileum, b iopsy: Ileal normal limits; negative for active or chronic ileitis. B. Colon, right, bio psy: Colonic mucosa within normal limits; negative for active, chronic or microscop ic colitis. C. Colon, polyp at 6 0 cm, polypectomy: Clinically polypoid colonic mucosa noted; negative for a hyperplastic or neoplastic process. D. Colon, sigmoid, b iopsy: Colonic mucosa within normal limits; negative for active, chronic or microscop ic colitis. Clinical History Pre-Op Dx: Noninfect ra gastroenteritis and colitis Post-Op Dx: Colon polyp Microscopic Description Microscopic sections reviewed. Material Received A. Terminal ileum bxs B. Right colon bxs C. Polyp at 60 D. Sigmoid bxs Gross Description A. Received in forma matt is 1 farah 2 mm soft tissue fragment, totally submitted in cassette A1. B. Received in forma matt are 2 farah 1 and 2 mm soft tissue fragments, totally submitted in cassette B1. C. Received in forma matt is 1 farah 2 mm soft tissue fragment, totally submitted in cassette C1. D. Received in forma matt are 2 farah 1 and 2 mm soft tissue fragments, totally submitted in cassette D1. (DTL) CONTINUED ON NEXT PAGE ------ Name: Derik Redd Age/Sex: 54/F : 1970 Unit#: [id number] Attend Dr: Ruslan Wade MD Re05/12/25 Status : [facility] Location: [facility] Disch: ------ SPEC : [id number] RECD : 05/13/25 STATUS: XUAN LAY NUM: [id number] ANN: 05/12/251405 [facility] DR: Ruslan Wade MD ENTERED: 05/13/25 SP TYPE: Surgical OTHR DR: Aroldo Blanchard MD ORDERED: HE Stain/12 , Gross Micro L4/4 IHC S/NG Disclaimer NOTE: Unless otherwi se stated, all tissue is formalin-fixed and paraffin-embedded. Some or all of the immunohistochemical tests reported herein may have been developed and their performance characteristics determined by [facility]. They have not been cleared or appr shun by the U.S. Food and Drug Administration (FDA). However, the FDA has determined that such clearance or approval is not necessary. This laboratory is certified under the Clinical Laboratory Improvement Amendments of 1988 (CLIA) as qualified to perform high comp lexity clinical laboratory testing. Copies To: Aroldo Blanchard MD [address] [place] [address] Ruslan Wade MD [facility] [address] [place] [address] ------ Signed (signature on file) Aurelia Senior MD 05/14/25 1141 ------ END OF REPORT Reason For Referral Reason Consult and Treat Depression ? ADHD Diagnosis 1 Depression (F32.9) Referral Organization Aroldo Blanchard III, MD Referring Provider First Name Aroldo Referring Provider Last Name Lo Referring Provider Speciality Internal M edicine Referred Provider [facility] Referred Provider Specialty Unknown General Notes DIvelisse 10/15/2024 03:44:32 PM > Patient was given [facility] and [facility] information to contact them to schedule [...] tablet Orally Once a day 2023 Active Immunizations Vaccine Route Administration Date Status [...] Problem Status W/U Status Risk Notes Problem 4256038 Former smoker (Z87.891) Active confirmed She has a plan to prevent relapse in times of stress and illness. Problem Depression (139290451) Depression (F32.9) Active confirmed Her depression is stable. She is going to report immediately if it worsens. No change in regimen as needed. Problem 952045864725411 Obesity (BMI 30.0-34.9) (E66.9) Active confirmed She has lost 2 pounds since the surgery. We discussed diet and nutrition. We made a plan to lose weight at a rate of 1 pound per week. Problem 28484551 Penicillin allergy (Z88.0) Active confirmed Problem 940104298 Environmental allergies (Z91.09) Active confirmed She has significant allergies and is dealing with them appropriately. She says this is a bad year for seasonal allergies. Problem 18589328 Viral syndrome (B34.9) Active confirmed She has recovered well enough to return to work and normal life. She will call me if she has any difficulty with this. Current therapies were continued. Problem 940112152 Chest discomfort (R07.89) Active confirmed This is likely a mild costochondritis but could be hiatal hernia or constipation. She seems stable today. She'll be observed carefully. Problem 922202386 Rash (R21) Active confirmed S he was given a course of oral prednisone as well as topical triamcinolone. Problem Hyperlipidaemia (74201714) Hyperlipidemia, unspecified hyperlipidemia type (E78.5) Active confirmed Her fasting total cholesterol of 212. No joint treatment is necessary. Problem 014305585 History of depression (Z86.59) Active confirmed She continues t o see a therapist. Her depression is present but minimal. She is completing all of the activities of daily life without impairment. Problem 128264203 Acute asthmatic bronchitis (J45.909) Active confirmed I have given he r prednisone and Augmentin. She says she has an inhaler. She will report in 48 hours. Problem 54615229 Diet controlled gestational diabetes mellitus (GDM) in third trimester (O24.410) Active confirmed Comprehensive blood work is pending. Problem 430597144 Status post appendectomy (Z90.49) Active confirmed She has recovered from tthe appendicitis and appendectomy. She has returned to all of the activities of daily living. Vital Signs Heart Rate 53 /min 05/20/2025 Temperature 97.9 degrees Fahrenheit 05/20/2025 Blood pressure diastolic 81 mm Hg 05/20/2025 Height 63 in 05/20/2025 Blood pressure systolic 137 mm Hg 05/20/2025 Weight 182 lbs 05/20/2025 BMI 32.24 kg/m2 05/20/2025 Encounters Encounter Location Date Provider Diagnosis Aroldo Blanchard III, MD [address] [place] [address] [place] [address] 10/01/2024 Aroldo Blanchard Viral syndrome B34.9 ; Obesity (BMI 30.0-34.9) E66.9 ; Diet controlled gestational diabetes mellitus (GDM) in third trimester O24.410 ; Former smoker Z87.891 ; History of depression Z86.59 ; Depression F32.9 and Hyperlipidemia, unspecified hyperlipidemia type E78.5 Aroldo Blanchard III, MD [address] [place] [address] [place] [address] 10/08/2024 Aroldo Blanchard Obesity (BMI 30.0-34 .9) E66.9 ; Acute asthmatic bronchitis J45.909 ; Former smoker Z87.891 ; History of depression Z86.59 ; Environmental allergies Z91.09 and Hyperlipidemia, unspecified hyperlipidemia type E78.5 Aroldo Blanchard III, MD [address] [place] [address] [place] [address] 10/15/2024 Aroldo Blanchard Obesity (BMI 30.0-34 .9) E66.9 ; Viral syndrome B34.9 ; Hyperlipidemia, unspecified hyperlipidemia type E78.5 ; Former smoker Z87.891 ; Environmental allergies Z91.09 and History of depression Z86.59 Aroldo Blanchard III, MD [address] [place] [address] [place] [address] 12/29/2024 Aroldo Blanchard Obesity (BMI 30.0-34 .9) E66.9 ; Breast cancer screening Z12.31 ; Former smoker Z87.891 and Environmental allergies Z91.09 Aroldo Blanchard III, MD [address] [place] [address] [place] [address] 01/26/2025 Aroldo Blanchard Obesity (BMI 30.0-34 .9) E66.9 ; Hyperlipidemia, unspecified hyperlipidemia type E78.5 and Former smoker Z87.891 Aroldo Blanchard III, MD [address] [place] [address] [place] [address] 04/20/2025 Aroldo Blanchard Obesity (BMI 30.0-34 .9) E66.9 ; Status post appendectomy Z90.49 ; Hyperlipidemia, unspecified hyperlipidemia type E78.5 ; Former smoker Z87.891 ; Environmental allergies Z91.09 ; History of depression Z86.59 and Depression F32.9 Aroldo Blanchard III, MD [address] [place] [address] [place] [address] 05/20/2025 Aroldo Blanchard Obesity (BMI 30.0-34 .9) E66.9 ; Chest discomfort R07.89 ; Former smoker Z87.891 ; Diet controlled gestational diabetes mellitus (GDM) in third trimester O24.410 ; Environmental allergies Z91.09 and History of depression Z86.59 Aroldo Blanchard III, MD [address] [place] [address] [place] [address] 10/03/2024 Aroldo Blanchard III, MD [address] [place] [address] [place] [address] 10/06/2024 Aroldo Blanchard III, MD [address] [place] [address] [place] [address] 10/08/2024 Aroldo Blanchard III, MD [address] [place] [address] [place] [address] 10/09/2024 Aroldo Blanchard III, MD [address] [place] [address] DR [place], [place] [address] 05/05/2025 Aroldo Blanchard Assessments Encounter Date Diagnosis (ICD Code) Assessment Notes Treat ment Notes Treatment Clinical Notes 10/01/2024 Obesity (BMI 30.0-34.9) (ICD-10 - E66.9) [...] will be treated at home conservatively with boot-aog-yquhrbs medications. She is going to report frequently [...] all of the activities of daily living. 05/20/2025 Obesity (BMI 30.0-34.9) (ICD-10 - E66.9) She has lost 2 pounds since the surgery. We discussed diet and nutrition. We made a plan to lose weight at a rate of 1 pound per week. 05/20/2025 Chest discomfort (ICD-10 - R07.89) This is likely a mild costochondritis but could be hiatal hernia or constipation. She seems stable today. She'll be observed carefully. 10/01/2024 Diet controlled gestational diabetes mellitus (GDM) [...] of 212. No joint treatment is necessary. 05/20/2025 Former smoker (ICD-10 - Z87.891) She has a plan to prevent relapse in times of stress and illness. 10/01/2024 Former smoker (ICD-10 - Z87.891) She [...] O24.410) Comprehensive blood work is pending. 10/01/2024 History of depression (ICD-10 - Z86.59) [...] a bad year for seasonal allergies. 05/20/2025 Environmental allergies (ICD-10 - Z91.09) She [...] the activities of daily life without impairment. 05/20/2025 History of depression (ICD-10 - Z86.59) [...] 10/15/2024 Lipid Panel 11/05/2023 Lipid Panel 12/29/2024 Pathology 05/12/2025 MM tomosynthesis screening BI 12/29/2024 Hemoglobin A1c 11/05/2023 Next Appt Details Provider Name:Aroldo Blanchard , 06/15/2025 02:45:00 PM, [address] [place] [address] [place], [place], [address], Provider Name:Aroldo Blanchard , 07/29/2025 02:30:00 PM, [address] [place] [address] [place], [place], [address], Provider Name:Aroldo Blanchard , 12/30/2025 03:00:00 PM, [address] [place] [address] [address] [place]LA, [place], [address], Insurance Providers Payer Name Payer Address Payer Phone Subscriber Number Group Number Insured Name Patient Relationship to Insured Coverage Start Date Coverage End Date [facility] [address] [place], [place] [id number] Derik Kan Self - patient is the insured Medical (General) History Medical History History ICD Code Gestational diabetes mellitu s (GDM) in second trimester, gestational diabetes method of control unspecified O24.419 hysterectomy for menorrhagia and prolapsed cervical polyp 2010, retains her ovaries 1 para 1, 2006 [...]
--- OUTSIDE RECORDS SUMMARY | 2025-06-12 06:29 | XMS_ITS | Patient Health Record ---
Author Organization [facility] Address [address] [place] [address] Care Team Providers Care Barrel Rifler Hook Name Role Phone Aroldo Blanchard MD Primary Care Provider UnavailRuslan Mishra Jr Unavailable Allergies Allergen (clinical drug ingredient) Drug/Non Drug Allergy documented on EMR Reaction Allergy Type Onset Date Status Seasonal IC Unknown Drug Allergy Activ e Results Component Value Reference Range Notes Pathology Reviewed date:05/14/2025 01:09:14 PM Interpretation: Performing Lab:[facility], [address] [place] [id number] Notes/Report: Reason For Referral No Information Medications Medication SIG (Take, Route, Frequency, Duration) Notes Start Date End Date Status Anucort-HC 25 MG Suppository 1 suppository Rectal Once a day Active Multivitamin Adult A ctive Calcium Active Dicyclomine HCl 10 MG Capsule 1 tablet Orally 2-4 times a day 08/30/2022 Active MiraLax (colon prep) 17 GM/SCOOP Powder mixed with Gatorade or Crystal Light Orally begin at 5:00 p.m. the day before the procedure; Duration: 1 day 09/14/2022 Active Immunizations Vaccine Route Administration Date Status Comme nts Influenza Unknown 04/06/2021 Administered Influenza Unknown 03/16/2022 Administered Social History Tobacco Use: Social History Observation Description Date Details (start date - stop date) Never Smoker NA - NA Social History Drugs/Alcohol: Social Info Question Answer Notes Alcohol Screen Did you have a drink containing alcohol in the past year? Yes How often did you have a drink containing alcohol in the past year? 2 to 3 times a week (3 points) How many drinks did you have on a typical day when you were drinking in the past year? 1 or 2 drinks (0 point) How often did you have 6 or more drinks on one occasion in the past year? Less than monthly (1 point) Points 4 Interpretation Positive Tobacco Use: Social Info Question Answer Notes Tobacco Use/Smoking Patient is a nonsmoker Additional Details Category Social Info Options Details Miscellaneous: Marital status: Occupation: works full-time Problems Problem Type SNOMED Code ICD Code Onset Dates Problem Status W/U Status Risk Notes Problem History of polyp of colon (situation) (966142346) Personal history of colonic polyps (Z86.010) Active confirmed Problem Change in bowel habit (14375319) Change in bowel habits (R19.4) Active confirmed Problem Hemorrhoids without complication (48437352) Hemorrhoids, unspecified hemorrhoid type (K64.9) Active confirmed Problem Diarrhea (05438434) Diarrhea, unspecified type (R19.7) Active confirmed Problem Benign neoplasm of colon (42394791) Polyp of colon, unspecified part of colon, unspecified type (K63.5) Active confirmed Problem Altered bowel function (39782211) Change in bowel function (R19.8) Active confirmed Encounters Encounter Location Date Provider Diagnosis [facility] Outpatient [address] [place] [phone] 05/12/2025 Ruslna Wade Jr [facility] [address] [place] [phone] 04/30/2025 Ruslan Wade Jr [facility] [address] [place] [phone] 05/14/2025 Ruslan Wade Jr Plan Of Treatment Pending Test Test Name Order Date LIVER PROFILE 08/30/2022 LIPASE 08/30/2022 CBC w DIFF 08/30/2022 TSH REFLEX FREE T4 08/30/2022 Future Test Test Name Order Date COLONOSCOPY 04/06/2021 COLONOSCOPY 04/21/2021 COLONOSCOPY 09/14/2022 Insurance Providers Payer Name Payer Address Payer Phone Subscriber Number Group Number Insured Name Patient Relationship to Insured Coverage Start Date Coverage End Date [facility] [address] [place], [place] [id number] REINA Self - patient is the insured Medical (General) History Medical History History ICD Code Anxiety/stress Anemia requiring blood transfusion due t o menorrhagia Surgical History Surgery Date(Month/Year) Reduction mammoplasty Partial hysterectomy for menorrhagia in cervical polyp Tonsillectomy Left knee ACL
[2025-06-12 06:37] LABS: MANUAL DIFF FLAG NO
[2025-06-12 07:18] LABS: Hematocrit 44.8 % (37.0-47.0); Hemoglobin 14.8 g/dl (12.0-16.0); Imm Gran Abs Auto 0.01 X10*3/uL (0.00-0.03); Imm Gran Pct Auto 0.2 % (0.0-0.4); Lymphocytes Absolute Auto 2.2 X10*3/uL (1.2-4.9); Mean Corpuscular HGB Conc 33.0 g/dl (31.0-35.0); Mean Corpuscular Hemoglobin 30.0 pg (27.0-33.0); Mean Corpuscular Volume 90.7 fL (80.0-98.0); NRBC Abs Auto 0.000 X10*3/uL (0.0-0.012); NRBC Pct Auto 0.0 /100WBC (0.0-0.2); Platelet Count 348 X10*3/uL (160-400); Red Blood Count 4.94 X10*6/uL (4.20-5.50); White Blood Count 6.0 X10*3/uL (4.8-10.8)
[2025-06-12 07:42] LABS: Alanine Aminotransferase 14 U/L (0-31); Albumin Level 4.6 g/dL (3.5-5.0); Alkaline Phosphatase 83 U/L (39-117); Anion Gap 14 (12-20); Aspartate Amino Transferase 20 U/L (5-31); Blood Urea Nitrogen 16 mg/dL (9-16); Calcium 9.5 mg/dL (8.4-10.2); Carbon Dioxide 25 mmol/L (22-29); Chloride 104 mmol/L (96-108); Cholesterol 198 mg/dL (<200); Estimated Glomerular Filt Rate > 60; HDL Cholesterol 56 mg/dL (>40); Potassium 3.8 mmol/L (3.3-5.1); Sodium 139 mmol/L (135-145); Total Protein 7.2 g/dL (6.5-8.0); Triglycerides 182 mg/dL (<150)
== END 2025-06-12 06:26 | disposition home or self-care (01) ==
LOC: HO.LAB 06:25
PROVIDERS: Visit Provider Internal Medicine Medical Oncology
DX: E78.5 Hyperlipidemia, unspecified (principal); E66.9 Obesity, unspecified; D64.9 Anemia, unspecified
CPT/HCPCS: 36415; 80053; 80061; 85025

== ENCOUNTER 2025-07-14 15:16 | Outpatient (AMB) | payer BC, SELFPAY ==
--- OUTSIDE RECORDS SUMMARY | 2024-10-08 06:26 | XMS_ITS ---
Author Organization Aroldo Blanchard III, MD Address [address] [place] [address] [address] [place] [address] Care Team Providers Care Tank Truck Driver Name Role Phone Dr. Aroldo Blanchard III Primary Care Provider [phone] REASON FOR VISIT Work Fax / Out of Work Note Social History Sex Assigned At : Social History Observation Description Sex Assigned At Female Encounters Encounter Location Date Provider Diagnosis Aroldo Blanchard III, MD [address] [place] [address] [place] [address] 10/08/2024 Aroldo Blanchard Plan Of Treatment Next Appt Details Provider Name:Aroldo Blanchard , 07/29/2025 02:30:00 PM, [address] [place] [address] [place], [address], Provider Name:Aroldo Blanchard , 12/30/2025 03:00:00 PM, [address] [place] [address] [place], [address], Progress Notes * Derik LEYVA GDOB:1970 (53 yo F)Acc No.[id number]:10/08/2024 Patient: Derik HANLEY :1970 A ge:53 Y S ex:Female Address:[address] [place] [address] [place], [address] * true * Date: Generated for Printi ng/Faxing/eTransmitting on: 06:40 PM EST
--- OUTSIDE RECORDS SUMMARY | 2024-10-09 09:24 | XMS_ITS ---
Author Organization Aroldo Blanchard III, MD Address [address] [place] [address] [place] [address] Care Team Providers Care Workforce Development Assistant Name Role Phone Dr. Aroldo Blanchard III Primary Care Provider [phone] REASON FOR VISIT Requesting Out of Work Social History Sex Assigned At : Social History Observation Description Sex Assigned At Female Encounters Encounter Location Date Provider Diagnosis Aroldo Blanchard III, MD [address] [place] [address] [address] [place] [address] 10/09/2024 Aroldo Blanchard Plan Of Treatment Next Appt Details Provider Name:Aroldo Blanchard , 07/29/2025 02:30:00 PM, [address] [place] [address] [place], [address], Provider Name:Aroldo Blanchard , 12/30/2025 03:00:00 PM, [address] [place] [address] [place], [address], Progress Notes * Derik LEYVA GDOB:1970 (53 yo F)Acc No.[id number]:10/09/2024 Patient: Derik HANLEY :1970 A ge:53 Y S ex:Female Address:[address] [place] [address] [place], [address] * true * Date: Generated for Printi ng/Faxing/eTransmitting on: 06:41 PM EST
--- OUTSIDE RECORDS SUMMARY | 2024-10-15 10:30 | XMS_ITS ---
Author Organization Aroldo Blanchard III, MD Address [address] [facility] [place] [address] Care Team Providers Care Bilingual Operator Name Role Phone Dr. Aroldo Blanchard III Primary Care Provider [phone] Allergies Allergen (clinical drug ingredient) Drug/Non Drug Allergy documented on EMR Reaction Allergy Type Onset Date Status No Known Drug Allergy Unknown Drug Allergy Active Reason For Referral Reason Consult and Treat Depression ? ADHD Diagnosis 1 Depression (F32.9) Referral Organization Aroldo Blanchard III, MD Referring Provider First Name Aroldo Referring Provider Last Name Lo Referring Provider Speciality Internal M edicine Referred Provider [facility] Referred Provider Specialty Unknown General Notes Ivelisse Gerard 10/15/2024 03:44:32 PM > Patient was given [facility] and [facility] information to contact them to schedule an appointment. we explained we are unable to schedule or send referral for the patients they are required to contact themselves Referral Priority Routine REASON FOR VISIT Recent viral syndrome, Obesity, Allergies, Hyperlipidemia, depression Medications Medication SIG (Take, Route, Frequency, Duration) Notes Start Date End Date Status Loratadine 10 MG 1 tablet Orally Once a day 2023 Active Silver sulfADIAZINE 1 % 1 application Ex ternally Once a day 11/05/2023 Active Escitalopram Oxalate 5 MG 1 tablet Orally Once a day 04/17/2024 Active Social History Tobacco Use: Social History [...] Problem Status W/U Status Risk Notes Problem [id number] Viral syndrome (B34.9) Active confirmed She has recovered well enough to return to work and normal life. She will call me if she has any difficulty with this. Current therapies were continued. Encounters Encounter Location Date Provider Diagnosis Aroldo Blanchard III, MD [address] [place] [address] [place] [address] 10/15/2024 Aroldo Blanchard Obesity (BMI 30.0-34 .9) E66.9 ; Viral syndrome B34.9 ; Hyperlipidemia, unspecified hyperlipidemia type E78.5 ; Former smoker Z87.891 ; Environmental allergies Z91.09 and History of depression Z86.59 Assessments Encounter Date Diagnosis (ICD Code) Assessment Notes Treat ment Notes Treatment Clinical Notes 10/15/2024 Obesity (BMI 30.0-34.9) (ICD-10 - E66.9) On her last visit she has lost 10 pounds and her body mass index is dropped to 31.7 on her last visit.. We have reviewed her diet and nutrition and weight loss strategy. She will continue her weight loss until her body mass index is in the normal range. 10/15/2024 Viral syndrome (ICD-10 - B34.9) She has recovered well enough to return to work and normal life. She will call me if she has any difficulty with this. Current therapies were continued. 10/15/2024 Hyperlipidemia, unspecified hyperlipidemia type (ICD-10 - E78.5) Her fasting lipid profile will be checked periodically. 10/15/2024 Former smoker (ICD-1 0 - Z87.891) She has a plan to prevent relapse in times of stress and illness. 10/15/2024 Environmental allergies (ICD-10 - Z91.09) She has significant allergies and is dealing with them appropriately. She says this is a bad year for seasonal allergies. 10/15/2024 History of depressio n (ICD-10 - Z86.59) She continues to see a therapist. Her depression is present but minimal. She is completing all of the activities of daily life without impairment. Plan Of Treatment Medication Medication Name Sig Start Date Stop Date Notes Loratadine 10 MG 1 tablet Orally Once a day 05/20/2024 Silver sulfADIAZINE 1 % 1 application Ex ternally Once a day 11/05/2023 Escitalopram Oxalate 5 MG 1 tablet Orally Once a day 04/17 Pending Test Test Name Order Date PROFILE, FASTING (COMPREHENSIVE METABOLI C) 10/15/2024 CBC w DIFF 10/15/2024 Lipid Panel 10/15/2024 Referrals Referral Date Details 10/15/2024 10/15/2024, Consult and Treat Depression ? ADHD, Counseling [facility] Appt Details Follow Up: As Scheduled, Zora son: Annual Exam Provider Name:Aroldo Blanchard , 07/29/2025 02:30:00 PM, [address] [place] [address] [address], [place], [address], Provider Name:Aroldo Blanchard , 12/30/2025 03:00:00 PM, [address] [place] [address] [address], [place], [address], Progress Notes * Derik LEYVA GDOB:1970 (53 yo F)Acc No.[id number]:10/15/2024 Patient: Derik HANLEY Provider: Maribel Blanchard MD :1970 A ge:53 Y S ex:Female Date:10/15/2024 Address:[address] [place] [phone] Subjective: * Chief Complaints: * R ecent viral syndromeObesityAllergiesHyperlipidemiaDepression * HPI: * : This telehealth visit took place over 15 min. with the patient at home and me in my office. She gave consent for billing. T his was a followup to the recent severe viral synddrome. Her nasal congestion is improving and she still has a cough which is nonproductive. She is returning to work tomorrow. She has no fever or myalgias. She still feels moderately weak. She denies any pain. She has no fever. She has not had any vomiting or nausea. She has no diarrhea.Followup visit was arranged. Telehealth L ocation of provider rendering services: { ...} [address] [facility] [address] L ocation of patient: dante yu listed in demographics for today's visit P atient identification confirmed using: RAHEL Anne ame elehealth method: T elephone only. Patient not visible to care provider. C onsent: P atient verbally consented to treatment, Patient verbally consented to billing insurance company, Patient informed of any privacy concerns related to method of visit T otal time spent with patient (mins) 1 5 * ROS: G eneral/Constitutional: pain o nly normal aches and pains. C hills R ecently. F atigue a dmits. F ever R ecently. E NT: Decreased hearing d enies. R espiratory: Cough d enies. C ardiovascular: Chest pain with exertion d enies. D yspnea on exertion?denies. S hortness of breath d enies. G astrointestinal: Constipation d enies. D ecreased appetite t hat is not associated with weight loss. D iarrhea R ecently. H eartburn d enies. N ausea t hat is mild. R ectal bleeding d enies. V omiting d enies. H ematology: bruising d enies. p etechiae d enies. S wollen glands n one have been noted. G enitourinary: Frequent urination d enies. M usculoskeletal: Muscle aches d enies. P ainful joints d enies. S ciatica d enies. W eakness t hat is mild. S kin: Itching d enies. R jaren [...] 69 yrs, Alive and well, lives in [place], [place], thyroid disease, hyperlipidemia. Ady don Grand [...] x-cigarette smoker S he was born in [facility]. 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 She is exposed to paint and dust [...] Tablet 1 tablet Orally Once a day DiscontinuedpredniSONE 20 MG Tablet TAKE 1 TABLET BY MOUTH DAILY FOR 7 DAYS Amoxicillin-Pot Clavulanate 875-125 MG Tablet 1 tablet Orally every 12 hrs , stop date 10/15/2024predniSONE 20 MG Tablet 1 tablet with food or milk Orally Once a day , stop date 10/22/2024Medication List reviewed and reconciled with the patientDiscontinued predniSONE 20 MG Tablet TAKE 1 TABLET BY MOUTH DAILY FOR 7 DAYS Discontinued Amoxicillin-Pot Clavulanate 875-125 MG Tablet 1 tablet Orally every 12 hrs , stop date 10/15/2024Discontinued predniSONE 20 MG Tablet 1 tablet with food or milk Orally Once a day , stop date 10/22/2024Medication List reviewed and reconciled with the patient * Allergies: N o Known Drug Allergyno[Allergies Verified] Objective: * Vitals: Assessment: * Assessment: 1. V iral syndrome - B34.9 (Primary) N otes :She has recovered well enough to return to work and normal life. She will call me if she has any difficulty with this. Current therapies were continued. 2 . O besity (BMI 30.0-34.9) - E66.9 N otes :On her last visit she has lost 10 pounds and her body mass index is dropped to 31.7 on her last visit.. We have reviewed her diet and nutrition and weight loss strategy. She will continue her weight loss until her body mass index is in the normal range. 3 . H yperlipidemia, unspecified hyperlipidemia type - E78.5 N otes :Her fasting lipid profile will be checked periodically. 4 . F ormer smoker - Z87.891 N otes :She has a plan to prevent relapse in times of stress and illness. 5 . E nvironmental allergies - Z91.09 N otes :She has significant allergies and is dealing with them appropriately. She says this is a bad year for seasonal allergies. 6 . H istory of depression - Z86.59 N otes :She continues to see a therapist. Her depression is present but minimal. She is completing all of the activities of daily life without impairment. Plan: * Treatment: 2. H yperlipidemia, unspecified hyperlipidemia type L AB: PROFILE, FASTING (COMPREHENSIVE METABOLIC) L AB: CBC w DIFF L AB: Lipid Panel 3. O thers Referral To:Counseling [facility] Unknown Reason:Consult and Treat Depression ? ADHD * Procedure Codes: 9 8012 SYNCH AUDIO-ONLY EST SF 10 * Preventive Medicine: Counseling: C are goal follow-up plan: Counseling for abnormal BMI given Y es Above Normal BMI Follow-up D ietary management education, guidance, and counseling, Dietary needs education S moking/Tobacco Use Patient counseled on the dangers of tobacco use and urged to quit. 0 10/15/2024 * Follow Up: A s Scheduled (Reason: Annual Exam) * Images: * Sign off status: Completed true * Provider: Maribel Blanchard MD Date: 0 10/15/2024 Generated for Janet fine/Eliana/Janice on: 06:40 PM EST History and Physical Notes * HPI (History of Present Illness) Category Sub-Category Detail Notes Telehealth Location of prov ider rendering services:: {...} [address] [facility] [address] Location of patient:: address listed in demographics for today's visit Patient identification confirmed using:: Name, Telehealth method:: Telephone only. Deana ent not visible to care provider. Consent:: Patient verbally c onsented to treatment, Patient verbally consented to billing insurance company, Patient informed of any privacy concerns related to method of visit Total time spent with patient (mins): 15 Consultation Request Notes Referral Date Referring Provider Referred Provider Not catracho 10/15/2024 Aroldo Blanchard [facility], [facility] Consult and Treat Depression ? ADHD
--- OUTSIDE RECORDS SUMMARY | 2024-11-10 12:30 | XMS_ITS ---
Author Organization Aroldo Blanchard III, MD Address [address] [place] [address] Care Team Providers Care Wrapper Caser Name Role Phone Dr. Aroldo Blanchard III Primary Care Provider Allergies Allergen (clinical drug ingredient) Drug/Non Drug Allergy documented on EMR Reaction Allergy Type Onset Date Status No Known Drug Allergy Unknown Drug Allergy Active REASON FOR VISIT annual exam Medications Medication SIG (Take, Route, Frequency, Duration) [...] Additional Findings: Tobacco Non-User Ex-cigaret te smoker Encounters Encounter Location Date Provider Diagnosis Aroldo Blanchard III, MD [address] [place] [address] [place] [address] 11/10/2024 Aroldo Blanchard Obesity (BMI 30.0-34.9) E66.9 Assessments Encounter Date Diagnosis (ICD Code) Assessment Notes Treatment Notes Treatment Clinical Notes 11/10/2024 Obesity (BMI 30.0-34.9) (ICD-10 - E66.9) On her last visit she has lost 10 pounds and her body mass index is dropped to 31.7 on her last visit.. We have reviewed her diet and nutrition and weight loss strategy. She will continue her weight loss until her body mass index is in the normal range. Plan Of Treatment Medication Medication Name Sig Start Date Stop Date Notes Loratadine 10 MG 1 tablet Orally Once a day 05/20/2024 Silver sulfADIAZINE 1 % 1 application Ex ternally Once a day 11/05/2023 Escitalopram Oxalate 5 MG 1 tablet Orally Once a day 04/17 Next Appt Details Provider Name:Aroldo Biggs Lo , 07/29/2025 02:30:00 PM, [address] [place] [address] [address], [place], [address], Provider Name:Aroldo Biggs Lo , 12/30/2025 03:00:00 PM, [address] [place] [address] [address], [place], [address], Progress Notes * Derik YAÑEZ GDOB: [birth year] (54 yo F)Acc No.[id number]:11/10/2024 Progress Notes Patient: Derik HASSAN Provider: Maribel Blanchard MD :1970 A ge:53 Y S ex:Female Date:11/10/2024 Address:[address] [place] [phone] Subjective: * Chief Complaints: * 1 . Annual exam. * HPI: C OVID-19 Screening: Questions H ave you had any new onset fever, chills, cough, congestion, sore throat, shortness of breath, muscle aches? N o * ROS: G eneral/Constitutional: pain o nly normal aches and pains. C hills d enies.?Fatigue a dmits. F ever d enies. E NT: Decreased hearing d enies. R espiratory: Cough d enies. C ardiovascular: Chest pain with exertion d enies. D yspnea on exertion?denies. S hortness of breath d enies. G astrointestinal: Constipation d enies. D ecreased appetite d enies.?Diarrhea d enies. H eartburn d enies. N ausea d enies. R ectal bleeding?denies. V omiting d enies. H ematology: bruising d enies. p etechiae d enies. S wollen glands n one have been noted. G enitourinary: Frequent urination d enies. M usculoskeletal: Muscle aches d enies. P ainful joints d enies. S ciatica d enies. W eakness d enies. S kin: Itching d enies. R jaren d enies. S kin lesion(s)?denies. N eurologic: Difficulty speaking d enies. D izziness d enies.?Headache d enies. L ow back pain d enies. P sychiatric: Depressed mood d enies. * Medical History: G estational diabetes mellitus (GDM) in second trimester, gestational [...] red blood cells, Penicillin allergy. * Surgical History: b ilateral breast reduction 2008, tonsillectomy , hysterectomy for bleeding, retains her ovaries 2007, hysteroscopy with cervical polypectomy 2003, NovaSure uterine ablation and polypectomy 2009, No history . * Hospitalization/Major Diagno stic Procedure: N o history . * Family History: F ather: 73 yrs, Alive and well. M other: alive 69 yrs, Alive and well, lives in [place], [place], thyroid disease, hyperlipidemia. M arian Grand [...] x-cigarette smoker S he was born in [place], [facility]. 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 She is exposed to paint and dust and zinc oxide powder. She sometimes has to wear a respirator. Patient is now on Medical Marijuana. * Medications: T renée Loratadine 10 MG Tablet 1 tablet Orally Once a day , Taking Silver sulfADIAZINE 1 % Cream 1 application Externally Once a day , Taking Escitalopram Oxalate 5 MG Tablet 1 tablet Orally Once a day , Medication List reviewed and reconciled with the patient * Allergies: N o Known Drug Allergy. Objective: * Vitals: * Examination: G eneral Examination: GENERAL APPEARANCE: p leasant, well nourished, well developed, in no acute distress, calm and relaxed. HEAD: a traumatic, normocephalic. EYES: e kenny, perrla, anicteric, conjugate. EARS: n ormal. NOSE: s eptum intact. ORAL CAVITY: n ormal, unremarkable. NECK/THYROID: n o jugular venous distention, no carotid bruit, thyroid normal. LYMPH NODES: n o enlarged lymph nodes,spleen normal. SKIN: n o suspicious lesions, anicteric. HEART: n o clicks, gallops, murmurs, or rubs, regular rhythm, S1, S2 normal, no s3, or vascular bruits. LUNGS: c lear to auscultation . BREASTS: no masses palpable bilaterally. ABDOMEN: b owel sounds normal, no ascites, no organomegaly, no mass. RECTAL EXAM: n ot examined. MUSCULOSKELETAL: e xtremities unremarkable, no clubbing, cyanosis or edema. PERIPHERAL PULSES: n ormal. NEUROLOGIC: a lert and oriented, cranial nerves 2-12 grossly intact, deep tendon reflexes 2+ symmetrical, motor strength normal upper and lower extremities, sensory exam intact. PSYCH: a lert, oriented. Assessment: * Assessment: 1. O besity (BMI 30.0-34.9) - E66.9 N otes :On her last visit she has lost 10 pounds and her body mass index is dropped to 31.7 on her last visit.. We have reviewed her diet and nutrition and weight loss strategy. She will continue her weight loss until her body mass index is in the normal range. Plan: * Treatment: * Images: * The named appointment provid er may or may not be the originator of this progress note, and it is not deemed complete until electronically signed by the appointment provider. Sign off status: Pending * Provider: Maribel Blanchard MD Date: 0 11/10/2024 Generated for Janet fine/Eliana/Janice on: 06:41 PM EST History and Physical Notes * [...]
--- OUTSIDE RECORDS SUMMARY | 2024-12-29 09:30 | XMS_ITS ---
Author Organization Aroldo Blanchard III, MD Address [address] [facility] [place] [address] [address] [place] [address] Care Team Providers Care B And B Gang Worker Name Role Phone Dr. Aroldo Blanchard III Primary Care Provider Allergies Allergen (clinical drug ingredient) Drug/Non Drug Allergy documented on EMR Reaction Allergy Type Onset Date Status No Known Drug Allergy Unknown Drug Allergy Active No Known Food Allergy Unknown Drug Allergy Active Results Component Value Reference Range Notes URINE DIP STICK Reviewed date:12/29/2024 03:15:11 PM Interpretation: Performing Lab: Notes/Report: SG 1.010 1.005 - 1.025 pH 6.0 5.0 - 9.0 NICKOLAS Negative Negative - NIT Negative Negative - PRO 15 Negative - Trace GLU Negative Negative - KET Negative Negative - UBG 0.2 0.1 - 1.8 BRYSON Negative 0.2 - 1.3 BLD Positive Negative - REASON FOR VISIT annual exam Medications Medication SIG (Take, Route, Frequency, Duration) Notes Start Date End Date Status Loratadine 10 MG 1 tablet Orally Once a day 2023 Active Escitalopram Oxalate 5 MG 1 tablet Orally Once a day 04/17/2024 Active Silver sulfADIAZINE 1 % 1 application Ex ternally Once a day 11/05/2023 Active Social History Tobacco Use: Social History Observation Description Date Details (start date - stop date) Former Smoker NA - NA Sex Assigned At : Social History Observation Description Sex Assigned At Female Tobacco Control (Standard) Question Answer Notes Tobacco use: Former smoker How long has it been since you last smoked? Grea ter than 10 years Additional Findings: Tobacco non-user Ex-cigaret te smoker AUDIT-C (Standard) Question Answer Notes Did you have a drink contain ing alcohol in the past year? Yes How often did you have six o r more drinks on one occasion in the past year? 2 to 3 times per week (3 points) How many drinks did you have on a typical day when you were drinking in the past year? 1 or 2 drinks (0 point) How often did you have a dri nk containing alcohol in the past year? Never (0 point) Points 3 Interpretation Positive Vital Signs Temperature 98.4 degrees Fahrenheit 12/30/19 25 Blood pressure systolic 141 mm Hg 12/30/19 25 Blood pressure diastolic 84 mm Hg 025 Heart Rate 58 /min 12/29/2024 Height 63 in 12/29/2024 Weight 185 lbs 12/29/2024 BMI 32.77 kg/m2 12/29/2024 Encounters Encounter Location Date Provider Diagnosis Aroldo Blanchard III, MD [address] [place] [address] [place] [address] 12/29/2024 Aroldo Blanchard Obesity (BMI 30.0-34 .9) E66.9 ; Breast cancer screening Z12.31 ; Former smoker Z87.891 and Environmental allergies Z91.09 Assessments Encounter Date Diagnosis (ICD Code) Assessment Notes Treat ment Notes Treatment Clinical Notes 12/29/2024 Obesity (BMI 30.0-34.9) (ICD-10 - E66.9) Her weight has been stable. We discussed her diet and nutrition. We made a plan to lose weight at a rate of one half of a pound per week through a diet restricted in fat calories and sodium combined with regular physical activity. 12/29/2024 Breast cancer screening (ICD-10 - Z12.31) Her annual screening mammogram has been scheduled. 12/29/2024 Former smoker (ICD-10 - Z87.891) She has a plan to prevent relapse in times of stress and illness. 12/29/2024 Environmental allergies (ICD-10 - Z91.09) She has significant allergies and is dealing with them appropriately. She says this is a bad year for seasonal allergies. Plan Of Treatment Medication Medication Name Sig Start Date Stop Date Notes Loratadine 10 MG 1 tablet Orally Once a day 05/20/2024 Escitalopram Oxalate 5 MG 1 tablet Orally Once a day 04/17 Silver sulfADIAZINE 1 % 1 application Ex ternally Once a day 11/05/2023 Pending Test Test Name Order Date Lipid Panel 12/29/2024 MM tomosynthesis screening BI 12/29/2024 Next Appt Details Follow Up: 3 Weeks, Reason: Telehealth Provider Name:Aroldo Blanchard , 07/29/2025 02:30:00 PM, [address] [place] [address] [address], [place], [address], Provider Name:Aroldo Londonone , 12/30/2025 03:00:00 PM, [address] [place] [address] [address], [place], [address], Progress Notes * Derik YAÑEZ GDOB: [birth year] (54 yo F)Acc No.[id number]:12/29/2024 Progress Notes Patient: Derik HASSAN Provider: Maribel Blanchard MD :1970 A ge:54 Y S ex:Female Date:12/29/2024 Address:[address] [place] [address] [place], [id number] Subjective: * Chief Complaints: * A nnual exam * HPI: D epression Screening: PHQ-9 L ittle interest or pleasure in doing things?Nearly every day F eeling down, depressed, or hopeless S everal days T rouble falling or staying asleep, or sleeping too much S everal days F eeling tired or having little energy S everal days P oor appetite or overeating S everal days F eeling bad about yourself or that you are a failure, or have let yourself or your family down S everal days T rouble concentrating on things, such as reading the newspaper or watching television N ot at all M oving or speaking so slowly that other people could have noticed; or the opposite, being so fidgety or restless that you have been moving around a lot more than usual N ot at all T houghts that you would be better off or of hurting yourself in some way N ot at all T otal Score 8 I nterpretation M ild Depression He returns to the office at the age of 54 for her annual physical examination. A mammogram is due. She has been referred for a colonoscopy. She has no new complaints and feels generally well. Since her last visit she has and has a new last name. Her allergies have been stable and her depression is in remission. C OVID-19 Screening: Questions H ave you had any new onset fever, chills, cough, congestion, sore throat, shortness of breath, muscle aches? N o S SAMANTHA Questions: SDOH Questions I n the past year have you been worried about losing your housing? N o I n the past year have you or any family members you live with been unable to get any of the following when it was really needed? Check all that apply: N one * ROS: G eneral/Constitutional: pain o nly normal aches and pains. C hills d enies.?Fatigue a dmits. F ever d enies. E NT: Decreased hearing d enies. R espiratory: Cough d enies. C ardiovascular: Chest pain with exertion d enies. D yspnea on exertion?denies. S hortness of breath w ith exertion. G astrointestinal: Constipation o ccasional. D ecreased appetite d enies. D iarrhea d enies. H eartburn d enies. N ausea d enies. R ectal bleeding d enies. V omiting [...] pain d enies. P sychiatric: Depressed mood w hich is mild. * Medical History: * Surgical History: b ilateral breast reduction 2009tonsillectomy hysterectomy for bleeding, retains her ovaries 2008hysteroscopy with cervical polypectomy 2003NovaSure uterine ablation and polypectomy 2009Left knee surgery 2020 * Hospitalization/Major Diagno stic Procedure: N o history * Family History: F ather: 73 yrs, Alive and well. M other: alive 68 yrs, Alive and well, lives in [place], [place], thyroid disease, hyperlipidemia, diagnosed with CVD. S iblings: alive, Youngest brother have A-fib.. M aternadov Grand Father: , diagnosed with Cancer. M aternal aunt: , diagnosed with Cancer. She has no information about her father. Her mother\'s sister had breast cancer over the age of 50. She has one daughter who is healthy and well. One brother . * Social History: T obacco Use: T obacco Control (Standard) T obacco use: F ormer smoker H ow long has it been since you last smoked??Greater than 10 years A dditional Findings: Tobacco non-user E x-cigarette smoker D rugs/Alcohol: D rugs H ave you used drugs other than those for medical reasons in the past 12 months? Y es M arijuana? Y es D rug/Alcohol: A JONA-C (Standard) D id you have a drink containing alcohol in the past year? Y es H ow often did you have six or more drinks on one occasion in the past year? 2 to 3 times per week (3 points) H ow many drinks did you have on a typical day when you were drinking in the past year? 1 or 2 drinks (0 point) H ow often did you have a drink containing alcohol in the past year? N ever (0 point) P oints 3 I nterpretation P ositive S he was born in [place], [facility]. 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 She is exposed to paint and dust and zinc oxide powder. She sometimes has to wear a respirator. Patient is now on Medical Marijuana. * Medications: T akingLoratadine 10 MG Tablet 1 tablet Orally Once a day Escitalopram Oxalate 5 MG Tablet 1 tablet Orally Once a day Taking Loratadine 10 MG Tablet 1 tablet Orally Once a day Taking Escitalopram Oxalate 5 MG Tablet 1 tablet Orally Once a day DiscontinuedSilver sulfADIAZINE 1 % Cream 1 application Externally Once a day Medication List reviewed and reconciled with the patientDiscontinued Silver sulfADIAZINE 1 % Cream 1 application Externally Once a day Medication List reviewed and reconciled with the patient * Allergies: N o Known Drug AllergyNo Known Food Allergyno[Allergies Verified] Objective: * Vitals: H t: 63, Wt: 185, BMI:32.77, BP: 141/84, HR: 58, Temp: 98.4, Wt-k.91. * Examination: G eneral Examination: GENERAL APPEARANCE: [...] LUNGS: c lear to auscultation . BREASTS: , Not examined, Done by ICE CREAM SCOOPER. ABDOMEN: b owel sounds normal, no ascites, [...] 1. O besity (BMI 30.0-34.9) - E66.9 (Primary) N otes :Her weight has been stable. We discussed her diet and nutrition. We made a plan to lose weight at a rate of one half of a pound per week through a diet restricted in fat calories and sodium combined with regular physical activity. 2 . B reast cancer screening - Z12.31 N otes :Her annual screening mammogram has been scheduled. 3 . F ormer smoker - Z87.891 N otes :She has a plan to prevent relapse in times of stress and illness. 4 . E nvironmental allergies - Z91.09 N otes :She has significant allergies and is dealing with them appropriately. She says this is a bad year for seasonal allergies. Plan: * Treatment: 2. B reast cancer screening I maging: MM tomosynthesis screening BI * Labs: * L ab: URINE DIP STICK (Collection Date & Time - 12/29/2024) Value Reference Range S G 1.010 1.005 - 1.025 * p H 6.0 5.0 - 9.0 * L EU Negative Negative - * N IT Negative Negative - * P RO 15 Negative - Trace * G LIYA Negative Negative - * K ET Negative Negative - * U BG 0.2 0.1 - 1.8 * B IL Negative 0.2 - 1.3 * B LD Positive Negative - * Procedure Codes: 8 1002 URINE-NO MICRO * Preventive Medicine: Counseling: C are goal [...] tobacco use and urged to quit. 0 12/29/2024 * Follow Up: 3 Weeks (Reason: Telehealth) * Images: * Sign off status: Completed true * Provider: Maribel Blanchard MD Date: 0 12/29/2024 Generated for Janet fine/Eliana/eTashvinsmitting on: 1 06:40 PM EST History and Physical Notes * HPI (History of Present Illness) Category Sub-Category Detail Notes Depression Screening PHQ-9 Little inte rest or pleasure in doing things: Nearly every day Feeling down, depressed, or hopeless: Se veral days Trouble falling or staying asleep, or sl eeping too much: Several days Feeling tired or having little energy: S everal days Poor appetite or overeating: Several day s Feeling bad about yourself o r that you are a failure, or have let yourself or your family down: Several days Trouble concentrating on thi ngs, such as reading the newspaper or watching television: Not at all Moving or speaking so slowly that other people could have noticed; or the opposite, being so fidgety or restless that you have been moving around a lot more than usual: Not at all Thoughts that you would be b kia off or of hurting yourself in some way: Not at all Total Score: 8 Interpretation: Mild Depression COVID-19 Screening Questions Have you had any new onset fever, chills, cough, congestion, sore throat, shortness of breath, muscle aches?: No SDOH Questions SDOH Questions In the past year have you been worried about losing your housing?: No In the past year have you or any family members you live with been unable to get any of the following when it was really needed? Check all that apply:: None Examination Category Sub-Category Detail Notes General Examination [...] lesion s, anicteric PERIPHERAL PULSES: normal BREASTS: , Not examined, Done by ICE CREAM SCOOPER MUSCULOSKELETAL: extremities unremark able, no clubbing, cyanosis or edema LYMPH NODES: no enlarged lymph no peter,spleen normal RECTAL EXAM: not examined PSYCH: alert, oriented ORAL CAVITY: normal, unremarkable
--- OUTSIDE RECORDS SUMMARY | 2025-01-26 09:45 | XMS_ITS ---
Author Organization Aroldo Blanchard III, MD Address [address] [place] [address] Care Team Providers Care Computer Art Instructor Name Role Phone Dr. Aroldo Blanchard III Primary Care Provider Allergies Allergen (clinical drug ingredient) Drug/Non Drug Allergy documented on EMR Reaction Allergy Type Onset Date Status No Known Drug Allergy Unknown Drug Allergy Active No Known Food Allergy Unknown Drug Allergy Active REASON FOR VISIT Telehealth Medications Medication SIG (Take, Route, Frequency, Duration) [...] Additional Findings: Tobacco non-user Ex-cigaret te smoker Vital Signs Height 63 in 01/26/2025 Weight 185 lbs 01/26/2025 BMI 32.77 kg/m2 01/26/2025 Encounters Encounter Location Date Provider Diagnosis Aroldo Blanchard III, MD [address] [place] [address] [place] [address] 01/26/2025 Aroldo Blanchard Obesity (BMI 30.0-34 .9) E66.9 ; Hyperlipidemia, unspecified hyperlipidemia type E78.5 and Former smoker Z87.891 Assessments Encounter Date Diagnosis (ICD Code) Assessment Notes Treat ment Notes Treatment Clinical Notes 01/26/2025 Obesity (BMI 30.0-34.9) (ICD-10 - E66.9) Her weight has been stable. Her body mass index is 32. We discussed her diet and nutrition. We made a plan to lose weight at a rate of one half of a pound per week through a diet restricted in fat calories and sodium combined with regular physical activity. 01/26/2025 Hyperlipidemia, unspecified hyperlipidemia type (ICD-10 - E78.5) Her fasting total cholesterol of 212. No joint treatment is necessary. 01/26/2025 Former smoker (ICD-1 0 - Z87.891) She has a plan to prevent relapse in times of stress and illness. Plan Of Treatment Medication Medication Name Sig Start Date Stop Date Notes Loratadine 10 MG 1 tablet Orally Once a day 05/20/2024 Silver sulfADIAZINE 1 % 1 application Ex ternally Once a day 11/05/2023 Escitalopram Oxalate 5 MG 1 tablet Orally Once a day 04/17 Pending Test Test Name Order Date PROFILE, FASTING (COMPREHENSIVE METABOLI C) 01/26/2025 CBC w DIFF 01/26/2025 Lipid Panel 01/26/2025 Next Appt Details Follow Up: 6 Months, Reason: OV Provider Name:Aroldo Blanchard , 07/29/2025 02:30:00 PM, [address] [place] [address] [address], [place], [address], Provider Name:Aroldo Blanchard , 12/30/2025 03:00:00 PM, [address] [place] [address] [address], [place], [address], Progress Notes * PARIDerik GDOB: [birth year] (54 yo F)Acc No.[id number]:01/26/2025 Patient: Derik HASSAN Provider: Maribel Blanchard MD :1970 A ge:54 Y S ex:Female Date:01/26/2025 Address:[address] [place] [address] JADEN Biggs [id number] Subjective: * Chief Complaints: * T elehealth * HPI: * : This telehealth visit took place over 15 minutes with the patient at home and me in my office. She gave consent for billing. On December 16, 2024 a fasting cholesterol level was reported as 279. Previous values had been much more normal. It was decided to repeat the fasting lipid profile which was done January 10, 2025. The value was 212. No change in her regimen was made. She was encouraged to continue reading a low animal fat and low sodium reduced calorie diet. Telehealth L ocation of provider rendering services: { ...} [address] [facility] [address] L ocation of patient: dante yu listed in demographics for today's visit P atient identification confirmed using: RAHEL Anne ame T elehealth method: T elephone only. Patient [...] of breath d enies. G astrointestinal: Constipation o ccasional. D ecreased [...] 69 yrs, Alive and well, lives in [place], [place], thyroid disease, hyperlipidemia, diagnosed with CVD. S iblings: alive, Youngest brother have A-fib.. M at[place] Grand Father: , diagnosed with [...] dditional Findings: Tobacco non-user E x-cigarette smoker S he was born in [place], [facility]. 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 She is exposed to paint and dust and zinc oxide powder. She sometimes has to wear a respirator. Patient is now on Medical Marijuana. * Medications: T akingLoratadine 10 MG Tablet 1 tablet Orally Once a day Silver sulfADIAZINE 1 % Cream 1 application Externally Once a day Escitalopram Oxalate 5 MG Tablet 1 tablet Orally Once a day Medication List reviewed and reconciled with the patientTaking Loratadine 10 MG Tablet 1 tablet Orally Once a day Taking Silver sulfADIAZINE 1 % Cream 1 application Externally Once a day Taking Escitalopram Oxalate 5 MG Tablet 1 tablet Orally Once a day Medication List reviewed and reconciled with the patient * Allergies: N o Known Drug AllergyNo Known Food Allergyno[Allergies Verified] Objective: * Vitals: H t: 63, Wt: 185, BMI:32.77, Ht-cm: 160.02, Wt-k.91. * P ast Orders: Lab:URINE DIP STICK * Collection Date 12/29/2024 11/05/2023 01/23/2023 Collection Time 04:33 PM Order Date 12/29/2024 11/05/2023 01/23/2023 SG 1.010 (Ref Range: 1.005 - 1.025) 1.000 (Ref Range: 1.005 - 1.025) 1.015 (Ref Range: 1.005 - 1.025) pH 6.0 (Ref Range: 5.0 - 9.0) 5.0 (Ref Range: 5.0 - 9.0) 5.0 (Ref Range: 5.0 - 9.0) NICKOLAS Negative (Ref Range: Negative -) NEG (Ref Range: Negative -) Negative (Ref Range: Negative -) NIT Negative (Ref Range: Negative -) NEG (Ref Range: Negative -) Negative (Ref Range: Negative -) PRO 15 (Ref Range: Negative - Trace) TRACE (Ref Range: Negative - Trace) 15 (Ref Range: Negative - Trace) GLU Negative (Ref Range: Negative -) NEG (Ref Range: Negative -) Negative (Ref Range: Negative -) KET Negative (Ref Range: Negative -) NEG (Ref Range: Negative -) Negative (Ref Range: Negative -) UBG 0.2 (Ref Range: 0.1 - 1.8) 0.2 (Ref Range: 0.1 - 1.8) 0.2 (Ref Range: 0.1 - 1.8) BRYSON Negative (Ref Range: 0.2 - 1.3) NEG (Ref Range: 0.2 - 1.3) Negative (Ref Range: 0.2 - 1.3) BLD Positive (Ref Range: Negative -) POSITIVE (Ref Range: Negative -) Positive (Ref Range: Negative -) Menstrating NR NO No * Lab:Lipid Panel * Collection Date 01/10/2025 11/17/2023 10/14/2022 Collection Time 08:45 AM 07:55 AM 07:22 AM Order Date 01/10/2025 11/17/2023 10/14/2022 Triglycerides 127 (Ref Range: <150 mg/dL) 79 (Ref Range: <150 mg/dL) 200 (Ref Range: mg/dL) Cholesterol 212 H (Ref Range: <200 mg/dL) 166 (Ref Range: <200 mg/dL) 240 (Ref Range: mg/dL) LDL Cholesterol Calculated 128 H (Ref Range: <100 mg/dL) 96 (Ref Range: <100 mg/dL) 148 (Ref Range: mg/dl) HDL Cholesterol 59 (Ref Range: >40 mg/dL) 55 (Ref Range: >40 mg/dL) 52 (Ref Range: mg/dL) * Imaging:MM tomosynthesis scr eening BI * Performed Date 01/12/2025 12/28/2022 12/07/2021 03:35 PM 04:12 PM 03:50 PM Order Date 01/12/2025 12/28/2022 12/07/2021 Assessment: * Assessment: 1. H yperlipidemia, unspecified hyperlipidemia type - E78.5 (Primary) N otes :Her fasting total cholesterol of 212. No joint treatment is necessary. 2 . O gwenity (BMI 30.0-34.9) - E66.9 N otes :Her weight has been stable. Her body mass index is 32. We discussed her diet and nutrition. We made a plan to lose weight at a rate of one half of a pound per week through a diet restricted in fat calories and sodium combined with regular physical activity. 3 . F ormer smoker - Z87.891 N otes :She has a plan to prevent relapse in times of stress and illness. Plan: * Treatment: 2. O racquel (BMI 30.0-34.9) Continue Loratadine Tablet, 10 MG, 1 tablet, Orally, Once a day; C ontinue Silver sulfADIAZINE Cream, 1 %, 1 application, Externally, Once a day; C ontinue Escitalopram Oxalate Tablet, 5 MG, 1 tablet, Orally, Once a day. L AB: PROFILE, FASTING (COMPREHENSIVE METABOLIC) L AB: CBC w DIFF L AB: Lipid Panel * Procedure Codes: 9 8012 SYNCH AUDIO-ONLY [...] tobacco use and urged to quit. 0 01/26/2025 * Follow Up: 6 Months (Reason: OV) * Images: * Sign off status: Completed true * Provider: Maribel Blanchard MD Date: 0 01/26/2025 Generated for Janet fine/Eliana/eTashvinsmitting on: 1 06:41 PM EST History and Physical Notes * HPI (History of Present Illness) Category Sub-Category Detail Notes Telehealth Location of [facility] rendering services:: {...} [address] [place] [address] [place] [address] Location of patient:: address listed in demographics [...]
--- OUTSIDE RECORDS SUMMARY | 2025-04-20 08:00 | XMS_ITS ---
Author Organization Aroldo Blanchard III, MD Address [address] [address] Care Team Providers Care Bottomer Operator Name Role Phone Dr. Aroldo Blanchard III Primary Care Provider [phone] Allergies Allergen (clinical drug ingredient) Drug/Non Drug Allergy documented on EMR Reaction Allergy Type Onset Date Status No Known Drug Allergy Unknown Drug Allergy Active No Known Food Allergy Unknown Drug Allergy Active REASON FOR VISIT [place] [facility] [place], Obesity, Allergies, Hyperlipidemia, Depression Medications Medication SIG (Take, Route, Frequency, Duration) Notes Start Date End Date Status Silver sulfADIAZINE 1 % 1 application Ex ternally Once a day 11/05/2023 Active Loratadine 10 MG 1 tablet Orally Once a day 2023 Active Escitalopram Oxalate 5 MG TAKE 1 TABLET BY MOUTH DAILY Active Social History Tobacco Use: Social History [...] Additional Findings: Tobacco non-user Ex-cigaret te smoker Problems Problem Type SNOMED Code ICD Code Onset Dates Problem Status W/U Status Risk Notes Problem [id number] Status post appendectomy (Z90.49) Active confirmed She has recovered from tthe appendicitis and appendectomy. She has returned to all of the activities of daily living. Vital Signs Temperature 98.6 degrees Fahrenheit 04/20/20 25 Blood pressure systolic 136 mm Hg 04/20/20 25 Blood pressure diastolic 81 mm Hg 025 Heart Rate 76 /min 04/20/2025 Height 63 in 04/20/2025 Weight 183 lbs 04/20/2025 BMI 32.41 kg/m2 04/20/2025 Encounters Encounter Location Date Provider Diagnosis Aroldo Blanchard III, MD [address] [place] [address] DR [place]ID [place], [place] [address] 04/20/2025 Aroldo Blanchard Obesity (BMI 30.0-34 .9) E66.9 ; Status post appendectomy Z90.49 ; Hyperlipidemia, unspecified hyperlipidemia type E78.5 ; Former smoker Z87.891 ; Environmental allergies Z91.09 ; History of depression Z86.59 and Depression F32.9 Assessments Encounter Date Diagnosis (ICD Code) Assessment Notes Treat ment Notes Treatment Clinical Notes 04/20/2025 Obesity (BMI 30.0-34.9) (ICD-10 - E66.9) She has lost 2 pounds since the surgery. We discussed diet and nutrition. We made a plan to lose weight at a rate of 1 pound per week. 04/20/2025 Status post appendectomy (ICD-10 - Z90.49) She has recovered from tthe appendicitis and appendectomy. She has returned to all of the activities of daily living. 04/20/2025 Hyperlipidemia, unspecified hyperlipidemia type (ICD-10 - E78.5) Her fasting total cholesterol of 212. No joint treatment is necessary. 04/20/2025 Former smoker (ICD-1 0 - Z87.891) She has a plan to prevent relapse in times of stress and illness. 04/20/2025 Environmental allergies (ICD-10 - Z91.09) She has significant allergies and is dealing with them appropriately. She says this is a bad year for seasonal allergies. 04/20/2025 History of depressio n (ICD-10 - Z86.59) She continues to see a therapist. Her depression is present but minimal. She is completing all of the activities of daily life without impairment. 04/20/2025 Depression (ICD-10 - F32.9) Her depression is stable. She is going to report immediately if it worsens. No change in regimen as needed. Plan Of Treatment Medication Medication Name Sig Start Date Stop Date Notes Silver sulfADIAZINE 1 % 1 application Ex ternally Once a day 11/05/2023 Loratadine 10 MG 1 tablet Orally Once a day 05/20/2024 Escitalopram Oxalate 5 MG TAKE 1 TABLET BY MOUTH DAILY Next Appt Details Follow Up: As Scheduled, Zora son: OV Provider Name:Aroldo Blanchard , 07/29/2025 02:30:00 PM, [address] [place] [address] [address], [place], [address], Provider Name:Aroldo Biggs Blanchard , 12/30/2025 03:00:00 PM, [address] [place] [address] [address], [place], [address], Progress Notes * Derik YAÑEZ GDOB: [birth year] (54 yo F)Acc No.[id number]:04/20/2025 Patient: Derik HASSAN Provider: Maribel Blanchard MD :1970 A ge:54 Y S ex:Female Date:04/20/2025 Address:[address] [place], [place] [phone] Subjective: * Chief Complaints: * [place] [facility] [place]ObesityAllergiesHyperlipidemiaDepression * HPI: v : She was admitted to [facility] recently through the emergency room and had an appendectomy April 16, 2025. She has now returned to normal. The wound is healed and she has resumed all of the activities of daily living. Her depression is minimal today. S he is experiencing no allergies. She remains abstinent from tobacco and her breathing is unimpaired. * ROS: G eneral/Constitutional: pain R ight lower quadrant abdominal incision. C hills?denies. F atigue a dmits. F ever d enies. E [...] uterine ablation and polypectomy 2009Left knee surgery pendix removed 04/16/2025 * Hospitalization/Major Diagno stic Procedure: N o history * Family History: F ather: 73 yrs, Alive and well. M other: alive 68 yrs, Alive and well, lives in [place], [place], thyroid disease, hyperlipidemia, diagnosed with CVD. [...] x-cigarette smoker S he was born in [place], [facility]. 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 She is exposed to paint and dust and zinc oxide powder. She sometimes has to wear a respirator. Patient is now on Medical Marijuana. * Medications: T akingLoratadine 10 MG Tablet 1 tablet Orally Once a day Silver sulfADIAZINE 1 % Cream 1 application Externally Once a day Escitalopram Oxalate 5 MG Tablet TAKE 1 TABLET BY MOUTH DAILY Medication List reviewed and reconciled with the patientTaking Loratadine 10 MG Tablet 1 tablet Orally Once a day Taking Silver sulfADIAZINE 1 % Cream 1 application Externally Once a day Taking Escitalopram Oxalate 5 MG Tablet TAKE 1 TABLET BY MOUTH DAILY Medication List reviewed and reconciled with the patient * Allergies: N o Known Drug AllergyNo Known Food Allergyno[Allergies Verified] Objective: * Vitals: H t: 63, Wt: 183, BMI:32.41, BP: 136/81, HR: 76, Temp: 98.6, Ht-cm: 160.02, Wt-k.01. * Examination: G eneral Examination: GENERAL APPEARANCE: p leasant, well nourished, well developed, in no acute distress, calm and relaxed: obese: woman. HEAD: a traumatic, normocephalic. EYES: e [...] LUNGS: c lear to auscultation . BREASTS: N ot examined. ABDOMEN: b owel sounds normal, no ascites, no organomegaly, no mass: centripital obesity, Recent healed right lower quadrantt incision. RECTAL EXAM: n ot examined. MUSCULOSKELETAL: e xtremities unremarkable, no clubbing, cyanosis or edema. PERIPHERAL PULSES: n ormal. NEUROLOGIC: a lert and oriented, cranial nerves 2-12 grossly intact, deep tendon reflexes 2+ symmetrical, motor strength normal upper and lower extremities, sensory exam intact. PSYCH: a lert, oriented. Assessment: * Assessment: 1. S tatus post appendectomy - Z90.49 (Primary) N otes :She has recovered from tthe appendicitis and appendectomy. She has returned to all of the activities of daily living. 2 . O besity (BMI 30.0-34.9) - E66.9 N otes :She has lost 2 pounds since the surgery. We discussed diet and nutrition. We made a plan to lose weight at a rate of 1 pound per week. 3 . H yperlipidemia, unspecified hyperlipidemia type - E78.5 N otes :Her fasting total cholesterol of 212. No joint treatment is necessary. 4 . F ormer smoker - Z87.891 [...] the activities of daily life without impairment. 7 . D epression - F32.9 N otes :Her depression is stable. She is going to report immediately if it worsens. No change in regimen as needed. Plan: * Treatment: * Procedure Codes: 9 9496 TRANS CARE MGMT 7 DAY DISCH * Preventive Medicine: Counseling: C are goal [...] of tobacco use and urged to quit. 1 * Follow Up: A s Scheduled (Reason: OV) * Images: * Sign off status: Completed true * Provider: Maribel Blanchard MD Date: Generated for Janet fine/Eliana/Dionicioitting on: 06:40 PM EST History and Physical Notes * Examination Category Sub-Category Detail Notes General Examination GENERAL APPEARANCE: pleasant , well nourished, well developed, in no acute distress, calm and relaxed: obese: woman HEAD: atraumatic, normocep halic EYES: eomi, perrla, anicte griselda, conjugate EARS: normal NOSE: septum intact NECK/THYROID: no jugular venous di stention, no carotid bruit, thyroid normal HEART: no clicks, gallops, murmurs, or rubs, regular rhythm, S1, S2 normal, no s3, or vascular bruits LUNGS: clear to auscultatio n ABDOMEN: bowel sounds normal, no ascites, no organomegaly, no mass: centripital obesity, Recent healed right lower quadrantt incision NEUROLOGIC: alert and oriented, cranial nerves 2-12 [...]
--- OUTSIDE RECORDS SUMMARY | 2025-05-05 06:01 | XMS_ITS ---
Author Organization Aroldo Blanchard III, MD Address [address] [place] [address] [address] [facility] [address] Care Team Providers Care Director Of Critical Care Name Role Phone Dr. Aroldo Blanchard III Primary Care Provider [phone] REASON FOR VISIT Needs call back from Social History Sex Assigned At : Social History Observation Description Sex Assigned At Female Encounters Encounter Location Date Provider Diagnosis Aroldo Blanchard III, MD [address] [place] [address] [place] [address] 05/05/2025 Aroldo Blanchard Plan Of Treatment Next Appt Details Provider Name:Aroldo Blanchard , 07/29/2025 02:30:00 PM, [address] [place] [address] [place], [address], Provider Name:Aroldo Blanchard , 12/30/2025 03:00:00 PM, [address] [place] [address] [address] [place], [address], Progress Notes * Derik YAÑEZ GDOB: [birth year] (54 yo F)Acc No.[id number]:05/05/2025 Patient: Derik HASSAN :1970 A ge:54 Y S ex:Female Address:[address] [place] [address] [place], [address] * true * Date: Generated for Printi ng/Faxing/eTransmitting on: 06:41 PM EST
--- OUTSIDE RECORDS SUMMARY | 2025-05-12 08:30 | XMS_ITS ---
Author Organization [facility] Address [address] [place] [address] Care Team Providers Care Geriatric Case Manager Name Role Phone Lo BONILAL, Aroldo Primary Care Provider Unavailab Ruslan Johnson Jr Unavailable [phone] REASON FOR VISIT COLITIS, ABNORMAL CT OF THE ABDOMEN Encounters Encounter Location Date Provider Diagnosis [facility] Out[facility] [address] [place], [place] [id number] 05/12/2025 Ruslan Wade Jr Plan Of Treatment No Information Progress Notes * LUPE YAÑEZDOB: [birth year] (54 yo F)Acc No.[id number]:05/12/2025 COLON WITH MAC Patient: LUPE HASSAN Provider: Michelle Wade MD :1970 A ge:54 Y S ex:Female Date:05/12/2025 Address:[address] [place], [place] [phone] Pcp:Aroldo Blanchard MD Subjective: * Chief Complaints: * C OLITIS, ABNORMAL CT OF THE ABDOMEN Billing Information: * Procedure Codes: * The named appointment provid er may or may not be the originator of this progress note, and it is not deemed complete until electronically signed by the appointment provider. Sign off status: Pending * Provider: Michelle Wade MD Date: Generated for Janet fine/Eliana/Dionicioitting on: 06:41 PM EST
--- OUTSIDE RECORDS SUMMARY | 2025-05-20 10:15 | XMS_ITS ---
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 Aroldo Blanchard III [...] Problem Status W/U Status Risk Notes Problem [id number] Chest discomfort (R07.89) Active confirmed This discomfort is much improved and appears to be resolving. Vital Signs Temperature 97.9 degrees Fahrenheit 05/20/20 25 Blood pressure systolic 137 mm Hg 05/20/20 25 Blood pressure diastolic 81 mm Hg 025 Heart Rate 53 /min 05/20/2025 Height 63 in 05/20/2025 Weight 182 lbs 05/20/2025 BMI 32.24 kg/m2 05/20/2025 Encounters Encounter Location Date Provider Diagnosis Aroldo Blanchard III, MD [address] [place] [address] DR MADRID [place], [place] [address] 05/20/2025 Aroldo Blanchard Obesity (BMI 30.0-34 .9) [...] Weeks, Reason: ov Provider Name:Aroldo Blanchard , 07/29/2025 02:30:00 PM, [address] [place] [address] [address], [place], [address], Provider Name:Aroldo Blanchard , 12/30/2025 03:00:00 PM, [address] [place] [address] [address], [place], [address], Progress Notes * Derik YAÑEZ GDOB: [birth year] (54 yo F)Acc No.[id number]:05/20/2025 Progress Notes Patient: Derik HASSAN Provider: Mraibel Blanchard MD :1970 A ge:54 Y S ex:Female Date:05/20/2025 Address:[address] [place] [address] [facility] CENTERYP-[id number] Subjective: * Chief Complaints: * P ressure [...] 69 yrs, Alive and well, lives in [place], [place], thyroid disease, hyperlipidemia, diagnosed with CVD. [...] x-cigarette smoker S he was born in [place], [facility]. 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 She is exposed to paint and dust [...] Date & Time - 04/16/2025 08:17 AM)?ValueReference Range?Fdbnyz079-56 - U/L ???Lab:SLIDE REVIEW (Order Date - [...] UANegativeNegative - mg/dL?Urine BloodModerate (2+)ANegative - ?Specific [place] - Urine1.0151.005-1.025 -?Urine ProteinNegative Neg-Trace - mg/dL?Urine KetonesNegativeNegative - mg/dL?Nitrite UrineNegativeNegative -?Leukocyte Esterase UrineNegativeNegative - ?RBC Jpclt2-17N4-6 - /HPF?WBC Urine0-50-5 - /HPF?Squamous Epithelial Cell Urine0-20-2 - /HPF?Bacteria UrineNone SeenNone Seen - ?Hyaline Casts Urine0-20-2 - /LPF ???Lab:Magnesium (Order Date - 04/27/2025) (Collection Date & Time - 04/27/2025 03:34 PM)?ValueReference Range?Magnesium2.01.6-2.6 - mg/dL ???Lab:Basic Metabolic Panel (Order Date - 04/28/2025) (Collection Date & Time - 04/28/2025 05:05 AM)?ValueReference Range?Snaorl299188-256 - mmol/L?Blood Urea Oxhfzkdf05-34 - mg/dL?Creatinine0.940.5-1.4 - mg/dL?Glucose Vwpeth69594-132 - mg/dL?Calcium9.18.4-10.2 - mg/dL ?Potassium3.53.3-5.1 - mmol/L?Fepyxlpk15129-855 - mmol/L ?Carbon Ysrqama6922-94 - mmol/L?Anion Wej6076-86 - ?Estimated Glomerular Filt Rate> 60-?Creatinine Clr [...] ?E. coli STECNot DetectedNot Detect. -?E. coli W595Oja applicable Not Detect. -?Shigella sp./EIECNot DetectedNot Detect. [...] Examination: G eneral Examination: GENERAL APPEARANCE: p efrain, well nourished, well developed, in no acute [...] bad year for seasonal allergies. 6 . Yasmeen istory of depression - Z86.59 N otes [...] Date: 07/20/2024 Generated for Janet fine/Eliana/eTransmitting on: 06:40 PM EST History and Physical [...]
--- OUTSIDE RECORDS SUMMARY | 2025-06-15 09:45 | XMS_ITS ---
Author Organization Aroldo Blanchard III, MD Address [address] [address] Care Team Providers Care Laundry Technician Name Role Phone Dr. Aroldo Blanchard III Primary Care Provider [phone] Allergies Allergen (clinical drug ingredient) Drug/Non Drug Allergy documented on EMR Reaction Allergy Type Onset Date Status No Known Drug Allergy Unknown Drug Allergy Active No Known Food Allergy Unknown Drug Allergy Active Reason For Referral Reason Consult and Treat Hemorrhoid would like removed Diagnosis 1 Hemorrhoids (K64.9) Referral Organization Aroldo Blanchard III, MD Referring Provider First Name Aroldo Referring Provider Last Name Lo Referring Provider Speciality Internal M edicine Referred Provider [facility] er, General Surgeons Referred Provider Specialty Surgery General Notes Ivelisse Gerard 06/22/2025 02:27:58 PM > Referral and progress note faxed. Referral Priority Routine Referral Appointment Date 07/14/2025 REASON FOR VISIT Left lower chest discomfort, Two recent migraines, Recent appendectomy, Allergies, Depression, Hyperlipidemia Medications Medication SIG (Take, Route, Frequency, Duration) [...] Problem Status W/U Status Risk Notes Problem [id number] Episodic migraine (G43.909) Active confirmed She has had 2 headaches lately which were preceded by what she calls a kaleidoscope in her visual field. She did not wish a prescription for Imitrex at this time. She will call me if she has another 1. Vital Signs Temperature 97.2 degrees Fahrenheit 06/15/20 25 Blood pressure systolic 130 mm Hg 06/15/20 25 Blood pressure diastolic 74 mm Hg 025 Heart Rate 68 /min 06/15/2025 Height 63 in 06/15/2025 Weight 182 lbs 06/15/2025 BMI 32.24 kg/m2 06/15/2025 Encounters Encounter Location Date Provider Diagnosis Aroldo Blanchard III, MD [address] [place] [address] [place] [address] 06/15/2025 Aroldo Blanchard Obesity (BMI 30.0-34 .9) E66.9 ; Episodic migraine G43.909 ; Former smoker Z87.891 ; Environmental allergies Z91.09 ; History of depression Z86.59 ; Status post appendectomy Z90.49 and Chest discomfort R07.89 Assessments Encounter Date Diagnosis (ICD Code) Assessment Notes Treat ment Notes Treatment Clinical Notes 06/15/2025 Obesity (BMI 30.0-34.9) (ICD-10 - E66.9) She has lost 2 pounds since the surgery. We discussed diet and nutrition. We made a plan to lose weight at a rate of 1 pound per week. 06/15/2025 Episodic migraine (ICD-10 - G43.909) She has had 2 headaches lately which were preceded by what she calls a kaleidoscope in her visual field. She did not wish a prescription for Imitrex at this time. She will call me if she has another 1. 06/15/2025 Former smoker (ICD-10 - Z87.891) She has a plan to prevent relapse in times of stress and illness. 06/15/2025 Environmental allergies (ICD-10 - Z91.09) She has significant allergies and is dealing with them appropriately. She says this is a bad year for seasonal allergies. 06/15/2025 History of depression (ICD-10 - Z86.59) She continues to see a therapist. Her depression is present but minimal. She is completing all of the activities of daily life without impairment. 06/15/2025 Status post appendectomy (ICD-10 - Z90.49) She has recovered from tthe appendicitis and appendectomy. She has returned to all of the activities of daily living. 06/15/2025 Chest discomfort (ICD-10 - R07.89) This discomfort is much improved and appears to be resolving. Plan Of Treatment Medication Medication Name Sig Start Date Stop Date Notes Silver sulfADIAZINE 1 % 1 application Ex ternally Once a day 11/05/2023 Escitalopram Oxalate 5 MG TAKE 1 TABLET BY MOUTH DAILY Loratadine 10 MG 1 tablet Orally Once a day 05/20/2024 Referrals Referral Date Details 06/15/2025 06/15/2025, Consult and Treat Hemorrhoid would like removed, General Surgeons [facility] Next Appt Details Follow Up: As Scheduled, Zora son: OV Provider Name:Aroldo Blanchard , 07/29/2025 02:30:00 PM, [address] [place] [address] [address], [place], [phone], Provider Name:Aroldo Blanchard , 12/30/2025 03:00:00 PM, [address] [place] [address] [address], [place], [phone], Progress Notes * Derik YAÑEZ GDOB: [birth year] (54 yo F)Acc No.[id number]:06/15/2025 Progress Notes Patient: Derik HASSAN Provider: Maribel Blanchard MD :1970 A ge:54 Y S ex:Female Date:06/15/2025 Address:[address] [place] [address] JADEN Biggs [phone] Subjective: * Chief Complaints: * L eft lower chest discomfortTwo recent migrainesRecent appendectomyAllergiesDepressionHyperlipidemia * HPI: C OVID-19 Screening: S he returns for follow-up of her left lower thoracic discomfort which is much improved. She has had 2 migraines recently and we discussed this at length. She wanted to know why she was having them that I could find no obvious answer. She says that she has endometriosis which is giving her strange abdominal discomforts. Her chronic bowel issues continue and her weight is stable with a body mass index of 32. She has seen a ROADS SUPERVISOR lately and had surgery for the endometriosis. Dr. Gomez in [place] did a hysterectomy. She says that both ovaries were left in place. The vaginal bleeding she had before surgery has now resolved. No new findings were present on today's examination. Questions H ave you had any new onset fever, chills, cough, congestion, sore throat, shortness of breath, muscle aches? N o * ROS: G eneral/Constitutional: pain M igraines, left low er thoracic pain much improved, otherwise only normal aches and pains. C hills d enies. F atigue a dmits. F ever?denies. E NT: Decreased hearing d enies. R espiratory: Cough d enies. C ardiovascular: Chest pain with exertion P ain left lower costal margin.?Dyspnea on exertion d enies. S hortness of breath d enies. G [...] 69 yrs, Alive and well, lives in [place], [place], thyroid disease, hyperlipidemia, diagnosed with CVD. S iblings: alive, Youngest brother have A-fib.. M arian Grand Father: , diagnosed with Cancer. M atemecca aunt: , diagnosed with Cancer. She has [...] x-cigarette smoker S he was born in [place], [facility]. 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 She is exposed to paint and dust [...] H t: 63, Wt: 182, BMI:32.24, BP: 130/74, HR: 68, Temp: 97.2, Ht-cm: 160.02, Wt-k.55. * P ast Orders: Lab:Complete Blood Count Aut o Diff * Collection Date 06/12/2025 04/28/2025 04/27/2025 Collection Time 06:34 AM 05:05 AM 03:34 PM Order Date 06/12/2025 04/28/2025 04/27/2025 White Blood Count 6.0 (Ref Range: 4.8-10.8 X10*3/uL) 13.5 H (Ref Range: 4.8-10.8 X10*3/uL) 24.0 H (Ref Range: 4.8-10.8 X10*3/uL) Red Blood Count 4.94 (Ref Range: 4.20-5.50 X10*6/uL) 4.56 (Ref Range: 4.20-5.50 X10*6/uL) 4.97 (Ref Range: 4.20-5.50 X10*6/uL) Hemoglobin 14.8 (Ref Range: 12.0-16.0 g/dl) 13.7 (Ref Range: 12.0-16.0 g/dl) 14.8 (Ref Range: 12.0-16.0 g/dl) Hematocrit 44.8 (Ref Range: 37.0-47.0 %) 41.9 (Ref Range: 37.0-47.0 %) 44.8 (Ref Range: 37.0-47.0 %) Mean Corpuscular Volume 90.7 (Ref Range: 80.0-98.0 fL) 91.9 (Ref Range: 80.0-98.0 fL) 90.1 (Ref Range: 80.0-98.0 fL) Mean Corpuscular Hemoglobin 30.0 (Ref Range: 27.0-33.0 pg) 30.0 (Ref Range: 27.0-33.0 pg) 29.8 (Ref Range: 27.0-33.0 pg) Mean Corpuscular HGB Conc 33.0 (Ref Range: 31.0-35.0 g/dl) 32.7 (Ref Range: 31.0-35.0 g/dl) 33.0 (Ref Range: 31.0-35.0 g/dl) Red Cell Distribution Width 13.0 (Ref Range: 11.0-16.0 %) 13.1 (Ref Range: 11.0-16.0 %) 12.9 (Ref Range: 11.0-16.0 %) Platelet Count 348 (Ref Range: 160-400 X10*3/uL) 282 (Ref Range: 160-400 X10*3/uL) 358 (Ref Range: 160-400 X10*3/uL) Mean Platelet Volume 9.5 (Ref Range: 9.4-12.3 fL) 10.2 (Ref Range: 9.4-12.3 fL) 9.8 (Ref Range: 9.4-12.3 fL) Neutrophils Percent Auto 50.6 (Ref Range: 45-73 %) 85.6 H (Ref Range: 45-73 %) 87.8 H (Ref Range: 45-73 %) Imm Gran Pct Auto 0.2 (Ref Range: 0.0-0.4 %) 0.5 H (Ref Range: 0.0-0.4 %) 0.5 H (Ref Range: 0.0-0.4 %) Lymphocytes Percent Auto 37.1 (Ref Range: 20-40 %) 6.4 L (Ref Range: 20-40 %) 6.1 L (Ref Range: 20-40 %) Monocytes Percent Auto 6.8 (Ref Range: 2-11 %) 5.2 (Ref Range: 2-11 %) 4.9 (Ref Range: 2-11 %) Eosinophils Percent Auto 4.0 (Ref Range: 0-4 %) 1.6 (Ref Range: 0-4 %) 0.3 (Ref Range: 0-4 %) Basophils Percent Auto 1.3 (Ref Range: 0-2 %) 0.7 (Ref Range: 0-2 %) 0.4 (Ref Range: 0-2 %) NRBC Pct Auto 0.0 (Ref Range: 0.0-0.2 /100WBC) 0.0 (Ref Range: 0.0-0.2 /100WBC) 0.0 (Ref Range: 0.0-0.2 /100WBC) Neutrophils Absolute Auto 3.1 (Ref Range: 2.0-8.3 x10*3/uL) 11.6 H (Ref Range: 2.0-8.3 x10*3/uL) 21.1 H (Ref Range: 2.0-8.3 x10*3/uL) Imm Gran Abs Auto 0.01 (Ref Range: 0.00-0.03 X10*3/uL) 0.07 H (Ref Range: 0.00-0.03 X10*3/uL) 0.12 H (Ref Range: 0.00-0.03 X10*3/uL) Lymphocytes Absolute Auto 2.2 (Ref Range: 1.2-4.9 X10*3/uL) 0.9 L (Ref Range: 1.2-4.9 X10*3/uL) 1.5 (Ref Range: 1.2-4.9 X10*3/uL) Monocytes Absolute Auto 0.4 (Ref Range: 0.1-1.2 X10*3/uL) 0.7 (Ref Range: 0.1-1.2 X10*3/uL) 1.2 (Ref Range: 0.1-1.2 X10*3/uL) Eosinophils Absolute Auto 0.2 (Ref Range: 0.0-0.4 X10*3/uL) 0.2 (Ref Range: 0.0-0.4 X10*3/uL) 0.1 (Ref Range: 0.0-0.4 X10*3/uL) Basophils Absolute Auto 0.1 (Ref Range: 0.0-0.2 X10*3/uL) 0.1 (Ref Range: 0.0-0.2 X10*3/uL) 0.1 (Ref Range: 0.0-0.2 X10*3/uL) NRBC Abs Auto 0.000 (Ref Range: 0.0-0.012 X10*3/uL) 0.000 (Ref Range: 0.0-0.012 X10*3/uL) 0.000 (Ref Range: 0.0-0.012 X10*3/uL) * Lab:[facility] [facility]. [facility] * Collection Date 06/12/2025 10/14/2022 04/06/2021 Collection Time 06:34 AM 07:22 AM 07:25 AM Order Date 06/12/2025 10/14/2022 04/06/2021 Sodium 139 (Ref Range: 135-145 mmol/L) 139 (Ref Range: 135-145 mmol/L) 139 (Ref Range: 135-145 mmol/L) Bilirubin Total 0.4 (Ref Range: 0.0-1.0 mg/dL) 0.6 (Ref Range: 0.0-1.0 mg/dL) 0.3 (Ref Range: 0.0-1.0 mg/dL) Aspartate Amino Transferase 20 (Ref Range: 5-31 U/L) 16 (Ref Range: 5-31 U/L) 17 (Ref Range: 5-31 U/L) Alanine Aminotransferase 14 (Ref Range: 0-31 U/L) 16 (Ref Range: 0-31 U/L) 14 (Ref Range: 0-31 U/L) Total Protein 7.2 (Ref Range: 6.5-8.0 g/dL) 7.1 (Ref Range: 6.5-8.0 g/dL) 6.7 (Ref Range: 6.5-8.0 g/dL) Albumin Level 4.6 (Ref Range: 3.5-5.0 g/dL) 4.4 (Ref Range: 3.5-5.0 g/dL) 4.2 (Ref Range: 3.5-5.0 g/dL) Alkaline Phosphatase 83 (Ref Range: 39-117 U/L) 79 (Ref Range: 39-117 U/L) 74 (Ref Range: 39-117 U/L) Potassium 3.8 (Ref Range: 3.3-5.1 mmol/L) 4.5 (Ref Range: 3.3-5.1 mmol/L) 4.3 (Ref Range: 3.3-5.1 mmol/L) Chloride 104 (Ref Range: 96-108 mmol/L) 103 (Ref Range: 96-108 mmol/L) 105 (Ref Range: 96-108 mmol/L) Carbon Dioxide 25 (Ref Range: 22-29 mmol/L) 27 (Ref Range: 22-29 mmol/L) 27 (Ref Range: 22-29 mmol/L) Anion Gap 14 (Ref Range: 12-20) 14 (Ref Range: 12-20) 11 L (Ref Range: 12-20) Blood Urea Nitrogen 16 (Ref Range: 9-16 mg/dL) 14 (Ref Range: 9-16 mg/dL) 7 L (Ref Range: 9-16 mg/dL) Creatinine 0.97 (Ref Range: 0.5-1.4 mg/dL) 0.96 (Ref Range: 0.5-1.4 mg/dL) 0.95 (Ref Range: 0.5-1.4 mg/dL) Estimated Glomerular Filt Rate > 60 > 60 > 60 Glucose Fasting 104 H (Ref Range: 60-99 mg/dL) 104 H (Ref Range: 60-99 mg/dL) 93 (Ref Range: 60-99 mg/dL) Calcium 9.5 (Ref Range: 8.4-10.2 mg/dL) 9.7 (Ref Range: 8.4-10.2 mg/dL) 9.5 (Ref Range: 8.4-10.2 mg/dL) * Lab:Lipid Panel * Collection Date 06/12/2025 01/10/2025 11/17/2023 Collection Time 06:34 AM 08:45 AM 07:55 AM Order Date 06/12/2025 01/10/2025 11/17/2023 Triglycerides 182 H (Ref Range: <150 mg/dL) 127 (Ref Range: <150 mg/dL) 79 (Ref Range: <150 mg/dL) Cholesterol 198 (Ref Range: <200 mg/dL) 212 H (Ref Range: <200 mg/dL) 166 (Ref Range: <200 mg/dL) LDL Cholesterol Calculated 106 H (Ref Range: <100 mg/dL) 128 H (Ref Range: <100 mg/dL) 96 (Ref Range: <100 mg/dL) HDL Cholesterol 56 (Ref Range: >40 mg/dL) 59 (Ref Range: >40 mg/dL) 55 (Ref Range: >40 mg/dL) * Examination: G eneral Examination: GENERAL APPEARANCE: [...] or vascular bruits. LUNGS: c lear to auscultation, no rub, mild pain to pressure over the left lower chest wall. BREASTS: no masses palpable bilaterally. ABDOMEN: b owel sounds normal, no ascites, no organomegaly, no mass: centripital obesity. RECTAL EXAM: n ot examined. MUSCULOSKELETAL: e xtremities unremarkable, no clubbing, cyanosis or edema. PERIPHERAL PULSES: n ormal. NEUROLOGIC: a lert and oriented, cranial nerves 2-12 grossly intact, deep tendon reflexes 2+ symmetrical, motor strength normal upper and lower extremities, sensory exam intact. PSYCH: a lert, oriented. Assessment: * Assessment: 1. E pisodic migraine - G43.909 (Primary) N otes :She has had 2 headaches lately which were preceded by what she calls a kaleidoscope in her visual field. She did not wish a prescription for Imitrex at this time. She will call me if she has another 1. 2 . O besity (BMI 30.0-34.9) - [...] is a bad year for seasonal allergies. 5 . H istory of depression - Z86.59 N otes :She continues to see a therapist. Her depression is present but minimal. She is completing all of the activities of daily life without impairment. 6 . S tatus post appendectomy - Z90.49 N otes :She has recovered from tthe appendicitis and appendectomy. She has returned to all of the activities of daily living. 7 . C hest discomfort - R07.89 N otes :This discomfort is much improved and appears to be resolving. Plan: * Treatment: 2. O thers Referral To:General Surgeons [facility] Surgery Reason:Consult and Treat Hemorrhoid would like removed * Procedure Codes: * Preventive Medicine: Counseling: [...] tobacco use and urged to quit. 1 08/16/2024 * Follow Up: A s Scheduled (Reason: OV) * Images: * Sign off status: Completed true * Provider: Maribel Blanchard MD Date: 08/16/2024 Generated for Janet fine/Eliana/Janice on: 06:40 PM [...] or vascular bruits LUNGS: clear to auscultatio n, no rub, mild pain to pressure over the left lower chest wall ABDOMEN: bowel sounds normal, no ascites, no organomegaly, no mass: centripital obesity NEUROLOGIC: alert and oriented, cranial nerves 2-12 [...] PSYCH: alert, oriented ORAL CAVITY: normal, unremarkable Consultation Request Notes Referral Date Referring Provider Referred Provider Not es 06/15/2025 Aroldo Blanchard [facility], General Surgeons Consult and Treat Hemorrhoid would like removed
--- NOTE | 2025-07-14 15:21 | A.OFFVIS_ITS ---
Vital Signs 07/14/25 15:27 Height 5 ft 3 in Weight 184 lb 6 oz BMI 32.7 Intake Visit Reasons: hemorrhoids Intake Note: Patient is seen in office for evaluation of hemorrhoids. Pt c/o: reports bright red blood per rectum, changes to bowel habits, reports constipation and then it turns into diarrhea for about 2 hours, he has had x2 colonoscopy in the past. Linux Unix Engineer Required: No Accounts Payable Processor: Accounts Payable Processor Present (Pauline-JOHAN) Accompanied by: Self / Same As Patient Allergies prednisone (PREDNISONE) Allergy (Severe, Verified 07/14/25 15:28) HIVES Medication List - Last Reconciled 07/14/25 by Nehemias Holcomb MD escitalopram oxalate 5 mg PO DAILY HPI Comments Details: 54-year-old female returning with complaints of bleeding per rectum. She continues to have loose stools but occasionally has difficulty passing her bowels. She was previously evaluated by a surgeon and told she had a narrowed sphincter. She does require straining to have a bowel movement which seems to aggravate the pain and bleeding. She is currently using [id number] hemorrhoid creams which do not seem to be helping. She occasionally takes over- the-counter bowel preparations to keep her bowel solid but she is not currently using this. She denies any previous hemorrhoidal surgery. She has had previous colonoscopies by Dr. Wade for colon polyps. She denies any fever or chills. [facility] Medical History Menopause Colon polyps Acquired intussusception of intestine Acute appendicitis History of blood transfusion Anemia Anxiety PONV (postoperative nausea and vomiting) Surgical History S/P laparoscopic appendectomy History of laparoscopic appendectomy (04/16/25) History of repair of anterior cruciate ligament of left knee History of colonoscopy History of partial hysterectomy History of cervical polypectomy History of tonsillectomy History of bilateral breast reduction surgery History of endometrial ablation Social History Household Members: Significant Other Housing: House Are you a primary healthcare technician to a significant other at home: No Do you presently have visiting nurse or other home services: No Comment: RECENT ACL KNEE REPAIR Patient Tobacco Use Status: Former Tobacco user Tobacco use type: Cigarette e-Cigarette/Vaping Use: Currently Using Second Hand Smoke Exposure: No service: No Review of Systems Const All systems reviewed & are unremarkable except as noted in HPI and below Physical Exam Const General: comfortable Nutritional Appearance: well nourished Orientation/consciousness: patient oriented x3 Limitations: no limitations Resp Effort & Inspection: normal respiratory effort, no audible wheezes, no cough and no respiratory distress GI Inspection: Yes normal to inspection Palpation (GI): Soft to palpation, nontender, no guarding and not rigid Back/Spine/Pelvis Other: Rectal examination: External examination revealed several sentinel piles loca vivienne both the anterior and posterior Digital rectal examination: Hypertrophic internal sphincter muscle with tenderness both posterior and anterior anal wall Anoscopic exam deferred due to hypertrophic internal anal sphincter. Neuro General: patient oriented x3 Extrem Other: No cyanosis, clubbing or edema. Assessment & Plan Assessment & Plan (1) Anal fissure: Code(s): K60.2 - Anal fissure, unspecified Category: Medical Plan 54-year-old female patient with difficulty passing bowels requiring straining occasionally associated with pain and bleeding. Examination today confirms a hypertrophic internal anal sphincter with tenderness in the anal canal suggestive of an anal fissure. External anal tags were identified as typically seen with anal fissures. I recommended an exam under anesthesia and possible lateral internal sphincterotomy. After discussion of the procedure, risks, and alternatives, she consents to the exam under anesthesia, lateral internal sphincterotomy. She will be scheduled as a short-stay surgery her earliest convenience. Orders: Referrals General Surgery Procedure Notification K60.2 - Anal fissure, unspecified Coding Level of Care Code Est Pt Level 4 (07481) Diagnoses Anal fissure K60.2
[2025-07-14 15:27] VITALS: BMI 32.7
--- OUTSIDE RECORDS SUMMARY | 2025-07-14 18:41 | XMS_ITS | Patient Health Record ---
Author Organization [facility] Address [address] [place] [address] Care Team Providers Care Hair Dryer Name Role Phone Aroldo Blanchard MD Primary Care Provider UnavailRuslan Mishra Jr Unavailable [phone] Allergies Allergen (clinical drug ingredient) Drug/Non Drug Allergy documented on EMR Reaction Allergy Type Onset Date Status Seasonal IC Unknown Drug Allergy Activ e Results Component Value Reference Range Notes Pathology Reviewed date:05/14/2025 01:09:14 PM Interpretation: Performing Lab:[facility], [address] [place] [id number] Notes/Report: Reason For Referral No Information Medications [...] Problem History of polyp of colon (situation) (250036932) Personal history of colonic polyps (Z86.010) Active confirmed Problem Change in bowel habit (18425087) Change in bowel habits (R19.4) Active confirmed Problem Hemorrhoids without complication (38690872) Hemorrhoids, unspecified hemorrhoid type (K64.9) Active confirmed Problem Diarrhea (85307365) Diarrhea, unspecified type (R19.7) Active confirmed Problem Benign neoplasm of colon (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) Polyp of colon, unspecified part of colon, unspecified type (K63.5) Active confirmed Problem Altered bowel function (90321535) Change in bowel function (R19.8) Active confirmed Encounters Encounter Location Date Provider Diagnosis [facility] Outpatient [address] [place] [phone] 05/12/2025 Ruslan Wade Jr [facility] [address] [place] [phone] 04/30/2025 Ruslan Wade Jr [facility] [address] [place] [phone] 05/14/2025 Ruslan Wade Jr Plan Of Treatment Pending Test Test Name Order Date LIVER PROFILE 08/30/2022 LIPASE 08/30/2022 CBC w DIFF 08/30/2022 TSH REFLEX FREE T4 08/30/2022 Future Test Test Name Order Date COLONOSCOPY 04/06/2021 COLONOSCOPY 04/21/2021 COLONOSCOPY 09/14/2022 Insurance Providers Payer Name Payer Address Payer Phone Subscriber Number Group Number Insured Name Patient Relationship to Insured Coverage Start Date Coverage End Date [facility] [address] [place], [place] [id number] LUPE REINA Self - patient is the insured Medical (General) History Medical History History ICD Code Anxiety/stress Anemia requiring blood transfusion due t o menorrhagia Surgical History Surgery Date(Month/Year) Reduction mammoplasty Partial hysterectomy for menorrhagia in cervical polyp Tonsillectomy Left knee ACL
--- OUTSIDE RECORDS SUMMARY | 2025-07-14 18:41 | XMS_ITS | Patient Health Record ---
Author Organization Aroldo Blanchard III, MD Address [address] [address] Care Team Providers Care Medical Laboratory Technician Name Role Phone Dr. Aroldo Blanchard III Primary Care Provider [phone] Allergies Allergen (clinical drug ingredient) Drug/Non Drug [...] date:10/11/2024 08:12:45 AM Interpretation: Performing Lab: Notes/Report: [facility] [address] [place] [address] XRay Report Signed Patient: Derik Acharya MR#: [id number] : 1970 Acct:[id number] Age/Sex: 53 / F ADM Date: 10/08/24 Loc: HO.XRAY Attending Dr: Aroldo Blanchard MD Ordering Physician: Aroldo Blanchard MD Date of Service: 10/08/24 Procedure(s): XR chest 2V Accession Number(s): [id number] cc: Aroldo Blanchard MD EXAMINATION: XR CHEST [...] 10/08/24 1154 DD/ 1145 TD/TT: 10/08/24 1150 Carpet Yarn Winder Operator: [place] [address] XRay Report Signed Patient: Derik Acharya MR#: [id number] : 1970 Acct:[id number] Age/Sex: 53 / F ADM Date: 10/08/24 Loc: HOADRIANNEAY Attending Dr: Aroldo Blanchard MD Ordering Physician: Aroldo Blanchard MD Date of Service: 10/08/24 Procedure(s): XR chest 2V Accession Number(s): [id number] cc: Aroldo Blanchard MD EXAMINATION: XR CHES [...] 10/08/24 1154 DD/ 1145 TD/TT: 10/08/24 1150 Carpet Yarn Winder Operator: Lipid Panel Reviewed date:01/16/2025 07:01:55 PM Interpretation: Performing Lab:[facility], [address] [place] [address] [place] [address] Notes/Report: Triglycerides 127 <150 mg/dL Desirable Triglyceride: [...] date:01/27/2025 04:58:00 AM Interpretation: Performing Lab: Notes/Report: [address] [place] [address] Mammography Report Signed Patient: Derik Redd MR#: [id number] : 1970 Acct:[id number] Age/Sex: 54 / F ADM Date: 01/12/25 Loc: HO.MAMMO Attending Dr: Aroldo Blanchard MD Ordering Physician: Aroldo Blanchard MD Results: 2Benign Findings Date of Service: 01/12/25 Follow Up: 1 Year From [facility] Mammogram Procedure(s): MM tomosynthesis screening BI Accession Number(s): [id number] cc: Aroldo Blanchard MD EXAMINATION: MM SCREENING [...] 01/25/25 1419 DD/ 1535 TD/TT: 01/12/25 1549 Carpet Yarn Winder Operator: Mary [facility] [address] [place] [address] Mammography Report Signed Patient: Kira Redd MR#: [id number] : 1970 Acct:[id number] Age/Sex: 54 / F ADM Date: 01/12/25 Loc: HO.MAMMO Attending Dr: Aroldo Blanchard MD Ordering Physician: Aroldo Blanchard MD Results: 2Benign Findings Date of Service: Follow Up: 1 Year From [facility] Mammogram Procedure(s): MM tomosynthesis screening BI Accession Number(s): [id number] cc: Aroldo Blanchard MD EXAMINATION: MM SCREENING [...] 01/25/25 1419 DD/ 1535 TD/TT: 01/12/25 1549 Carpet Yarn Winder Operator: Complete Blood Count Auto Di ff Reviewed date:04/27/2025 09:26:08 AM Interpretation: Performing Lab:[facility], [address] [place] [phone] Notes/Report: White Blood Count 11.8 4.8-10.8 X10*3/uL [...] Panel Reviewed date:04/27/2025 09:26:08 AM Interpretation: Performing Lab:[facility], [address] [place] [phone] Notes/Report: Sodium 136 135-145 mmol/L Potassium 3.8 [...] Acid Reviewed date:04/27/2025 09:26:08 AM Interpretation: Performing Lab:[facility], [address] [place] [phone] Notes/Report: Lactic Acid 1.2 0.5-2.0 mmol/L Lipase Reviewed date:04/27/2025 09:26:08 AM Interpretation: Performing Lab:[facility], [address] [place] [address] Notes/Report: Lipase 22 8-78 U/L Pathology Reviewed date:04/27/2025 09:26:08 AM Interpretation: Performing Lab:[facility], [address] [place] [address] Notes/Report: ------ Name: Derik Redd Age/Sex: 54/F : 1970 Unit#: [id number] Attend Dr: Nehemias Holcomb MD Re04/16/25 Status : DIS IN Location: [facility] 383-1 Disch: 04/17/25 ------ SPEC : [id number] RECD : 04/17/25 STATUS: XUAN LAY NUM: [id number] ANN: 04/16/[address] [facility] DR: Nehemias Holcomb MD ENTERED: 04/17/25 [...] filled with soft, semi formed fecal material. Box Worker secti ons are submitted for microscopic examination, 3 pieces in cassette A1 to show the margin o f resection and pharmacy sales representative cross-sections and 2 pieces in cassette A2 including cross-s ection from the distal portion of the specimen and a sagittal sections through the distal t ip. ([facility]) IHC S/NG Disclaimer NOTE: Unless otherwi se stated, all tissue is formalin-fixed and paraffin-embedded. Some or all of the immunohistochemical tests reported herein may have been developed and their performance characteristics determined by [facility]. They have not been cleared [...] Derik Redd Age/Sex: 54/F : 1970 Unit#: [id number] Attend Dr: Nehemias Holcomb MD Re04/16/25 Status : DIS IN Location: [facility] 383-1 Disch: 04/17/25 ------ SPEC : [id number] RECD : 04/17/25 STATUS: XUAN LAY NUM: [id number] ANN: 04/16/[address] [facility] [address]: Nehemias Holcomb MD ENTERED: 04/17/25 48 SP TYPE: Surgical OTHR DR: Aroldo Blanchard MD ORDERED: Gross Micro L3 Copies To: Aroldo Blanchard MD [address] [facility], [address] [place] [address] Nehemias Holcomb MD [facility] [address] [place] [address] ------ Signed (signature on file) Aurelia Senior MD 04/21/25 1016 ------ END OF REPORT CT abdomen pelvis w daria Reviewed date:04/27/2025 09:26:08 AM Interpretation: Performing Lab: Notes/Report: [address] [address] [address] Scan Report Signed Patient: Derik Redd MR#: [id number] : 1970 Acct:[id number] Age/Sex: 54 / F ADM Date: 04/16/25 Loc: HO.ED Attending Dr: Ordering Physician: Vito Davis DO Date of Service: 04/16/25 Procedure(s): CT abdomen pelvis w IV con Accession Number(s): [id number] cc: Aroldo Blanchard MD; Vito Davis DO Report Number: [id number]: Total DLP = 639.00 mGy-cm Reason for [...] 04/16/25 0759 DD/ 0700 TD/TT: 04/16/25 0710 Carpet Yarn Winder Operator: [place] [address] CT Scan Report Signed Patient: Kira Redd MR#: [id number] : 1970 Acct:[id number] Age/Sex: 54 / F ADM Date: 04/16/25 Loc: HO.ED Attending Dr: Ordering Physician: Vito Davis DO Date of Service: 04/16/25 Procedure(s): CT abd omen pelvis w IV con Accession Number(s): [id number] cc: Aroldo Blanchard MD; Vito Davis DO [...] 04/16/25 0759 DD/ 0700 TD/TT: 04/16/25 0710 Carpet Yarn Winder Operator: Complete Blood Count Auto Di ff Reviewed date:05/01/2025 05:14:43 PM Interpretation: Performing Lab:[facility], [address] [place] [phone] Notes/Report: White Blood Count 24.0 4.8-10.8 X10*3/uL [...] Panel Reviewed date:05/01/2025 05:14:43 PM Interpretation: Performing Lab:[facility], [address] [place] [phone] Notes/Report: Sodium 135 135-145 mmol/L Potassium 3.8 [...] Acid Reviewed date:05/01/2025 05:14:43 PM Interpretation: Performing Lab:[facility], [address] [place] [phone] Notes/Report: Lactic Acid 1.3 0.5-2.0 mmol/L Magnesium Reviewed date:05/01/2025 05:14:43 PM Interpretation: Performing Lab:[facility], [address] [place] [phone] Notes/Report: Magnesium 2.0 1.6-2.6 mg/dL SLIDE REVIEW Reviewed date:05/01/2025 05:14:43 PM Interpretation: Performing Lab:[facility], [address] [place] [phone] Notes/Report: SLIDE REVIEW VERIFIED Blood Culture (First) Reviewed date:05/03/2025 08:29:03 AM Interpretation: Performing Lab:[facility], [address] [place] [phone] Notes/Report: Blood Culture (First) No growth after 5 days. Blood Culture (Second) Reviewed date:05/03/2025 08:29:03 AM Interpretation: Performing Lab:[facility], [address] [place] [phone] Notes/Report: Blood Culture (Second) No growth after 5 days. UA ClnCatch+Micro w/rflx Cul t Reviewed date:05/01/2025 05:14:43 PM Interpretation: Performing Lab:[facility], [address] [place] [phone] Notes/Report: Urine, Clean Catch Color Urine Yellow Appearance Urine Clear PH 5.5 5.0-9.0 Glucose Urine UA Negative Negative mg/dL Urine Blood Moderate (2+) Negative Specific [place] - Urine 1.015 1.005-1.025 Urine Protein Negative [...] date:05/01/2025 05:14:43 PM Interpretation: Performing Lab: Notes/Report: [address] [address] [address] Scan Report Signed Patient: Derik Redd MR#: [id number] : 1970 Acct:[id number] Age/Sex: 54 / F ADM Date: 04/27/25 Loc: HO.ED Attending Dr: Ordering Physician: Soraya Whitaker Date of Service: 04/27/25 Procedure(s): CT abdomen pelvis w IV con Accession Number(s): [id number] cc: Aroldo Blanchard MD; Soraya Whitaker Report Number: [id number]: Total DLP = 620.00 mGy-cm Reason for [...] in OV> 04/27/252043 DD/ 42 TD/TT: 04/27/252042 Carpet Yarn Winder Operator: [address] [address] [address] Scan Report Signed Patient: Kira Redd MR#: [id number] : 1970 Acct:[id number] Age/Sex: 54 / F ADM Date: 04/27/25 Loc: HO.ED Attending Dr: Ordering Physician: Soraya Whitaker Date of Service: 04/27/25 Procedure(s): CT abd omen pelvis w IV con Accession Number(s): [id number] cc: Aroldo Blanchard MD; Soraya Whitaker Report [...] in OV> 04/27/252043 DD/ 42 TD/TT: 04/27/252042 Carpet Yarn Winder Operator: Complete Blood Count Auto Di ff Reviewed date:05/01/2025 05:14:43 PM Interpretation: Performing Lab:[facility], [address] [place] [phone] Notes/Report: White Blood Count 13.5 4.8-10.8 X10*3/uL [...] Panel Reviewed date:05/01/2025 05:14:43 PM Interpretation: Performing Lab:[facility], [address] [place] [phone] Notes/Report: Sodium 140 135-145 mmol/L Potassium 3.5 [...] PCR Reviewed date:05/01/2025 05:14:43 PM Interpretation: Performing Lab:[address] [address] Notes/Report: CDiff Gene PCR POSITIVE Negative Additional C. difficile toxin testing to be performed. Additional C. difficile toxin testing to be performed. CDiff Gene PCR POSITIVE Negative Additional C. difficile toxin testing to be performed. Additional C. difficile toxin testing to be performed. FERMÍN ECTED REPORT GI Panel Reviewed date:05/01/2025 05:14:43 PM Interpretation: Performing Lab:[facility], [address] [place] [phone] Notes/Report: Campylobacter Not Detected Not Detect. Plesiomonas [...] Detected called to and read back by [facility] on 04/28/25 at 0938 by [...] is performed by Multiplexed PCR, utilizing the [place] Array. CDiff Toxin Reviewed date:05/01/2025 05:14:43 PM Interpretation: Performing Lab:[address] [address] Notes/Report: CDiff Toxin Negative Negative CDIFF Interpretation SEE NOTE Likely C. difficile colonization. Continue contact precautions. Pathology Reviewed date:06/12/2025 08:45:19 PM Interpretation: Performing Lab:[address] [address] Notes/Report: ------ Name: Derik Redd Age/Sex: 54/F [facility] 1970 [id number]#: [id number] Attend Dr: Ruslan Wade MD Re05/12/25 Status : [facility] Location: [facility] Disch: ------ SPEC : [id number] RECD : 05/13/25 STATUS: [facility] NUM: [id number] ANN: 05/12/25140 [facility] DR: Ruslan Wade MD ENTERED: 05/13/25 [...] Derik Redd Age/Sex: 54/F : 1970 Unit#: [id number] Attend Dr: Ruslan Wade MD Re05/12/25 Status : [facility] Location: [facility] Disch: ------ SPEC : [id number] RECD : 05/13/25 STATUS: XUAN BACHE[place]is NUM: [id number] ANN: 05/12/251405 [facility] DR: Ruslan Wade MD ENTERED: 05/13/25 SP TYPE: Surgical OTHR DR: Aroldo Blanchard MD ORDERED: HE Stain/12 , Gross Micro L4/4 IHC S/NG Disclaimer NOTE: Unless otherwi se stated, all tissue is formalin-fixed and paraffin-embedded. Some or all of the immunohistochemical tests reported herein may have been developed and their performance characteristics determined by [facility]. They have not been cleared or appr shun by the U.S. Food and Drug Administration (FDA). However, the FDA has determined that such clearance or approval is not necessary. This laboratory is certified under the Clinical Laboratory Improvement Amendments of 1988 (CLIA) as qualified to perform high comp lexity clinical laboratory testing. Copies To: Aroldo Blanchard MD [address] [place] [address], [address] [address] Ruslan Wade MD [facility] [address] [place] [address] ------ Signed (signature on file) Aurelia Senior MD 05/14/25 1141 ------ END OF REPORT Complete Blood Count Auto Di ff Reviewed date:06/12/2025 08:45:19 PM Interpretation: Performing Lab:[facility], [address] [place] [address] [place] [address] Notes/Report: White Blood Count 6.0 4.8-10.8 X10*3/uL Red Blood Count 4.94 4.20-5.50 X10*6/uL Hemoglobin 14.8 12.0-16.0 g/dl Hematocrit 44.8 37.0-47.0 % Mean Corpuscular Volume 90.7 80.0-98.0 fL Mean Corpuscular Hemoglobin 30.0 27.0-33.0 pg Mean Corpuscular HGB Conc 33.0 31.0-35.0 g/dl Red Cell Distribution Width 13.0 11.0-16.0 % Platelet Count 348 160-400 X10*3/uL Mean Platelet Volume 9.5 9.4-12.3 fL Neutrophils Percent Auto 50.6 45-73 % Imm Gran Pct Auto 0.2 0.0-0.4 % Lymphocytes Percent Auto 37.1 20-40 % Monocytes Percent Auto 6.8 2-11 % Eosinophils Percent Auto 4.0 0-4 % Basophils Percent Auto 1.3 0-2 % NRBC Pct Auto 0.0 0.0-0.2 /100WBC Neutrophils Absolute Auto 3.1 2.0-8.3 x10*3/uL Imm Gran Abs Auto 0.01 0.00-0.03 X10*3/uL Lymphocytes Absolute Auto 2.2 1.2-4.9 X10*3/uL Monocytes Absolute Auto 0.4 0.1-1.2 X10*3/uL Eosinophils Absolute Auto 0.2 0.0-0.4 X10*3/uL Basophils Absolute Auto 0.1 0.0-0.2 X10*3/uL NRBC Abs Auto 0.000 0.0-0.012 X10*3/uL Comprehensive [place]. Panel Fa st Reviewed date:06/12/2025 08:45:19 PM Interpretation: Performing Lab:[facility], [address] [place] [phone] Notes/Report: Sodium 139 135-145 mmol/L Potassium 3.8 3.3-5.1 mmol/L Chloride 104 96-108 mmol/L Carbon Dioxide 25 22-29 mmol/L Anion Gap 14 12-20 Blood Urea Nitrogen 16 9-16 mg/dL Creatinine 0.97 0.5-1.4 mg/dL Estimated Glomerular Filt Rate > 60 Chronic Kidney Disease: Estimated GFR < 60 mL/min/1.73m2 Severe Kidney Disease: Estimated GFR < 15 mL/min/1.73m2 Glucose Fasting 104 60-99 mg/dL A fasting glucose from 100-125 mg/dl is considered impaired (pre-diabetes). Calcium 9.5 8.4-10.2 mg/dL Bilirubin Total 0.4 0.0-1.0 mg/dL Aspartate Amino Transferase 20 5-31 U/L Alanine Aminotransferase 14 0-31 U/L Total Protein 7.2 6.5-8.0 g/dL Albumin Level 4.6 3.5-5.0 g/dL Alkaline Phosphatase 83 39-117 U/L Lipid Panel Reviewed date:06/12/2025 08:45:19 PM Interpretation: Performing Lab:[facility], [address] [facility], [place] [address] Notes/Report: Triglycerides 182 <150 mg/dL Desirable Triglyceride: less than 150 mg/dL Borderline High Triglyceride 150-199 mg/dL High Triglyceride: 200-499 mg/dL Very High Triglyceride: greater than or equal to 5OO mg/dL Cholesterol 198 <200 mg/dL Desirable Cholesterol: less than 200 mg/dL Borderline High Cholesterol: 200-239 mg/dL High Cholesterol: greater than 239 mg/dL LDL Cholesterol Calculated 106 <100 mg/dL Desirable LDL: less than 100 mg/dL Near Optimal/Above Optimal LDL: 110-129 mg/dL Borderline High LDL: 130-159 mg/dL High LDL: 160-189 mg/dL Very High LDL: greater than or equal to 190 mg/dL HDL Cholesterol 56 >40 mg/dL Desirable HDL: greater than 40 mg/dL Note: This HDL assay may give artificially low results in patients with liver disease. Reason For Referral Reason Consult and Treat Depression ? ADHD Diagnosis 1 Depression (F32.9) Referral Organization Aroldo Blanchard III, MD Referring Provider First Name Aroldo Referring Provider Last Name Lo Referring Provider Speciality Internal edicine Referred Provider [facility] Referred Provider Specialty Unknown General Notes D Ivelisse 10/15/2024 03:44:32 PM > Patient was given [facility] and [facility] information to contact them to schedule an appointment. we explained we are unable to schedule or send referral for the patients they are required to contact themselves Referral Priority Routine Reason Consult and Treat Hemorrhoid would like removed Diagnosis 1 Hemorrhoids (K64.9) Referral Organization Aroldo Blanchard III, MD Referring Provider First Name Aroldo Referring Provider Last Name Lo Referring Provider Speciality Internal edicine Referred Provider [facility] er, General Surgeons Referred Provider Specialty Surgery General Notes D, Ivelisse 06/22/2025 02:27:58 PM > Referral and progress note faxed. Referral Priority Routine Referral Appointment Date 07/14/2025 Medications Medication SIG (Take, Route, Frequency, Duration) [...] Problem Status W/U Status Risk Notes Problem 1255551 Former smoker (Z87.891) Active confirmed She has a plan to prevent relapse in times of stress and illness. Problem Depression (919730538) Depression (F32.9) Active confirmed Her depression is stable. She is going to report immediately if it worsens. No change in regimen as needed. Problem 735690681446947 Obesity (BMI 30.0-34.9) (E66.9) Active confirmed She has lost 2 pounds since the surgery. We discussed diet and nutrition. We made a plan to lose weight at a rate of 1 pound per week. Problem 54684057 Penicillin allergy (Z88.0) Active confirmed Problem 559084394 Environmental allergies (Z91.09) Active confirmed She has significant allergies and is dealing with them appropriately. She says this is a bad year for seasonal allergies. Problem 35448118 Viral syndrome (B34.9) Active confirmed She has recovered well enough to return to work and normal life. She will call me if she has any difficulty with this. Current therapies were continued. Problem 669095837 Chest discomfort (R07.89) Active confirmed This discomfort is much improved and appears to be resolving. Problem 349879412 Rash (R21) Active confirmed S he was given a course of oral prednisone as well as topical triamcinolone. Problem Hyperlipidaemia (39076211) Hyperlipidemia, unspecified hyperlipidemia type (E78.5) Active confirmed Her fasting total cholesterol of 212. No joint treatment is necessary. Problem 087691120 History of depression (Z86.59) Active confirmed She continues to see a therapist. Her depression is present but minimal. She is completing all of the activities of daily life without impairment. Problem 436526812 Acute asthmatic bronchitis (J45.909) Active confirmed I have given her prednisone and Augmentin. She says she has an inhaler. She will report in 48 hours. Problem 60761701 Diet controlled gestational diabetes mellitus (GDM) in third trimester (O24.410) Active confirmed Comprehensive blood work is pending. Problem 681081967969194 Episodic migraine (G43.909) Active confirmed She has had 2 headaches lately which were preceded by what she calls a kaleidoscope in her visual field. She did not wish a prescription for Imitrex at this time. She will call me if she has another 1. Problem 057429290 Status post appendectomy (Z90.49) Active confirmed She has recovered from tthe appendicitis and appendectomy. She has returned to all of the activities of daily living. Vital Signs Heart Rate 68 /min 06/15/2025 Temperature 97.2 degrees Fahrenheit 06/15/2025 Blood pressure diastolic 74 mm Hg 06/15/2025 Height 63 in 06/15/2025 Blood pressure systolic 130 mm Hg 06/15/2025 Weight 182 lbs 06/15/2025 BMI 32.24 kg/m2 06/15/2025 Encounters Encounter Location Date Provider Diagnosis Aroldo Blanchard III, MD [address] [place] [address] [place] [address] 10/01/2024 Aroldo Blanchard Viral syndrome B34.9 ; Obesity (BMI 30.0-34.9) E66.9 ; Diet controlled gestational diabetes mellitus (GDM) in third trimester O24.410 ; Former smoker Z87.891 ; History of depression Z86.59 ; Depression F32.9 and Hyperlipidemia, unspecified hyperlipidemia type E78.5 Aroldo Blanchard III, MD [address] [place] [address] [place] [address] 10/08/2024 Aroldo Blanchard Obesity (BMI 30.0-34 .9) E66.9 ; Acute asthmatic bronchitis J45.909 ; Former smoker Z87.891 ; History of depression Z86.59 ; Environmental allergies Z91.09 and Hyperlipidemia, unspecified hyperlipidemia type E78.5 Aroldo Blanchard III, MD [address] [place] [address] [place] [address] 10/15/2024 Aroldo Blanchard Obesity (BMI 30.0-34 .9) E66.9 ; Viral syndrome B34.9 ; Hyperlipidemia, unspecified hyperlipidemia type E78.5 ; Former smoker Z87.891 ; Environmental allergies Z91.09 and History of depression Z86.59 Aroldo Blanchard III, MD [address] [place] [address] [place] [address] 12/29/2024 Aroldo Blanchard Obesity (BMI 30.0-34 .9) E66.9 ; Breast cancer screening Z12.31 ; Former smoker Z87.891 and Environmental allergies Z91.09 Aroldo Blanchard III, MD [address] [place] [address] [place] [address] 01/26/2025 Aroldo Blanchard Obesity (BMI 30.0-34 .9) E66.9 ; Hyperlipidemia, unspecified hyperlipidemia type E78.5 and Former smoker Z87.891 Aroldo Blanchard III, MD [address] [place] [address] [place] [address] 04/20/2025 Aroldo Blanchard Obesity (BMI 30.0-34 .9) E66.9 ; Status post appendectomy Z90.49 ; Hyperlipidemia, unspecified hyperlipidemia type E78.5 ; Former smoker Z87.891 ; Environmental allergies Z91.09 ; History of depression Z86.59 and Depression F32.9 Aroldo Blanchard III, MD [address] [place] [address] [place] [address] 05/20/2025 Aroldo Blanchard Obesity (BMI 30.0-34 .9) E66.9 ; Chest discomfort R07.89 ; Former smoker Z87.891 ; Diet controlled gestational diabetes mellitus (GDM) in third trimester O24.410 ; Environmental allergies Z91.09 and History of depression Z86.59 Aroldo Blanchard III, MD [address] [place] [address] [place] [address] 06/15/2025 Aroldo Blanchard Obesity (BMI 30.0-34 .9) E66.9 ; Episodic migraine G43.909 ; Former smoker Z87.891 ; Environmental allergies Z91.09 ; History of depression Z86.59 ; Status post appendectomy Z90.49 and Chest discomfort R07.89 Aroldo Blanchard III, MD [address] [place] [address] [place] [address] 10/03/2024 Aroldo Blanchard III, MD [address] [place] [address] [place] [address] 10/06/2024 Aroldo Blanchard III, MD [address] [place] [address] [place] [address] 10/08/2024 Aroldo Blanchard III, MD [address] [place] [address] [place] [address] 10/09/2024 Aroldo Blanchard III, MD [address] [place] [address] [place] [address] 05/05/2025 Aroldo Blanchard Assessments Encounter Date Diagnosis [...] will be treated at home conservatively with pbec-cqg-ggzfgqk medications. She is going to report frequently [...] seems stable today. She'll be observed carefully. 06/15/2025 Obesity (BMI 30.0-34.9) (ICD-10 - E66.9) [...] call me if she has another 1. 10/01/2024 Diet controlled gestational diabetes mellitus (GDM) [...] in times of stress and illness. 06/15/2025 Former smoker (ICD-10 - Z87.891) She [...] - O24.410) Comprehensive blood work is pending. 06/15/2025 Environmental allergies (ICD-10 - Z91.09) She [...] activities of daily life without impairment. 10/01/2024 Depression (ICD-10 - F32.9) Her depression [...] all of the activities of daily living. 10/01/2024 Hyperlipidemia, unspecified hyperlipidemia type (ICD-10 - E78.5) Comprehensive blood work with a fasting lipid profile is pending. 04/20/2025 Depression (ICD-10 - F32.9) Her depression is stable. She is going to report immediately if it worsens. No change in regimen as needed. 06/15/2025 Chest discomfort (ICD-10 - R07.89) This discomfort is much improved and appears to be resolving. Plan Of Treatment Pending Test Test Name [...] CBC WITH AUTO DIFF 06/26/2023 Lipid Panel 01/26/2025 Lipid Panel 10/15/2024 Lipid Panel 11/05/2023 Lipid Panel 12/29/2024 MM tomosynthesis screening BI 12/29/2024 Hemoglobin A1c 11/05/2023 Next Appt Details Provider Name:Aroldo Blanchard , 07/29/2025 02:30:00 PM, [address] [place] [address] [address], [place], [address], Provider Name:Aroldo Blanchard , 12/30/2025 03:00:00 PM, [address] [place] [address] [address], [place], [id number], Insurance Providers Payer Name Payer Address Payer Phone Subscriber Number Group Number Insured Name Patient Relationship to Insured Coverage Start Date Coverage End Date [facility] [address] [place], [place] [id number] [phone] [id number] Derik Kan Self - patient is the [...]
== END 2025-07-14 16:02 | disposition home or self-care (01) ==
LOC: HO.HGS 15:16
PROVIDERS: PCP Internal Medicine Medical Oncology; Visit Provider Surgery
DX: K60.2 Anal fissure, unspecified (principal)
CPT/HCPCS: 99024